=== PATIENT | female | born 1935 | race Caucasian/White ===

== ENCOUNTER 2023-12-04 16:53 | Inpatient (IN) | payer OTHER, SELFPAY ==
[2023-12-04] VITALS (13 sets, daily range): BP systolic 83–128; BP diastolic 37–72; BMI 34.6
--- NOTE | 2023-12-04 12:39 | W.PN.CARDCBS ---
Today's Communication / Plan
-
NPO
LHC today
gentle IVF hydration pre/post cath
asa today if not given
plavix allergy noted
Impression / Plan
-
This is the Cardiology H&P
See scanned H&P in reports.
PCP: Primitivo Cedeno MD
CDY: Goyo Seymour MD
HPI: 87 y/o white female, PMH sig for CAD with prior LAD & LCx BMS x2 in 2014, and distal LCx/OM VANGIE in 2021, Carotid disease with CEA 2009 complicated by post op CVA, AFib on eliquis, HTN, HLD, DM, hypothyroid, CKD4, asthma.
New onset of chest tightness/dyspnea for a few days. She was using her PRN ProAir inhaler thinking it was related to asthma, and it did work for a short time and then it wasn't helping anymore. She was unable to catch her breath yesterday, and
presented to [facility] ER where she ruled in for NSTEMI with peak CK 1858, MB 200, HS Troponin 8554. An echo today revealed decreased LVSF, EF 30%, grade III LV diastolic dysfunction, with multiple segmental WMA, severely dilated LA, mod MR with severe
MAC, mod-severe TR. Eliquis held and started on IV heparin. SIMI noted in addition to CKD4, with creat 1.94, GFR 25 today.
A CXR showed pulmonary edema with possible associated pneumonia, cardiomegaly and congestion.
She has an allergy to plavix that was noted as a retinal hemorrhage.
Transferred today for [facility].
IMPRESSION/PLAN:
Acute NSTEMI
CAD w/prior BMS x2 to LAD, LCx (2014) and distal LCx/OM VANGIE (2021)
Peak HS troponin 8554
LHC today
pre cath hydration for creat 1.94/GFR 25
asa today if not given
allg noted to plavix- this is not a true allergy
cardiac rehab consult
followup with Dr. Seymour at d/c
Ischemic Cardiomyopathy
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
acute pulmonary edema
echo results noted- mod MR and mod-sev TR
will need to be started on max roscoe GDMT
currently on: Losartan 20/d, empagliflozin 10/d, metoprolol xl 25mg BID
was diuresed at [facility], would add po lasix, spironolactone if BP can tolerate
HF educator consult
consider LifeVest, repeat echo in 2 months
Acute hypoxic respiratory failure/pulmonary edema
Hx COPD/Reactive airway disease
currently status much improved
possible PNA on CXR, had started on abx
had been started on prednisone last week by PCP for RAD
PRN albuterol, O2 support as needed
HLD- continue high intensity statin therapy
lipitor 80/d
check CVE in AM
AFib- currently in sinus rhythm
eliquis on hold for cath
restart post cath when stable
CKD4/SIMI
creatinine/GFR worse this admission- 1.94/25
baseline from 2021- 1.2-1.5
hydrate pre/post cath per protocol as tolerated
repeat BMP in AM
IDDM- on daily lantus, ISS lispro
check HgbA1C
DM educator consult as needed
HTN- monitor trends on current therapy
Carotid disease, prior CEA w/CVA post op
residual right eye blindness
Elevated LFTs- repeat in AM
Progress Note - Minesweeping Officer
Subjective
Date of Service: December 04, 2023
[2023-12-04 14:17] LABS: Glucose - Point of Care 277 mg/dl (70-99)
[2023-12-04 15:51] LABS: ACT-LR - POC 239 Seconds (116-155)
[2023-12-04 16:12] LABS: ACT-LR - POC 244 Seconds (116-155)
--- NOTE | 2023-12-04 16:35 | CM ---
Pricing on Brilinta 90mg BID through the patient's [employer] is $108.97 for a 30 day supply. Patient is in the coverage gap, so she is responsible for paying 25% of cost.
--- NOTE | 2023-12-04 16:57 | ITS.CL.ANGIO ---
Ham Trimmer - Angioplasty
Angioplasty
Procedure Report:
LEFT HEART CATHETERIZATION
Date of Procedure: December 04, 2023
Procedures performed:
1: Coronary angiography
2: Left ventricular hemodynamic assessment
3: Percutaneous coronary intervention of the ostial/proximal LAD with placement of a 2.75 x 22 mm [place] drug-eluting stent postdilated at high pressure with a 3.25 mm diameter noncompliant balloon
Primary Care Physician: Dr. Primitivo Cedeno
Primary Machine Operator: Myself
INDICATION: The patient is an 87-year-old woman with a complex past medical history including coronary artery disease status post LAD and multiple circumflex stenting most recently in 2021, chronic renal insufficiency with a creatinine running
around 2.0, insulin-dependent diabetes, hypertension, hyperlipidemia, and persistent atrial fibrillation last documented in 2021 who presents with new dyspnea and rules in for a non-ST elevation [place]. Echocardiography performed this morning showed a
new drop in LV systolic function with a visually estimated ejection of 30% and new LAD wall motion abnormality. She is transferred from [facility] to [place] for urgent cardiac catheterization.
ACCESS: The patient was prepped and draped in usual sterile fashion. A 6 Czech sheath was placed in the right radial artery using the Seldinger over the wire technique.
HEMODYNAMIC FINDINGS (mmHg):
LV(s/d,EDP): 96/15, 24
Ao(s/d,m): 96/45, 66
ANGIOGRAPHIC FINDINGS:
Single-plane Left Ventriculography in [place] Projection: Not done.
Coronary Angiography:
Dominance: Left
Left Main: Short, widely patent.
Left Anterior Descending: The left anterior descending artery is a medium caliber vessel that has diffuse proximal and mid calcification throughout its course. There is a true ostial 80 to 90% stenosis which has progressed from prior angiography in
2021. The previously placed mid LAD stent is widely patent with no significant in-stent restenosis. There are several small diagonal branches that have small vessel disease but are patent with normal flow.
Left Circumflex: The left circumflex is a medium caliber dominant vessel that gives rise to 2 tiny obtuse marginal branches, a medium caliber third obtuse marginal branch, large fourth obtuse marginal branch and a left-sided posterior descending
artery. The proximal circumflex has a long area of calcific smooth 40 to 50% disease. The third obtuse marginal branch is functionally occluded with only faint antegrade flow and evidence of left to left distal collaterals. This is not
significantly changed when compared to prior angiography in 2021. The previously placed overlapping stents extending into the fourth obtuse marginal branch are widely patent with no significant in-stent restenosis and normal flow. The distal
circumflex is occluded and the left sided posterior descending artery fills faintly through left to left collaterals.
Right Coronary: The right coronary artery is a small nondominant vessel that has a smooth 80% proximal stenosis which appears unchanged from prior angiography.
Percutaneous Coronary Intervention (PCI): In light of her clinical presentation and the above complex disease in the setting of her advanced age, renal insufficiency, and new LV dysfunction, I discussed the complex disease and situation with her
daughters who I brought into the control room. I felt her best option was high risk PCI of the culprit ostial/proximal LAD but recognized that this was definitely high risk with her known obstructive disease in the jailed marginal branch and
occluded distal dominant PDA. She had previously opted against surgery in 2014 and ultimately we decided to proceed with an attempt at percutaneous revascularization. She was pretreated with aspirin. Unfractionated heparin was given. A 7 Czech
introducer was placed with ultrasound guidance and a micropuncture sheath in her right common femoral artery. A 7 Czech JL 4 guide was used. A BMW wire was advanced into the circumflex for protection. A Hi-Torque floppy wire was easily advanced
across the preocclusive ostial lesion and into the distal LAD. Predilation was performed with a 2.5 mm compliant balloon. Attempts to advance a stent were not successful so redilation with a 2.5 mm noncompliant balloon at high pressure was
performed. This facilitated delivery of a 2.75 x 22 mm [place] drug-eluting stent which was deployed at 16 dontae. The stent was postdilated with a 3.25 mm diameter noncompliant balloon at 16 dontae distally and 20 dontae proximally. Follow-up angiography
revealed some residual proximal in-stent stenosis so I repeated post dilation with a 3.25 mm diameter noncompliant balloon to 26 dontae. Fortunately the patient tolerated this without hemodynamic consequence. Of note, the ST depressions immediately
resolved with stenting. A loading dose of clopidogrel 600 mg was given on the table at the end of the procedure.
FINAL RESULT: 0% in-stent residual stenosis with an excellent angiographic result and JELENA-3 flow in all distal vessels. Of note, the left to left collaterals to the circumflex vessels appeared improved.
Fluoroscopy Time (min): 9.8
Radiation Dose (mGy): 1150
DAP (Gy.cm2): 83
Closure device: 8 Czech Angio-Seal to right common femoral artery. A TR band was applied for hemostasis at the right wrist.
Complications: None.
ASSESSMENT:
1: Successful PCI of the LAD with placement of a drug-eluting stent as described above.
2: Widely patent previously placed mid LAD stent and overlapping circumflex proper stents with known critical disease involving the jailed obtuse marginal branch and chronically occluded distal left sided posterior descending artery.
CONCLUSIONS and RECOMMENDATIONS:
1: Routine post non-STEMI and post drug-eluting stent medical therapy and monitoring. I will give dual antiplatelet therapy with aspirin and clopidogrel 75 mg daily uninterrupted for at least 6 months.
2: Medical therapy for LV systolic dysfunction. Hopefully her ejection fraction will recover with reperfusion.
Ryder Seymour M.D.
Copy to: Dr. Primitivo Cedeno
--- NOTE | 2023-12-04 16:58 | CM ---
Chart reviewed. Patient is independent of ADLS, lives alone in a 2 STH, 2 ANSON, 0 DME. Patient is not current with VN. Plan is for the patient to return home. CM to follow
[2023-12-04 17:27] LABS: Glucose - Point of Care 196 mg/dl (70-99)
--- NOTE | 2023-12-04 17:53 | PTCARENOTE ---
received patient from crown and bridge dental lab technician right radial has r band, intact, good pulse, right fem artery dsg with angioseal intact, no oozing, no hematoma, distal pulse palpable. monitor placed NSR, VSS. INT in left ant. leaking therefore D/C'd. int in left
wrist/hand has IV NSS delivered as ordered.oriented patient and family to post cath orders and room, all verbalizes understanding. please see worklist and MAR.
[2023-12-04] MEDS: NOVOLOG FLEXPEN-HIGH RESISTANCE 2 UNITS SC (18:11)
[2023-12-04 21:15] LABS: Glucose - Point of Care 323 mg/dl (70-99)
[2023-12-04] MEDS: LIPITOR 80 MG PO (21:15)
[2023-12-05] VITALS (37 sets, daily range): BP systolic 74–151; BP diastolic 47–140; BMI 37.0
--- NOTE | 2023-12-05 01:26 | PTCARENOTE ---
Pt oob after 8pm. Assisted to bathroom. gait slightly unsteady,improved after 2 nd trip. Pt aware to having nursing with her when she ambulates. Right radial and right groin sites remain dry with no hematomas present. call bejarano within reach.
[2023-12-05 04:00] LABS: Hematocrit 27.6 % (37.0-47.0); Hemoglobin 9.9 g/dL (12.0-16.0); Mean Corp Hgb Conc. 35.9 g/dL (33.0-37.0); Mean Corpuscular Hgb 29.9 pg (27.0-31.0); Mean Corpuscular Volume 83.4 fL (81.0-99.0); Mean Platelet Volume 10.8 fL (7.4-10.4); Platelet Count 240 10^3/uL (130-400); Red Blood Cell Count 3.31 10^6/uL (4.20-5.40); Red Cell Dist. Width 13.8 % (11.5-14.5); White Blood Cell Count 15.5 10^3/uL (4.8-10.8)
[2023-12-05 04:22] LABS: ALT (SGPT) 41 U/L (0-35); AST (SGOT) 237 U/L (14-36); Albumin 3.3 g/dl (3.5-5.0); Alkaline Phosphatase 100 U/L (38-126); Blood Urea Nitrogen 77 mg/dl (7-17); Calcium 8.4 mg/dl (8.4-10.2); Carbon Dioxide 24 mmol/L (22-30); Chloride 104 mmol/L (98-107); Estimated Creatinine Clearance 20 ml/min; Glucose 275 mg/dl (70-99); HDL Cholesterol 56 mg/dl; LDL Cholesterol, Calculated 54 mg/dl; Sodium 139 mmol/L (135-145); Total Bilirubin 0.5 mg/dl (0.2-1.3); Total Cholesterol 141 mg/dl (50-199); Total Protein 5.6 g/dl (6.3-8.2); Triglyceride 159 mg/dl (10-149); Very Low Density Lipoprotein 31 mg/dl (0-30); eGFR 27.27
[2023-12-05 04:30] LABS: NT-proBNP > 27000 pg/ml
[2023-12-05] MEDS: SYNTHROID 125 MCG PO (06:31)
[2023-12-05 07:56] LABS: Glucose - Point of Care 270 mg/dl (70-99)
[2023-12-05] MEDS: LOPRESSOR 5 MG IV (08:00)
[2023-12-05] MEDS: TOPROL XL 25 MG PO (08:08)
[2023-12-05] MEDS: PLAVIX 75 MG PO (08:09)
[2023-12-05] MEDS: LOW STRENGTH ASPIRIN 81 MG PO (08:09)
[2023-12-05] MEDS: JARDIANCE 10 MG PO (08:10)
[2023-12-05] MEDS: COZAAR PO (08:10)
--- NOTE | 2023-12-05 08:11 | W.PN.CARDCBS ---
Addendum entered and electronically signed by Bryon Waters MD 12/05/23 12:09:
Her blood pressure did not tolerate intravenous Cardizem even without a bolus and even with decreasing the drip.
-Will increase amiodarone to 400 mg p.o. 3 times daily
-Will add as needed metoprolol 5 mg IV every 4 hours for heart rate greater than 120 bpm
-Will stop metoprolol succinate
-Will add metoprolol to tartrate 25 mg p.o. every 6 hours for heart rate greater than 120 bpm
Acute plan will be to try to achieve reasonable rate control over the next 24 hours.
Maintain oral anticoagulation which was reinitiated within 24 hours of AF onset.
If she becomes unstable she will need cardioversion.
Discussed with patient, her daughter who is at bedside and also discussed with IVU nursing
Addendum entered and electronically signed by Bryon Waters MD 12/05/23 10:49:
Patient seen, interviewed and examined by me.
She tells me she has no chest pain but she still feels short of breath.
Well-appearing, appears mildly short of breath.
Regular rate and rhythm with normal S1 and S2, no S3 no S4. There is a grade 1/6 apical holosystolic murmur and no rubs. PMI is normally placed.
Lungs are clear to auscultation bilaterally without wheezes rales or rhonchi.
Abdomen soft nontender nondistended with normoactive bowel sounds
Extremities show trace pretibial edema bilaterally no clubbing or cyanosis.
Neurologic exam is grossly nonfocal.
Agree with advanced practice professionals assessment and plan as noted below.
Additionally:
I am concerned for ongoing volume overload and heart failure.
Creatinine 1.8 and creatinine was 1.9 and [facility] the day prior but I do not know what her true baseline is. Reviewing her medical history mentions nothing about chronic kidney disease.
Will give just 20 mg of IV Lasix today and follow volume status and renal function closely.
Discussed with patient companion.
Will initiate Eliquis and maintain ' triples' with dual antiplatelet therapy and Eliquis while she is hospitalized. At discharge we will stop aspirin and maintain Eliquis and Plavix.
She has a history of atrial fibrillation but reportedly had been in mostly sinus rhythm the past couple of years. Today she is back in atrial fibrillation with very rapid ventricular rates and this may be contributing to her ongoing shortness of
breath.
Will add amiodarone 200 mg 3 times daily
Will start Cardizem drip to more acutely control her heart rate
I have discussed with hospitalist.
Will transfer for primary service to hospitalist service and we will continue to follow, but as consultants.
Original Note:
Today's Communication / Plan
-
Rapid Afib, given Lopressor 5 mg IV x1 and regular dose of Toprol XL
Might need to start Cardizem gtt
No longer taking Eliquis in favor of DAPT s/p ostial LAD stent yesterday and h/o eye hemorrhages
LVEDP was 24 and was diuresed at [facility] prior to transfer, no Lasix ordered and EF is newly reduced at 30%, consider adding Lasix 20 mg PO daily
CM and post-NSTEMI meds appropriate
Impression / Plan
-
PCP: Primitivo Cedeno MD
CDY: Goyo Seymour MD
IMPRESSION:
Admitted to [facility] with acute hypoxic respiratory failure/pulmonary edema, HF and NTSEMI 12/03/23
Transferred to for cath 12/04/23
Acute HFrEF
ICM EF 30%
CAD
s/p LAD & LCx BMS x2 in 2014
s/p distal LCx/OM VANGIE in 2021
s/p NSTEMI and 2.75 mm Ramon VANGIE to ostial/prox LAD 12/04/23
Paroxysmal Afib with RVR starting 12/05/23 AM
Paroxysmal Afib
Chronic Eliquis OAC
Eliquis stopped by Dr. Seymour in favor of DAPT 12/04/23
Hyperlipidemia
SIMI on CKD 4
Cre 1.94 at [facility] 12/04/23
DM 2
Blind in left eye due to previous retinal hemorrhage and infection
Elevated LFTs
Echo 01/23/2022: EF 50 to 54%, moderate MR, mild MS with mean MV gradient 5 mmHg, mild to moderate TR with PAP 45 to 50 mmHg
Echo 12/04/2023: [facility] study, EF 30%, LAD wall motion abnormality
Plan:
-Patient went to [facility] ER 12/03/23 with chest pain and SOB and was admitted with pulmonary edema and NSTEMI. Patient was transferred to 12/04/23 for cath.
-No Troponin levels checked at . At [facility] peak CK 1858, MB 200, HS Troponin 8554. EF was newly reduced at 30% at [facility].
-Patient had ostial/prox LAD PCI at 12/04/23. Started on aspirin and Plavix.
-Outpatient dose of Eliquis 2.5 mg BID stopped in favor of DAPT. Patient is asymptomatic with Afib.
-Outpatient dose of Toprol XL 25 mg BID has been continued.
-Outpatient dose of losartan 25 mg daily has been continued.
-Outpatient dose of Jardiance 10 mg daily has been continued.
-LDL 54. Outpatient dose of atorvastatin 80 mg daily has been continued.
-Cardiac rehab consulted
-Patient with acute HF on admission to [facility]. Patient was reportedly diuresed at [facility], but details unclear. LVEDP 24 at time of cath 12/04/23. Patient was not taking a diuretic prior to admission. Consider adding Lasix 20 mg PO daily.
-EF now 30%, will manage as an ICM. Outpatient Toprol XL, losartan and Jardiance as is. Could consider adding spironolactone pending BP, but also with caution given h/o hyperkalemia.
-Patient with known paroxysmal Afib and was in SR until 12/05/23 AM when patient started with asymptomatic rapid Afib and HRs to the 170s. ECG reviewed by me shows rapid Afib. Lopressor 5 mg IV x1 given and then her usual dose of Toprol XL 25 mg BID.
Pending HR response will consider starting Cardizem gtt
-Patient is no longer on OAC due to preference for DAPT. Triple therapy was not started due to h/o eye hemorrhages. Will review with primary precision structural metal fitter.
-AST/ALT 331/41 at [facility] 12/04/23 and are trending down to 237/41 at on 12/05/23
HPI: 87 y/o white female, PMH sig for CAD with prior, Carotid disease with CEA 2009 complicated by post op CVA, AFib on eliquis, HTN, HLD, DM, hypothyroid, CKD4, asthma.
New onset of chest tightness/dyspnea for a few days. She was using her PRN ProAir inhaler thinking it was related to asthma, and it did work for a short time and then it wasn't helping anymore. She was unable to catch her breath yesterday, and
presented to [facility] ER where she ruled in for NSTEMI with An echo today revealed decreased LVSF, EF 30%, grade III LV diastolic dysfunction, with multiple segmental WMA, severely dilated LA, mod MR with severe MAC, mod-severe TR. Eliquis held and
started on IV heparin. SIMI noted in addition to CKD4, with creat 1.94, GFR 25 today.
A CXR showed pulmonary edema with possible associated pneumonia, cardiomegaly and congestion.
She has an allergy to plavix that was noted as a retinal hemorrhage.
Transferred today for [facility].
Progress Note - Animal Assisted Therapist
Subjective
Date of Service: December 05, 2023
Denies palpitations, but feels nervous
Objective
Labs:
12/05/23 03:45
12/05/23 03:45
Labs
Hgb 9.9 g/dL (12.0-16.0) L 12/05/23 03:45
Hct 27.6 % (37.0-47.0) L 12/05/23 03:45
Plt Count 240 10^3/uL (130-400) 12/05/23 03:45
Sodium 139 mmol/L (135-145) 12/05/23 03:45
Potassium 5.0 mmol/L (3.5-5.1) 12/05/23 03:45
BUN 77 mg/dl (7-17) H 12/05/23 03:45
Creatinine 1.8 mg/dL (0.6-1.0) H 12/05/23 03:45
Glucose 275 mg/dl (70-99) H 12/05/23 03:45
Vital Signs and I&O:
Vital Signs
Temp Pulse Resp BP Pulse Ox
97.3 F 97 18 129/76 94
12/05/23 07:49 12/05/23 03:28 12/05/23 07:49 12/05/23 03:28 12/05/23 07:49
Vital Signs
Temp Pulse Resp BP Pulse Ox
97.3 F 97 18 129/76 94
12/05/23 07:49 12/05/23 03:28 12/05/23 07:49 12/05/23 03:28 12/05/23 07:49
Intake & Output
12/03/23 12/04/23 12/05/23 12/06/23
06:59 06:59 06:59 06:59
Intake Total 565 / 565
Output Total 300 / 300
Balance 265 / 265
Physical Exam
Physical Exam
GEN: NAD. AAOx3
HEENT: mmm
LUNGS: No audible wheeze
CV: Right radial without hematoma. Rapid Afib
ABD: ND
EXT: No edema
NEURO: Gross non-focal
SKIN: No rash
[2023-12-05] MEDS: NOVOLOG FLEXPEN-HIGH RESISTANCE 7 UNITS SC (08:43)
[2023-12-05] MEDS: LANTUS 0.24 UNITS SC (08:44)
[2023-12-05] MEDS: PROTONIX 40 MG PO (08:45)
[2023-12-05] MEDS: COZAAR 25 MG PO (10:37)
[2023-12-05] MEDS: LASIX 20 MG PO (10:37)
[2023-12-05] MEDS: PACERONE 200 MG PO (10:38)
[2023-12-05 10:41] LABS: Creatine Phosphokinase 1128 U/L (30-135)
[2023-12-05] MEDS: CARDIZEM 125 IV (11:23)
--- NOTE | 2023-12-05 11:45 | PTCARENOTE ---
Received patient this morning resting in bed, assisted oob to the scale and bathroom. While lying in bed patient went into a CRISTOFER with rates in the 160-170's. Was asymptomatic, stating she has not felt when she is in AF in the past. Darryl FINN
notified and patient given lopressor 10mg IV as ordered. Given morning meds, including PO dose of metoprolol however HR remained in the 160-170's. Seen by Dr. Waters, given PO amio and started on caridzem gtt at 10mg/hr at 1130. BP immediately
dropped to the 80's systolic, patient remains asymptomatic, lying supine in bed. Notified Dr. Waters, attempted to decreased cardizem gtt to 5mg/hr however BP still 86/61. Dr. Waters notified, gtt on hold and he will see the patient.
Nicole on the floor to round on the patient and was updated.
[2023-12-05 12:28] LABS: Glucose - Point of Care 193 mg/dl (70-99)
[2023-12-05] MEDS: NOVOLOG FLEXPEN-HIGH RESISTANCE 2 UNITS SC (12:28)
[2023-12-05] MEDS: NSS 250 IV (13:00)
--- NOTE | 2023-12-05 13:14 | W.PN.HOSP.TC ---
Addendum entered and electronically signed by Orion Nicole MD 12/05/23 17:51:
Changed insulin fro high to mod coverage and added schedule NovoLog 5 units AC. Cont Perfecto.
Original Note:
Today's Communication/Plan
-
Rate control and antiarrhythmics as well as diabetic management.
Assessment / Plan
Assessment / Plan
Physical exam:
General: Acutely ill
HEENT: Normocephalic, Atraumatic and Moist Mucous Membranes
Respiratory: Clear to Auscultation; Negative Wheezes, Rales or Rhonchi
Cardiac: Irregular rate and rhythm, tachycardic, and S1/S2
GI: Soft, Nontender and Nondistended
Musculoskeletal: No Clubbing, No Cyanosis and No Edema
Neuro: Awake, Alert and Oriented
Psych: Calm
A/P:
I was asked to see this patient today. It appears that she was admitted by cardiology yesterday as a transfer from [facility], and they are asking us to transfer to our service today on 12/05/2023.
Non-STEMI:
Cardiac cath on 12/03, ostial/proximal LAD PCI
Triple therapy with DAPT and anticoagulant, beta-blockers, ARB, high-dose statins
Cardiology following and probably anticoagulant and one antiplatelet upon discharge
Paroxysmal atrial fibrillation with rapid ventricular response:
Did not tolerated Cardizem drip due to hypotension
Continue rate control agents, B-Blockers--> metoprolol tartrate 25 mg p.o. every 6 hours
Continue antiarrhythmic agents, amiodarone 400 mg orally 3 times daily
Continue anticoagulation, DOAC--> Eliquis 2.5 mg twice a day
Continue cardiac monitoring
Acute HFrEF:
IV diuretics switched to oral Lasix 20 mg daily
BNP upon admission
Monitor strict I/O
Monitor daily weight
Monitor renal function and electrolytes
Reviewed latest echocardiogram on our system
Continue guideline-directed medical therapy for heart failure (GDMT)
Fluid restriction
Salt restriction
Heart failure education
Follow up clinical response
CKD, stage III:
Avoid nephrotoxic
Monitor renal function closely
Leukocytosis:
Likely reactive but monitor for any signs of infection
Trend
Anemia:
Hemoglobin 9.9 today
Monitor for stability
Diabetes mellitus type 2:
On insulin sliding scale
On Jardiance 10 mg p.o. daily
Monitor blood sugars and adjust medications accordingly
Obtain hemoglobin A1c
Hypothyroidism:
Continue levothyroxine 125 mcg daily
DVT prophylaxis:
On Eliquis
CODE STATUS:
Full code
Total time spent on today's encounter was 52 minutes which included time spent in counseling the patient/family regarding diagnosis and treatment plan as listed above, goals of care, and symptom management. Case was discussed with nursing staff,
specialists, and care coordinators/case management. All labs and imaging personally reviewed by me. Remainder the time spent in detailed review of previous records, lab data, imaging, and other medical provider documentation.
Anticipated Discharge: > 48 hours
Subjective/Interval History
-
Date of Service: December 05, 2023
Objective Data
-
Labs:
Laboratory Results
12/05/23
03:45
WBC 15.5 H
Hgb 9.9 L
Hct 27.6 L
Plt Count 240
Sodium 139
Potassium 5.0
Chloride 104
Carbon Dioxide 24
BUN 77 H
Creatinine 1.8 H
Glucose 275 H
Calcium 8.4
Total Bilirubin 0.5
AST 237 H
ALT 41 H
Alkaline Phosphatase 100
Vital Signs:
Vital Signs
Temp Pulse Resp BP Pulse Ox
97.5 F 143 18 86/57 100
12/05/23 11:38 12/05/23 12:00 12/05/23 11:38 12/05/23 12:00 12/05/23 11:38
I&O
12/04/23 12/05/23 12/06/23
06:59 06:59 06:59
Intake Total 565 / 565 240 / 240
Output Total 300 / 300
Balance 265 / 265 240 / 240
[2023-12-05 13:31] LABS: Glycohemoglobin (HgbA1c) 8.9 % (4.0-5.6)
[2023-12-05] MEDS: PACERONE 400 MG PO ×2 (17:08→22:10)
[2023-12-05 17:14] LABS: Glucose - Point of Care 307 mg/dl (70-99)
[2023-12-05] MEDS: NOVOLOG FLEXPEN-HIGH RESISTANCE 10 UNITS SC (17:14)
[2023-12-05] MEDS: LOPRESSOR 25 MG PO ×2 (19:11→23:56)
[2023-12-05] MEDS: ELIQUIS 2.5 MG PO (20:02)
[2023-12-05 21:06] LABS: Glucose - Point of Care 176 mg/dl (70-99)
[2023-12-05] MEDS: LIPITOR 80 MG PO (22:09)
[2023-12-05 22:21] LABS: Glucose - Point of Care 123 mg/dl (70-99)
[2023-12-06] VITALS (13 sets, daily range): BP systolic 79–119; BP diastolic 41–82; PULSE 61–62; O2SAT 97; BMI 33.9
--- NOTE | 2023-12-06 00:01 | PTCARENOTE ---
Pt rec'd at change of shift in rapid afib. converted to sinus at 2316. right radial and right groin sites intact, no active bleeding or hematoma present. accu check at 2104 176 at 2218 pt stated she thought her blood sugar might be dropping. accu
check repeated at 2218 with result 123. hs snack given
--- NOTE | 2023-12-06 05:05 | PTCARENOTE ---
Pt remains in sinus rhythm ht rate 50's.
[2023-12-06 05:14] LABS: Hematocrit 27.6 % (37.0-47.0); Hemoglobin 9.4 g/dL (12.0-16.0); Mean Corp Hgb Conc. 34.1 g/dL (33.0-37.0); Mean Corpuscular Hgb 29.4 pg (27.0-31.0); Mean Corpuscular Volume 86.3 fL (81.0-99.0); Mean Platelet Volume 11.3 fL (7.4-10.4); Platelet Count 245 10^3/uL (130-400); White Blood Cell Count 11.4 10^3/uL (4.8-10.8)
[2023-12-06 05:37] LABS: ALT (SGPT) 36 U/L (0-35); AST (SGOT) 110 U/L (14-36); Albumin 3.4 g/dl (3.5-5.0); Alkaline Phosphatase 86 U/L (38-126); Blood Urea Nitrogen 80 mg/dl (7-17); Calcium 8.3 mg/dl (8.4-10.2); Carbon Dioxide 23 mmol/L (22-30); Chloride 104 mmol/L (98-107); Estimated Creatinine Clearance 17 ml/min; Glucose 159 mg/dl (70-99); Sodium 137 mmol/L (135-145); Total Bilirubin 0.5 mg/dl (0.2-1.3); Total Protein 5.8 g/dl (6.3-8.2); eGFR 22.66
[2023-12-06 05:44] LABS: NT-proBNP > 27000 pg/ml
[2023-12-06] MEDS: LOPRESSOR 25 MG PO ×3 (06:39→17:57)
[2023-12-06] MEDS: SYNTHROID 125 MCG PO (06:39)
[2023-12-06 07:18] LABS: Glucose - Point of Care 202 mg/dl (70-99)
[2023-12-06] MEDS: NOVOLOG FLEXPEN 5 UNITS SC ×3 (08:21→17:40)
[2023-12-06] MEDS: NOVOLOG FLEXPEN-MODERATE RESISTANCE 3 UNITS SC ×2 (08:21→17:40)
[2023-12-06] MEDS: LANTUS 0.24 UNITS SC (08:23)
[2023-12-06] MEDS: PROTONIX 40 MG PO (08:25)
[2023-12-06] MEDS: LASIX 20 MG PO (08:25)
[2023-12-06] MEDS: LOW STRENGTH ASPIRIN 81 MG PO (08:25)
[2023-12-06] MEDS: PLAVIX 75 MG PO (08:26)
[2023-12-06] MEDS: PACERONE 400 MG PO (08:26)
[2023-12-06] MEDS: COZAAR 25 MG PO (08:26)
[2023-12-06] MEDS: JARDIANCE 10 MG PO (08:26)
[2023-12-06] MEDS: ELIQUIS 2.5 MG PO ×2 (08:26→20:17)
--- NOTE | 2023-12-06 09:35 | W.PN.CARDCBS ---
Today's Communication / Plan
-
I believe she is currently volume overloaded and will give Lasix 40 mg IV now and daily
She has converted to sinus rhythm, maintain amiodarone and maintain beta-lay
Maintain 'triples' for now
Consider further evaluation of her anemia
Impression / Plan
-
PCP: Primitivo Cedeno MD
CDY: Goyo Seymour MD
IMPRESSION:
Admitted to [facility] with acute hypoxic respiratory failure/pulmonary edema, HF and NTSEMI 12/03/23
Transferred to for cath 12/04/23
- Acute HFrEF, EF was newly reduced at 30% at [facility].
- NSTEMI
Coronary artery disease
s/p LAD & LCx BMS x2 in 2014
s/p distal LCx/OM VANGIE in 2021
s/p NSTEMI and 2.75 mm Ramon VANGIE to ostial/prox LAD 12/04/23
- Paroxysmal Afib with RVR starting 12/05/23 AM, this is not a new diagnosis he has prior history of paroxysmal atrial fibrillation
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
Cre 1.94 at [facility]
- Hyperlipidemia
- DM 2
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
- Elevated LFTs improving and likely related to some component of shock liver
Echo 01/23/2022: EF 50 to 54%, moderate MR, mild MS with mean MV gradient 5 mmHg, mild to moderate TR with PAP 45 to 50 mmHg
Echo 12/04/2023: [facility] study, EF 30%, LAD wall motion abnormality
Cath 12/04/23:
Successful PCI of the LAD with placement of a drug-eluting stent as described above.
Widely patent previously placed mid LAD stent and overlapping circumflex proper stents with known critical disease involving the jailed obtuse marginal branch and chronically occluded distal left sided posterior descending artery.
Plan:
-Coronary artery disease including acute non-ST segment elevation myocardial infarction complicated by decompensated HFrEF
At [facility] peak CK 1858, MB 200, HS Troponin 8554. EF was newly reduced at 30% at [facility]. CPK here 12/05/23 is 1128
Discussed with IC: Maintain ' triples' with dual antiplatelet therapy and Eliquis (AF) while she is hospitalized. At discharge plan to stop aspirin and maintain Eliquis and Plavix.
Continue statin
Continue beta-lay
Cardiac rehab consulted
-Regarding heart failure with reduced ejection fraction, this is new diagnosis in the setting of acute myocardial infarction
She is volume overloaded with continued dyspnea, LVEDP of 24 mmHg at time of cath December 04, 2023 and proBNP here greater than 27,000. My read of chest x-ray December 06, 2023 finds small bilateral pleural effusions as well as increased vascular
congestion suggestive of CHF.
Needs diuresis, will initiate IV Lasix today starting with 40 mg IV now and daily
Close attention to renal function as creatinine is worsening with an increase from 1.8 yesterday to 2.1 today
Hypotension is limiting medical therapy for heart failure with reduced ejection fraction
Given hypotension as well as worsening renal function will hold losartan
Continuing empagliflozin for now but follow renal function closely
If creatinine worsens consider renal evaluation
-Regarding atrial fibrillation, she has recurred with atrial fibrillation this hospital stay and at times rates were very rapid and associated with worsening shortness of breath as well as hypotension
She converted to sinus rhythm at approximate 11:15 PM December 05, 2023
Amiodarone added, will reduce dose to 200 mg 3 times daily today
Toprol-XL changed to metoprolol tartrate for acute rate control with as needed IV beta-lay (Cardizem drip resulted in significant hypotension)
Maintain Eliquis oral anticoagulation for atrial fibrillation related thromboembolic risk reduction (CHADSVASc = 6 due to CHF, age, DM, Vasc dz, F)
-Transaminitis likely related to some component of shock liver
LFTs are improving therefore reasonable to continue amiodarone as well as statin but keep close eye on LFTs
-Anemia
Appears to be at recent baseline, but uncertain of etiology
Note rather marked BUN along with elevated creatinine, could there be a GI bleed component? Further evaluation of anemia as per primary service
Total time 55 minutes
HPI: 87 y/o white female, PMH sig for CAD with prior, Carotid disease with CEA 2009 complicated by post op CVA, AFib on eliquis, HTN, HLD, DM, hypothyroid, CKD4, asthma.
New onset of chest tightness/dyspnea for a few days. She was using her PRN ProAir inhaler thinking it was related to asthma, and it did work for a short time and then it wasn't helping anymore. She was unable to catch her breath yesterday, and
presented to [facility] ER where she ruled in for NSTEMI with An echo today revealed decreased LVSF, EF 30%, grade III LV diastolic dysfunction, with multiple segmental WMA, severely dilated LA, mod MR with severe MAC, mod-severe TR. Eliquis held and
started on IV heparin. SIMI noted in addition to CKD4, with creat 1.94, GFR 25 today.
A CXR showed pulmonary edema with possible associated pneumonia, cardiomegaly and congestion.
She has an allergy to plavix that was noted as a retinal hemorrhage.
Transferred today for [facility].
Progress Note - Truck Service Manager
Subjective
Date of Service: December 06, 2023
No chest pain but she does feel winded when she gets up and ambulate.
Objective
Labs:
12/06/23 04:24
12/06/23 04:24
Labs
Hgb 9.4 g/dL (12.0-16.0) L 12/06/23 04:24
Hct 27.6 % (37.0-47.0) L 12/06/23 04:24
Plt Count 245 10^3/uL (130-400) 12/06/23 04:24
Sodium 137 mmol/L (135-145) 12/06/23 04:24
Potassium 5.0 mmol/L (3.5-5.1) 12/06/23 04:24
BUN 80 mg/dl (7-17) H 12/06/23 04:24
Creatinine 2.1 mg/dL (0.6-1.0) H 12/06/23 04:24
Glucose 159 mg/dl (70-99) H 12/06/23 04:24
Vital Signs and I&O:
Vital Signs
Temp Pulse Resp BP Pulse Ox
97.7 F 60 20 97/63 97
12/06/23 07:13 12/06/23 08:26 12/06/23 07:13 12/06/23 08:26 12/06/23 07:13
Vital Signs
Temp Pulse Resp BP Pulse Ox
97.7 F 60 20 97/63 97
12/06/23 07:13 12/06/23 08:26 12/06/23 07:13 12/06/23 08:26 12/06/23 07:13
Intake & Output
12/04/23 12/05/23 12/06/23 12/07/23
06:59 06:59 06:59 06:59
Intake Total 565 / 565 240 / 240
Output Total 300 / 300
Balance 265 / 265 240 / 240
Physical Exam
Physical Exam
Elderly woman resting in bed appears comfortable
Elevated JVD approximately 8 to 9 cm
Regular rate and rhythm with normal S1 and S2, no S3 no S4 there is a grade 1/6 apical holosystolic murmur no rubs
Lungs crackles at both bases along with mildly reduced breath sounds at the bases, no wheezes and no rhonchi
Abdomen soft nontender nondistended with normoactive bowel sounds
Extremities with trace pretibial edema bilaterally
[2023-12-06] MEDS: LASIX 40 MG IV (10:35)
[2023-12-06] MEDS: FLUSH (NSS) 1 FLUSH IV (10:36)
--- NOTE | 2023-12-06 11:02 | W.PN.HOSP.TC ---
Today's Communication/Plan
-
Adjust insulin. IV Lasix. Antiarrhythmics and rate control. Anti-ischemic regimen.
Assessment / Plan
Assessment / Plan
Physical exam:
General: Acutely ill
HEENT: Normocephalic, Atraumatic and Moist Mucous Membranes
Respiratory: Clear to Auscultation; Negative Wheezes, Rales or Rhonchi
Cardiac: Regular rate and rhythm, and S1/S2
GI: Soft, Nontender and Nondistended
Musculoskeletal: No Clubbing, No Cyanosis and No Edema
Neuro: Awake, Alert and Oriented
Psych: Calm
A/P:
I was asked to see this patient yesterday 12/04. It appears that she was admitted by cardiology on 12/03 as a transfer from [facility], and they asked us to transfer to our service on 12/05/2023.
Non-STEMI:
Cardiac cath on 12/03, ostial/proximal LAD PCI
Triple therapy with DAPT and anticoagulant, beta-blockers, ARB, high-dose statins
Cardiology following and probably anticoagulant and one antiplatelet upon discharge
Paroxysmal atrial fibrillation:
Converted to normal sinus rhythm overnight
Did not tolerated Cardizem drip due to hypotension
Continue rate control agents, B-Blockers--> metoprolol tartrate 25 mg p.o. every 6 hours
Continue antiarrhythmic agents, amiodarone 200 mg orally 3 times daily
Continue anticoagulation, DOAC--> Eliquis 2.5 mg twice a day
Continue cardiac monitoring
Acute HFrEF:
IV Lasix again today and 40 mg of Lasix daily.
Obtaining chest x-ray with small bilateral pleural effusions
BNP upon admission more than 27,000
Monitor strict I/O
Monitor daily weight
Monitor renal function and electrolytes
Reviewed latest echocardiogram on our system
Continue guideline-directed medical therapy for heart failure (GDMT)
Fluid restriction
Salt restriction
Heart failure education
Follow up clinical response
CKD, stage III:
Avoid nephrotoxic
Monitor renal function closely
Leukocytosis:
Likely reactive but monitor for any signs of infection
Trend
Anemia:
Hemoglobin 9.4 today
Monitor as needed
Diabetes mellitus type 2:
Blood sugar 159 this morning
On insulin sliding scale--> changed to moderate resistance
Added NovoLog 5 units before meals
Continue insulin glargine 24 units daily
On Jardiance 10 mg p.o. daily
Monitor blood sugars and adjust medications accordingly
Obtain hemoglobin A1c--> 8.9
Hypothyroidism:
Continue levothyroxine 125 mcg daily
DVT prophylaxis:
On Eliquis
CODE STATUS:
Full code
Total time spent on today's encounter was 52 minutes which included time spent in counseling the patient/family regarding diagnosis and treatment plan as listed above, goals of care, and symptom management. Case was discussed with nursing staff,
specialists, and care coordinators/case management. All labs and imaging personally reviewed by me. Remainder the time spent in detailed review of previous records, lab data, imaging, and other medical provider documentation.
Anticipated Discharge: 24 - 48 hours
Subjective/Interval History
-
Date of Service: December 06, 2023
Patient back in normal sinus rhythm today. Denies chest pain. Denies palpitations. She does have some shortness of breath today. Afebrile
Objective Data
-
Labs:
Laboratory Results
12/06/23
04:24
WBC 11.4 H
Hgb 9.4 L
Hct 27.6 L
Plt Count 245
Sodium 137
Potassium 5.0
Chloride 104
Carbon Dioxide 23
BUN 80 H
Creatinine 2.1 H
Glucose 159 H
Calcium 8.3 L
Total Bilirubin 0.5
AST 110 H
ALT 36 H
Alkaline Phosphatase 86
Vital Signs:
Vital Signs
Temp Pulse Resp BP Pulse Ox
97.7 F 56 20 97/63 98
12/06/23 07:13 12/06/23 10:35 12/06/23 07:13 12/06/23 08:26 12/06/23 08:30
I&O
12/05/23 12/06/23 12/07/23
06:59 06:59 06:59
Intake Total 565 / 565 240 / 240
Output Total 300 / 300
Balance 265 / 265 240 / 240
--- NOTE | 2023-12-06 11:42 | PTCARENOTE ---
Received patient this am in NSR, VSS. only complaint is that she is ZENG, o2 sat on RA 98%, lung garcia diminished in bases. Dr. Waters saw patient and chest xray obtained and IV Lasix given as ordered.
[2023-12-06 12:46] LABS: Glucose - Point of Care 315 mg/dl (70-99)
[2023-12-06] MEDS: NOVOLOG FLEXPEN-MODERATE RESISTANCE 7 UNITS SC (12:50)
[2023-12-06] MEDS: PACERONE 200 MG PO ×2 (16:04→22:31)
[2023-12-06 17:40] LABS: Glucose - Point of Care 236 mg/dl (70-99)
[2023-12-06 21:11] LABS: Glucose - Point of Care 226 mg/dl (70-99)
--- NOTE | 2023-12-06 21:18 | PTCARENOTE ---
received patient at the change of shift. AAOx3. resting in bed comfortably. denies any pain at this time. dyspnea on exertion per patient. mild dyspnea while talking noted. lungs diminished at the bases. 99% on RA. SB on tele. bp stable. removed
dressing from cath sites; intact. reviewed plan of care with patient and verbalized understanding. patient requesting melatonin to sleep. no order, will reach out to [facility]. patient states taking 10 mg at night at home.
[2023-12-06] MEDS: LIPITOR 80 MG PO (22:31)
[2023-12-06] MEDS: MELATONIN 5 MG PO (22:31)
[2023-12-07] VITALS (8 sets, daily range): BP systolic 97–129; BP diastolic 45–70; BMI 33.7
[2023-12-07] MEDS: LOPRESSOR 25 MG PO ×4 (00:02→18:18)
[2023-12-07 04:50] LABS: Hematocrit 27.6 % (37.0-47.0); Hemoglobin 9.4 g/dL (12.0-16.0); Mean Corp Hgb Conc. 34.1 g/dL (33.0-37.0); Mean Corpuscular Hgb 29.4 pg (27.0-31.0); Mean Corpuscular Volume 86.3 fL (81.0-99.0); Mean Platelet Volume 11.2 fL (7.4-10.4); Platelet Count 215 10^3/uL (130-400); Red Cell Dist. Width 13.5 % (11.5-14.5); White Blood Cell Count 11.6 10^3/uL (4.8-10.8)
[2023-12-07 05:11] LABS: ALT (SGPT) 32 U/L (0-35); AST (SGOT) 68 U/L (14-36); Albumin 3.5 g/dl (3.5-5.0); Alkaline Phosphatase 111 U/L (38-126); Blood Urea Nitrogen 91 mg/dl (7-17); Calcium 8.5 mg/dl (8.4-10.2); Carbon Dioxide 22 mmol/L (22-30); Chloride 104 mmol/L (98-107); Estimated Creatinine Clearance 13 ml/min; Glucose 207 mg/dl (70-99); Magnesium 2.4 mg/dl (1.6-2.3); Potassium 5.1 mmol/L (3.5-5.1); Sodium 137 mmol/L (135-145); Total Bilirubin 0.5 mg/dl (0.2-1.3); eGFR 17.54
[2023-12-07] MEDS: SYNTHROID 125 MCG PO (06:40)
[2023-12-07 07:07] LABS: Glucose - Point of Care 213 mg/dl (70-99)
--- NOTE | 2023-12-07 07:38 | W.PN.HOSP.TC ---
Today's Communication/Plan
-
see bold
Assessment / Plan
Assessment / Plan
Transferred to the Hospitalist service on 12/05/23 from cardiology
Gen: NAD, AAOx3.
Eyes: EOMI, PERRLA, no scleral icterus.
Neck: supple.
CV: RRR, +S1/S2, no m/r/g.
Resp: CTAB, no rales, wheezes, or rhonchi.
Abd: +BS, soft, NT, ND
Skin: No rashes.
Neuro: CN 2-12 intact, non-focal.
Psych: Normal mood and affect.
Acute Non-STEMI:
-s/p cardiac cath on 12/04/23, ostial/proximal LAD PCI
-cont statin/ASA/Plavix/BB
-cards following
Paroxysmal atrial fibrillation:
-now converted to NSR
-previously did not tolerate Cardizem drip due to hypotension
-cont BB/Amio
-cont Eliquis
Acute HFrEF:
-BNP > 27,000
-s/p IV Lasix, stop IV lasix with SIMI
-daily wts, I/Os
-cont FR
-cont Jardiance/BB
SIMI on CKD3:
-due to CRS
-stop IV Lasix
-trend Cr with stopping IV Lasix. If no improvement tomorrow consult renal.
Other problems:
Leukocytosis: likely reactive
Anemia: Hb stable
DM2: a1c 8.9%, start Lantus 10U HS, cont 5U premeal, SSI/accuchecks
Hypothyroidism: cont Levoxyl
FULL/Eliquis
Anticipated Discharge: 24 - 48 hours
Subjective/Interval History
-
Date of Service: December 07, 2023
Pt c/o ZENG.
Objective Data
-
Labs:
Laboratory Results
12/07/23
04:29
WBC 11.6 H
Hgb 9.4 L
Hct 27.6 L
Plt Count 215
Sodium 137
Potassium 5.1
Chloride 104
Carbon Dioxide 22
BUN 91 H
Creatinine 2.6 H
Glucose 207 H
Calcium 8.5
Total Bilirubin 0.5
AST 68 H
ALT 32
Alkaline Phosphatase 111
Vital Signs:
Vital Signs
Temp Pulse Resp BP Pulse Ox
97.7 F 63 18 111/70 97
12/07/23 07:10 12/07/23 06:41 12/07/23 07:10 12/07/23 06:41 12/07/23 07:10
I&O
12/06/23 12/07/23 12/08/23
06:59 06:59 06:59
Intake Total 240 / 240
Output Total 850 / 850
Balance 240 / 240 -850 / -850
[2023-12-07] MEDS: NOVOLOG FLEXPEN 5 UNITS SC ×3 (07:58→18:15)
[2023-12-07] MEDS: NOVOLOG FLEXPEN-MODERATE RESISTANCE 3 UNITS SC (07:59)
[2023-12-07] MEDS: LOW STRENGTH ASPIRIN 81 MG PO (08:00)
[2023-12-07] MEDS: PROTONIX 40 MG PO (08:00)
[2023-12-07] MEDS: ELIQUIS 2.5 MG PO ×2 (08:00→19:39)
[2023-12-07] MEDS: PACERONE 200 MG PO ×3 (08:00→22:30)
[2023-12-07] MEDS: PLAVIX 75 MG PO (08:00)
[2023-12-07] MEDS: LANTUS 0.24 UNITS SC (08:05)
[2023-12-07] MEDS: JARDIANCE 10 MG PO (08:09)
[2023-12-07 12:03] LABS: Glucose - Point of Care 365 mg/dl (70-99)
[2023-12-07] MEDS: NOVOLOG FLEXPEN-MODERATE RESISTANCE 9 UNITS SC (12:10)
--- NOTE | 2023-12-07 14:46 | W.PN.CARDCBS ---
Today's Communication / Plan
-
see bold
Impression / Plan
-
PCP: Primitivo Cedeno MD
CDY: Goyo Seymour MD
IMPRESSION:
Admitted to [facility] with acute hypoxic respiratory failure/pulmonary edema, HF and NTSEMI 12/03/23
Transferred to for cath 12/04/23
- Acute HFrEF, EF was newly reduced at 30% at [facility].
- NSTEMI
Coronary artery disease
s/p LAD & LCx BMS x2 in 2014
s/p distal LCx/OM VANGIE in 2021
s/p NSTEMI and 2.75 mm Ramon VANGIE to ostial/prox LAD 12/04/23
- Paroxysmal Afib with RVR starting 12/05/23 AM, this is not a new diagnosis he has prior history of paroxysmal atrial fibrillation
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
Cre 1.94 at [facility]
- Hyperlipidemia
- DM 2
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
- Elevated LFTs improving and likely related to some component of shock liver
Echo 01/23/2022: EF 50 to 54%, moderate MR, mild MS with mean MV gradient 5 mmHg, mild to moderate TR with PAP 45 to 50 mmHg
Echo 12/04/2023: [facility] study, EF 30%, LAD wall motion abnormality
Cath 12/04/23:
Successful PCI of the LAD with placement of a drug-eluting stent as described above.
Widely patent previously placed mid LAD stent and overlapping circumflex proper stents with known critical disease involving the jailed obtuse marginal branch and chronically occluded distal left sided posterior descending artery.
Plan:
-Coronary artery disease including acute non-ST segment elevation myocardial infarction complicated by decompensated HFrEF
At [facility] peak CK 1858, MB 200, HS Troponin 8554. EF was newly reduced at 30% at [facility]. CPK here 12/05/23 is 1128
Maintain ' triples' with dual antiplatelet therapy and Eliquis (AF) while she is hospitalized. At discharge plan to stop aspirin, but continue Eliquis and Plavix.
Continue statin
Continue beta-lay
Cardiac rehab consulted
-Heart failure with reduced ejection fraction, this is new diagnosis in the setting of acute myocardial infarction
She is volume overloaded with continued dyspnea, LVEDP of 24 mmHg at time of cath December 04, 2023 and proBNP here greater than 27,000.
Hold lasix, losartan and SGLT2 given worsening renal function
-Atrial fibrillation, she has recurred with atrial fibrillation this hospital stay and at times rates were very rapid and associated with worsening shortness of breath as well as hypotension
She converted to sinus rhythm at approximate 11:15 PM December 05, 2023
Amiodarone added, continue at 200 mg 3 times daily
Toprol-XL changed to metoprolol tartrate for acute rate control with as needed IV beta-lay (Cardizem drip resulted in significant hypotension)
Maintain Eliquis oral anticoagulation for atrial fibrillation related thromboembolic risk reduction (CHADSVASc = 6 due to CHF, age, DM, Vasc dz, F)
-Transaminitis likely related to some component of shock liver
LFTs are improving therefore reasonable to continue amiodarone as well as statin but keep close eye on LFTs
HPI: 87 y/o white female, PMH sig for CAD with prior, Carotid disease with CEA 2009 complicated by post op CVA, AFib on eliquis, HTN, HLD, DM, hypothyroid, CKD4, asthma.
New onset of chest tightness/dyspnea for a few days. She was using her PRN ProAir inhaler thinking it was related to asthma, and it did work for a short time and then it wasn't helping anymore. She was unable to catch her breath yesterday, and
presented to [facility] ER where she ruled in for NSTEMI with An echo today revealed decreased LVSF, EF 30%, grade III LV diastolic dysfunction, with multiple segmental WMA, severely dilated LA, mod MR with severe MAC, mod-severe TR. Eliquis held and
started on IV heparin. SIMI noted in addition to CKD4, with creat 1.94, GFR 25 today.
A CXR showed pulmonary edema with possible associated pneumonia, cardiomegaly and congestion.
She has an allergy to plavix that was noted as a retinal hemorrhage.
Transferred today for [facility].
Progress Note - Language Asst
Subjective
Date of Service: December 07, 2023
No acute overnight events. Patient is resting comfortably today, no chest discomfort. Breathing is comfortable, no shortness of breath at rest or dyspnea on exertion.
Objective
Labs:
12/07/23 04:29
12/07/23 04:29
Labs
Hgb 9.4 g/dL (12.0-16.0) L 12/07/23 04:29
Hct 27.6 % (37.0-47.0) L 12/07/23 04:29
Plt Count 215 10^3/uL (130-400) 12/07/23 04:29
Sodium 137 mmol/L (135-145) 12/07/23 04:29
Potassium 5.1 mmol/L (3.5-5.1) 12/07/23 04:29
BUN 91 mg/dl (7-17) H 12/07/23 04:29
Creatinine 2.6 mg/dL (0.6-1.0) H 12/07/23 04:29
Glucose 207 mg/dl (70-99) H 12/07/23 04:29
Vital Signs and I&O:
Vital Signs
Temp Pulse Resp BP Pulse Ox
97.4 F 71 18 128/50 99
12/07/23 12:15 12/07/23 12:45 12/07/23 12:15 12/07/23 12:00 12/07/23 12:15
Vital Signs
Temp Pulse Resp BP Pulse Ox
97.4 F 71 18 128/50 99
12/07/23 12:15 12/07/23 12:45 12/07/23 12:15 12/07/23 12:00 12/07/23 12:15
Intake & Output
12/05/23 12/06/23 12/07/23 12/08/23
06:59 06:59 06:59 06:59
Intake Total 565 / 565 240 / 240
Output Total 300 / 300 850 / 850 200 / 200
Balance 265 / 265 240 / 240 -850 / -850 -200 / -200
Physical Exam
Physical Exam
Gen: NAD, AA
HEENT: NC/AT, sclera anicteric
Neck: No JVD
CV: RRR, NL s1/s2, no M/R/G
Lungs: CTAB
Abd: S/ND
Ext: No LE edema
Skin: Warm, dry
Neuro: Non-focal
[2023-12-07 16:30] LABS: Glucose - Point of Care 186 mg/dl (70-99)
[2023-12-07] MEDS: NOVOLOG FLEXPEN-MODERATE RESISTANCE 1 UNITS SC (18:16)
--- NOTE | 2023-12-07 18:30 | PTCARENOTE ---
Pt with no c/o today. OOB ad dion in the room.
[2023-12-07 20:59] LABS: Glucose - Point of Care 153 mg/dl (70-99)
[2023-12-07 22:28] LABS: Glucose - Point of Care 114 mg/dl (70-99)
[2023-12-07] MEDS: LIPITOR 80 MG PO (22:29)
[2023-12-07] MEDS: MELATONIN 5 MG PO (22:30)
[2023-12-07] MEDS: LANTUS 0.1 UNITS SC (22:30)
--- NOTE | 2023-12-07 23:05 | PTCARENOTE ---
received patient at the change of shift resting comfortably in the chair. daughter visiting. patient denies any cp. states feeling much better; improved breathing. mild dyspnea per patient. eager to go home. SR on tele. bp stable. cath sites intact.
independent in the room.
blood sugar 153 at 2056. patient states feeling like her sugar is going down. requested a recheck. at 2225- BG 114. patient states wanted a small snack and would still take lantus-given. educated patient to inform RN with any other changes.
[2023-12-08] VITALS (12 sets, daily range): BP systolic 100–157; BP diastolic 40–71; PULSE 68; O2SAT 100; BMI 34.0
[2023-12-08] MEDS: LOPRESSOR PO (00:10)
--- NOTE | 2023-12-08 00:10 | PTCARENOTE ---
Moshe held at 0000. heart rate SB 53.
[2023-12-08] MEDS: VENTOLIN NEBULES 2.5 MG INH (04:27)
--- NOTE | 2023-12-08 04:31 | PTCARENOTE ---
Addendum entered by Yan Kang RN 12/08/23 06:13:
patient's daughter at the bedside. patient states feeling better. pain 1/10- pain with inhalation. currently, resting on the side of the bed.
Addendum entered by Yan Kang RN 12/08/23 05:08:
after respiratory treatment, patient states no improvement. complaining of chest soreness 7/10; worsening with breathing. Aleta Vines updated. chest xray ordered and taken.
bp 102/40. Tylenol given. patient leaning over bedside table. states 'i think its getting a little better.' patient appears anxious. comfort support provided. patient called daughter to come in hospital for support.
Original Note:
Patient called RN complaining of 6/10 chest 'soreness.' middle chest radiating to left clavicle and middle back. patient states worsened pain with breathing. 98% on RA. SR 60s. bp 142/53. placed on 2L per patients request-100% EKG completed. TT sent
to respiratory for a breathing treatment. patient unsure if asthma related. lungs sounds diminished, shallow. clear at start of shift. patient appears to be anxious. comfort measures provided. updated Aleta Vines TERMINAL OPERATIONS MANAGER.
[2023-12-08 04:53] LABS: Blood Urea Nitrogen 84 mg/dl (7-17); Calcium 8.8 mg/dl (8.4-10.2); Carbon Dioxide 22 mmol/L (22-30); Chloride 105 mmol/L (98-107); Estimated Creatinine Clearance 15 ml/min; Glucose 104 mg/dl (70-99); Potassium 4.8 mmol/L (3.5-5.1); Sodium 137 mmol/L (135-145); eGFR 20.32
[2023-12-08] MEDS: TYLENOL 650 MG PO ×2 (04:56→08:56)
--- NOTE | 2023-12-08 05:40 | W.PN.UPDATE ---
Update Note
Progress Note Update
Patient awakened earlier with c/o SOB and pain with inspiration. Portable CXR done. Room air saturations 100% Lung sounds diminished throughout. Tylenol and Albuterol given with good relief. Spoke with her for awhile and she discussed her family,
her wishes to see her grandchildren grow up, missing her other daughter who is on a trip out of country. She admits to panic episodes. VSS. her other daughter has arrived to sit with her for awhile for emotional support.
[2023-12-08 07:06] LABS: Glucose - Point of Care 126 mg/dl (70-99)
[2023-12-08] MEDS: SYNTHROID 125 MCG PO (07:14)
[2023-12-08] MEDS: LOPRESSOR 25 MG PO ×2 (07:14→12:08)
--- NOTE | 2023-12-08 07:34 | PTCARENOTE ---
Addendum entered by Le Cruz RN 12/08/23 09:23:
Tylenol given for left chest/ left scapula/ left neck soreness with inspiration.
Original Note:
Patient complaints of chest 'soreness' when she breaths in. She said it felt better after the Tylenol and neb treatment earlier this morning however, the soreness is back. Her lungs are diminished throughout with fine bb crackles noted, right >
left. Her pulse ox on RA is 97%. CXR was done earlier, the report is not read as of yet.
[2023-12-08] MEDS: PROTONIX 40 MG PO (08:16)
[2023-12-08] MEDS: LOW STRENGTH ASPIRIN 81 MG PO (08:16)
[2023-12-08] MEDS: PLAVIX 75 MG PO (08:16)
[2023-12-08] MEDS: ELIQUIS 2.5 MG PO ×2 (08:16→20:33)
[2023-12-08] MEDS: PACERONE 200 MG PO ×3 (08:16→22:34)
[2023-12-08] MEDS: NOVOLOG FLEXPEN 5 UNITS SC ×2 (08:17→12:20)
[2023-12-08] MEDS: NOVOLOG FLEXPEN-MODERATE RESISTANCE SC (08:18)
[2023-12-08] MEDS: FLUSH (NSS) 1 FLUSH IV (08:19)
[2023-12-08] MEDS: LANTUS 0.24 UNITS SC (08:21)
--- NOTE | 2023-12-08 09:02 | W.PN.HOSP.TC ---
Addendum entered and electronically signed by Wilfredo Cole MD 12/08/23 13:17:
SIMI on CKD4
Original Note:
Today's Communication/Plan
-
see bold
Assessment / Plan
Assessment / Plan
Transferred to the Hospitalist service on 12/05/23 from cardiology.
Gen: NAD, AAOx3.
Eyes: EOMI, PERRLA, no scleral icterus.
Neck: supple.
CV: remains RRR, +S1/S2, no m/r/g.
Resp: decreased BS in the bases, no rales, wheezes, or rhonchi.
Abd: +BS, soft, NT, ND
Skin: No rashes.
Neuro: remains CN 2-12 intact, non-focal.
Psych: Normal mood and affect.
CXR: Radiographic findings suggesting interstitial pulmonary edema with small bilateral pleural effusions.
Acute Non-STEMI:
-s/p cardiac cath on 12/04/23, ostial/proximal LAD PCI
-cont statin/ASA/Plavix/BB
-cards following
Paroxysmal atrial fibrillation:
-now converted to NSR
-previously did not tolerate Cardizem drip due to hypotension
-cont BB/Amio
-cont Eliquis
Acute HFrEF:
-BNP > 27,000
-s/p IV Lasix which was stopped 12/07/23 with SIMI
-daily wts, I/Os
-cont FR
-cont Jardiance/BB
-will d/w cards and renal further lasix dosing
SIMI on CKD3:
-due to CRS
-IV Lasix stopped 12/07/23, Cr now improving.
-c/s renal
Other problems:
Leukocytosis: likely reactive
Anemia: Hb stable
DM2: a1c 8.9%, cont Lantus 10U HS, cont 5U premeal, SSI/accuchecks. c/s diabetes RELATIONS DIRECTOR.
Hypothyroidism: cont Levoxyl
Family updated at bedside.
FULL/Eliquis
Total time spent on today's encounter was 50 minutes which included time spent in counseling the patient/family regarding diagnosis and treatment plan as listed above, goals of care, and symptom management. Case was discussed with nursing staff,
specialists, and care coordinators/case management. All labs and imaging personally reviewed by me. Remainder the time spent in detailed review of previous records, lab data, imaging, and other medical provider documentation.
Anticipated Discharge: 24 - 48 hours
Subjective/Interval History
-
Date of Service: December 08, 2023
c/o L-sided pleuritic CP.
Objective Data
-
Labs:
Laboratory Results
12/08/23
04:18
Sodium 137
Potassium 4.8
Chloride 105
Carbon Dioxide 22
BUN 84 H
Creatinine 2.3 H
Glucose 104 H
Calcium 8.8
Vital Signs:
Vital Signs
Temp Pulse Resp BP Pulse Ox
97.6 F 65 18 122/46 97
12/08/23 07:01 12/08/23 07:14 12/08/23 07:01 12/08/23 07:14 12/08/23 07:03
I&O
12/07/23 12/08/23 12/09/23
06:59 06:59 06:59
Intake Total 360 / 360
Output Total 850 / 850 500 / 500
Balance -850 / -850 -500 / -500 360 / 360
--- NOTE | 2023-12-08 11:41 | PN.DE.MGMTRT ---
Insulin Management
- -
12/08/2023 Diabetes Management Consult
Patient admitted 12/03 with dyspnea, respiratory distress, acute non-STEMI. PMH CAD with stend, a fib, HTN, HLD, hypothyroid, type 2 diabetes. Prior to admission was taking 4 units novolog AC with 24 units lantus in AM. A1C is 8.9%, cr on
admission1.8, eGFR 27.27.
Patient is awake alert and oriented, oob in chair, able to discuss diabetes management, daughter at bedside.
Patient recalls initial diagnosis attending outpatient classes. She sees AAKASH Mukherjee or SHOT COAT TENDER at the [facility] office. Discussed with patient glucose has been > 200 fasting and as high as 365 pre lunch. She was ordered 10 units lantus
@ hs 12/06, fasting today 126. Will continue AM lantus 24 units with HS dose of 10 units along with 5 units novolog AC and low corrective. Discussed with patient she may require BID lantus moving forward but will closely observe.
Discussed with patients nurse.
Diabetes History
- -
Type of Diabetes: 2 requiring insulin
Pre-Admission Diabetes Regimen
12/08/23
04:18
Creatinine 2.3 H
Lab Results
Hemoglobin A1c 8.9 % (4.0-5.6) H 12/05/23 03:45
Insulin Pump Settings
IP Diabetes Regimen
12/07/23 12/07/23 12/07/23
12:01 16:29 20:57
Glucose
POC Glucose 365 H 186 H 153 H
12/07/23 12/08/23 12/08/23
22:26 04:18 07:05
Glucose 104 H
POC Glucose 114 H 126 H
Meal type: Breakfast
Meal type: Lunch
Amount consumed: 100%
Amount consumed: 100%
Patient Education
--- NOTE | 2023-12-08 12:02 | W.CON.NEPH ---
Addendum entered and electronically signed by Ting Goncalves MD 12/08/23 13:29:
Note LVEDP was 24 on 12/03, since then wt has slightly improved.
Original Note:
Consultation
-
Date/Time Consultation Requested: 12/08/23 1000
Date/Time Consultation Performed: 12/08/23 1210
Requesting Provider: Wilfredo De La Cruz
Performing Provider: Ting Alston
Reason for Consultation: SIMI
Medical History
-
Chief Complaint: SOB
History of Present Illness:
87y/o F with PMH of CAD prior stent last 2021, Afib on Eliquis, HTN on ARB, BB, DM on insulin with microvascular complications retinopathy , HLD, on statin, Hypothyroidism on levothyroxine, anemia on out pt Procrit, CKD 4 no baseline cr available
follows Dr Ferguson at [facility] who initially presented to [facility] for sob and diagnosed with with acute AZ, CHF with low EF 30%, WMA and transferred to for LHC. She underwent VANGIE of ostial/LAD stent on 12/03.SHe has Afib with RVR on 12/04. Her cr at [facility]
was at 1.94. Since admit at cr peaked at 2.6 on 12/06, today 2.3 hence nephrology consulted. This morning pt has episode of SOB, CXR shows mild pulm edema and lasix ordered by cards. She notes sob is improving. No diaphoresis. c/o mild chest
discomfort when breaths deeply. No abd pain, n/v, or diarrhea or constipation.
Past Medical History
Coronary artery disease
s/p LAD & LCx BMS x2 in 2014
s/p distal LCx/OM VANGIE in 2021
Paroxysmal Afib
CKD 4
DM 2, retinopathy
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
Anemia
Hypothyrodism
HTN
Past Medical History: Other
Past Surgical History: Other (left cartaract extraction, appendectomy, cardiac stent, s/p CEA)
Social History
Tobacco: Former Smoker (smoked for 10yrs, quit 1969)
Alcohol: Occasional
Drug: None
Personal:
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
Family History
no CKD
Allergies / Home Medications
Allergy/AdvReac Type Severity Reaction Status Date / Time
clopidogrel bisulfate Allergy RETINAL Verified 01/22/22 08:17
[From Plavix] HEMMORHAGE
fluorescein Allergy Tongue Verified 01/22/22 08:17
Swelling
zolpidem tartrate Allergy hallucinati Verified 01/22/22 08:17
[From Ambien] ons
�Medication �Instructions �Recorded �Confirmed �Type
epoetin yolie 40,000 unit/mL 1 dose INJ QMONTH PRN Hgb less 04/25/14 12/04/23 History
injection solution (Procrit) than 11
albuterol sulfate 90 mcg/actuation 2 puff inhalation R Q4HPRN PRN sob 12/23/18 12/04/23 History
aerosol inhaler
atorvastatin 80 mg tablet 80 mg PO HS High cholesterol 12/23/18 12/04/23 History
insulin aspart U-100 100 unit/mL 4 units SC .SLIDING SCALE MEALS 12/23/18 12/04/23 History
(3 mL) subcutaneous pen (Novolog Diabetes
FlexPen U-100 Insulin aspart)
insulin glargine 100 unit/mL (3 24 units SC DAILY Diabetes 12/23/18 12/04/23 History
mL) subcutaneous pen (Lantus
Solostar U-100 Insulin)
levothyroxine 125 mcg tablet 125 mcg PO DAILY Thyroid 12/23/18 12/04/23 History
melatonin 1 mg tablet 5 mg PO HSPRN PRN insomnia 12/23/18 12/04/23 History
metronidazole 1 % topical gel 1 applic topical DAILY to rosacea 12/23/18 12/04/23 History
empagliflozin 10 mg tablet 10 mg PO DAILY Heart 01/22/22 12/04/23 History
(Jardiance) Disease/Condition
losartan 25 mg tablet 25 mg PO DAILY Blood pressure 01/22/22 12/04/23 History
tolterodine 2 mg tablet 2 mg PO DAILY PRN URINARY URGENCY 01/22/22 12/04/23 History
metoprolol succinate 25 mg 25 mg PO BID #10 tabs 01/23/22 12/04/23 Rx
tablet,extended release 24 hr
pantoprazole 40 mg tablet,delayed 40 mg PO DAILY #90 tabs 01/23/22 12/04/23 Rx
release (Protonix)
ergocalciferol (vitamin D2) 50,000 25,000 unit PO SUTH Supplement 12/04/23 12/04/23 History
unit tablet
apixaban 2.5 mg tablet (Eliquis) 2.5 mg PO BID Blood Clot 12/05/23 12/04/23 History
Prevention/Tx
Review of Systems
-
All complete 12 point ROS have been inquired and found negative other than stated in HPI
Physical Exam
Vital Signs
Vital Signs
Temp Pulse Resp BP Pulse Ox
97.6 F 65 18 122/46 98
12/08/23 11:28 12/08/23 07:14 12/08/23 11:28 12/08/23 07:14 12/08/23 11:28
Lab Results
WBC 11.6 10^3/uL (4.8-10.8) H 12/07/23 04:29
RBC 3.20 10^6/uL (4.20-5.40) L 12/07/23 04:29
Hgb 9.4 g/dL (12.0-16.0) L 12/07/23 04:29
Hct 27.6 % (37.0-47.0) L 12/07/23 04:29
Plt Count 215 10^3/uL (130-400) 12/07/23 04:29
Sodium 137 mmol/L (135-145) 12/08/23 04:18
Potassium 4.8 mmol/L (3.5-5.1) 12/08/23 04:18
Chloride 105 mmol/L (98-107) 12/08/23 04:18
Carbon Dioxide 22 mmol/L (22-30) 12/08/23 04:18
BUN 84 mg/dl (7-17) H 12/08/23 04:18
Creatinine 2.3 mg/dL (0.6-1.0) H 12/08/23 04:18
eGFR 20.32 12/08/23 04:18
Glucose 104 mg/dl (70-99) H 12/08/23 04:18
Calcium 8.8 mg/dl (8.4-10.2) 12/08/23 04:18
Iks-L-Hqevtdykdsb Pept > 84155 pg/ml 12/06/23 04:24
Albumin 3.5 g/dl (3.5-5.0) 12/07/23 04:29
CXR:
FINDINGS: Cardiac silhouette size is enlarged. There are subtle increased interstitial markings and vascular cephalization with small bilateral pleural effusions. Findings are most likely on the basis of interstitial edema, possibly from congestive
failure.
Shadow of the azygos vein is enlarged, which would also suggest elevated right heart pressures.
Coronary artery stent is noted. Surgical clips are present in the right neck.
IMPRESSION:
Radiographic findings suggesting interstitial pulmonary edema with small bilateral pleural effusions.
Physical Exam
General: Awake, Alert, Oriented, AOx3, No Distress and Nontoxic
HEENT: EOMI, Anicteric and Neck Supple
Respiratory: Clear, Normal Excursion and Nonlabored Respirations
Cardiac: S1/S2 and Regular Rate/Rhythm
Breast: Deferred by me
Abdomen: Soft, Nontender and Nondistended
Musculoskeletal: No Cyanosis and Edema (trace)
Skin: No Rash
Neuro: Nonfocal/Grossly Intact
Psych: Mood/afflect pleasant, Insight/judgement good and Appropriate
Data Reviewed
-
Radiology: Report Reviewed by me and Discussed with Patient
Labs: Labs Reviewed by me and Discussed with Patient
Assessment/Plan
-
IMP:
Acute Non-STEMI:-s/p cardiac cath on 12/04/23, ostial/proximal LAD PCI
Paroxysmal atrial fibrillation
Acute HFrEF EF 30%
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
Leukocytosis
Anemia
DM2: a1c 8.9%, microvascular complications
Hypothyroidism
blind left eye
PLan:
A/w acute AZ s/p stent
SIMI with CKD-suspect possible JUANA, UA was bland at [facility] labs
cr improving slowly at 2.3, ok for lasix as needed , follow bladder scan
soft BP seem stable today, ARB on hold
hold Jardiance for now
follow h/h seem stable
d/w cards and pt
--- NOTE | 2023-12-08 12:04 | W.PN.CARDCBS ---
Addendum entered and electronically signed by Justice Mcfadden MD 12/08/23 17:30:
I saw and examined the patient.
The Fishing Hand's note was reviewed and I agree with the note.
Comment:
GEN: No distress, awake, Ox3
HEENT: supple, anicteric, mmm
LUNGS: scatt rhonchi
CV: Reg, S1/S2, 1/6 syst LSB, no murmur
ABD: soft, BS+, NT/ND
EXT: No edema
NEURO: Gross non-focal
SKIN: No rash
plan:
Creatinine down to 2.3. She is having some shortness of breath especially at night. Will try Lasix 20 mg IV x 1 today and follow creatinine closely.
Will switch to Toprol with low EF.
Continue aspirin, Plavix, and atorvastatin
Original Note:
Today's Communication / Plan
-
IV lasix 20mg x1
follow Cr
transition lopressor to toprol
Impression / Plan
-
PCP: Primitivo Cedeno MD
CDY: Goyo Seymour MD
IMPRESSION:
Admitted to [facility] with acute hypoxic respiratory failure/pulmonary edema, HF and NSTEMI 12/03/23
Transferred to for cath 12/04/23
- Acute HFrEF, EF was newly reduced at 30% at [facility].
- NSTEMI
Coronary artery disease
s/p LAD & LCx BMS x2 in 2014
s/p distal LCx/OM VANGIE in 2021
s/p NSTEMI and 2.75 mm Ramon VANGIE to ostial/prox LAD 12/04/23
- Paroxysmal Afib with RVR starting 12/05/23 AM
- history of paroxysmal atrial fibrillation
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
Cre 1.94 at [facility]
- Hyperlipidemia
- DM 2
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
- Elevated LFTs improving and likely related to some component of shock liver
Echo 01/23/2022: EF 50 to 54%, moderate MR, mild MS with mean MV gradient 5 mmHg, mild to moderate TR with PAP 45 to 50 mmHg
Echo 12/04/2023: [facility] study, EF 30%, LAD wall motion abnormality
Cath 12/04/23:
Successful PCI of the LAD with placement of a drug-eluting stent as described above.
Widely patent previously placed mid LAD stent and overlapping circumflex proper stents with known critical disease involving the jailed obtuse marginal branch and chronically occluded distal left sided posterior descending artery.
Plan:
-Presented initially to [facility] with acute CHF and NSTEMI
-s/p cath 12/03 resulting in LAD PCI. has known residual disease as above, medically managed
-continue triple therapy at present. plan for eliquis, plavix upon DC. hgb 9.4 on 12/06
-echo at [facility] with EF newly 30%
-with bump in Cr post procedure, peak 2.6. trending down today, 2.3
-was noted to have SOB overnight. given breathing treatment with some improvement. reports continued discomfort with taking deep breath. proBNP >31862 on 12/05. CXR with evidence of CHF. will give 20mg IV lasix today. d/w nephrology
-GDMT as able. continue lopressor, will transition to toprol 25mg BID and can uptitrate as needed/able. not candidate for jardiance/marni/arb/arni/aldactone at present with SIMI, add as Cr improves
-continue amiodarone 200mg TID for afib which started 12/04. now back in SR. follow on tele
-continue statin
-cardiac rehab
-d/w nursing
HPI: 87 y/o white female, PMH sig for CAD with prior, Carotid disease with CEA 2009 complicated by post op CVA, AFib on eliquis, HTN, HLD, DM, hypothyroid, CKD4, asthma.
New onset of chest tightness/dyspnea for a few days. She was using her PRN ProAir inhaler thinking it was related to asthma, and it did work for a short time and then it wasn't helping anymore. She was unable to catch her breath yesterday, and
presented to [facility] ER where she ruled in for NSTEMI with An echo today revealed decreased LVSF, EF 30%, grade III LV diastolic dysfunction, with multiple segmental WMA, severely dilated LA, mod MR with severe MAC, mod-severe TR. Eliquis held and
started on IV heparin. SIMI noted in addition to CKD4, with creat 1.94, GFR 25 today.
A CXR showed pulmonary edema with possible associated pneumonia, cardiomegaly and congestion.
She has an allergy to plavix that was noted as a retinal hemorrhage.
Transferred today for [facility].
Progress Note - [facility]
Subjective
Date of Service: December 08, 2023
reports breathing presently better, still some discomfort with taking deep breath
Objective
Labs:
12/07/23 04:29
12/08/23 04:18
Labs
Hgb 9.4 g/dL (12.0-16.0) L 12/07/23 04:29
Hct 27.6 % (37.0-47.0) L 12/07/23 04:29
Plt Count 215 10^3/uL (130-400) 12/07/23 04:29
Sodium 137 mmol/L (135-145) 12/08/23 04:18
Potassium 4.8 mmol/L (3.5-5.1) 12/08/23 04:18
BUN 84 mg/dl (7-17) H 12/08/23 04:18
Creatinine 2.3 mg/dL (0.6-1.0) H 12/08/23 04:18
Glucose 104 mg/dl (70-99) H 12/08/23 04:18
Vital Signs and I&O:
Vital Signs
Temp Pulse Resp BP Pulse Ox
97.6 F 65 18 122/46 98
12/08/23 11:28 12/08/23 07:14 12/08/23 11:28 12/08/23 07:14 12/08/23 11:28
Vital Signs
Temp Pulse Resp BP Pulse Ox
97.6 F 65 18 122/46 98
12/08/23 11:28 12/08/23 07:14 12/08/23 11:28 12/08/23 07:14 12/08/23 11:28
Intake & Output
12/06/23 12/07/23 12/08/23 12/09/23
07:59 07:59 07:59 07:59
Intake Total 240 / 240 360 / 360
Output Total 850 / 850 500 / 500
Balance 240 / 240 -850 / -850 -500 / -500 360 / 360
Physical Exam
Physical Exam
GEN: No distress, awake, alert, oriented x3
HEENT: supple, anicteric, mmm, eomi
LUNGS: Few crackles at bases, no wheezes
CV: Reg, S1/S2, 1/6 murmur
ABD: soft, BS+, NT/ND
EXT: No cyanosis, clubbing, edema
NEURO: Gross non-focal
SKIN: Warm, pink, dry. No rash
[2023-12-08] MEDS: LASIX 20 MG IV (12:08)
[2023-12-08] MEDS: FLUSH (NSS) 2 FLUSH IV (12:09)
--- NOTE | 2023-12-08 12:17 | CM ---
Chart reviewed. Patient is independent of ADLS, lives alone in a [address], 2 [address], 0 DME. Patient is not current with VN, but is interested since she lives alone. Referral sent to [facility]. Plan is for the patient to return home with [facility]
[2023-12-08 12:19] LABS: Glucose - Point of Care 172 mg/dl (70-99)
[2023-12-08] MEDS: NOVOLOG FLEXPEN-MODERATE RESISTANCE 1 UNITS SC (12:20)
--- NOTE | 2023-12-08 13:13 | PN.CDI ---
CDI
- -
CDI:
Physician Documentation Request
Admit Date: 12/04/23 16:53
Dear Doctor Kelsey,
Please review the following and provide your response in the progress notes.
Clinical Indicators:
- 12/06 Cardiology 'SIMI on CKD 4...Cre 1.94 at [facility] 12/04/23'
- 12/07 PN 'SIMI on CKD3'
Laboratory Tests
12/05/23 12/07/23 12/08/23
03:45 04:29 04:18
Creatinine 1.8 H 2.6 H 2.3 H
eGFR 27.27 17.54 20.32
Please clarify which of the following accurately represents the patient's renal status:
SIMI on CKD 4
SIMI on CKD 3
Other
Criteria for SIMI*
1 Increase in serum creatinine by > or = to 0.3 mg/dL (> or = to 26.5 micromol/L) within 48 hours, OR
2 Increase in serum creatinine to > or = to 1.5 times baseline, which is known or presumed to have occurred within 7 days, OR
3 Urine volume < 0.5 nL/kg/hour for six hours
Stages of Chronic Kidney Disease*
Level Description GFR
G1 Normal or High >90
G2 Mildly decreased 60-89
G3a Mildly to moderately decreased 45-59
G3b Moderately to severely decreased 30-44
G4 Severely decreased 15-29
G5 Kidney failure <15
Use of terms such as suspected, likely, concern for, or probable (associated with a specific diagnosis that is being evaluated, monitored, or treated as if it exists) are acceptable and can be coded in the inpatient setting, when documented at the
time of discharge.
Thank you,
Jyotsna Horn RN
CDI Specialist
Please use your independent medical judgment in providing your response.
*Source: Kidney Disease: Improving Global Outcomes (KDIGO) 2012
[2023-12-08 17:17] LABS: Glucose - Point of Care 214 mg/dl (70-99)
[2023-12-08] MEDS: NOVOLOG FLEXPEN 6 UNITS SC (17:45)
[2023-12-08] MEDS: NOVOLOG FLEXPEN-LOW RESISTANCE 2 UNITS SC (17:46)
[2023-12-08] MEDS: TOPROL XL 25 MG PO (20:32)
[2023-12-08 22:26] LABS: Glucose - Point of Care 225 mg/dl (70-99)
[2023-12-08] MEDS: MELATONIN 5 MG PO (22:34)
[2023-12-08] MEDS: LIPITOR 80 MG PO (22:34)
[2023-12-08] MEDS: LANTUS 0.1 UNITS SC (22:34)
[2023-12-09 04:37] VITALS: BP 120/54
[2023-12-09 04:49] VITALS: BMI 33.7
[2023-12-09] MEDS: SYNTHROID 125 MCG PO (04:55)
--- NOTE | 2023-12-09 05:01 | PTCARENOTE ---
Patient ambulating self in room without difficulty. Tele monitor shows SR, HR in the 60-70's at rest. Pt reports 'chest soreness' is improving. POC ongoing.
[2023-12-09 05:33] LABS: Blood Urea Nitrogen 79 mg/dl (7-17); Calcium 8.5 mg/dl (8.4-10.2); Carbon Dioxide 25 mmol/L (22-30); Chloride 103 mmol/L (98-107); Estimated Creatinine Clearance 15 ml/min; Glucose 201 mg/dl (70-99); Potassium 5.1 mmol/L (3.5-5.1); Sodium 137 mmol/L (135-145); eGFR 20.32
[2023-12-09 07:16] VITALS: BP 134/80
[2023-12-09 08:06] LABS: Glucose - Point of Care 191 mg/dl (70-99)
[2023-12-09] MEDS: TOPROL XL 25 MG PO ×2 (08:14→19:59)
[2023-12-09] MEDS: ELIQUIS 2.5 MG PO ×2 (08:14→19:59)
[2023-12-09] MEDS: PROTONIX 40 MG PO (08:14)
[2023-12-09] MEDS: PACERONE 200 MG PO ×3 (08:14→21:47)
[2023-12-09] MEDS: PLAVIX 75 MG PO (08:14)
[2023-12-09] MEDS: LANTUS 0.24 UNITS SC (08:15)
[2023-12-09] MEDS: LOW STRENGTH ASPIRIN 81 MG PO (08:15)
[2023-12-09] MEDS: FLUSH (NSS) 1 FLUSH IV (08:15)
[2023-12-09] MEDS: NOVOLOG FLEXPEN 6 UNITS SC (08:16)
[2023-12-09] MEDS: NOVOLOG FLEXPEN-LOW RESISTANCE 1 UNITS SC (08:16)
--- NOTE | 2023-12-09 08:23 | PN.DE.MGMTRT ---
Insulin Management
- -
12/09/2023 Diabetes Management Consult Follow up
Patient admitted 12/03 with dyspnea, respiratory distress, acute non-STEMI. PMH CAD with stend, a fib, HTN, HLD, hypothyroid, type 2 diabetes. Prior to admission was taking 4 units novolog AC with 24 units lantus in AM. A1C is 8.9%, cr on
admission1.8, eGFR 27.27.
Patient is awake alert and oriented, sitting on side of bed, able to discuss diabetes management, states she feels so much better.
Patient recalls initial diagnosis attending outpatient classes. She sees AAKASH Mukherjee or TAB BUILDER at the [facility] endocrine office. Discussed with patient glucose has been > 200 fasting and as high as 365 pre lunch.
12/08 CR 2.3, eGFR 20.32 slightly improved. Will continue to hold Jardiance. Lantus 10 units started @ hs (in addition to AM dose 24 units), fasting up to 191 this AM, will increase hs lantus to 12 units. AC novolog increased from 5 units to 6
units with low corrective. Glucose remained > 200, will increase AC novolog to 8 units, first dose with lunch.
Discussed with patients nurse.
Diabetes History
- -
Type of Diabetes: 2 requiring insulin
Pre-Admission Diabetes Regimen
12/09/23
04:47
Creatinine 2.3 H
Lab Results
Hemoglobin A1c 8.9 % (4.0-5.6) H 12/05/23 03:45
Insulin Pump Settings
IP Diabetes Regimen
12/08/23 12/08/23 12/08/23
12:17 17:15 22:24
Glucose
POC Glucose 172 H 214 H 225 H
12/09/23 12/09/23
04:47 08:05
Glucose 201 H
POC Glucose 191 H
Meal type: Dinner
Meal type: Lunch
Meal type: Breakfast
Amount consumed: 100%
Amount consumed: 100%
Amount consumed: 100%
Patient Education
--- NOTE | 2023-12-09 09:01 | W.PN.NEPH.PH ---
Today's Communication / Plan
-
lasix
Assessment/Plan
-
IMP:
Acute Non-STEMI:-s/p cardiac cath on 12/04/23, ostial/proximal LAD PCI
Paroxysmal atrial fibrillation
Acute HFrEF EF 30%
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
Leukocytosis
Anemia
DM2: a1c 8.9%, microvascular complications
Hypothyroidism
blind left eye
PLan:
follow BMP
ARB/SGLT2i on hold
lasix again today
-
-
Date of Service: December 09, 2023
CC / HPI / ROS
-
Chief Complaint:
SIMI
History of Present Illness:
SIMI/Cr stable at 2.3
diuresed well with IV lasix yesterday for SOB
BP stable
Review of Systems:
no CP/SOB
Labs
-
Labs:
WBC 11.6 10^3/uL (4.8-10.8) H 12/07/23 04:29
RBC 3.20 10^6/uL (4.20-5.40) L 12/07/23 04:29
Hgb 9.4 g/dL (12.0-16.0) L 12/07/23 04:29
Hct 27.6 % (37.0-47.0) L 12/07/23 04:29
Plt Count 215 10^3/uL (130-400) 12/07/23 04:29
Sodium 137 mmol/L (135-145) 12/09/23 04:47
Potassium 5.1 mmol/L (3.5-5.1) 12/09/23 04:47
Chloride 103 mmol/L (98-107) 12/09/23 04:47
Carbon Dioxide 25 mmol/L (22-30) 12/09/23 04:47
BUN 79 mg/dl (7-17) H 12/09/23 04:47
Creatinine 2.3 mg/dL (0.6-1.0) H 12/09/23 04:47
eGFR 20.32 12/09/23 04:47
Glucose 201 mg/dl (70-99) H 12/09/23 04:47
Calcium 8.5 mg/dl (8.4-10.2) 12/09/23 04:47
Jfi-G-Mgpndlewago Pept > 88522 pg/ml 12/06/23 04:24
Albumin 3.5 g/dl (3.5-5.0) 12/07/23 04:29
Physical Exam
-
Vital Signs:
Vital Signs
Temp Pulse Resp BP Pulse Ox
97.8 F 63 16 134/80 99
12/09/23 07:15 12/09/23 07:16 12/09/23 07:15 12/09/23 07:16 12/09/23 07:16
Cardiovascular:: Regular rate and rhythm
Respiratory:: Bilateral: Coarse
Lung Excursion:: Normal
Abdomen:: Nontender and Soft
Bowel Sounds:: Normal
Extremity Edema:: None: Bilateral:
--- NOTE | 2023-12-09 09:07 | W.PN.CARDCBS ---
Addendum entered and electronically signed by Justice Mcfadden MD 12/09/23 10:04:
I saw and examined the patient.
The Hot Head Machine Operator's note was reviewed and I agree with the note.
Comment:
GEN: No distress, awake, Ox3
HEENT: supple, anicteric, mmm
LUNGS: CTA, no wheezes/rales
CV: Reg, S1/S2, 1/6 syst LSB, no gallop
ABD: soft, BS+, NT/ND
EXT: No edema
NEURO: Gross non-focal
SKIN: No rash
Plan:
Creatinine overall stable at 2.3. For repeat limited echo today to reevaluate LVEF.
Volume status is improved she clinically feels better status post low-dose Lasix. Will give another dose today.
Continue triple therapy, aspirin, Plavix, and Eliquis for now. Will discontinue Plavix upon discharge from hospital.
Continue metoprolol and amiodarone. Will decrease amiodarone upon discharge as well.
Original Note:
Today's Communication / Plan
-
IV lasix again today
continue triple therapy for now. eliquis, plavix upon DC.
follow up echo to reeval EF
continue BB, amio
Impression / Plan
-
PCP: Primitivo Cedeno MD
CDY: Goyo Seymour MD of [facility]
IMPRESSION:
Admitted to [facility] with acute hypoxic respiratory failure/pulmonary edema, HF and NSTEMI 12/03/23
Transferred to for cath 12/04/23
- Acute HFrEF, EF was newly reduced at 30% at [facility].
- NSTEMI
Coronary artery disease
s/p LAD & LCx BMS x2 in 2014
s/p distal LCx/OM VANGIE in 2021
s/p NSTEMI and 2.75 mm [place] VANGIE to ostial/prox LAD 12/04/23
- Paroxysmal Afib with RVR starting 12/05/23 AM
- history of paroxysmal atrial fibrillation
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
Cre 1.94 at [facility]
- Hyperlipidemia
- DM 2
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
- Elevated LFTs improving and likely related to some component of shock liver
Echo 01/23/2022: EF 50 to 54%, moderate MR, mild MS with mean MV gradient 5 mmHg, mild to moderate TR with PAP 45 to 50 mmHg
Echo 12/04/2023: [facility] study, EF 30%, LAD wall motion abnormality
Cath 12/04/23:
Successful PCI of the LAD with placement of a drug-eluting stent as described above.
Widely patent previously placed mid LAD stent and overlapping circumflex proper stents with known critical disease involving the jailed obtuse marginal branch and chronically occluded distal left sided posterior descending artery.
Plan:
-Presented initially to [facility] with acute CHF and NSTEMI
-s/p cath 12/03 resulting in LAD PCI. has known residual disease as above, medically managed
-continue triple therapy at present. plan for eliquis, plavix upon DC. hgb stable at 9.4. of note, had previously retinal hemorrhage on asa, plavix. follow closely as OP. CBC in 1 week upon DC
-wrist and groin sites stable
-echo at [facility] with EF newly 30%. repeat today
-with bump in Cr post procedure, peak 2.6. stable at 2.3 today
-reports improvement in breathing s/p IV lasix yesterday. will give 20mg IV lasix again today
-GDMT as able. continue toprol 25mg BID and can uptitrate as needed/able. not candidate for jardiance/marni/arb/arni/aldactone at present with SIMI, add as Cr improves
-continue amiodarone 200mg TID for afib which started 12/04. remains in SR upon review of tele. will plan for amiodarone 200mg BID for 1 week upon DC then decrease to 200mg daily
-continue statin
-cardiac rehab
-OP follow up with [facility]
-patient states moving forward she would like to be DO NOT INTUBATE status.
-d/w nursing. d/w primary sales driver
HPI: 87 y/o white female, PMH sig for CAD with prior, Carotid disease with CEA 2009 complicated by post op CVA, AFib on eliquis, HTN, HLD, DM, hypothyroid, CKD4, asthma.
New onset of chest tightness/dyspnea for a few days. She was using her PRN ProAir inhaler thinking it was related to asthma, and it did work for a short time and then it wasn't helping anymore. She was unable to catch her breath yesterday, and
presented to [facility] ER where she ruled in for NSTEMI with An echo today revealed decreased LVSF, EF 30%, grade III LV diastolic dysfunction, with multiple segmental WMA, severely dilated LA, mod MR with severe MAC, mod-severe TR. Eliquis held and
started on IV heparin. SIMI noted in addition to CKD4, with creat 1.94, GFR 25 today.
A CXR showed pulmonary edema with possible associated pneumonia, cardiomegaly and congestion.
She has an allergy to plavix that was noted as a retinal hemorrhage.
Transferred today for [facility].
Progress Note - Smoking Pipe Liner
Subjective
Date of Service: December 09, 2023
reports breathing improving
Objective
Labs:
12/07/23 04:29
12/09/23 04:47
Labs
Hgb 9.4 g/dL (12.0-16.0) L 12/07/23 04:29
Hct 27.6 % (37.0-47.0) L 12/07/23 04:29
Plt Count 215 10^3/uL (130-400) 12/07/23 04:29
Sodium 137 mmol/L (135-145) 12/09/23 04:47
Potassium 5.1 mmol/L (3.5-5.1) 12/09/23 04:47
BUN 79 mg/dl (7-17) H 12/09/23 04:47
Creatinine 2.3 mg/dL (0.6-1.0) H 12/09/23 04:47
Glucose 201 mg/dl (70-99) H 12/09/23 04:47
Vital Signs and I&O:
Vital Signs
Temp Pulse Resp BP Pulse Ox
97.8 F 63 16 134/80 99
12/09/23 07:15 12/09/23 07:16 12/09/23 07:15 12/09/23 07:16 12/09/23 07:16
Vital Signs
Temp Pulse Resp BP Pulse Ox
97.8 F 63 16 134/80 99
12/09/23 07:15 12/09/23 07:16 12/09/23 07:15 12/09/23 07:16 12/09/23 07:16
Intake & Output
12/07/23 12/08/23 12/09/23 12/10/23
07:59 07:59 07:59 07:59
Intake Total 840 / 840
Output Total 850 / 850 500 / 500 1750 / 1750
Balance -850 / -850 -500 / -500 -910 / -910
Physical Exam
Physical Exam
GEN: No distress, awake, alert, oriented x3
HEENT: supple, anicteric, mmm, L eye blindness
LUNGS: Few crackles, no wheezes
CV: Reg, S1/S2, 1/6 murmur
ABD: soft, BS+, NT/ND
EXT: No cyanosis, clubbing, edema
NEURO: Gross non-focal
SKIN: Warm, pink, dry. No rash. R wrist and groin sites c/d/i, soft, no eechymoses noted
[2023-12-09] MEDS: FLUSH (NSS) 2 FLUSH IV (09:37)
[2023-12-09] MEDS: LASIX 20 MG IV (09:37)
--- NOTE | 2023-12-09 11:04 | W.PN.HOSP.TC ---
Today's Communication/Plan
-
see bold
Assessment / Plan
Assessment / Plan
Transferred to the Hospitalist service on 12/05/23 from cardiology.
Gen: NAD, AAOx3.
Eyes: EOMI, PERRLA, no scleral icterus.
Neck: supple.
CV: continues to remain RRR, +S1/S2, no m/r/g.
Resp: slightly decreased BS in L base, no rales, wheezes, or rhonchi.
Abd: +BS, soft, NT, ND
Skin: No rashes.
Neuro: continues to remain CN 2-12 intact, non-focal.
Psych: Normal mood and affect.
CXR: Radiographic findings suggesting interstitial pulmonary edema with small bilateral pleural effusions.
Acute Non-STEMI:
-s/p cardiac cath on 12/04/23, ostial/proximal LAD PCI
-cont statin/ASA/Plavix/BB (plavix to be stopped on d/c)
-cards following
-echo today
Paroxysmal atrial fibrillation:
-now converted to NSR
-previously did not tolerate Cardizem drip due to hypotension
-cont BB/Amio, decrease Amio on d/c
-cont Eliquis
Acute HFrEF:
-BNP > 27,000
-s/p IV Lasix which was stopped 12/07/23 with SIMI
-daily wts, I/Os
-cont FR
-cont Jardiance/BB
-Lasix 20mg IV given 12/08/23 and 12/09/23
SIMI on CKD3:
-due to CRS
-IV Lasix stopped 12/07/23, Cr improved
-Lasix 20mg IV given 12/08/23 and 12/09/23
-renal following
Other problems:
Leukocytosis: likely reactive
Anemia: Hb stable
DM2: a1c 8.9%, cont Lantus 24U AM And 12U HS, 8U premeal, SSI/accuchecks.
Hypothyroidism: cont Levoxyl
Family updated at bedside.
FULL/Eliquis
Total time spent on today's encounter was 51 minutes which included time spent in counseling the patient/family regarding diagnosis and treatment plan as listed above, goals of care, and symptom management. Case was discussed with nursing staff,
specialists, and care coordinators/case management. All labs and imaging personally reviewed by me. Remainder the time spent in detailed review of previous records, lab data, imaging, and other medical provider documentation.
Anticipated Discharge: Within 24 hours
Subjective/Interval History
-
Date of Service: December 09, 2023
Objective Data
-
Labs:
Laboratory Results
12/09/23
04:47
Sodium 137
Potassium 5.1
Chloride 103
Carbon Dioxide 25
BUN 79 H
Creatinine 2.3 H
Glucose 201 H
Calcium 8.5
Vital Signs:
Vital Signs
Temp Pulse Resp BP Pulse Ox
97.8 F 63 16 134/80 99
12/09/23 07:15 12/09/23 07:16 12/09/23 07:15 12/09/23 07:16 12/09/23 07:16
I&O
12/08/23 12/09/23 12/10/23
06:59 06:59 06:59
Intake Total 840 / 840
Output Total 500 / 500 1500 / 1500 250 / 250
Balance -500 / -500 -660 / -660 -250 / -250
[2023-12-09 11:05] VITALS: BMI 33.7
[2023-12-09 11:47] VITALS: BP 125/52
--- NOTE | 2023-12-09 12:06 | CM ---
CM following for DC planning needs.
Met w/ patient at bedside. She reports that she is feeling well and is now going to return to her own home, not her daughter's home.
Plan is for home w/ [facility]. Discussed this w/ patient and is aware/agreeable to this.
Will remain avail. and cont. to follow.
[2023-12-09 12:07] LABS: Glucose - Point of Care 238 mg/dl (70-99)
[2023-12-09] MEDS: NOVOLOG FLEXPEN-LOW RESISTANCE 2 UNITS SC (13:17)
[2023-12-09] MEDS: NOVOLOG FLEXPEN 8 UNITS SC ×2 (13:17→17:40)
[2023-12-09 15:10] VITALS: BP 142/41
[2023-12-09 17:23] LABS: Glucose - Point of Care 247 mg/dl (70-99)
[2023-12-09 17:31] LABS: Glucose - Point of Care 267 mg/dl (70-99)
[2023-12-09] MEDS: NOVOLOG FLEXPEN-LOW RESISTANCE 3 UNITS SC (17:41)
[2023-12-09 19:01] VITALS: BP 109/60
[2023-12-09] MEDS: MELATONIN 5 MG PO (21:47)
[2023-12-09] MEDS: LIPITOR 80 MG PO (21:47)
[2023-12-09] MEDS: LANTUS 0.12 UNITS SC (21:48)
[2023-12-09 21:52] LABS: Glucose - Point of Care 155 mg/dl (70-99)
[2023-12-09 23:58] LABS: Glucose - Point of Care 132 mg/dl (70-99)
[2023-12-10] VITALS (16 sets, daily range): BP systolic 80–118; BP diastolic 46–74; PULSE 90
[2023-12-10] MEDS: LOPRESSOR 5 MG IV (00:51)
--- NOTE | 2023-12-10 02:11 | PTCARENOTE ---
Pt received start of shift, HR afib. PRN IV lopressor administered for HR 120s-130s - see MAR. Pt states she cannot tell when she is in afib vs SR, even with the faster rate in afib. Pt requested blood sugar be checked an additional time prior to
sleeping to settle her nerves - 132. Pt denies any CP, SOB, or lightheadedness/dizziness. Informed to notify RN if any changes, call bejarano within reach.
[2023-12-10 04:15] LABS: Blood Urea Nitrogen 77 mg/dl (7-17); Calcium 8.9 mg/dl (8.4-10.2); Carbon Dioxide 24 mmol/L (22-30); Chloride 105 mmol/L (98-107); Estimated Creatinine Clearance 15 ml/min; Glucose 101 mg/dl (70-99); Potassium 5.1 mmol/L (3.5-5.1); Sodium 142 mmol/L (135-145); eGFR 19.31
[2023-12-10] MEDS: SYNTHROID 125 MCG PO (06:39)
--- NOTE | 2023-12-10 07:00 | PTCARENOTE ---
pt received at change of shift. Pt AAOX3, denies pain. Afib on telemetry heart rate 110-120s. pulses palpable. +1 pitting edema in lower extremities. pt on room air, sat 97%. lung sounds diminished throughout. active bowel sounds. voiding in
bathroom. old cath sites HOSPITAL SUPERINTENDENT. cardiology and hosp notified of afib heart rate 110-120s BP 96/59, okay to give metoprolol
[2023-12-10 07:46] LABS: Glucose - Point of Care 150 mg/dl (70-99)
--- NOTE | 2023-12-10 08:00 | W.PN.HOSP.TC ---
Today's Communication/Plan
-
see bold
Assessment / Plan
Assessment / Plan
Transferred to the Hospitalist service on 12/05/23 from cardiology.
Gen: remains NAD, AAOx3.
Eyes: EOMI, PERRLA, no scleral icterus.
Neck: supple.
CV: tachy, irreg/irreg, +S1/S2, no m/r/g.
Resp: slightly decreased BS in the bases, no rales, wheezes, or rhonchi.
Abd: +BS, soft, NT, ND
Skin: No rashes.
Neuro: CN 2-12 intact, non-focal.
Psych: Normal mood and affect.
CXR: Radiographic findings suggesting interstitial pulmonary edema with small bilateral pleural effusions.
Echo 12/09/23: Upper normal left ventricular size and low normal systolic function. Mild
concentric left ventricular hypertrophy. Mild mid to distal anteroseptal
hypokinesis LV ejection fraction is 50% by visual estimate.
Normal right ventricular size and function.
Normal pericardium without effusion.
Acute Non-STEMI:
-s/p cardiac cath on 12/04/23, ostial/proximal LAD PCI
-cont statin/ASA/Plavix/BB (plavix to be stopped on d/c)
-cards following
-12/07/23 echo above
Paroxysmal atrial fibrillation:
-converted to NSR, now back in afib with RVR
-previously did not tolerate Cardizem drip due to hypotension
-currently on BB/Amio with plans for decreasing Amio on d/c
-cont Eliquis
-SBPs 80-90s this AM with afib with RVR. Will discuss med changes with cardiology.
Acute HFrEF:
-BNP > 27,000
-s/p IV Lasix which was stopped 12/07/23 with SIMI
-daily wts, I/Os
-cont FR
-cont Jardiance/BB
-Lasix 20mg IV given 12/08/23 and 12/09/23
SIMI on CKD3:
-due to CRS
-IV Lasix stopped 12/07/23, Cr improved
-Lasix 20mg IV given 12/08/23 and 12/09/23
-renal following
Other problems:
Leukocytosis: likely reactive
Anemia: Hb stable
DM2: a1c 8.9%, cont Lantus 24U AM And 12U HS, 8U premeal, Jardiance, SSI/accuchecks.
Hypothyroidism: cont Levoxyl
FULL/Eliquis
Total time spent on today's encounter was 50 minutes which included time spent in counseling the patient/family regarding diagnosis and treatment plan as listed above, goals of care, and symptom management. Case was discussed with nursing staff,
specialists, and care coordinators/case management. All labs and imaging personally reviewed by me. Remainder the time spent in detailed review of previous records, lab data, imaging, and other medical provider documentation.
Anticipated Discharge: 24 - 48 hours
Subjective/Interval History
-
Date of Service: December 10, 2023
Denies CP/SOB.
Objective Data
-
Labs:
Laboratory Results
12/10/23
03:37
Sodium 142
Potassium 5.1
Chloride 105
Carbon Dioxide 24
BUN 77 H
Creatinine 2.4 H
Glucose 101 H
Calcium 8.9
Vital Signs:
Vital Signs
Temp Pulse Resp BP Pulse Ox
97.7 F 99 20 118/65 97
12/10/23 07:13 12/10/23 06:00 12/10/23 07:13 12/10/23 03:31 12/10/23 07:13
I&O
12/09/23 12/10/23 12/11/23
06:59 06:59 06:59
Intake Total 840 / 840
Output Total 1500 / 1500 1425 / 1425
Balance -660 / -660 -1425 / -1425
--- NOTE | 2023-12-10 08:09 | PN.DE.MGMTRT ---
Insulin Management
- -
12/10/2023 Diabetes Management Consult Follow up
Patient admitted 12/03 with dyspnea, respiratory distress, acute non-STEMI. PMH CAD with stend, a fib, HTN, HLD, hypothyroid, type 2 diabetes. Prior to admission was taking 4 units novolog AC with 24 units lantus in AM. A1C is 8.9%, cr on
admission1.8, eGFR 27.27.
Patient is awake alert and oriented, sitting on side of bed, able to discuss diabetes management, states she feels so much better.
Patient recalls initial diagnosis attending outpatient classes. She sees AAKASH Mukherjee or ALTERATION WORKROOM SUPERVISOR at the [place] endocrine office. Discussed with patient glucose has been > 200 fasting and as high as 365 pre lunch.
12/09 CR 2.4, eGFR 19.31. Will continue to hold Jardiance. Lantus increased to 12 units, fasting 101 this AM, will continue hs lantus to 12 units and AM lantus 24 units. AC novolog increased to 8 units with low corrective. Glucose 238 pre lunch
and 267 pre dinner, hs 155 will increase AC novolog to 10 units.
Discussed with patients nurse.
Diabetes History
- -
Type of Diabetes: 2 requiring insulin
Pre-Admission Diabetes Regimen
12/10/23
03:37
Creatinine 2.4 H
Lab Results
Hemoglobin A1c 8.9 % (4.0-5.6) H 12/05/23 03:45
Insulin Pump Settings
IP Diabetes Regimen
12/09/23 12/09/23 12/09/23
12:05 17:22 17:29
Glucose
POC Glucose 238 H 247 H 267 H
12/09/23 12/09/23 12/10/23
21:50 23:57 03:37
Glucose 101 H
POC Glucose 155 H 132 H
12/10/23
07:45
Glucose
POC Glucose 150 H
Meal type: Dinner
Meal type: Breakfast
Amount consumed: 100%
Amount consumed: 100%
Patient Education
[2023-12-10] MEDS: LANTUS 0.24 UNITS SC (08:32)
[2023-12-10] MEDS: LOW STRENGTH ASPIRIN 81 MG PO (08:33)
[2023-12-10] MEDS: PLAVIX 75 MG PO (08:33)
[2023-12-10] MEDS: PACERONE 200 MG PO ×3 (08:33→22:20)
[2023-12-10] MEDS: ELIQUIS 2.5 MG PO ×2 (08:33→19:11)
[2023-12-10] MEDS: PROTONIX 40 MG PO (08:33)
[2023-12-10] MEDS: NOVOLOG FLEXPEN-LOW RESISTANCE 1 UNITS SC ×3 (08:36→18:26)
[2023-12-10] MEDS: NOVOLOG FLEXPEN 10 UNITS SC ×3 (08:36→18:25)
[2023-12-10] MEDS: NOVOLOG FLEXPEN SC (08:53)
[2023-12-10] MEDS: TOPROL XL 25 MG PO ×2 (09:04→11:09)
--- NOTE | 2023-12-10 09:17 | W.PN.NEPH.PH ---
Today's Communication / Plan
-
follow BMP
Assessment/Plan
-
IMP:
Acute Non-STEMI:-s/p cardiac cath on 12/04/23, ostial/proximal LAD PCI
Paroxysmal atrial fibrillation
Acute HFrEF EF 30%
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
Leukocytosis
Anemia
DM2: a1c 8.9%, microvascular complications
Hypothyroidism
blind left eye
Plan:
follow BMP
ARB/SGLT2i on hold (no ARB with lower BP, could consider eventual restart of Jardiance only since she was likely on it when GFR>30)
no lasix today, use po prn only
-
-
Date of Service: December 10, 2023
CC / HPI / ROS
-
Chief Complaint:
SIMI
History of Present Illness:
SIMI/Cr stable at 2.4
BUN down to 77
diuresed well with IV lasix yesterday for SOB
BP low today
remains in Afib
Review of Systems:
no CP/SOB
Labs
-
Labs:
WBC 11.6 10^3/uL (4.8-10.8) H 12/07/23 04:29
RBC 3.20 10^6/uL (4.20-5.40) L 12/07/23 04:29
Hgb 9.4 g/dL (12.0-16.0) L 12/07/23 04:29
Hct 27.6 % (37.0-47.0) L 12/07/23 04:29
Plt Count 215 10^3/uL (130-400) 12/07/23 04:29
Sodium 142 mmol/L (135-145) 12/10/23 03:37
Potassium 5.1 mmol/L (3.5-5.1) 12/10/23 03:37
Chloride 105 mmol/L (98-107) 12/10/23 03:37
Carbon Dioxide 24 mmol/L (22-30) 12/10/23 03:37
BUN 77 mg/dl (7-17) H 12/10/23 03:37
Creatinine 2.4 mg/dL (0.6-1.0) H 12/10/23 03:37
eGFR 19.31 12/10/23 03:37
Glucose 101 mg/dl (70-99) H 12/10/23 03:37
Calcium 8.9 mg/dl (8.4-10.2) 12/10/23 03:37
Uro-I-Cmxsmnxlkll Pept > 79441 pg/ml 12/06/23 04:24
Albumin 3.5 g/dl (3.5-5.0) 12/07/23 04:29
Physical Exam
-
Vital Signs:
Vital Signs
Temp Pulse Resp BP Pulse Ox
97.7 F 115 20 107/62 97
12/10/23 07:13 12/10/23 09:04 12/10/23 07:13 12/10/23 09:04 12/10/23 07:13
Cardiovascular:: Irregular rate and rhythm
Respiratory:: Bilateral: CTA
Lung Excursion:: Normal
Abdomen:: Nontender and Soft
Bowel Sounds:: Normal
Extremity Edema:: None: Bilateral:
--- NOTE | 2023-12-10 09:36 | W.PN.CARDCBS ---
Addendum entered and electronically signed by Justice Mcfadden MD 12/10/23 13:05:
I saw and examined the patient.
The Catering Barista's note was reviewed and I agree with the note.
Comment:
GEN: No distress, awake, Ox3
HEENT: supple, anicteric, mmm
LUNGS: CTA, no wheezes/rales
CV: Irreg, S1/S2, 1/6 syst LSB, no gallop
ABD: soft, BS+, NT/ND
EXT: No edema
NEURO: Gross non-focal
SKIN: No rash
Plan:
in Afib today. Cont Amiodarone 200mg po tid.
Increase Toprol to 50mg po bid
Hold Lasix
Creat stable at 2.4. Cot to follow
Triple therapy and then stop Plavix on discharge
Original Note:
Today's Communication / Plan
-
increase toprol. continue po amio
follow rhythm
no lasix today
hopeful for DC in AM
Impression / Plan
-
PCP: Primitivo Cedeno MD
CDY: Goyo Seymour MD of [facility]
IMPRESSION:
Admitted to [facility] with acute hypoxic respiratory failure/pulmonary edema, HF and NSTEMI 12/03/23
Transferred to for cath 12/04/23
- Acute HFrEF, EF was newly reduced at 30% at [facility].
- NSTEMI
Coronary artery disease
s/p LAD & LCx BMS x2 in 2014
s/p distal LCx/OM VANGIE in 2021
s/p NSTEMI and 2.75 mm [place] VANGIE to ostial/prox LAD 12/04/23
- Paroxysmal Afib with RVR starting 12/05/23 AM
- history of paroxysmal atrial fibrillation
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
Cre 1.94 at [facility]
- Hyperlipidemia
- DM 2
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
- Elevated LFTs improving and likely related to some component of shock liver
Echo 01/23/2022: EF 50 to 54%, moderate MR, mild MS with mean MV gradient 5 mmHg, mild to moderate TR with PAP 45 to 50 mmHg
Echo 12/04/2023: [facility] study, EF 30%, LAD wall motion abnormality
Cath 12/04/23:
Successful PCI of the LAD with placement of a drug-eluting stent as described above.
Widely patent previously placed mid LAD stent and overlapping circumflex proper stents with known critical disease involving the jailed obtuse marginal branch and chronically occluded distal left sided posterior descending artery.
Plan:
-Presented initially to [facility] with acute CHF and NSTEMI
-s/p cath 12/03 resulting in LAD PCI. has known residual disease as above, medically managed
-continue triple therapy at present. will stop asa in AM as will have been 1 week. continue eliquis, plavix. hgb stable at 9.4. of note, had previously retinal hemorrhage on asa, plavix. follow closely as OP. CBC in 1 week upon DC
-wrist and groin sites stable
-echo at [facility] with EF newly 30%, improved to 50% by follow up study 12/09
-with bump in Cr post procedure, peak 2.6. up slightly to 2.4 today. holding lasix. will plan for 20mg po PRN upon DC. appreciate nephrology input
-went back into atrial fibrillation ~1600 yesterday. continue amiodarone 200mg TID, started 12/04. will plan for amiodarone 200mg BID for 1 week upon DC then decrease to 200mg daily. increase toprol dose to 50mg BID. suspect hypotension related to
elevated HR
-GDMT as able. not candidate for jardiance/marni/arb/arni/aldactone with SIMI
-continue statin
-cardiac rehab
-OP follow up with [facility]
-patient states moving forward she would like to be DO NOT INTUBATE status.
-d/w nursing. updated primary wool hat forming machine tender
HPI: 87 y/o white female, PMH sig for CAD with prior, Carotid disease with CEA 2009 complicated by post op CVA, AFib on eliquis, HTN, HLD, DM, hypothyroid, CKD4, asthma.
New onset of chest tightness/dyspnea for a few days. She was using her PRN ProAir inhaler thinking it was related to asthma, and it did work for a short time and then it wasn't helping anymore. She was unable to catch her breath yesterday, and
presented to [facility] ER where she ruled in for NSTEMI with An echo today revealed decreased LVSF, EF 30%, grade III LV diastolic dysfunction, with multiple segmental WMA, severely dilated LA, mod MR with severe MAC, mod-severe TR. Eliquis held and
started on IV heparin. SIMI noted in addition to CKD4, with creat 1.94, GFR 25 today.
A CXR showed pulmonary edema with possible associated pneumonia, cardiomegaly and congestion.
She has an allergy to plavix that was noted as a retinal hemorrhage.
Transferred today for [facility].
Progress Note - Social Welfare Clerk
Subjective
Date of Service: December 10, 2023
asymptomatic with afib. breathing improved.
Objective
Labs:
12/07/23 04:29
12/10/23 03:37
Labs
Hgb 9.4 g/dL (12.0-16.0) L 12/07/23 04:29
Hct 27.6 % (37.0-47.0) L 12/07/23 04:29
Plt Count 215 10^3/uL (130-400) 12/07/23 04:29
Sodium 142 mmol/L (135-145) 12/10/23 03:37
Potassium 5.1 mmol/L (3.5-5.1) 12/10/23 03:37
BUN 77 mg/dl (7-17) H 12/10/23 03:37
Creatinine 2.4 mg/dL (0.6-1.0) H 12/10/23 03:37
Glucose 101 mg/dl (70-99) H 12/10/23 03:37
Vital Signs and I&O:
Vital Signs
Temp Pulse Resp BP Pulse Ox
97.7 F 115 20 107/62 97
12/10/23 07:13 12/10/23 09:04 12/10/23 07:13 12/10/23 09:04 12/10/23 07:13
Vital Signs
Temp Pulse Resp BP Pulse Ox
97.7 F 115 20 107/62 97
12/10/23 07:13 12/10/23 09:04 12/10/23 07:13 12/10/23 09:04 12/10/23 07:13
Intake & Output
12/08/23 12/09/23 12/10/23 12/11/23
07:59 07:59 07:59 07:59
Intake Total 840 / 840
Output Total 500 / 500 1750 / 1750 1175 / 1175
Balance -500 / -500 -910 / -910 -1175 / -1175
Physical Exam
Physical Exam
GEN: No distress, awake, alert, oriented x3
HEENT: supple, anicteric, mmm, L eye blindness
LUNGS: CTA B/L, no wheezes
CV: Irreg, S1/S2, 1/6 murmur
ABD: soft, BS+, NT/ND
EXT: No cyanosis, clubbing, edema
NEURO: Gross non-focal
SKIN: Warm, pink, dry. No rash. R wrist site c/d/i
--- NOTE | 2023-12-10 11:55 | ECGCV ---
Melody Monzon notified of ECG critical value identified by electronic interpretation on ECG completed on 12/10/23, at 1132.
--- NOTE | 2023-12-10 12:22 | CM ---
CM continues to follow for DC planning needs.
Met w/ patient at bedside. She reports that she is feeling well. She is hopeful for DC soon.
Plan remains for home w/ [facility] . I updated them today that patient is still hospitalized.
Will cont. to follow.
[2023-12-10 13:11] LABS: Glucose - Point of Care 178 mg/dl (70-99)
[2023-12-10 18:13] LABS: Glucose - Point of Care 159 mg/dl (70-99)
[2023-12-10] MEDS: TOPROL XL 50 MG PO (19:11)
[2023-12-10 21:28] LABS: Glucose - Point of Care 82 mg/dl (70-99)
[2023-12-10] MEDS: MELATONIN 5 MG PO (22:20)
[2023-12-10] MEDS: LIPITOR 80 MG PO (22:20)
[2023-12-10] MEDS: LANTUS SC (22:31)
--- NOTE | 2023-12-10 23:12 | PTCARENOTE ---
Addendum entered by Bartolome Bar RN 12/11/23 00:17:
Pt requested repeat sugar prior to 3am - 72. Pt requesting saltines and jelly, given. Will still recheck BG @ 3am.
Original Note:
Pt received start of shift, HR SB. ON HS blood sugar check, pts BG 82. TT BRUSH POLISHER dev, held evening lantus dose and will recheck at 3am. Pt states she feels ready to go home and really does not want to stay another day. Pt denies any CP,
lightheadedness, or dizziness. Informed to notify RN if any changes, call bejarano within reach.
[2023-12-11] VITALS (11 sets, daily range): BP systolic 99–140; BP diastolic 40–97; PULSE 55; BMI 33.7
[2023-12-11 00:02] LABS: Glucose - Point of Care 74 mg/dl (70-99)
[2023-12-11 03:15] LABS: Glucose - Point of Care 89 mg/dl (70-99)
[2023-12-11 03:50] LABS: Hematocrit 26.2 % (37.0-47.0); Hemoglobin 8.9 g/dL (12.0-16.0); Mean Corpuscular Hgb 29.3 pg (27.0-31.0); Mean Corpuscular Volume 86.2 fL (81.0-99.0); Mean Platelet Volume 11.1 fL (7.4-10.4); Platelet Count 284 10^3/uL (130-400); Red Blood Cell Count 3.04 10^6/uL (4.20-5.40); Red Cell Dist. Width 13.9 % (11.5-14.5); White Blood Cell Count 12.1 10^3/uL (4.8-10.8)
[2023-12-11 04:07] LABS: Blood Urea Nitrogen 86 mg/dl (7-17); Calcium 8.7 mg/dl (8.4-10.2); Carbon Dioxide 22 mmol/L (22-30); Chloride 102 mmol/L (98-107); Estimated Creatinine Clearance 13 ml/min; Glucose 80 mg/dl (70-99); Potassium 5.2 mmol/L (3.5-5.1); Sodium 139 mmol/L (135-145); eGFR 17.54
[2023-12-11 06:59] LABS: Glucose - Point of Care 100 mg/dl (70-99)
--- NOTE | 2023-12-11 07:00 | PTCARENOTE ---
pt received at change of shift. pt resting comfortably, denies pain. AAOX3. walking independently in room. SB on telemetry heart rate in 50s. pulses palpable. pt on room air, lung sounds diminished in bases. see worklist for full nursing assessment
and interventions.
[2023-12-11] MEDS: SYNTHROID 125 MCG PO (07:07)
--- NOTE | 2023-12-11 07:47 | PN.DE.MGMTRT ---
Insulin Management
- -
12/11/2023 Diabetes Management F/U:
Patient admitted 12/03 with dyspnea, respiratory distress, acute NSTEMI. PMH CAD with stent, A-Fib, HTN, HLD, hypothyroid, T2DM.
Patient recalls initial diagnosis attending outpatient classes. She sees AAKASH Mukherjee or LABOR RELATIONS MANAGER at the [place] [facility] office.
Was taking 4 units NovoLog AC with 24 units Lantus in AM prior to admission. A1C is 8.9%, Cr 1.8, eGFR 27.27.
Discussed with patient glucose has been > 200 fasting and as high as 365 pre lunch.
Patient is awake alert and oriented, sitting on side of bed, able to discuss diabetes management.
Pt was teary and emotional during interview, states she feels depressed and sad about how being in the hospital is affecting her kids.
12/09 glucose 150 to 178, fasting 100 this AM. Cr 2.6, eGFR 17.54 today. Will continue to hold Jardiance.
Lantus dose was held last night for low blood sugar of 82 @ HS.
Will make no changes to current regimen: cont Lantus 24 units in AM, 12 units @ HS, NovoLog 10 units AC with low corrective.
Diabetes History
- -
Type of Diabetes: 2 requiring insulin
Pre-Admission Diabetes Regimen
12/11/23
03:27
Creatinine 2.6 H
Lab Results
Hemoglobin A1c 8.9 % (4.0-5.6) H 12/05/23 03:45
Insulin Pump Settings
IP Diabetes Regimen
12/10/23 12/10/23 12/10/23
13:10 18:11 21:27
Glucose
POC Glucose 178 H 159 H 82
12/11/23 12/11/23 12/11/23
00:01 03:13 03:27
Glucose 80
POC Glucose 74 89
12/11/23
06:58
Glucose
POC Glucose 100 H
Meal type: Dinner
Meal type: Breakfast
Amount consumed: 100%
Amount consumed: 100%
Patient Education
--- NOTE | 2023-12-11 08:29 | W.PN.NEPH.PH ---
Today's Communication / Plan
-
Hold Lasix
Support blood pressure
Follow BMP
Assessment/Plan
-
IMP:
Acute Non-STEMI:-s/p cardiac cath on 12/04/23, ostial/proximal LAD PCI
Paroxysmal atrial fibrillation
Acute HFrEF EF 30%
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
Leukocytosis
Anemia
DM2: a1c 8.9%, microvascular complications
Hypothyroidism
blind left eye
Plan:
follow BMP
Creatinine continues to climb to 2.6 urine output not recorded weights unchanged
ARB/SGLT2i on hold (no ARB with lower BP, could consider eventual restart of Jardiance only since she was likely on it when GFR>30)
Holding Lasix
Remains bradycardic and hypotensive
-
-
Date of Service: December 11, 2023
CC / HPI / ROS
-
Chief Complaint:
SIMI
History of Present Illness:
SIMI/Cr worse to 2 point
BUN up to 86
Hemodynamically labile
remains in Afib
Review of Systems:
no CP/SOB
Labs
-
Labs:
WBC 12.1 10^3/uL (4.8-10.8) H 12/11/23 03:27
RBC 3.04 10^6/uL (4.20-5.40) L 12/11/23 03:27
Hgb 8.9 g/dL (12.0-16.0) L 12/11/23 03:27
Hct 26.2 % (37.0-47.0) L 12/11/23 03:27
Plt Count 284 10^3/uL (130-400) D 12/11/23 03:27
Sodium 139 mmol/L (135-145) 12/11/23 03:27
Potassium 5.2 mmol/L (3.5-5.1) H 12/11/23 03:27
Chloride 102 mmol/L (98-107) 12/11/23 03:27
Carbon Dioxide 22 mmol/L (22-30) 12/11/23 03:27
BUN 86 mg/dl (7-17) H 12/11/23 03:27
Creatinine 2.6 mg/dL (0.6-1.0) H 12/11/23 03:27
eGFR 17.54 12/11/23 03:27
Glucose 80 mg/dl (70-99) 12/11/23 03:27
Calcium 8.7 mg/dl (8.4-10.2) 12/11/23 03:27
Mny-U-Vskoaqekrov Pept > 25095 pg/ml 12/06/23 04:24
Albumin 3.5 g/dl (3.5-5.0) 12/07/23 04:29
Physical Exam
-
Vital Signs:
Vital Signs
Temp Pulse Resp BP Pulse Ox
97.5 F 51 18 99/59 99
12/11/23 06:53 12/11/23 03:16 12/11/23 06:53 12/11/23 03:16 12/11/23 06:53
Cardiovascular:: Regular rate and rhythm (Bradycardic)
Respiratory:: Bilateral: CTA
Lung Excursion:: Normal
Abdomen:: Nontender and Soft
Bowel Sounds:: Normal
Extremity Edema:: None: Bilateral:
Preston Catheter: No
--- NOTE | 2023-12-11 08:35 | W.PN.HOSP.TC ---
Today's Communication/Plan
-
see bold
Assessment / Plan
Assessment / Plan
Transferred to the Hospitalist service on 12/05/23 from cardiology.
Gen: continues to remain NAD, AAOx3.
Eyes: EOMI, PERRLA, no scleral icterus.
Neck: supple.
CV: RRR, +S1/S2, no m/r/g.
Resp: CTAB, no rales, wheezes, or rhonchi.
Abd: +BS, soft, NT, ND
Skin: No rashes.
Neuro: CN 2-12 intact, non-focal.
Psych: Normal mood and affect.
CXR: Radiographic findings suggesting interstitial pulmonary edema with small bilateral pleural effusions.
Echo 12/09/23: Upper normal left ventricular size and low normal systolic function. Mild
concentric left ventricular hypertrophy. Mild mid to distal anteroseptal
hypokinesis LV ejection fraction is 50% by visual estimate.
Normal right ventricular size and function.
Normal pericardium without effusion.
Acute Non-STEMI:
-s/p cardiac cath on 12/04/23, ostial/proximal LAD PCI
-cont statin/ASA/Plavix/BB (plavix to be stopped on d/c)
-cards following
-12/07/23 echo above
Paroxysmal atrial fibrillation:
-converted to NSR, then back in afib with RVR, now back in SR
-previously did not tolerate Cardizem drip due to hypotension
-currently on BB (increased 12/10/23)/Amio with plans for decreasing Amio on d/c
-cont Eliquis
-cardiology following
Acute HFrEF:
-BNP > 27,000
-s/p IV Lasix which was stopped 12/07/23 with SIMI
-daily wts, I/Os
-cont FR
-cont Jardiance/BB
-Lasix 20mg IV given 12/08/23 and 12/09/23
SIMI on CKD3:
-due to CRS
-IV Lasix stopped 12/07/23, Cr improved, now worsening at 2.6
-Lasix 20mg IV given 12/08/23 and 12/09/23
-renal following
Hyperkalemia:
-start Lokelma
Other problems:
Leukocytosis: likely reactive
Anemia: Hb stable
DM2: a1c 8.9%, cont Lantus 24U AM And 12U HS, 8U premeal, Jardiance, SSI/accuchecks.
Hypothyroidism: cont Levoxyl
FULL/Eliquis
Anticipated Discharge: Within 24 hours
Subjective/Interval History
-
Date of Service: December 11, 2023
Objective Data
-
Labs:
Laboratory Results
12/11/23
03:27
WBC 12.1 H
Hgb 8.9 L
Hct 26.2 L
Plt Count 284 D
Sodium 139
Potassium 5.2 H
Chloride 102
Carbon Dioxide 22
BUN 86 H
Creatinine 2.6 H
Glucose 80
Calcium 8.7
Vital Signs:
Vital Signs
Temp Pulse Resp BP Pulse Ox
97.5 F 51 18 99/59 99
12/11/23 06:53 12/11/23 03:16 12/11/23 06:53 12/11/23 03:16 12/11/23 06:53
I&O
12/10/23 12/11/23 12/12/23
06:59 06:59 06:59
Intake Total 960 / 960
Output Total 1425 / 1425
Balance -1425 / -1425 960 / 960
--- NOTE | 2023-12-11 08:36 | W.PN.CARDCBS ---
Addendum entered and electronically signed by Momo Khan MD 12/11/23 15:46:
I saw and examined the patient.
The GYMNASTICS INSTRUCTOR or PA's note was reviewed and I agree with the note.
Comment: General: Well developed, well nourished in NAD.
Neck: Supple, no JVD, HJR, carotids +2 B/L, no bruits bilaterally.
Heart: Non displaced PMI, RRR, no murmurs, No S3, S4, no rubs.
Lungs: Scattered rhonchi
Extremities: No clubbing, cyanosis or edema bilaterally.
Neuro: Grossly nonfocal, awake, alert and oriented x3.
She remains in sinus rhythm. Continue amiodarone 400 mg p.o. 3 times daily while inpatient and eventually changed to 200 mg p.o. twice daily on discharge. Creatinine has worsened to 2.6. Nephrology managing diuretics. Discussed with primary
service
Original Note:
Today's Communication / Plan
-
back in SR. continue amiodarone 200mg BID for 1 week then decrease to 200mg daily
continue toprol 50mg BID. no marni/arb/aldactone/SGLT2 due to SIMI
diuretics per nephrology, consider check repeat proBNP
asa stopped. continue eliquis, plavix
BMP/CBC in 1 week as OP
follow up with ATC arranged
Impression / Plan
-
PCP: Primitivo Cedeno MD
CDY: Goyo Seymour MD of ATC
IMPRESSION:
Admitted to [facility] with acute hypoxic respiratory failure/pulmonary edema, HF and NSTEMI 12/03/23
Transferred to for cath 12/04/23
- Acute HFrEF, EF was newly reduced at 30% at [facility].
- NSTEMI
Coronary artery disease
s/p LAD & LCx BMS x2 in 2014
s/p distal LCx/OM VANGIE in 2021
s/p NSTEMI and 2.75 mm Ramon VANGIE to ostial/prox LAD 12/04/23
- Paroxysmal Afib with RVR starting 12/05/23 AM
- history of paroxysmal atrial fibrillation
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
Cre 1.94 at [facility]
- Hyperlipidemia
- DM 2
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
- Elevated LFTs improving and likely related to some component of shock liver
Echo 01/23/2022: EF 50 to 54%, moderate MR, mild MS with mean MV gradient 5 mmHg, mild to moderate TR with PAP 45 to 50 mmHg
Echo 12/04/2023: [facility] study, EF 30%, LAD wall motion abnormality
Cath 12/04/23:
Successful PCI of the LAD with placement of a drug-eluting stent as described above.
Widely patent previously placed mid LAD stent and overlapping circumflex proper stents with known critical disease involving the jailed obtuse marginal branch and chronically occluded distal left sided posterior descending artery.
Plan:
-Presented initially to [facility] with acute CHF and NSTEMI
-s/p cath 12/03 resulting in LAD PCI. has known residual disease as above, medically managed
-asa stopped, continue eliquis, plavix. hgb 8.9. of note, had previously retinal hemorrhage on asa, plavix. follow closely as OP. CBC in 1 week upon DC
-echo at [facility] with EF newly 30%, improved to 50% by follow up study 12/09
-with bump in Cr post procedure, Cr up to 2.6 today, possibly due to hypotension/afib yesterday. patient reports remains with some ZENG. nephrology managing diuretics. consider repeat proBNP
-back in SR, maintaining overnight. continue amiodarone 200mg TID, started 12/04. will plan for amiodarone 200mg BID for 1 week upon DC then decrease to 200mg daily. toprol increased to 50mg BID 12/09. suspect hypotension related to elevated HR, follow
-GDMT as able. not candidate for jardiance/marni/arb/arni/aldactone with SIMI
-continue statin
-cardiac rehab
-OP follow up with [facility]C arranged
-patient states moving forward she would like to be DO NOT INTUBATE status.
HPI: 87 y/o white female, PMH sig for CAD with prior, Carotid disease with CEA 2009 complicated by post op CVA, AFib on eliquis, HTN, HLD, DM, hypothyroid, CKD4, asthma.
New onset of chest tightness/dyspnea for a few days. She was using her PRN ProAir inhaler thinking it was related to asthma, and it did work for a short time and then it wasn't helping anymore. She was unable to catch her breath yesterday, and
presented to [facility] ER where she ruled in for NSTEMI with An echo today revealed decreased LVSF, EF 30%, grade III LV diastolic dysfunction, with multiple segmental WMA, severely dilated LA, mod MR with severe MAC, mod-severe TR. Eliquis held and
started on IV heparin. SIMI noted in addition to CKD4, with creat 1.94, GFR 25 today.
A CXR showed pulmonary edema with possible associated pneumonia, cardiomegaly and congestion.
She has an allergy to plavix that was noted as a retinal hemorrhage.
Transferred today for [facility].
Progress Note - Repair Technician
Subjective
Date of Service: December 11, 2023
No chest pain. Feeling well. Reports some dyspnea on exertion, however no tightness like earlier in admission
Objective
Labs:
12/11/23 03:27
12/11/23 03:27
Labs
Hgb 8.9 g/dL (12.0-16.0) L 12/11/23 03:27
Hct 26.2 % (37.0-47.0) L 12/11/23 03:27
Plt Count 284 10^3/uL (130-400) D 12/11/23 03:27
Sodium 139 mmol/L (135-145) 12/11/23 03:27
Potassium 5.2 mmol/L (3.5-5.1) H 12/11/23 03:27
BUN 86 mg/dl (7-17) H 12/11/23 03:27
Creatinine 2.6 mg/dL (0.6-1.0) H 12/11/23 03:27
Glucose 80 mg/dl (70-99) 12/11/23 03:27
Vital Signs and I&O:
Vital Signs
Temp Pulse Resp BP Pulse Ox
97.5 F 51 18 99/59 99
12/11/23 06:53 12/11/23 03:16 12/11/23 06:53 12/11/23 03:16 12/11/23 06:53
Vital Signs
Temp Pulse Resp BP Pulse Ox
97.5 F 51 18 99/59 99
12/11/23 06:53 12/11/23 03:16 12/11/23 06:53 12/11/23 03:16 12/11/23 06:53
Intake & Output
12/09/23 12/10/23 12/11/23 12/12/23
07:59 07:59 07:59 07:59
Intake Total 840 / 840 960 / 960
Output Total 1750 / 1750 1175 / 1175
Balance -910 / -910 -1175 / -695 960 / 960
Physical Exam
Physical Exam
GEN: No distress, awake, alert, oriented x3
HEENT: supple, anicteric, mmm, L eye blindness
LUNGS: CTA B/L, no wheezes
CV: Reg, S1/S2, 1/6 murmur
ABD: soft, BS+, NT/ND
EXT: No cyanosis, clubbing, edema
NEURO: Gross non-focal
SKIN: Warm, pink, dry. No rash.
[2023-12-11] MEDS: TOPROL XL 50 MG PO ×2 (08:49→20:03)
[2023-12-11] MEDS: PROTONIX 40 MG PO (08:49)
[2023-12-11] MEDS: LANTUS SC (08:50)
[2023-12-11] MEDS: NOVOLOG FLEXPEN 10 UNITS SC ×2 (08:50→12:17)
[2023-12-11] MEDS: PLAVIX 75 MG PO (08:50)
[2023-12-11] MEDS: NOVOLOG FLEXPEN-LOW RESISTANCE SC ×2 (08:50→17:46)
[2023-12-11] MEDS: ELIQUIS 2.5 MG PO ×2 (08:50→20:03)
[2023-12-11] MEDS: PACERONE 200 MG PO ×3 (08:50→22:08)
[2023-12-11] MEDS: LANTUS 0.24 UNITS SC (09:33)
[2023-12-11] MEDS: LOKELMA 10 GRAM PO ×3 (10:24→17:40)
--- NOTE | 2023-12-11 11:39 | CM ---
CM following for DC planning needs.
Met w/ patient at bedside.
Reviewed DC plan for home w/ [facility].
Will update them on DC date.
Will cont. to follow.
[2023-12-11 12:03] LABS: Glucose - Point of Care 235 mg/dl (70-99)
[2023-12-11] MEDS: NOVOLOG FLEXPEN-LOW RESISTANCE 2 UNITS SC (12:17)
[2023-12-11 17:22] LABS: Glucose - Point of Care 65 mg/dl (70-99)
[2023-12-11 17:39] LABS: Glucose - Point of Care 65 mg/dl (70-99)
[2023-12-11] MEDS: NOVOLOG FLEXPEN SC (17:45)
[2023-12-11 17:57] LABS: Glucose - Point of Care 75 mg/dl (70-99)
--- NOTE | 2023-12-11 18:09 | PTCARENOTE ---
Rec'd report at 16:45 from previous RN. Pt in bradycardic rhythm and VSS. Pt with bedside blood glucose of 65 at 17:21. Hypoglycemic protocol followed. Please see worklist. Blood sugar now with in range and insulin held
[2023-12-11 20:08] LABS: Glucose - Point of Care 167 mg/dl (70-99)
[2023-12-11 22:06] LABS: Glucose - Point of Care 240 mg/dl (70-99)
[2023-12-11] MEDS: MELATONIN 5 MG PO (22:08)
[2023-12-11] MEDS: LIPITOR 80 MG PO (22:08)
[2023-12-11] MEDS: LANTUS 0.12 UNITS SC (22:08)
[2023-12-12 02:52] VITALS: BP 125/61
[2023-12-12 04:01] LABS: Blood Urea Nitrogen 84 mg/dl (7-17); Calcium 8.5 mg/dl (8.4-10.2); Carbon Dioxide 25 mmol/L (22-30); Chloride 100 mmol/L (98-107); Estimated Creatinine Clearance 14 ml/min; Glucose 167 mg/dl (70-99); Potassium 4.9 mmol/L (3.5-5.1); Sodium 136 mmol/L (135-145); eGFR 18.39
[2023-12-12 04:11] LABS: Glucose - Point of Care 176 mg/dl (70-99)
[2023-12-12] MEDS: SYNTHROID 125 MCG PO (06:19)
[2023-12-12] MEDS: LOKELMA PO (06:35)
--- NOTE | 2023-12-12 06:35 | PTCARENOTE ---
K 4.9 Melina held per TOWEL DISTRIBUTOR order
[2023-12-12 06:59] VITALS: BP 107/41
[2023-12-12 07:02] LABS: Glucose - Point of Care 148 mg/dl (70-99)
--- NOTE | 2023-12-12 08:04 | W.PN.HOSP.TC ---
Today's Communication/Plan
-
d/c
Assessment / Plan
Assessment / Plan
Transferred to the Hospitalist service on 12/05/23 from cardiology.
Gen: NAD, Awake and alert, NCAT
Eyes: no scleral icterus.
Neck: supple.
CV: maurilio, reg rhythm, +S1/S2, 1/6 systolic murmur
Resp: remains CTAB, no rales, wheezes, or rhonchi.
Skin: No rashes.
Neuro: CN 2-12 intact, non-focal.
Psych: Normal mood and affect.
CXR: Radiographic findings suggesting interstitial pulmonary edema with small bilateral pleural effusions.
Echo 12/09/23: Upper normal left ventricular size and low normal systolic function. Mild
concentric left ventricular hypertrophy. Mild mid to distal anteroseptal
hypokinesis LV ejection fraction is 50% by visual estimate.
Normal right ventricular size and function.
Normal pericardium without effusion.
Acute Non-STEMI:
-s/p cardiac cath on 12/04/23, ostial/proximal LAD PCI
-cont statin/Plavix/BB
-cards following
-12/07/23 echo above
Paroxysmal atrial fibrillation:
-converted to NSR, then back in afib with RVR, now back in SR
-previously did not tolerate Cardizem drip due to hypotension
-currently on BB (increased 12/10/23)/Amio with plans for decreasing Amio on d/c
-cont Eliquis
-cardiology following
Acute HFrEF:
-BNP > 27,000
-s/p IV Lasix which was stopped 12/07/23 with SIMI
-daily wts, I/Os
-cont FR
-cont BB
-Jardiance on hold with SIMI
-Lasix 20mg IV given 12/08/23 and 12/09/23
-discharge on 20mg lasix daily
SIMI on CKD3:
-due to CRS
-IV Lasix stopped 12/07/23
-Cr seems to have plateaued, now 2.5
-Lasix 20mg IV given 12/08/23 and 12/09/23
-renal following
Hyperkalemia:
-resolved with Lokelma
Other problems:
Leukocytosis: likely reactive
Anemia: Hb stable
DM2: a1c 8.9%, cont Lantus 24U AM And 12U HS, 10U premeal, Jardiance, SSI/accuchecks.
Hypothyroidism: cont Levoxyl
FULL/Eliquis
Total time spent on d/c = 35 min. This included today's physical exam, progress note, review of laboratory and diagnostic data, preparation of discharge documents and prescriptions, and discussions about the pt's hospital course and discharge plan
with the patient and other director of medical services involved in the patient's care.
Anticipated Discharge: Today
Subjective/Interval History
-
Date of Service: December 12, 2023
Denies CP, remains with ZENG.
Objective Data
-
Labs:
Laboratory Results
12/12/23
02:59
Sodium 136
Potassium 4.9
Chloride 100
Carbon Dioxide 25
BUN 84 H
Creatinine 2.5 H
Glucose 167 H
Calcium 8.5
Vital Signs:
Vital Signs
Temp Pulse Resp BP Pulse Ox
97.4 F 50 20 125/61 98
12/12/23 06:56 12/12/23 04:00 12/12/23 06:56 12/12/23 02:52 12/12/23 06:56
I&O
12/11/23 12/12/23 12/13/23
06:59 06:59 06:59
Intake Total 960 / 960 200 / 200
Output Total 1600 / 1600
Balance 960 / 960 -1400 / -1400
--- NOTE | 2023-12-12 08:15 | W.PN.CARDCBS ---
Addendum entered and electronically signed by Momo Khan MD 12/12/23 09:23:
I saw and examined the patient.
The LOAD HAUL DUMP OPERATOR or PA's note was reviewed and I agree with the note.
Comment: General: Well developed, well nourished in NAD.
Neck: Supple, no JVD, HJR, carotids +2 B/L, no bruits bilaterally.
Heart: Non displaced PMI, RRR, no murmurs, No S3, S4, no rubs.
Lungs: Scattered rhonchi at the bases
Extremities: No clubbing, cyanosis or edema bilaterally.
Neuro: Grossly nonfocal, awake, alert and oriented x3.
Stable cardiology status for discharge. Will start Lasix 20 mg daily and check renal profile in 1 week. Will discharge on amiodarone 200 mg p.o. twice daily. Remains in sinus rhythm. She has follow-up on December 14. Discussed with
primary service.
Original Note:
Today's Communication / Plan
-
continue eliquis, plavix
albuterol treatment
lasix 20mg po daily on DC with BMP/proBNP Wednesday 12/13
amiodarone 200mg BID for 1 week then 200mg daily
toprol 50mg BID
STOP jardiance
follow up with ATC scheduled for Thursday 12/14
Impression / Plan
-
PCP: Primitivo Cedeno MD
CDY: Goyo Seymour MD of ATC
IMPRESSION:
Admitted to [facility] with acute hypoxic respiratory failure/pulmonary edema, HF and NSTEMI 12/03/23
Transferred to for cath 12/04/23
- Acute HFrEF, EF was newly reduced at 30% at [facility].
- NSTEMI
Coronary artery disease
s/p LAD & LCx BMS x2 in 2014
s/p distal LCx/OM VANGIE in 2021
s/p NSTEMI and 2.75 mm Ramon VANGIE to ostial/prox LAD 12/04/23
- Paroxysmal Afib with RVR starting 12/05/23 AM
- history of paroxysmal atrial fibrillation
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
Cre 1.[address] [facility]
- Hyperlipidemia
- DM 2
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
- Elevated LFTs improving and likely related to some component of shock liver
Echo 01/23/2022: EF 50 to 54%, moderate MR, mild MS with mean MV gradient 5 mmHg, mild to moderate TR with PAP 45 to 50 mmHg
Echo 12/04/2023: [facility] study, EF 30%, LAD wall motion abnormality
Cath 12/04/23:
Successful PCI of the LAD with placement of a drug-eluting stent as described above.
Widely patent previously placed mid LAD stent and overlapping circumflex proper stents with known critical disease involving the jailed obtuse marginal branch and chronically occluded distal left sided posterior descending artery.
Plan:
-Presented initially to [facility] with acute CHF and NSTEMI
-s/p cath 12/03 resulting in LAD PCI. has known residual disease as above, medically managed
-Continue Eliquis, Plavix. Of note, previously had retinal hemorrhage on aspirin, Plavix. Would repeat CBC in 1 week upon discharge
-She complains of dyspnea on exertion. Lasix presently on hold. Nephrology following. will try albuterol treatment, however suspect will need standing dose of Lasix upon discharge. Discussed with nephrology, will try 20 mg p.o. daily with
BMP/proBNP on Thursday and to follow-up with Dr. Seymour as scheduled on Thursday.
-echo at [facility] with EF newly 30%, improved to 50% by follow up study 12/09
-maintaining SR overnight on review of tele. continue amiodarone 200mg BID for 1 week upon DC then decrease to 200mg daily. toprol increased to 50mg BID 12/09.
-GDMT as able. not present candidate for jardiance/marni/arb/arni/aldactone with SIMI
-continue statin
-cardiac rehab
-OP follow up with [facility] arranged
-patient states moving forward she would like to be DO NOT INTUBATE status.
-d/w nursing
HPI: 87 y/o white female, PMH sig for CAD with prior, Carotid disease with CEA 2009 complicated by post op CVA, AFib on eliquis, HTN, HLD, DM, hypothyroid, CKD4, asthma.
New onset of chest tightness/dyspnea for a few days. She was using her PRN ProAir inhaler thinking it was related to asthma, and it did work for a short time and then it wasn't helping anymore. She was unable to catch her breath yesterday, and
presented to [facility] ER where she ruled in for NSTEMI with An echo today revealed decreased LVSF, EF 30%, grade III LV diastolic dysfunction, with multiple segmental WMA, severely dilated LA, mod MR with severe MAC, mod-severe TR. Eliquis held and
started on IV heparin. SIMI noted in addition to CKD4, with creat 1.94, GFR 25 today.
A CXR showed pulmonary edema with possible associated pneumonia, cardiomegaly and congestion.
She has an allergy to plavix that was noted as a retinal hemorrhage.
Transferred today for [facility].
Progress Note - Grinding And Polishing Laborer
Subjective
Date of Service: December 12, 2023
Reports dyspnea on exertion. Eager for discharge
Objective
Labs:
12/11/23 03:27
12/12/23 02:59
Labs
Hgb 8.9 g/dL (12.0-16.0) L 12/11/23 03:27
Hct 26.2 % (37.0-47.0) L 12/11/23 03:27
Plt Count 284 10^3/uL (130-400) D 12/11/23 03:27
Sodium 136 mmol/L (135-145) 12/12/23 02:59
Potassium 4.9 mmol/L (3.5-5.1) 12/12/23 02:59
BUN 84 mg/dl (7-17) H 12/12/23 02:59
Creatinine 2.5 mg/dL (0.6-1.0) H 12/12/23 02:59
Glucose 167 mg/dl (70-99) H 12/12/23 02:59
Vital Signs and I&O:
Vital Signs
Temp Pulse Resp BP Pulse Ox
97.4 F 50 20 125/61 98
12/12/23 06:56 12/12/23 04:00 12/12/23 06:56 12/12/23 02:52 12/12/23 06:56
Vital Signs
Temp Pulse Resp BP Pulse Ox
97.4 F 50 20 125/61 98
12/12/23 06:56 12/12/23 04:00 12/12/23 06:56 12/12/23 02:52 12/12/23 06:56
Intake & Output
12/10/23 12/11/23 12/12/23 12/13/23
07:59 07:59 07:59 07:59
Intake Total 960 / 960 200 / 200
Output Total 1175 / 1175 1600 / 1600
Balance -1175 / -695 960 / 960 -1400 / -1400
Physical Exam
Physical Exam
GEN: No distress, awake, alert, oriented x3
HEENT: supple, anicteric, mmm, L eye blindness
LUNGS: CTA B/L, no wheezes
CV: Reg, S1/S2, 1/6 murmur
ABD: soft, BS+, NT/ND
EXT: No cyanosis, clubbing. trace edema of B/L LE
NEURO: Gross non-focal
SKIN: Warm, pink, dry. No rash.
[2023-12-12] MEDS: NOVOLOG FLEXPEN 10 UNITS SC ×2 (08:19→12:08)
[2023-12-12] MEDS: VENTOLIN NEBULES 2.5 MG INH (08:19)
[2023-12-12] MEDS: NOVOLOG FLEXPEN-LOW RESISTANCE SC ×2 (08:20→12:08)
--- NOTE | 2023-12-12 08:29 | W.PN.NEPH.PH ---
Today's Communication / Plan
-
ok to discharge on 20mg lasix
Assessment/Plan
-
IMP:
Acute Non-STEMI:-s/p cardiac cath on 12/04/23, ostial/proximal LAD PCI
Paroxysmal atrial fibrillation
Acute HFrEF EF 30%
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
Leukocytosis
Anemia
DM2: a1c 8.9%, microvascular complications
Hypothyroidism
blind left eye
Plan:
creatinine down to 2.5
good urine output not recorded weights unchanged
ARB/SGLT2i on hold (no ARB with lower BP, could consider eventual restart of Jardiance only since she was likely on it when GFR>30)
ok to discharge on 20mg daily of lasix
-
-
Date of Service: December 12, 2023
CC / HPI / ROS
-
Chief Complaint:
SIMI
History of Present Illness:
SIMI/Cr down to 2.5
Hemodynamically labile
remains in Afib
Review of Systems:
no CP
still with some SOB
Labs
-
Labs:
WBC 12.1 10^3/uL (4.8-10.8) H 12/11/23 03:27
RBC 3.04 10^6/uL (4.20-5.40) L 12/11/23 03:27
Hgb 8.9 g/dL (12.0-16.0) L 12/11/23 03:27
Hct 26.2 % (37.0-47.0) L 12/11/23 03:27
Plt Count 284 10^3/uL (130-400) D 12/11/23 03:27
Sodium 136 mmol/L (135-145) 12/12/23 02:59
Potassium 4.9 mmol/L (3.5-5.1) 12/12/23 02:59
Chloride 100 mmol/L (98-107) 12/12/23 02:59
Carbon Dioxide 25 mmol/L (22-30) 12/12/23 02:59
BUN 84 mg/dl (7-17) H 12/12/23 02:59
Creatinine 2.5 mg/dL (0.6-1.0) H 12/12/23 02:59
eGFR 18.39 12/12/23 02:59
Glucose 167 mg/dl (70-99) H 12/12/23 02:59
Calcium 8.5 mg/dl (8.4-10.2) 12/12/23 02:59
Rin-G-Cdgkwfxsrmn Pept > 54385 pg/ml 12/06/23 04:24
Albumin 3.5 g/dl (3.5-5.0) 12/07/23 04:29
Physical Exam
-
Vital Signs:
Vital Signs
Temp Pulse Resp BP Pulse Ox
97.4 F 50 20 125/61 98
12/12/23 06:56 12/12/23 04:00 12/12/23 06:56 12/12/23 02:52 12/12/23 06:56
Cardiovascular:: Regular rate and rhythm (Bradycardic)
Respiratory:: Bilateral: CTA
Lung Excursion:: Normal
Abdomen:: Nontender and Soft
Bowel Sounds:: Normal
Extremity Edema:: None: Bilateral:
Preston Catheter: No
[2023-12-12] MEDS: ELIQUIS 2.5 MG PO (08:39)
[2023-12-12] MEDS: PLAVIX 75 MG PO (08:39)
[2023-12-12] MEDS: PROTONIX 40 MG PO (08:39)
[2023-12-12] MEDS: PACERONE 200 MG PO (08:39)
[2023-12-12] MEDS: TOPROL XL 50 MG PO (08:39)
[2023-12-12] MEDS: LASIX 20 MG PO (08:42)
[2023-12-12] MEDS: LANTUS 0.24 UNITS SC (08:52)
[2023-12-12 11:28] VITALS: BP 101/73
[2023-12-12 12:08] LABS: Glucose - Point of Care 137 mg/dl (70-99)
--- NOTE | 2023-12-12 13:25 | W.DCSUMMARY ---
Discharge Summary
Discharge Data
Date of Admission: 12/04/23
Date of Discharge: 12/12/23
-
Pending Results: No
Hospital Course
Primary diagnoses:
Acute non-ST elevation myocardial infarction s/p angioplasty and stent to Left Anterior Descending artery
Acute kidney injury on chronic kidney disease stage IIIb due to cardiorenal syndrome
Acute heart failure with reduced ejection fraction
Paroxysmal atrial fibrillation with rapid ventricular response
Secondary diagnoses:
Essential hypertension
Hyperlipidemia
Hyperkalemia
Leukocytosis, likely reactive
Anemia
Type 2 diabetes mellitus
Hypothyroidism
Consultants:
Nephrology
Cardiology
Imaging:
CXR: Radiographic findings suggesting interstitial pulmonary edema with small bilateral pleural effusions.
Echo 12/09/23: Upper normal left ventricular size and low normal systolic function. Mild
concentric left ventricular hypertrophy. Mild mid to distal anteroseptal
hypokinesis LV ejection fraction is 50% by visual estimate.
Normal right ventricular size and function.
Normal pericardium without effusion.
87-year-old female who presented with with chief complaints of dyspnea and respiratory distress as outlined in the H&P done by cardiology on admission. Hospital course by problem list:
Acute non-ST elevation myocardial infarction: The patient was found to have an acute non-ST elevation ID underwent cardiac catheterization on 12/04/23 with stents placed to ostial/proximal LAD. Echo above, cardiology saw in consult. The patient was
discharged on statin/Plavix/beta-lay. She was also on Eliquis for her atrial fibrillation. On the day of discharge it was confirmed with cardiology that she did not need aspirin.
Paroxysmal atrial fibrillation: The patient's converted to NSR, then was back in afib with RVR, then converted back in SR. the patient was on a Cardizem drip but did not tolerated due to hypotension. She was placed on beta-lay which was
increased. She was placed on amiodarone. At the time of discharge she will be on amiodarone 200 mg twice daily for a week followed by 200 mg daily thereafter. Her Eliquis was continued.
Acute HFrEF: proBNP > 27,000. Patient was diuresed with IV Lasix which was stopped 12/07/23 with SIMI. Lasix 20mg IV given 12/08/23 and 12/09/23. On discharge she is being given Lasix 20 mg by mouth daily. She is also on beta-lay.
SIMI on CKD3b: This was due to cardiorenal syndrome. See above regarding Lasix dosing. At the time of discharge the patient's creatinine seems to have plateaued and was 2.5. She was followed by nephrology. Should her creatinine not improve any
further she would be chronic kidney disease stage IV.
Discharge Plan
-
Patient Disposition: Home (Routine Discharge)
Discharge Diagnosis/Procedures: Acute non-ST elevation myocardial infarction, s/p angioplasty and stent to Left Anterior Descending artery, Acute kidney injury, acute heart failure with reduced ejection fraction
Condition: Good
Diet: Low Cholesterol, Diabetic, Carb Controlled and Restrict fluids to 48 oz
Activity: As tolerated
Driving Restrictions: No driving
Bathing Restrictions: OK to Shower
Blood Work: BMP/proBNP Thursday12/14/23
Other Services: Cardiac Rehab
Specialty Instructions: Weigh Daily- Call MD for wt gain/loss 3 lbs overnight/5 lbs in 1 week
Activity Restrictions/Additional Instructions:
Please call [facility] Cardiac Rehab at [phone] to schedule your Orientation and First Exercise Evaluation following hospital discharge.
Instructions: *PCP/Other Stencil Typist Heart Failure Instructions
Stand Alone Forms: DC Instructions- Cath/EP Lab
Referrals:
[facility]Visiting Nurse [Outside] (FAX [phone])
Primitivo Cedeno MD [Family Provider] - in less than 1 week
Ryder Seymour MD [Active] - 12/15/23 10:30 am
Additional Discharge Medication Instructions: continue amiodarone 200mg twice daily for 1 week then decrease to 200mg daily
Prescriptions:
New
clopidogrel 75 mg Tablet
75 mg PO DAILY Qty: 30 0RF
furosemide 20 mg Tablet
20 mg PO DAILY Qty: 30 0RF
metoprolol succinate 25 mg Tablet Extended Release 24 Hr
50 mg PO BID Qty: 30 0RF
insulin aspart U-100 [Novolog FlexPen U-100 Insulin] 100 unit/mL (3 mL) Insulin Pen
10 unit SC AC Qty: 5 0RF
insulin glargine [Lantus Solostar U-100 Insulin] 100 unit/mL (3 mL) Insulin Pen
12 unit SC HS Qty: 5 0RF
(DME) pen needle, diabetic [BD Ultra-Fine Sona Pen Needle] 32 gauge x ' Needle
Qty: 200 0RF
Rx Instructions:
As Directed
amiodarone 200 mg tablet
200 mg PO BID Qty: 14 0RF
amiodarone 200 mg tablet
200 mg PO DAILY Qty: 30 0RF
Rx Instructions:
Start in 1 week
Continued
Procrit 40,000 UNIT/ML solution
1 dose INJ QMONTH PRN (Reason: Hgb less than 11)
atorvastatin 80 MG tablet
80 mg PO HS
levothyroxine 125 MCG tablet
125 mcg PO DAILY
albuterol sulfate 1 PUFF HFA aerosol inhaler
2 puff inhalation R Q4HPRN PRN (Reason: sob)
melatonin 1 MG tablet
5 mg PO HSPRN PRN (Reason: insomnia)
metronidazole 60 GM gel
1 applic topical DAILY
Patient Comments:
insulin glargine [Lantus Solostar U-100 Insulin] 300 UNITS/3 ML insulin pen
24 units SC DAILY
tolterodine 2 mg Tablet
2 mg PO DAILY PRN (Reason: URINARY URGENCY)
pantoprazole [Protonix] 40 mg tablet,delayed release (DR/EC)
40 mg PO DAILY Qty: 90 5RF
ergocalciferol (vitamin D2) 50,000 unit Tablet
25,000 unit PO SUTH
Eliquis 2.5 mg tablet
2.5 mg PO BID
Discontinued
insulin aspart U-100 [Novolog FlexPen U-100 Insulin] 300 UNITS/3 ML insulin pen
4 units SC .SLIDING SCALE MEALS
Patient Comments:
losartan 25 mg Tablet
25 mg PO DAILY
Jardiance 10 mg Tablet
10 mg PO DAILY
metoprolol succinate 25 mg Tablet Extended Release 24 Hr
25 mg PO BID Qty: 10 5RF
Discharge Orders:
Discharge Patient (As Directed); Ordered 12/12/23
Ordered By: Wilfredo Cole
Care Plan Goals
Care Plan Goals:
Problem: Readiness for enhanced knowledge related to diagnosis and treatment plan
Goal: Understand your diagnosis and treatment plan needs, including medications if applicable.
Instructions: Know your diagnosis, underlying causes and treatment plan options, including medications if applicable. Consult with your health care team to learn about your diagnosis and treatment plan, including medications if applicable.
Discharge Date and Time
Print Language: FRENCH
== END 2023-12-12 15:17 | disposition home health service (06) | DRG 321 ==
LOC: IVU 16:53
PROVIDERS: Internal Medicine Cardiovascular Disease; Internal Medicine Interventional Cardiology; Nurse Practitioner; Nurse Practitioner Gerontology; Physician Assistant Medical; Registered Nurse; Specialist; ADMITTING PHYSICIAN Internal Medicine Cardiovascular Disease; ATTENDING PHYSICIAN Internal Medicine; CONSULT PHYSICIAN Internal Medicine; FAMILY PHYSICIAN Family Medicine
PROC: 4A023N7 Measurement of Cardiac Sampling and Pressure, Left Heart, Percutaneous Approach (ICD-10-PCS; 2023-12-04)
PROC: 027034Z Dilation of Coronary Artery, One Artery with Drug-eluting Intraluminal Device, Percutaneous Approach (ICD-10-PCS; 2023-12-04)
PROC: B2111ZZ Fluoroscopy of Multiple Coronary Arteries using Low Osmolar Contrast (ICD-10-PCS; 2023-12-04)
DX: I21.4 Non-ST elevation (NSTEMI) myocardial infarction (principal); I50.21 Acute systolic (congestive) heart failure; J96.01 Acute respiratory failure with hypoxia; I13.0 Hypertensive heart and chronic kidney disease with heart failure and stage 1 through stage 4 chronic kidney disease, or unspecified chronic kidney disease; N18.4 Chronic kidney disease, stage 4 (severe); N17.9 Acute kidney failure, unspecified; E78.00 Pure hypercholesterolemia, unspecified; I48.0 Paroxysmal atrial fibrillation; E87.5 Hyperkalemia; D72.829 Elevated white blood cell count, unspecified; D63.1 Anemia in chronic kidney disease; E11.22 Type 2 diabetes mellitus with diabetic chronic kidney disease; E03.9 Hypothyroidism, unspecified; I25.10 Atherosclerotic heart disease of native coronary artery without angina pectoris; E11.319 Type 2 diabetes mellitus with unspecified diabetic retinopathy without macular edema; I95.9 Hypotension, unspecified; I25.5 Ischemic cardiomyopathy; H54.62 Unqualified visual loss, left eye, normal vision right eye; Z95.5 Presence of coronary angioplasty implant and graft; Z79.01 Long term (current) use of anticoagulants; Z79.4 Long term (current) use of insulin; Z87.891 Personal history of nicotine dependence
CPT/HCPCS: 93308; 71045; 71046; 80048; 80053; 80061; 82550; 82962; 83036; 83735; 83880; 85027; 85347; 87070; 93005; 93321; 93325; 93458; 94640; 97116; 97163; 97166; 97530; C1725; C1760; C1769; C1874; C1887; C1894; C9600; Q9967

== ENCOUNTER → 2023-12-23 12:35 | Outpatient (REF) | payer OTHER, SELFPAY | LOC: RAD 12:35 | PROVIDERS: ATTENDING PHYSICIAN Physician Assistant; FAMILY PHYSICIAN Family Medicine; REFERRING PHYSICIAN Internal Medicine Interventional Cardiology | DX: I50.31 Acute diastolic (congestive) heart failure (principal); R06.02 Shortness of breath | CPT/HCPCS: 71046 ==

== ENCOUNTER → 2024-01-12 14:08 | Outpatient (REF) | payer OTHER, SELFPAY ==
[2024-01-12 14:31] LABS: % Basophils 0.6 % (0-2); % Eosinophils 4.4 % (0-6); % Immature Granulocytes 0.1 % (0-0.5); % Lymphocytes 15.1 % (20.5-51.1); % Monocytes 11.4 % (1.7-9.3); % Neutrophils 68.4 % (42.2-75.2); Absolute Eosinophils 0.3 10^3/uL (0-0.7); Absolute Monocytes 0.8 10^3/uL (0.1-0.6); Absolute Neutrophils 4.7 10^3/uL (1.4-6.5); Hematocrit 28.3 % (37.0-47.0); Hemoglobin 9.1 g/dL (12.0-16.0); Mean Corp Hgb Conc. 32.2 g/dL (33.0-37.0); Mean Corpuscular Hgb 29.8 pg (27.0-31.0); Mean Corpuscular Volume 92.8 fL (81.0-99.0); Mean Platelet Volume 10.3 fL (7.4-10.4); Platelet Count 298 10^3/uL (130-400); Red Blood Cell Count 3.05 10^6/uL (4.20-5.40); Red Cell Dist. Width 14.4 % (11.5-14.5); White Blood Cell Count 6.8 10^3/uL (4.8-10.8)
== END ==
LOC: OIDL 14:08
PROVIDERS: ATTENDING PHYSICIAN Internal Medicine Hematology & Oncology
DX: D64.9 Anemia, unspecified (principal)
CPT/HCPCS: 85025

== ENCOUNTER → 2024-01-26 14:14 | Outpatient (REF) | payer OTHER, SELFPAY ==
[2024-01-26 13:44] LABS: % Basophils 0.5 % (0-2); % Eosinophils 4.8 % (0-6); % Immature Granulocytes 0.2 % (0-0.5); % Lymphocytes 11.1 % (20.5-51.1); % Monocytes 12.9 % (1.7-9.3); % Neutrophils 70.5 % (42.2-75.2); Absolute Eosinophils 0.3 10^3/uL (0-0.7); Absolute Lymphocytes 0.6 10^3/uL (1.2-3.4); Absolute Monocytes 0.7 10^3/uL (0.1-0.6); Absolute Neutrophils 3.9 10^3/uL (1.4-6.5); Hemoglobin 10.7 g/dL (12.0-16.0); Mean Corp Hgb Conc. 31.5 g/dL (33.0-37.0); Mean Corpuscular Hgb 30.3 pg (27.0-31.0); Mean Corpuscular Volume 96.3 fL (81.0-99.0); Mean Platelet Volume 9.2 fL (7.4-10.4); Platelet Count 293 10^3/uL (130-400); Red Blood Cell Count 3.53 10^6/uL (4.20-5.40); Red Cell Dist. Width 16.5 % (11.5-14.5); White Blood Cell Count 5.6 10^3/uL (4.8-10.8)
== END ==
LOC: OIDL 14:14
PROVIDERS: ATTENDING PHYSICIAN Nurse Practitioner Adult Health
DX: D64.9 Anemia, unspecified (principal)
CPT/HCPCS: 85025

== ENCOUNTER 2024-04-04 00:53 | Inpatient (IN) | payer OTHER, SELFPAY ==
[2024-04-03] VITALS (9 sets, daily range): BP systolic 186–214; BP diastolic 94–124; PULSE 2–145; BMI 33.7
--- NOTE | 2024-04-03 23:11 | ED.GENMED ---
History of Present Illness
General
Chief Complaint: Breathing Problem
Source: patient and ambulance crew
Exam Limitations: clinical condition
Time Seen by Provider: 04/03/24 23:07
History of Present Illness
History of Present Illness:
88-year-old female presents via EMS with severe respiratory distress. Patient arrived on CPAP. And route to the hospital they got an EKG which indicated STEMI on their machine. They asked for prehospital STEMI alert. Following procedures we
called a prehospital STEMI alert. EKG was transmitted after patient arrived in the emergency department. EKG did not show a STEMI but did show a wide-complex tachycardia. On our EKG a wide-complex tachycardia was also noted. STEMI alert was
called off several minutes after it was called. I was in direct contact with Dr. Varela during this procedure. He was able to look up the patient's chart and noted that she had a catheterization in November. She does have cardiac disease. She is
also a chronic kidney patient. Past medical history includes CHF, CAD, hypertension, hyperlipidemia, RI, CKD stage IV, insulin-dependent diabetes, she has had a stroke with diabetic neuropathy.
Patient states that she is a DNR
Vital signs are stable. Patient is hypoxic on room air
Nursing note reviewed. I agree with nursing documentation up to this point in time.
Home Meds and allergies reviewed.
NUMBER AND COMPLEXITY OF PROBLEMS ADDRESSED AT THE ENCOUNTER
� Chronic conditions affecting care: Non-STEMI, paroxysmal atrial fibrillation,Acute HFrEF EF 30%, SIMI, leukocytosis, anemia, diabetes, hypothyroidism, left eye blindness
� Acute Exacerbation and/or Progression of Chronic Illness:
� Differential Diagnosis includes: CHF, flash pulmonary edema, CAD, ACS, STEMI
AMOUNT AND/OR COMPLEXITY OF DATA TO BE REVIEWED AND ANALYZED
I performed an independent evaluation of the following and my interpretation is:
EKG: Sinus tachycardia with wide complexes, rate of 145, prolonged QT, right bundle branch block,
Pulse Ox: Hypoxic on room air
Analytics Consultant: Sinus Rhythm, wide-complex
CT:
X-rays: Severe pulmonary vascular congestion.
Ultrasound:
Laboratory Studies: White count 11.4, troponin of 0.077, proBNP of 6060. COVID-negative
Other:
Review of other/old records: Left heart catheterization from December 04, [address] Seymour. Patient had a routine post non-STEMI and post drug-eluting stent medical therapy and monitoring. Patient has a widely patent
previously placed mid LAD stent and overlapping circumflex proper stents. No critical disease involving the jailed obtuse marginal branch at chronically occluded distal left sided posterior descending artery. She did have successful stenting of
the LAD.
Clinical information was obtained by an independent historian: EMS, Dr. Varela, and charting
Prescriptions/Medications Considered but not given:
Further testing considered but not performed:
RISK OF COMPLICATIONS AND/OR MORBIDITY OR MORTALITY OF PATIENT MANAGEMENT
Social determinants of health affecting care: Good Social Support
Discussion with other providers: Dr. Desmond Varela, cardiology. STEMI alert initially activated at EMS request without prehospital EKG due to transmission issues. It was aborted once we got the EKG transmitted. Patient without
chest pain.
Escalation of care including admission/observation vs risk of discharge considered: After being observed in the emergency department, patient to be admitted to the hospital
Update:
Past History
Past History
ED Past Medical History: Asthma, CAD, HTN, Hypercholesterolemia, IDDM and Hypothyroidism
ED Past Surgical History: Cardiac (Stenting) and Gynecological
Social History
Tobacco: Non-smoker
Alcohol: None
Drug: None
Personal:
Living: with family
Employment: Retired
Family History
Family History: Hypertension
Review of Systems
Review of Systems
Allergies reviewed?: Yes
Unable to obtain full review of systems at this time due to: due to acuity
Other source history: ambulance crew
All Other Systems: ROS reviewed and negative except as documented in HPI and ROS
Respiratory: Reports trouble breathing
Cardiac: Denies chest pain
Phy Exam
General Physical Exam
General Presentation: moderate distress
General age: appears stated age
General Skin: warm and dry
General Habitus: elderly
General Mental: alert
General Hydration: appears well hydrated
ENT Exam
ENT Exam: EOMI, pharynx normal, neck supple and normocephalic
Eye Exam
Eye Exam: PERRL, cornea clear and conjunctiva normal
Cardiovascular Exam
Cardiovascular Exam: regular rate/rhythm and no edema
Pulmonary Exam
Pulmonary Exam: no crackles, no rhonchi, no stridor, no wheezing and no cough
Oxygen Status: BiPAP
Cough: coarse cough
Respirations: accessory muscle use, labored and moderate effort
Breath Sounds: Rhonchi: generalized
Gastrointestinal Exam
Gastrointestinal Exam: normal bowel sounds, non tender, soft, no organomegaly, no pulsatile mass and non distended
Neurological Exam
Neurological Exam: alert, oriented x3, no motor deficits and speech normal
Musculoskeletal Exam
Musculoskeletal Exam: full ROM and no edema
Skin Exam
Skin Exam: normal color, warm/dry, no rash and no petechia
Psychiatric Exam
Psychiatric Exam: normal mood/affect
Scores
Heart Failure Risk
Heart Failure Risk Score: Yes
History of Stroke or TIA: Yes
History of intubation for respiratory distress: Yes
Heart rate on ED arrival >/= 110: Yes
SaO2 <90% on arrival on room air: Yes
HR >/=110 during 3min walk test (or too ill to perform test): Yes
ECG has acute ischemic changes: No
Urea >/=12mmol/L (BUN 33.6mg/dL): Yes
Serum CO2>/=35mmol/L: No
Troponin I or T elevated to RI Level (0.4mg/dL): No
NT-proBNP >/=5,000ng/L (5,000pg/ml): Yes
HF Risk Score: 8
Admission Status: VERY HIGH RISK 81.2% Consider admission to hospital
Sepsis
Sepsis Screening
Sepsis Assessment: Sepsis
Sepsis Screening: Need for mechanical ventilation or BiPAP
Sepsis Screen
Sepsis Screen: Sepsis
Date: 04/04/24
Time: 03:30
Course
Orders/Labs/Results
Orders:
Orders
04/03/24 23:07
Electrocardiogram (*1) Stat
Reason for Study: Other
Other Reason for Exam: chest pain
Cardiac Monitoring- Treatment ONCE
EKG- Treatment ONCE
CR Chest Portable - 1 View Urgent
Comment:
Reason For Exam: dyspnea
Reason Study Needs to be Portable: Patient Unstable
Pulse Ox/cont/shift [RESP] Stat
Quantity: 1
04/03/24 23:10
Complete Blood Count/With Diff Urgent
Comprehensive Metabolic Panel Urgent
Magnesium Urgent
NT-proBNP Urgent
PTT Urgent
Prothrombin Time Urgent
TSH Urgent
Troponin I Q3H
04/03/24 23:12
COVID-19 Antigen Urgent
Source: Nasal Swab
Influenza A+B Rapid Molecular Urgent
JHON Source: Nasal Swab
Specimen Description:
04/03/24 23:20
Furosemide [Lasix] 40 mg IV NOW STA
04/03/24 23:30
Nitroglycerin 100 mg/250 ml [Nitroglycerin Premix] 100 mg in 250 ml IV PER PROTOCOL
Initial dose in mcg/min, then titrate:: 2
Titrate to keep:: SBP < 160 mmHg
Titrate by mcg/min:: 5 mcg/min, may increase by 10 mcg/min if dose > 20 mcg/min
Frequency of titrations (minutes):: every 3-5 minutes
Maximum dose in mcg/min:: 200
Begin to taper infusion when:: Remained at goal for 2hrs
Taper by mcg/min:: 5 mcg/min
Frequency of taper (minutes) if patient maintains goal:: 30
Taper to off?: Yes
If infusion off & no longer maintaining goal:: Contact Provider
04/03/24 23:52
Electrocardiogram (*1) Urgent
Reason for Study: Shortness of Breath
EKG- Treatment ONCE
04/04/24 00:36
Admit/Transfer Patient As Directed
Co-Sign Provider:
Level of Care: Inpatient admission
Assign to:: ICU
Physician / Group: Bennett
Diagnosis: NSTEMI, Hypoxemic Resp Failure, HFpEF
Reason for Hospitalization: NSTEMI, Hypoxemic Resp Failure, HFpEF
Expected length of stay greater than two midnights?: Yes
ELOS- Estimated Length of Stay in days: 4
I certify the patient meets the requirements for IP care: Yes
PRN Pain Medication Management As Directed
May give lesser potent ordered pain med per pt: Yes
preference::
Protocol:: Medication orders for pain may be administered in a
manner that supports deferring to patient preference
when the pt is:
- Requesting an ordered lesser potent pain medication.
Least to most potent pain medications are defined
as: acetaminophen < NSAID < tramadol < opioids
(morphine, oxycodone, hydromorphone).
- Requesting a lesser dose of the same medication IF
ORDERED.
- Requesting a less intrusive route of administration
if both routes are prescribed by the provider (PO <
IV).
04/04/24 00:37
EKG [Electrocardiogram (*1)] Urgent
Reason for Study: Tachycardia
04/04/24 00:38
EKG- Treatment ONCE
04/04/24 00:42
Code Status As Directed
Resuscitation Status: Do not resuscitate
Reached after discussion with pt or family/Healthcare POA: Yes
04/04/24 00:43
DNR Bracelet Application ONCE
04/04/24 00:47
Heparin Protocol- PTT Orders As Directed
PTT per Heparin protocol: -Obtain CBC and baseline PTT - if not already collected.
-Obtain PTT 6 hours from start of infusion. Then, every 6 hours until 2 consecutive
PTT's are therapeutic. Then, PTT Daily.
-With each rate change, obtain PTT every 6 hours until 2 consecutive PTT's are
therapeutic. Then, PTT Daily.
Notify MD As Directed
Notify physician if: PTT is greater than or equal to 200.
04/04/24 00:55
PTT Urgent
Comment: Obtain baseline before beginning heparin infusion if not already collected
04/04/24 01:00
Heparin 30093 Units/250 ml 25,000 units in 250 ml IV PER PROTOCOL
Weight to be used for heparin protocol in kilograms (kg):: 74.4
Protocol:: Cardiac Tx/Acute Coronary
PTT Goal Range to be used:: PTT 73 to 111 seconds
Order type:: Initial
INITIAL Infusion Dose (UNITS/KG/hr) & then follow protocol:: 12 units/kg/hr
Infusion Dose in UNITS/hr & then follow protocol (UNITS/hr):: 900
INFUSION RATE in mL/hr & then follow protocol (mL/hr):: 9
PTT less than or equal to 64 seconds:: Increase rate by 200 units/hr (+ 2 mL/hr)
PTT 64.1 to 72.9 seconds:: Increase rate by 100 units/hr (+ 1 mL/hr)
PTT 73 to 111 seconds:: Target Range. No change in rate.
PTT 111.1 to 130.9 seconds:: Decrease rate by 100 units/hr (- 1 mL/hr)
PTT 131 to 199.9 seconds:: HOLD for 1 hr. Then decrease rate by 200 units/hr (- 2 mL/hr)
PTT greater than or equal to 200 seconds:: HOLD for 2 hrs & Notify Provider. Then decrease by 200 units/hr (-
2 mL/hr)
Lab follow-up:: Each change, PTT q6h until 2 consecutive are therapeutic. Then PTT
daily.
04/04/24 01:13
Acetaminophen [Tylenol] 650 mg PO Q4HPRN PRN
Dextrose 50%-Water [Dextrose 50% Syringe] 12.5 grams IV [id number] PRN
Glucagon [GlucaGen] 1 mg IM PRN PRN
Morphine Sulfate 2 mg IV Q4HPRN PRN
Nitroglycerin Sublingual [Nitrostat (Sublingual)] 0.4 mg SL [id number] PRN
04/04/24 01:13
CARDIOLOGY CONSULT Routine
Consulting Provider: Desmond Varela
Was physician already notified: Yes
Reason for consult: NSTEMI, CHF
Activity As Directed
Activity Level: Bedrest
Bedside Glucose Monitoring As Directed
Frequency: AC&HS
Additional Instructions:: Change to q6h if pt on TPN, tube feeding or not eating
Bladder Scan As Directed
Follow Bladder Retention/Intermittent Cath Algorithm?: Yes
PRN if no void in __ hours: 6
Frequency: Per Retention Algorithm
If Bladder Scan Result >: 400
then:: Straight cath
EKG with chest pain [ECG as needed] As Directed
ECG as needed for:: Chest Pain
I/O [Intake/ Output] As Directed
Frequency: Per unit guidelines
Pneumatic Compression Sleeves As Directed
Type: Knee high
Straight Cath As Directed
Frequency: Per Retention Algorithm
Additional Instructions: straight cath as needed per acute urinary retention algorithm for 24 hrs
Additional Instructions: for bladder scan greater than 400 mL
Vital Signs As Directed
Frequency: Per unit guidelines
Weight As Directed
Frequency: Daily
Bipap [RESP] Routine
Patient to use own unit?: No
Inspiratory Pressure (cm H2O): 14
Expiratory Pressure (cm H2O): 5
Oxygen Therapy [O2 Therapy] [RESP] Routine
Titrate/Wean O2 to maintain O2 sat greater than (%): 94
DX Deep Vein Thrombosis Video Routine
04/04/24 02:17
Complete Blood Count/No Diff Urgent
Comment: Obtain baseline before beginning heparin infusion if not already collected
04/04/24 06:00
EKG [Electrocardiogram (*1)] IN AM
Reason for Study: Chest Pain
NPO
Allow oral meds: Yes
Allow clear liquids: Sips of Clears
Basic Metabolic Panel IN AM
Cardiovascular Evaluation IN AM
Complete Blood Count/No Diff IN AM
Glycohemoglobin (HgbA1c) IN AM
Levothyroxine [Synthroid] 125 mcg PO DAILY@0600
04/04/24 07:30
Insulin Aspart Corrective Mod [Novolog Flexpen-Moderate Resistance] See Protocol SC AC
04/04/24 08:00
Amiodarone [Pacerone] 100 mg PO DAILY
Aspirin Chewable [Low Strength Aspirin] 81 mg PO DAILY
Clopidogrel Bisulfate [Plavix] 75 mg PO DAILY
Furosemide [Lasix] 20 mg IV BID AT 0800,1600
Metoprolol Xl [Toprol Xl] 25 mg PO BID
Pantoprazole [Protonix] 40 mg PO DAILY
04/04/24 22:00
Atorvastatin [Lipitor] 80 mg PO HS
04/06/24 06:00
Complete Blood Count/No Diff Q2D
Comment: Notify if platelet count is <130,000 or decreases by 50% from baseline
04/08/24 06:00
Complete Blood Count/No Diff Q2D
Comment: Notify MD if platelet count is <130,000 or decreases by 50% from baseline
04/10/24 06:00
Complete Blood Count/No Diff Q2D
Comment: Notify MD if platelet count is <130,000 or decreases by 50% from baseline
04/12/24 06:00
Complete Blood Count/No Diff Q2D
Comment: Notify MD if platelet count is <130,000 or decreases by 50% from baseline
04/14/24 06:00
Complete Blood Count/No Diff Q2D
Comment: Notify MD if platelet count is <130,000 or decreases by 50% from baseline
04/16/24 06:00
Complete Blood Count/No Diff Q2D
Comment: Notify MD if platelet count is <130,000 or decreases by 50% from baseline
04/18/24 06:00
Complete Blood Count/No Diff Q2D
Comment: Notify MD if platelet count is <130,000 or decreases by 50% from baseline
04/20/24 06:00
Complete Blood Count/No Diff Q2D
Comment: Notify MD if platelet count is <130,000 or decreases by 50% from baseline
Abnormal Lab Results
04/03/24 04/03/24
23:10 23:17
WBC 11.4 H 10^3/uL
(4.8-10.8)
MCHC 32.4 L g/dL
(33.0-37.0)
MPV 10.7 H fL
(7.4-10.4)
Absolute Neuts (auto) 6.7 H 10^3/uL
(1.4-6.5)
Absolute Monos (auto) 1.7 H 10^3/uL
(0.1-0.6)
Monocytes % 14.7 H %
(1.7-9.3)
BUN 48 H mg/dl
(7-17)
Creatinine 1.8 H mg/dL
(0.6-1.0)
Glucose 189 H mg/dl
(70-99)
AST 41 H U/L
(14-36)
Alkaline Phosphatase 133 H U/L
(38-126)
Troponin I 0.077 H* ng/ml
POC Glucose 212 H mg/dl
(70-99)
04/03/24 23:10
04/03/24 23:10
Vital Signs
Initial and Last Documented VS:
Initial Vital Signs
Pulse Resp BP Pulse Ox
145 32 214/109 99
04/03/24 23:04 04/03/24 23:04 04/03/24 23:04 04/03/24 23:04
Last Documented Vital Signs
Temp Pulse Resp BP Pulse Ox
98.6 F 97 21 123/51 98
04/04/24 01:32 04/04/24 01:30 04/04/24 01:30 04/04/24 01:30 04/04/24 02:32
*Critical Care Note
Total Time (30-74mins, 75-104mins- exclusive of procedures): 35 ( Critical care statement: A total of 35 minutes of critical care time was provided for this patient. This time is separate from time utilized to perform the aforementioned documented
procedures. Aggregate critical care time includes only time during which I was engaged in work direct)
Update Note
Update Note:
Patient on CPAP pressure support /
EKG 'converted 'to sinus tachycardia rate of 113. Patient still chest pain-free
ED Attending Note
-
Portions of this chart may have been created with voice recognition software.� Occasional wrong word or��sound alike� substitutions may have occurred due to the inherent limitations of voice recognition software.
Discharge Plan
Departure
Patient Disposition: Admit
Date of Disposition: 04/03/24
Time of Disposition: 23:54
Admit to: ICU
Presentation/result/management discussed w/ accepting MD/DO: Hospitalist
Condition: Fair
Discharge Problem:
Acute HFrEF (heart failure with reduced ejection fraction), CKD (chronic kidney disease) stage 4, GFR 15-29 ml/min, NSTEMI (non-ST elevated myocardial infarction), HTN (hypertension)
Interventions
Interventions:
*Risk Screen - Suicide Last Done: 04/03/24 23:04
*General Assessment Last Done: 04/03/24 23:04
*Neglect/Abuse Screening Last Done: 04/03/24 23:04
ED- Fall Risk Assessment Last Done: 04/03/24 23:04
*ED COVID-19 Vaccine History Last Done: 04/03/24 23:04
*Nursing Disposition Last Done: 04/04/24 01:10
ED- Cardiac Assessment Last Done: 04/03/24 23:32
ED- Neurological Assessment Last Done: 04/03/24 23:32
ED- Pulmonary Assessment Last Done: 04/03/24 23:32
Discharge Date and Time
Discharge Date/Time: 04/04/24 01:37
[2024-04-03 23:17] LABS: % Basophils 0.8 % (0-2); % Eosinophils 2.9 % (0-6); % Immature Granulocytes 0.4 % (0-0.5); % Lymphocytes 22.8 % (20.5-51.1); % Monocytes 14.7 % (1.7-9.3); % Neutrophils 58.4 % (42.2-75.2); Absolute Basophils 0.1 10^3/uL (0-0.2); Absolute Eosinophils 0.3 10^3/uL (0-0.7); Absolute Lymphocytes 2.6 10^3/uL (1.2-3.4); Absolute Monocytes 1.7 10^3/uL (0.1-0.6); Absolute Neutrophils 6.7 10^3/uL (1.4-6.5); Hematocrit 43.5 % (37.0-47.0); Hemoglobin 14.1 g/dL (12.0-16.0); Mean Corp Hgb Conc. 32.4 g/dL (33.0-37.0); Mean Corpuscular Hgb 29.4 pg (27.0-31.0); Mean Corpuscular Volume 90.8 fL (81.0-99.0); Mean Platelet Volume 10.7 fL (7.4-10.4); Nucleated Red Blood Cells % 0 %; Platelet Count 223 10^3/uL (130-400); Red Blood Cell Count 4.79 10^6/uL (4.20-5.40); Red Cell Dist. Width 14.5 % (11.5-14.5); White Blood Cell Count 11.4 10^3/uL (4.8-10.8)
[2024-04-03 23:19] LABS: Glucose - Point of Care 212 mg/dl (70-99)
[2024-04-03 23:28] LABS: INR 0.99; PT 13.6 Sec (11.4-14.6)
[2024-04-03] MEDS: LASIX 40 MG IV (23:28)
[2024-04-03 23:29] LABS: APTT 30.4 Sec (23.4-35.0)
[2024-04-03] MEDS: NITROGLYCERIN PREMIX 250 IV (23:30)
[2024-04-03 23:38] LABS: ALT (SGPT) 26 U/L (0-35); AST (SGOT) 41 U/L (14-36); Albumin 4.2 g/dl (3.5-5.0); Alkaline Phosphatase 133 U/L (38-126); Blood Urea Nitrogen 48 mg/dl (7-17); Calcium 8.6 mg/dl (8.4-10.2); Carbon Dioxide 23 mmol/L (22-30); Chloride 100 mmol/L (98-107); Estimated Creatinine Clearance 19 ml/min; Glucose 189 mg/dl (70-99); Magnesium 1.8 mg/dl (1.6-2.3); Potassium 4.6 mmol/L (3.5-5.1); Sodium 136 mmol/L (135-145); Total Bilirubin 0.3 mg/dl (0.2-1.3); Total Protein 6.9 g/dl (6.3-8.2)
[2024-04-03 23:47] LABS: NT-proBNP 6060 pg/ml; Troponin I 0.077 ng/ml
--- NOTE | 2024-04-03 23:47 | EDRN ---
Pt. arrived to ED on CPAP from medics, per medics, pt.'s RA pulse ox. at home was 84% on RA prior to CPAP application. Respiratory at bedside upon pt's arrival to ED, immediately placed pt. on bipap, initial settings 12/5 at 15L oxygen, now 14/5 at
15L
[2024-04-03 23:53] LABS: COVID-19 Antigen Negative (Negative)
[2024-04-04] VITALS (40 sets, daily range): BP systolic 86–185; BP diastolic 39–105; PULSE 2–83; BMI 33.7; BMI 32.8
[2024-04-04 00:08] LABS: TSH 4.05 uIU/ml (0.47-4.68)
--- NOTE | 2024-04-04 00:51 | HPS.HSE ---
Family Physician
-
Family Physician: INTERVIEWE UNKNOWN - PT NOT
Chief Complaint
-
SOB
History of Present Illness
Patient is an 88y F with PMH significant for ASCVD, PA-Fib and CHF who presents to ED complaining of SOB and cough. Patient states that she started with hacking, minimally productive cough last PM. She reports harsh paroxysms of cough with
inability to produce much sputum. This persisted throughout the night and into the day today. She became progressively more SOB as the coughing continued. Patient became severely SOB this evening and called 911 - presenting to the ED for further
evaluation.
Patient denies any chest pain, pressure or palpitations. She denies any fever / chills, GI or complaints.
She denies any known sick contacts.
She follows her weight regularly at home and notes that it has been stable. No noted ankle swelling.
In the ED, patient is noted to have wide complex tachycardia that is significant change from her prior tracings.
She was in severe respiratory distress and was started on BiPAP and NTG gtt and given IV Lasix.
At the time of my examination, patient states she is feeling much improved from initial presentation.
She notes that her current SOB is identical to her presentation in 11/2023 with NSTEMI. - though she did not have cough at that time.
Patient underwent cath on 12/04/23 with stent to the LAD.
Medical History
Past Medical History
Past Medical History: Reports Other
Additional Past Medical History:
ASCVD
Hypertension
DM-II
Paroxysmal Atrial fibrillation
CKD IV
Chronic HFmrEF
Hypothyroidism
Left Eye Blindness / Ocular Hemorrhage
Past Surgical History: Reports Other
Additional Past Surgical History:
PTCA with Stent x 3 (most recent was 12/04/23)
Appendectomy
T&A
Social History
Tobacco: Former Smoker (Remote / minimal history of tobacco use.)
Alcohol: None
Drug: None
Family History
Family History: Not pertinent
Allergies / Home Medications
Allergies reflects when Allergies were last updated in [employer].
Home Medications with original date entered in [employer]
Allergy/Medication List:
Allergies
Allergy/AdvReac Type Severity Reaction Status Date / Time
clopidogrel bisulfate Allergy RETINAL Verified 04/03/24 23:04
[From Plavix] HEMMORHAGE
fluorescein Allergy Tongue Verified 04/03/24 23:04
Swelling
zolpidem tartrate Allergy hallucinati Verified 04/03/24 23:04
[From Ambien] ons
Home Medications
albuterol sulfate 90 mcg/actuation aerosol inhaler 2 puff inhalation R Q4HPRN PRN sob 12/23/18
atorvastatin 80 mg tablet 80 mg PO HS High cholesterol 12/23/18
insulin glargine 100 unit/mL (3 mL) subcutaneous pen (Lantus Solostar U-100 Insulin) 24 units SC DAILY Diabetes 12/23/18
levothyroxine 125 mcg tablet 125 mcg PO DAILY Thyroid 12/23/18
melatonin 1 mg tablet 5 mg PO HSPRN PRN insomnia 12/23/18
pantoprazole 40 mg tablet,delayed release (Protonix) 40 mg PO DAILY #90 tabs 01/23/22
ergocalciferol (vitamin D2) 50,000 unit tablet 25,000 unit PO SUTH Supplement 12/04/23
apixaban 2.5 mg tablet (Eliquis) 2.5 mg PO BID Blood Clot Prevention/Tx 12/05/23
clopidogrel 75 mg tablet 75 mg PO DAILY #30 tabs 12/12/23
furosemide 20 mg tablet 20 mg PO DAILY #30 tabs 12/12/23
insulin aspart U-100 100 unit/mL (3 mL) subcutaneous pen (Novolog FlexPen U-100 Insulin aspart) 10 unit (0.1 mL) SC AC #5 ea 12/12/23
insulin glargine 100 unit/mL (3 mL) subcutaneous pen (Lantus Solostar U-100 Insulin) 12 unit (0.12 mL) SC HS #5 ea 12/12/23
pen needle, diabetic 32 gauge x ' (BD Ultra-Fine Sona Pen Needle) #200 ea 12/12/23
amiodarone 200 mg tablet 100 mg PO DAILY 04/04/24
amitriptyline 10 mg tablet 10 mg PO DAILY PRN migraine 04/04/24
metoprolol succinate 25 mg tablet,extended release 24 hr 25 mg PO BID 04/04/24
Review of Systems
-
History Source: Patient
A 12 point ROS was completed and negative except as noted: Yes
Constitutional: Reports Fatigue; Denies Fever or Chills
EENT: Denies Sore Throat
Respiratory: Reports Cough and Trouble Breathing; Denies Hemoptysis
Cardiac: Denies Chest Pain, Diaphoresis, Palpitations or Syncope
Abdomen/GI: Denies Abdominal Pain, Nausea, Vomiting or Diarrhea
: Denies Dysuria, Frequency or Flank Pain
Musculoskeletal: Denies Joint Pain or Edema
Neurological: Denies Dizzy or Headache
Psych: Reports Anxiety; Denies Depression
Physical Exam
Vital Signs
Vital Signs
Pulse Resp BP Pulse Ox
111 20 112/47 99
04/04/24 00:45 04/04/24 00:45 04/04/24 00:40 04/04/24 00:45
Physical Exam
General: Other (88y F in mild - moderate resp distress. BiPAP mask in place.)
HEENT: Moist mucous membranes, PERRLA and Other (Neck supple. No JVD.)
Respiratory: Other (Inspiratory wheezes / scattered coarse breath sounds throughout.)
Cardiac: S1/S2 and Tachycardia; No Murmur
GI: Soft, Non Tender, Non Distended and Normal Bowel Sounds
Musculoskeletal: No Clubbing, No Cyanosis and No Edema
Neuro: AO x 3
Laboratory Results
-
04/03/24 23:10
Laboratory Results
PT 13.6 Sec (11.4-14.6) 04/03/24 23:10
INR 0.99 04/03/24 23:10
APTT 30.4 Sec (23.4-35.0) 04/03/24 23:10
Total Bilirubin 0.3 mg/dl (0.2-1.3) 04/03/24 23:10
AST 41 U/L (14-36) H 04/03/24 23:10
ALT 26 U/L (0-35) 04/03/24 23:10
Alkaline Phosphatase 133 U/L (38-126) H 04/03/24 23:10
Troponin I 0.077 ng/ml H* 04/03/24 23:10
Impression/Plan
-
A/P: Patient is an 88y F with PMH significant for ASCVD, HTN, DM-II and CKD who presents to ED complaining of cough and SOB.
NSTEMI
ASCVD
- Admit for further evaluation and treatment.
- Initial EKG with wide-complex tachycardia - significantly changed from baseline tracing.
- Initial troponin 0.077 - follow to peak.
- Patient indicates that symptoms are similar to prior DC.
- Begin IV heparin, continue IV NTG.
- Continue Plavix and add back ASA.
- Continue beta-blockade, statin, etc.
- Follow for any new / worsening symptoms.
- Cardiology evaluation for additional recommendations / possible repeat ischemic evaluation.
Acute HFmrEF
Acute Hypoxemic Respiratory Failure secondary to the above
- Suspect HF exacerbation secondary to NSTEMI as noted above.
- ? component / trigger of viral URI given preceding cough. COVID and influenza negative in the ED this evening.
- Continue IV NTG and BiPAP - titrate as needed.
- IV Lasix 20mg BID for now and follow I/Os, daily weights, etc.
- Reassess LV function s/p prior DC via Echo or repeat cath this admission. (LVEF = 50% in 12/2023).
- Follow for continued clinical improvement.
Paroxysmal Atrial Fibrillation
- Currently in NSR. Presented in wide-complex tachycardia with RBBB pattern.
- Continue metoprolol, amio, etc as noted above.
- Holding Eliquis acutely while on IV heparin as noted above.
CKD IV
- Stable. Renal function appears improved from usual baseline.
- Follow for changes with IV diuresis.
- Baseline appears to be around 2.5.
DM-II
- Stable. Continue basal : bolus insulin regimen with decreased doses while NPO.
- Follow glucose and cover with SSI as needed.
- Update A1C.
Hypothyroidism
- Stable. Continue current T4 supplementation.
DVT Prophylaxis: On IV Heparin
Code Status: DNR
[2024-04-04] MEDS: HEPARIN 25000 UNITS/250 ML IV (01:31)
[2024-04-04 02:31] LABS: Hematocrit 36.5 % (37.0-47.0); Mean Corp Hgb Conc. 32.9 g/dL (33.0-37.0); Mean Corpuscular Hgb 29.1 pg (27.0-31.0); Mean Corpuscular Volume 88.6 fL (81.0-99.0); Mean Platelet Volume 10.9 fL (7.4-10.4); Platelet Count 208 10^3/uL (130-400); Red Blood Cell Count 4.12 10^6/uL (4.20-5.40); Red Cell Dist. Width 14.5 % (11.5-14.5); White Blood Cell Count 13.3 10^3/uL (4.8-10.8)
[2024-04-04 02:32] LABS: Glucose - Point of Care 245 mg/dl (70-99)
--- NOTE | 2024-04-04 02:51 | PTCARENOTE ---
Pt. presented to ICU from ED. Transfer uneventful.
Cont. Bipap 17/08/14L. SP02: 100 percent.
NITRO gtt off in ED, started on heparin gtt.
Now in NSR, offers no complaints of chest pain, normotensive, normothermic.
Blood sugar via POC elevated, insulin ordered awaiting pen from pharmacy.
Family updated w/ plan of care all questions answered.
[2024-04-04] MEDS: NOVOLOG FLEXPEN 3 UNITS SC (04:39)
--- NOTE | 2024-04-04 04:44 | PTCARENOTE ---
No change in assessment.
BIpap o2 decreased to 6L.
[2024-04-04 05:19] LABS: Hematocrit 36.4 % (37.0-47.0); Hemoglobin 11.7 g/dL (12.0-16.0); Mean Corp Hgb Conc. 32.1 g/dL (33.0-37.0); Mean Corpuscular Hgb 28.7 pg (27.0-31.0); Mean Corpuscular Volume 89.4 fL (81.0-99.0); Mean Platelet Volume 11.1 fL (7.4-10.4); Platelet Count 191 10^3/uL (130-400); Red Blood Cell Count 4.07 10^6/uL (4.20-5.40); Red Cell Dist. Width 14.4 % (11.5-14.5)
[2024-04-04 06:34] LABS: Blood Urea Nitrogen 58 mg/dl (7-17); Calcium 7.9 mg/dl (8.4-10.2); Carbon Dioxide 23 mmol/L (22-30); Chloride 99 mmol/L (98-107); Estimated Creatinine Clearance 17 ml/min; Glucose 361 mg/dl (70-99); HDL Cholesterol 54 mg/dl; LDL Cholesterol, Calculated 58 mg/dl; Potassium 5.3 mmol/L (3.5-5.1); Sodium 131 mmol/L (135-145); Total Cholesterol 124 mg/dl (50-199); Triglyceride 60 mg/dl (10-149); Very Low Density Lipoprotein 12 mg/dl (0-30); eGFR 23.88
[2024-04-04] MEDS: SYNTHROID 125 MCG PO (06:38)
[2024-04-04 07:10] LABS: APTT 66.3 Sec (23.4-35.0)
--- NOTE | 2024-04-04 07:33 | CON.CAR ---
Addendum entered and electronically signed by Mari Turner MD 04/04/24 17:58:
I saw and examined the patient.
The Nuisance Wildlife Trapper's note was reviewed and I agree with the note.
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
Thursday, coronary artery disease status post LAD and left circumflex bare-metal stent x 2 in 2014, status post distal left circumflex/OM drug-eluting stent in 2021, status post NSTEMI with 2.75 mm Ramon drug-eluting stent to ostial/proximal LAD on
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
hypertension on presentation with blood pressure of 214/109 status post initiation of IV nitroglycerin and IV heparin drips with initial troponin of 0.077 slowly uptrending to 2.3 this morning who was initially called in as a prehospital STEMI with
EKG showing sinus versus atrial tachycardia with right bundle branch block and QRS wider than baseline in the setting of severe respiratory distress. Patient was placed on BiPAP overnight with significant improvement in her respiratory status and
breathing however she continues to have a cough which she thought was a bout of bronchitis over the last couple of days. She reports subjective fevers at home however is not able to bring up any sputum. Influenza was checked which was negative
here. Similar respiratory distress/presentation back in November at [facility] at the time of an NSTEMI. No chest pain
On exam patient continues to have frequent bouts of cough and is laying at 40 to 45 degree angle, decreased breath sounds at the bases, elevated JVD, regular rate, normal S1 and S2, no murmurs, rubs or gallops abdomen is soft, nontender,
nondistended with active bowel sounds, warm extremities without significant edema.
Recommendations:
1. Continue to monitor on telemetry with trending of troponins and EKGs.
2. Continue to hold Eliquis while continuing IV heparin drip for presumed NSTEMI.
3. Aggressive IV diuresis with close monitoring of renal function.
4. Defer completion of workup for ongoing cough to primary team, hopefully related to heart failure should get better with IV diuresis.
5. Tentative plan for cath tomorrow versus depending on renal function, respiratory status/cough. Of note, previously radial access had failed and groin access was needed so would prefer complete washout of the Eliquis to minimize risk
for bleeding especially in the setting of CKD.
Mari Turner MD, [facility]
Original Note:
Consultation
Consultation Request
Date/Time Consultation Requested: 04/04/2024
Date/Time Consultation Performed: 04/04/2024
Requesting Provider: Dr. Guajardo
Performing Provider: Isa Lopez PA-C for Dr. Turner
Reason for Consultation: SOB, Elevated Troponin
Medical History
-
History of Present Illness:
HPI: Fide is an 88 year old female with PMH of chronic HFmrEF, recovered cardiomyopathy, CAD w/ recent stenting of LAD 12/04/2023, paroxysmal atrial fibrillation on chronic Eliquis and amiodarone, CKD 4, HLD, DM2, and L eye blindness. She
presented to [facility] for evaluation of SOB and cough. Symptoms started the night prior to arrival and persisted throughout the day, prompting ER evaluation. She notes symptoms feel similar to prior NSTEMI 11/2023. On arrival to ER, she was noted to be
in respiratory distress and was placed on BiPAP w/ improvement in symptoms. She was also tachycardic and markedly hypertensive on arrival with initial BP 214/109. She was started on IV nitro and IV heparin. Initial troponin returned at 0.077 with
repeat up to 0.920. She started on IV lasix and admitted to ICU where she remains. ECG this AM improving. She reports improvement in her breathing. Denies any chest pain. She continues on Eliquis and plavix following recent PCI and denies any missed
doses.
PMH:
Chronic HFmrEF
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
CAD
s/p LAD & LCx BMS x2 in 2014
s/p distal LCx/OM VANGIE in 2021
s/p NSTEMI and 2.75 mm Menard VANGIE to ostial/prox LAD 12/04/23
Paroxysmal Afib
Chronic Eliquis OAC
Chronic amiodarone therapy
CKD 4
Hyperlipidemia
DM 2
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
Past Medical History
Past Medical History: Other (In HPI)
Past Surgical History: Appendectomy and Cardiac (LAD & LCx PCI 2014, LCx/OM PCI 2021, LAD PCI 11/2023)
Social History
Tobacco: Former Smoker
Alcohol: None
Drug: None
Personal:
Living: With Family
Employment: Retired
Family History
Family History: Reviewed & Not Pertinent
Allergies / Home Medications
Allergy/AdvReac Type Severity Reaction Status Date / Time
clopidogrel bisulfate Allergy RETINAL Verified 04/03/24 23:04
[From Plavix] HEMMORHAGE
fluorescein Allergy Tongue Verified 04/03/24 23:04
Swelling
zolpidem tartrate Allergy hallucinati Verified 04/03/24 23:04
[From Ambien] ons
�Medication �Instructions �Recorded �Confirmed �Type
albuterol sulfate 90 mcg/actuation 2 puff inhalation R Q4HPRN PRN sob 12/23/18 04/04/24 History
aerosol inhaler
atorvastatin 80 mg tablet 80 mg PO HS High cholesterol 12/23/18 04/04/24 History
insulin glargine 100 unit/mL (3 24 units SC DAILY Diabetes 12/23/18 04/04/24 History
mL) subcutaneous pen (Lantus
Solostar U-100 Insulin)
levothyroxine 125 mcg tablet 125 mcg PO DAILY Thyroid 12/23/18 04/04/24 History
melatonin 1 mg tablet 5 mg PO HSPRN PRN insomnia 12/23/18 04/04/24 History
pantoprazole 40 mg tablet,delayed 40 mg PO DAILY #90 tabs 01/23/22 04/04/24 Rx
release (Protonix)
ergocalciferol (vitamin D2) 50,000 25,000 unit PO SUTH Supplement 12/04/23 04/04/24 History
unit tablet
apixaban 2.5 mg tablet (Eliquis) 2.5 mg PO BID Blood Clot 12/05/23 04/04/24 History
Prevention/Tx
clopidogrel 75 mg tablet 75 mg PO DAILY #30 tabs 12/12/23 04/04/24 Rx
furosemide 20 mg tablet 20 mg PO DAILY #30 tabs 12/12/23 04/04/24 Rx
insulin aspart U-100 100 unit/mL 10 unit (0.1 mL) SC AC #5 ea 12/12/23 04/04/24 Rx
(3 mL) subcutaneous pen (Novolog
FlexPen U-100 Insulin aspart)
insulin glargine 100 unit/mL (3 12 unit (0.12 mL) SC HS #5 ea 12/12/23 04/04/24 Rx
mL) subcutaneous pen (Lantus
Solostar U-100 Insulin)
pen needle, diabetic 32 gauge x #200 ea 12/12/23 04/04/24 Rx
' (BD Ultra-Fine Sona Pen
Needle)
amiodarone 200 mg tablet 100 mg PO DAILY 04/04/24 04/04/24 History
amitriptyline 10 mg tablet 10 mg PO DAILY PRN migraine 04/04/24 04/04/24 History
metoprolol succinate 25 mg 25 mg PO BID 04/04/24 04/04/24 History
tablet,extended release 24 hr
Review of Systems
-
History Source: Patient
All other systems: Negative unless noted
Physical Exam
Vital Signs
Temp Pulse Resp BP Pulse Ox
98.6 F 75 18 112/49 99
04/04/24 01:32 04/04/24 06:00 04/04/24 06:00 04/04/24 06:00 04/04/24 06:00
Lab Results
04/04/24 04:33
04/04/24 05:58
Troponin I Cancelled 04/04/24 13:13
Jvj-D-Wkulfygsirj Pept 6060 pg/ml 04/03/24 23:10
Physical Exam
General: Well Developed, Well Nourished and No Apparent Distress
HEENT: Normocephalic, Anicteric and Moist Mucous Membranes
Respiratory: Clear and Non Labored Respirations
Cardiac: S1/S2 and Regular Rhythm
Musculoskeletal: No Clubbing, No Cyanosis and No Edema
Skin: Warm and Dry
Neuro: AO x 3 and Nonfocal/Grossly Intact
Psych: Calm
Impression / Plan
-
PCP: Dr. Cedeno
Golf Club Weighter: Dr. Goyo Seymour ([facility] Cardiology)
Impression:
Presented with SOB, cough
Acute respiratory failure, on BiPAP
NSTEMI
Acute on chronic HFmrEF
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
CAD
s/p LAD & LCx BMS x2 in 2014
s/p distal LCx/OM VANGIE in 2021
s/p NSTEMI and 2.75 mm Ramon VANGIE to ostial/prox LAD 12/04/23
Paroxysmal Afib
Chronic Eliquis OAC
Chronic amiodarone therapy
CKD 4
Hyperlipidemia
DM 2
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
Echo 01/23/2022: EF 50 to 54%, moderate MR, mild MS with mean MV gradient 5 mmHg, mild to moderate TR with PAP 45 to 50 mmHg
Echo 12/04/2023: [facility] study, EF 30%, LAD wall motion abnormality
Echo 12/09/2023: EF 50%, mild cLVH, mild mid to distal anteroseptal hypokinesis
Echo 04/04/2024: Study pending
Cath 12/04/23: Successful PCI of the LAD with placement of a drug-eluting stent. Widely patent previously placed mid LAD stent and overlapping circumflex proper stents with known critical disease involving the jailed obtuse marginal branch and
chronically occluded distal left sided posterior descending artery.
Plan:
-Presented with SOB and cough. Symptoms felt similar to prior NSTEMI presentation 11/2023.
-In respiratory distress on arrival, placed on BiPAP. Breathing improved this AM. Plan to try and wean off BiPAP today.
-Elevated troponin noted, trending up to 0.920. Continue to trend to peak. Concern for NSTEMI.
-Check echo. Previously EF down to 30% by echo at [facility] in the setting of NSTEMI. Recovered by follow up echo after PCI 12/2023
-Given NSTEMI with respiratory distress and ECG changes, plan is for repeat ischemic evaluation this admission .
-Eliquis on hold in preparation. Continue IV heparin, aspirin 81mg daily, clopidogrel 75mg daily.
-ECG this AM improved, SR with HR 113 BPM. HR improving w/ improvement in respiratory status. Continue amiodarone 100mg daily.
-Continue Toprol 25mg BID. BP stable off nitro gtt.
-CXR w/ interstitial edema. Continue diuresis with IV lasix 20mg BID. ProBNP 6060. Creat stable at 2.0.
-Weight has been stable at home by report. Weight down 5lbs overnight if accurate.
-LDL 58, continue lipitor 80mg daily.
-Hgb A1c pending.
-TSH WNL, continue levothyroxine.
HPI: Fide is an 88 year old female with PMH of chronic HFrEF, cardiomyopathy, CAD w/ recent stenting of LAD 12/04/2023, paroxysmal atrial fibrillation on chronic Eliquis and amiodarone, CKD 4, HLD, DM2, and L eye blindness. She presented to [facility]
for evaluation of SOB and cough. Symptoms started the night prior to arrival and persisted throughout the day, prompting ER evaluation. She notes symptoms feel similar to prior NSTEMI 11/2023. On arrival to ER, she was noted to be in respiratory
distress and was placed on BiPAP w/ improvement. She was also tachycardic and markedly hypertensive on arrival with initial BP 214/109. She was started on IV nitro and IV heparin. Initial troponin returned at 0.077 with repeat up to 0.920. She
started on IV lasix and admitted to ICU where she remains. ECG this AM improving. She reports improvement in her breathing. Denies any chest pain currently. She continues on Eliquis and plavix following recent PCI and denies any missed doses.
Data Reviewed
-
EKG: Tracing Personally Visualized and interpreted
Radiology: Report Reviewed by me
Labs: Labs Reviewed by me
Old Records: Requested and Reviewed
--- NOTE | 2024-04-04 08:31 | PTCARENOTE ---
Received pt from table games shift manager RN; pt AAOX3 and resting comfortably in bed; NSR on monitor and VSS; Heparin infusing see flow sheet for details; PIV x2 patent; pt switched from BIPAP to 3L NC by respiratory; lungs diminished; nonproductive cough;
positive bowel sounds; pt voiding yellow urine via pure pick; palpable pulses throughout and no edema noted; see nursing documentation for further details.
[2024-04-04] MEDS: LASIX 20 MG IV ×2 (08:43→15:34)
[2024-04-04] MEDS: PROTONIX 40 MG PO (08:44)
[2024-04-04] MEDS: PACERONE 100 MG PO (08:44)
[2024-04-04] MEDS: PLAVIX 75 MG PO (08:44)
[2024-04-04] MEDS: TOPROL XL 25 MG PO ×2 (08:44→19:42)
[2024-04-04] MEDS: LOW STRENGTH ASPIRIN 81 MG PO (08:45)
[2024-04-04 08:54] LABS: Glucose - Point of Care 350 mg/dl (70-99)
[2024-04-04 09:11] LABS: Glycohemoglobin (HgbA1c) 8.5 % (4.0-5.6)
--- NOTE | 2024-04-04 09:33 | W.PN.HOSP.TC ---
Addendum entered and electronically signed by Orion Nicole MD 04/05/24 15:01:
Hyponatremia
Original Note:
Today's Communication/Plan
-
Heparin gtt. Echo. Possible cardiac cath
Assessment / Plan
Assessment / Plan
Physical exam:
General: Well Developed, Well Nourished and No Apparent Distress
HEENT: Normocephalic, Atraumatic and Moist Mucous Membranes
Respiratory: Clear to Auscultation; Negative Wheezes, Rales or Rhonchi
Cardiac: Regular Rhythm and S1/S2
GI: Soft, Nontender and Nondistended
Musculoskeletal: No Clubbing, No Cyanosis and No Edema
Neuro: Awake, Alert and Oriented
Psych: Calm
A/P:
NSTEMI
ASCVD
- Admit for further evaluation and treatment.
- Initial EKG with wide-complex tachycardia - significantly changed from baseline tracing.
- Initial troponin 0.077 - follow to peak.
- Patient indicates that symptoms are similar to prior MN.
- Begin IV heparin, continue IV NTG.
- Continue Plavix and add back ASA.
- Continue beta-blockade, statin, etc.
- Follow for any new / worsening symptoms.
- Cardiology evaluation for additional recommendations / possible repeat ischemic evaluation.
Acute HFmrEF
Acute Hypoxemic Respiratory Failure secondary to the above
- Suspect HF exacerbation secondary to NSTEMI as noted above.
- ? component / trigger of viral URI given preceding cough. COVID and influenza negative in the ED this evening.
- Continue IV NTG and BiPAP - titrate as needed.
- IV Lasix 20mg BID for now and follow I/Os, daily weights, etc.
- Reassess LV function s/p prior MN via Echo or repeat cath this admission. (LVEF = 50% in 12/2023).
- Follow for continued clinical improvement.
Paroxysmal Atrial Fibrillation
- Currently in NSR. Presented in wide-complex tachycardia with RBBB pattern.
- Continue metoprolol, amio, etc as noted above.
- Holding Eliquis acutely while on IV heparin as noted above.
CKD IV
- Stable. Renal function appears improved from usual baseline.
- Follow for changes with IV diuresis.
- Baseline appears to be around 2.5.
DM-II
- Stable. Continue basal : bolus insulin regimen with decreased doses while NPO.
- Follow glucose and cover with SSI as needed.
- Update A1C.
Hypothyroidism
- Stable. Continue current T4 supplementation.
DVT Prophylaxis: On IV Heparin
Code Status: DNR
Anticipated Discharge: > 48 hours
Subjective/Interval History
-
Date of Service: April 04, 2024
Patient with cough and shortness of breath. Afebrile
Objective Data
-
Labs:
Laboratory Results
04/03/24 04/04/24 04/04/24
23:10 00:55 02:17
WBC 11.4 H 13.3 H
Hgb 14.1 12.0
Hct 43.5 36.5 L
Plt Count 223 208
PT 13.6
INR 0.99
APTT 30.4 31.0
Sodium 136
Potassium 4.6
Chloride 100
Carbon Dioxide 23
BUN 48 H
Creatinine 1.8 H
Glucose 189 H
Calcium 8.6
Total Bilirubin 0.3
AST 41 H
ALT 26
Alkaline Phosphatase 133 H
04/04/24 04/04/24 04/04/24
04:33 05:58 06:43
WBC 14.0 H
Hgb 11.7 L
Hct 36.4 L
Plt Count 191
PT
INR
APTT 66.3 H
Sodium Cancelled 131 L
Potassium Cancelled 5.3 H
Chloride Cancelled 99
Carbon Dioxide Cancelled 23
BUN Cancelled 58 H
Creatinine Cancelled 2.0 H
Glucose Cancelled 361 H
Calcium Cancelled 7.9 L
Total Bilirubin
AST
ALT
Alkaline Phosphatase
04/04/24
13:30
WBC
Hgb
Hct
Plt Count
PT
INR
APTT Pending
Sodium
Potassium
Chloride
Carbon Dioxide
BUN
Creatinine
Glucose
Calcium
Total Bilirubin
AST
ALT
Alkaline Phosphatase
Vital Signs:
Vital Signs
Temp Pulse Resp BP Pulse Ox
98 F 73 18 119/50 99
04/04/24 08:30 04/04/24 08:44 04/04/24 06:00 04/04/24 08:44 04/04/24 06:00
I&O
04/03/24 04/04/24 04/05/24
06:59 06:59 06:59
Intake Total 165 / 165
Output Total 200 / 200 200 / 200
Balance -35 / -35 -200 / -200
[2024-04-04] MEDS: LANTUS 0.12 UNITS SC ×2 (10:39→21:58)
[2024-04-04] MEDS: TESSALON PERLES 100 MG PO ×2 (11:52→19:42)
[2024-04-04 12:14] LABS: Glucose - Point of Care 336 mg/dl (70-99)
--- NOTE | 2024-04-04 12:15 | PTCARENOTE ---
NSR on monitor and VSS: assessment unchanged; pt resting comfortably in bed and daughter at bedside and updated on plan.
--- NOTE | 2024-04-04 12:31 | CON.INTV ---
Consultation
Consultation Request
Date/Time Consultation Requested: 04/04/2024
Date/Time Consultation Performed: 04/04/2024
Requesting Provider: Dr. Guajardo
Performing Provider: Dr. Audie Patel
Reason for Consultation: Hypoxemic respiratory failure
Medical History
-
History of Present Illness:
88-year-old female with past medical history of coronary artery disease, atrial fibrillation, heart failure who presented to the emergency room complaining of cough and shortness of breath. Reports few days of coughing with minimal phlegm
production. Denies any fever. Has developed some cough paroxysms at home. Difficulty expectorating. Denies any fevers or chills. The day of admission became progressively short of breath 911 was called. She was brought into the emergency room
for evaluation.
She was found to have a wide-complex tachycardia in the emergency room. Due to increased work of breathing BiPAP started. Nitroglycerin and IV Lasix given.
Patient had somewhat similar presentation without a coughing in November 2023 and at that time underwent cardiac catheterization and underwent LAD stent placement.
Currently denies any chest pain
She feels much better
Only complaint is coughing
No longer requiring BiPAP.
Past Medical History
Past Medical History: Other (See assessment and plan)
Social History
Tobacco: Former Smoker (Remote, minimal history)
Alcohol: None
Drug: None
Family History
Family History: Reviewed & Not Pertinent
Allergies / Home Medications
Allergies
Allergy/AdvReac Type Severity Reaction Status Date / Time
clopidogrel bisulfate Allergy RETINAL Verified 04/03/24 23:04
[From Plavix] HEMMORHAGE
fluorescein Allergy Tongue Verified 04/03/24 23:04
Swelling
zolpidem tartrate Allergy hallucinati Verified 04/03/24 23:04
[From Ambien] ons
Home Medications
�Medication �Instructions �Recorded �Confirmed �Last Taken �Type
albuterol sulfate 90 mcg/actuation 2 puff inhalation R Q4HPRN PRN sob 12/23/18 04/04/24 12/04/23 08:00 History
aerosol inhaler
atorvastatin 80 mg tablet 80 mg PO HS High cholesterol 12/23/18 04/04/24 12/03/23 21:00 History
insulin glargine 100 unit/mL (3 24 units SC DAILY Diabetes 12/23/18 04/04/24 12/04/23 08:51 History
mL) subcutaneous pen (Lantus
Solostar U-100 Insulin)
levothyroxine 125 mcg tablet 125 mcg PO DAILY Thyroid 12/23/18 04/04/24 12/04/23 09:00 History
melatonin 1 mg tablet 5 mg PO HSPRN PRN insomnia 12/23/18 04/04/24 2 Months Ago History
~11/22/21
pantoprazole 40 mg tablet,delayed 40 mg PO DAILY #90 tabs 01/23/22 04/04/24 Unknown Rx
release (Protonix)
ergocalciferol (vitamin D2) 50,000 25,000 unit PO SUTH Supplement 12/04/23 04/04/24 12/04/23 09:00 History
unit tablet
apixaban 2.5 mg tablet (Eliquis) 2.5 mg PO BID Blood Clot 12/05/23 04/04/24 12/03/23 08:00 History
Prevention/Tx
clopidogrel 75 mg tablet 75 mg PO DAILY #30 tabs 12/12/23 04/04/24 Unknown Rx
furosemide 20 mg tablet 20 mg PO DAILY #30 tabs 12/12/23 04/04/24 Unknown Rx
insulin aspart U-100 100 unit/mL 10 unit (0.1 mL) SC AC #5 ea 12/12/23 04/04/24 Unknown Rx
(3 mL) subcutaneous pen (Novolog
FlexPen U-100 Insulin aspart)
insulin glargine 100 unit/mL (3 12 unit (0.12 mL) SC HS #5 ea 12/12/23 04/04/24 Unknown Rx
mL) subcutaneous pen (Lantus
Solostar U-100 Insulin)
pen needle, diabetic 32 gauge x #200 ea 12/12/23 04/04/24 Unknown Rx
' (BD Ultra-Fine Sona Pen
Needle)
amiodarone 200 mg tablet 100 mg PO DAILY Heart 04/04/24 04/04/24 Unknown History
Disease/Condition
amitriptyline 10 mg tablet 10 mg PO DAILY PRN migraine 04/04/24 04/04/24 Unknown History
metoprolol succinate 25 mg 25 mg PO BID Heart 04/04/24 04/04/24 Unknown History
tablet,extended release 24 hr Disease/Condition
Review of Systems
-
History Source: Patient
All other systems: Negative unless noted
Vitals / Labs / Diagnostic Testing
Vital Signs
Temp Pulse Resp BP Pulse Ox
98 F 72 20 132/58 96
04/04/24 11:22 04/04/24 12:00 04/04/24 12:00 04/04/24 12:00 04/04/24 12:00
Lab Data
04/04/24 04:33
04/04/24 05:58
Laboratory Results
04/03/24 04/04/24 04/04/24
23:10 00:55 06:43
PT 13.6
INR 0.99
APTT 30.4 31.0 66.3 H
Microbiology
04/03/24 23:12 Nasal Swab Influenza Types A & B (MIGUEL) - Final
Negative for Influenza A & B, NAAT
Negative results must be combined with clinical observations
and patient history.
Nucleic Acid Amplification test (NAAT)performed on the
[employer] platform.
Diagnostic Testing:
Physical Exam
-
HEENT: Normocephalic
Cardiovascular: S1/S2
Respiratory: Non-Labored Respirations
GI: Soft and Non Distended
Neurology: Awake, Alert, AO x 3 and No Motor Deficits
Skin: Warm
General: Comfortable
Assessment
-
88-year-old woman with past medical history noted, admitted with cough, progressive shortness of breath, found to be significantly hypertensive. Increased work of breathing requiring noninvasive mechanical ventilation, troponin is positive with
abnormal EKG. Concern for non-ST elevation myocardial infarction
Acute respiratory failure recurrent noninvasive mechanical ventilation.
Acute on chronic heart failure with preserved ejection fraction
Elevated proBNP
Echocardiogram 12/09/2023: Mild LVH. Ejection fraction 50%. Mid to distal third septal hypokinesis.
Hypertensive emergency-systolic blood pressure greater than 200 on admission
Non-ST elevation myocardial infarction
Peak troponin 2.3
Subacute cough-suspect upper respiratory infection
Negative COVID/negative influenza
Conditions present prior admission:
Coronary artery disease with LAD stent placement more recently 11/2023 (prior stent 2014 and 2021)
Hypertension
Type 2 diabetes
Atrial fibrillation-on chronic anticoagulation/amiodarone
Chronic kidney disease stage IV
Heart failure with reduced ejection fraction
Hypothyroidism
Left eye blindness/ocular hemorrhage
History of appendectomy
DNR status
Assessment and plan:
Clinical picture consistent with likely acute coronary event-acute on chronic heart failure with preserved ejection fraction. Significantly hypertensive on admission, increased troponin, increased proBNP, chest x-ray with increased interstitial
markings suggestive of pulmonary edema
Previously ejection fraction was 30% but it recovered..
-
Clinically improved this morning, off BiPAP and comfortable.
Minimal bibasilar crackles on exam
Not bronchospastic
Continue heparin drip-follow PTT, Eliquis on hold.
Amiodarone
Nitroglycerin drip as needed
Cardiology correspondence reviewed plan for ischemic workup during this admission
Continue cardiac management
Repeat echocardiogram
-
Will discontinue BiPAP as she has not required and she appears more comfortable
Continue hemodynamic monitoring
Wean off oxygen
-
Upper respiratory infection: Continue antitussives
Negative COVID
Negative influenza
No indication for antibiotic
As needed nebulizers, has history of asthma but not bronchospastic on exam.
-
Glycemic control-Target 100 4180.
As needed insulin.
-
N.p.o. for now until decided whether she is going to go for cath later today, otherwise can advance diet.
-
If able to remain off BiPAP, chest pain-free and continues to improve we will transfer to IVU later today.
If transferred to IVU critical care team will sign off
-
Critical care statement: A total of 31 minutes of critical care time was provided for this patient today. This includes management of unstable vital signs, evaluation of the patient at bedside, reviewing the patient's pertinent medical records
including ventilator settings, arterial blood gases, radiographs, microbiology, laboratory evaluations and discussion with primary team, critical care nursing, and respiratory therapy.
[2024-04-04] MEDS: DUONEB 3 ML INH ×2 (12:45→20:55)
[2024-04-04] MEDS: NOVOLOG FLEXPEN-MODERATE RESISTANCE 7 UNITS SC (14:03)
--- NOTE | 2024-04-04 15:20 | CM ---
Reviewed the chart notes and spoke with the patient at the bedside. The patient admitted for NSTEMI, hypoxemic respiratory failure, and HF. The patient resides alone in a two story home with two steps to enter. The patient only uses a rolling
walker to retrieve her postal mail. The patient has had [facility] in the past, but no SNF. The patient confirmed her pharmacy of choice is the [facility] [address] [place] and PCP is Dr. Primitivo Cedeno. CM continues to be available to patient/family and is
monitoring medical plan for needs at discharge.
Plan: Discharge plans will depend on the patient's progress.
--- NOTE | 2024-04-04 16:04 | W.PN.UPDATE ---
Update Note
Progress Note Update
Has remained hemodynamically stable, chest pain-free.
Continue symptomatic management
Awaiting for repeat cath, Eliquis washout possibly on .
Pulmonary will continue to follow briefly for her upper respiratory symptoms and assure that her respiratory status remains stable.
[2024-04-04 17:24] LABS: Glucose - Point of Care 284 mg/dl (70-99)
--- NOTE | 2024-04-04 17:35 | PTCARENOTE ---
Report given to IVU RN; pt transported to IVU via wheelchair.
[2024-04-04] MEDS: NOVOLOG FLEXPEN-MODERATE RESISTANCE 5 UNITS SC (17:59)
--- NOTE | 2024-04-04 18:35 | PTCARENOTE ---
patient arrived from ICU, monitor on NSR, VSS. IV Heparin @ 800units/hr via left arm without difficulties. patients chief complaint is a dry, constant cough, on 3LNC, o2 sat 93%. oriented to room and surroundings, call bejarano within reach. family at
bedside.
[2024-04-04] MEDS: ROBITUSSIN AC 5 ML PO (19:42)
[2024-04-04] MEDS: LIPITOR 80 MG PO (21:13)
[2024-04-04 21:21] LABS: Glucose - Point of Care 375 mg/dl (70-99)
[2024-04-04] MEDS: NOVOLOG FLEXPEN 5 UNITS SC (21:58)
[2024-04-04] MEDS: XANAX 0.25 MG PO (22:45)
[2024-04-04 23:37] LABS: Glucose - Point of Care 160 mg/dl (70-99)
[2024-04-05] VITALS (7 sets, daily range): BP systolic 108–159; BP diastolic 46–92; PULSE 2; BMI 32.8
--- NOTE | 2024-04-05 02:35 | PTCARENOTE ---
Assumed care of the patient @ 1900. AAOx3 family @ bedside. SR on the monitor. VSS Persistent cough Robitussin and Tessalon Perles given. Resp at bedside to give breathing treatment followed by Bipap for the night @ 8943. Pt requested Xanax for
sleep. Heparin gtt infusing per protocol. Accu check 375. Lenore RADIOTELEGRAPH OPERATOR notified and ordered 5 units RHI. Repeat BS was 160.
[2024-04-05] MEDS: SYNTHROID 125 MCG PO (06:39)
[2024-04-05 06:41] LABS: % Basophils 0.8 % (0-2); % Eosinophils 0.8 % (0-6); % Immature Granulocytes 0.4 % (0-0.5); % Lymphocytes 16.3 % (20.5-51.1); % Monocytes 10.3 % (1.7-9.3); % Neutrophils 71.4 % (42.2-75.2); Absolute Basophils 0.1 10^3/uL (0-0.2); Absolute Eosinophils 0.1 10^3/uL (0-0.7); Absolute Lymphocytes 1.5 10^3/uL (1.2-3.4); Absolute Neutrophils 6.6 10^3/uL (1.4-6.5); Hematocrit 34.3 % (37.0-47.0); Hemoglobin 11.2 g/dL (12.0-16.0); Mean Corp Hgb Conc. 32.7 g/dL (33.0-37.0); Mean Corpuscular Hgb 28.8 pg (27.0-31.0); Mean Corpuscular Volume 88.2 fL (81.0-99.0); Mean Platelet Volume 10.8 fL (7.4-10.4); Nucleated Red Blood Cells % 0 %; Platelet Count 160 10^3/uL (130-400); Red Blood Cell Count 3.89 10^6/uL (4.20-5.40); Red Cell Dist. Width 14.5 % (11.5-14.5); White Blood Cell Count 9.2 10^3/uL (4.8-10.8)
[2024-04-05 07:09] LABS: Blood Urea Nitrogen 59 mg/dl (7-17); Carbon Dioxide 30 mmol/L (22-30); Chloride 96 mmol/L (98-107); Estimated Creatinine Clearance 16 ml/min; Glucose 81 mg/dl (70-99); Potassium 4.6 mmol/L (3.5-5.1); Sodium 133 mmol/L (135-145)
[2024-04-05] MEDS: PROTONIX 40 MG PO (08:57)
[2024-04-05] MEDS: PLAVIX 75 MG PO (08:57)
[2024-04-05] MEDS: LOW STRENGTH ASPIRIN 81 MG PO (08:57)
[2024-04-05] MEDS: TOPROL XL 25 MG PO ×2 (08:58→19:48)
[2024-04-05] MEDS: PACERONE 100 MG PO (08:58)
[2024-04-05] MEDS: LASIX 20 MG IV (08:59)
--- NOTE | 2024-04-05 09:15 | W.PN.PUL3 ---
Addendum entered and electronically signed by Taran Bravo MD 04/06/24 03:40:
Patient was seen and evaluated on 04/05/2024
Original Note:
Today's Communication / Plan
-
Trend sCr, daily weight and UOP
Maintain net negative fluid balance as tolerated
Lasix now on hold due to rise in Cr - appears that her baseline Cr is 1.8 - 2.2
Heparin gtt; hold Eliquis for now as she is tentatively scheduled for [facility]07[facility]24 - defer decision to cardiology after reviewing risks and benefits with patient as she is high risk
Maintain SpO2 >90-94%; wean down O2 as tolerated
Aspiration precautions
Amiodarone - outpatient spirometyr to trend FVC
DAPT with ASA + plavix
High-intensity statin with goal LDL<70
Goal BG >100 and <180
Pulmonary service will continue to follow along; outpatient follow up with also be arranged
Assessment
-
88-year-old woman with past medical history noted, admitted with cough, progressive shortness of breath, found to be significantly hypertensive. Increased work of breathing requiring noninvasive mechanical ventilation, troponin is positive with
abnormal EKG. Concern for non-ST elevation myocardial infarction
Impression:
Acute respiratory failure with hypoxia due to acute decompensated heart failure requiring noninvasive mechanical ventilation - now on nasal cannula
Acute HFpEF exacerbation with stage II diastolic dysfunction
Elevated proBNP
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
Moderate PH with PASP: 53mmHg via TTE from 04/04/2024
Echocardiogram 12/09/2023: Mild LVH. Ejection fraction 50%. Mid to distal septal hypokinesis.
Hypertensive emergency-systolic blood pressure greater than 200 on admission - now resolved
Non-ST elevation myocardial infarction
Peak troponin 2.3 on 04/04/2024
Subacute cough-suspect upper respiratory infection
Negative COVID/negative influenza
Conditions present prior admission:
Coronary artery disease with LAD stent placement more recently 11/2023 (prior stent 2014 and 2021)
Hypertension
Type 2 diabetes
Atrial fibrillation-on chronic anticoagulation/amiodarone
Chronic kidney disease stage IV
Heart failure with reduced ejection fraction
Hypothyroidism
Left eye blindness/ocular hemorrhage
History of appendectomy
DNR status
Assessment and plan:
Clinical picture consistent with suspected acute on chronic heart failure with preserved ejection fraction. Significantly hypertensive on admission, increased troponin, increased proBNP, chest x-ray with increased interstitial markings suggestive
of pulmonary edema
Previously ejection fraction was 30% but it recovered
-
Clinically improved this morning, on 2L/min and breathing comfortably. Off BiPAP since 04/04/2024 and comfortable.
Will DC her BiPAP now, and continue to monitor
Not bronchospastic
Continue heparin drip-follow PTT, Eliquis on hold.
Amiodarone - she will need outpatient spirometry for continued surveillance of her FVC
Cardiology correspondence reviewed - defer ischemic evaluation to them; patient is fearful of invasive procedures, and wants to first discuss with her primary carpenter/labor, Dr. Seymour
Continue cardiac management - diuresis per cardiology (will be held tonight given rise in sCr); continue to trend Cr while keeping strict I/O, monitor UOP, daily weight
Repeat echocardiogram from 04/04/2024 shows no significant difference compared to prior echo from December 2023
-
Maintain MAP>65
Wean off oxygen as tolerated while keeping SpO2 >90-94%
-
Upper respiratory infection: Continue antitussives prn
Negative COVID
Negative influenza
No indication for antibiotic at this time
prn DuoNebs - reports a Hx of asthma but not bronchospastic on exam.
-
Glycemic control-Target 100 - 180.
Continue basal-bolus insulin
Continue care in IVU. Pulmonary service will continue to briefly follow along.
Total time spent today was 37 minutes for this encounter. Time includes reviewing laboratory test/imaging results, reviewing pertinent medical records, obtaining and reviewing medical history, performing an appropriate exam, ordering medications,
tests and procedures. Time also includes documentation of this encounter, coordinating patient care and communicating with other healthcare professionals. Total time does not include separately billed tests performed on this date of service
Subjective Data
-
Date of Service:
Date of Service: April 05, 2024
Chief Complaint: Pulmonary Follow Up
Subjective:
Pt seen and evaluated this AM on 04/05/2024 - late note entry. Currently on 2L/min nasal cannula, breathing comfortably. SpO2 94%. Patient's niece, Cecilia, and Cecilia's , Primitivo, at bedside - all questions were answered. Pt's current HR is
67 with BP 119/92. Pt feels well overall, feels like she is improving. She denies chest pain, PHILLIPS, abd pain, N/V/f/c.
Review of Systems
General: Other (negative unless mentioned above)
Objective Data
Data Reviewed
Vital Signs / I&O / Oxygen:
Vital Signs
Temp Pulse Resp BP Pulse Ox
98.4 F 64 18 108/46 95
04/05/24 09:31 04/05/24 05:18 04/05/24 09:31 04/05/24 05:18 04/05/24 09:31
Intake and Output
04/04/24 04/05/24 04/06/24
06:59 06:59 06:59
Intake Total 165 / 165 160 / 160 /
Output Total 200 / 200 2200 / 2200
Balance -35 / -35 -0 / -0
SaO2 95
Nasal Cannula flow liters per 3
minute
Physical Exam
General: Respiratory Distress (negative), Comfortable, Chills (negative) and Sweats (negative)
HEENT: Normocephalic and Anicteric
Cardiovascular: S1-S2, Rub (negative) and Peripheral Edema (negative)
Respiratory: Wheeze (negative), Rhonchi (negative), Non-Labored Respirations, Stridor (negative) and Other (Coarse breath sounds bilaterally)
GI: Soft, Non Distended, Non Tender and Normal Bowel Sounds
Neurology: Awake, Alert and Tremors (negative)
Skin: Warm, Dry, Cyanosis (negative) and Jaundice (negative)
Labs/Micro/Reports
Lab Data
04/05/24 06:29
04/05/24 06:29
Laboratory Results
04/04/24 04/04/24 04/04/24
14:42 15:30 23:34
APTT Cancelled 182.0 H* 174.0 H*
04/05/24
06:29
APTT 101.0 H
Microbiology
04/03/24 23:12 Nasal Swab Influenza Types A & B (MIGUEL) - Final
Negative for Influenza A & B, NAAT
Negative results must be combined with clinical observations
and patient history.
Nucleic Acid Amplification test (NAAT)performed on the
[employer] platform.
[2024-04-05] MEDS: NOVOLOG FLEXPEN-MODERATE RESISTANCE SC (09:23)
[2024-04-05 09:25] LABS: Glucose - Point of Care 89 mg/dl (70-99)
--- NOTE | 2024-04-05 10:01 | W.PN.HOSP.TC ---
Addendum entered and electronically signed by Orion Nicole MD 04/05/24 17:09:
updated daughter over the phone
Original Note:
Today's Communication/Plan
-
Heparin drip. Oral amiodarone and beta-lay. Plan for cardiac cath
Assessment / Plan
Assessment / Plan
Physical exam:
General: Well Developed, Well Nourished and No Apparent Distress
HEENT: Normocephalic, Atraumatic and Moist Mucous Membranes
Respiratory: Clear to Auscultation; Negative Wheezes, Rales or Rhonchi
Cardiac: Regular Rhythm and S1/S2
GI: Soft, Nontender and Nondistended
Musculoskeletal: No Clubbing, No Cyanosis and No Edema
Neuro: Awake, Alert and Oriented
Psych: Calm
A/P:
NSTEMI
ASCVD
- Admit for further evaluation and treatment.
- Initial EKG with wide-complex tachycardia - significantly changed from baseline tracing.
- Initial troponin 0.077 - follow to peak.
- Patient indicates that symptoms are similar to prior [place].
- Begin IV heparin, continue IV NTG.
- Continue Plavix and add back ASA.
- Continue beta-blockade, statin, etc.
- Follow for any new / worsening symptoms.
- Cardiology evaluation for additional recommendations / possible repeat ischemic evaluation.
-DOAC use on Thursday so plan for cardiac cath possible
Acute HFmrEF
Acute Hypoxemic Respiratory Failure secondary to the above
- Suspect HF exacerbation secondary to NSTEMI as noted above.
- ? component / trigger of viral URI given preceding cough. COVID and influenza negative in the ED this evening.
- Continue IV NTG and BiPAP - titrate as needed.
- IV Lasix 20mg BID for now and follow I/Os, daily weights, etc.
- Reassess LV function s/p prior [place] via Echo or repeat cath this admission. (LVEF = 50% in 12/2023).
- Follow for continued clinical improvement.
Paroxysmal Atrial Fibrillation
- Currently in NSR. Presented in wide-complex tachycardia with RBBB pattern.
- Continue metoprolol, amio, etc as noted above.
- Holding Eliquis acutely while on IV heparin as noted above.
CKD IV
- Stable. Renal function appears improved from usual baseline.
- Follow for changes with IV diuresis.
- Baseline appears to be around 2.5.
DM-II
- Stable. Continue basal : bolus insulin regimen with decreased doses while NPO.
- Follow glucose and cover with SSI as needed.
- Update A1C.
Hypothyroidism
- Stable. Continue current T4 supplementation.
DVT Prophylaxis: On IV Heparin
Code Status: DNR
Total time spent to see the patient, examine the patient, review data and lab results, discuss the treatment plan with patient, nursing staff around 55 minutes
Anticipated Discharge: > 48 hours
Subjective/Interval History
-
Date of Service: April 05, 2024
Patient feels better today. Less shortness of breath. No chest pain
Objective Data
-
Labs:
Laboratory Results
04/04/24 04/05/24 04/05/24
23:34 06:29 12:30
WBC 9.2
Hgb 11.2 L
Hct 34.3 L
Plt Count 160
APTT 174.0 H* 101.0 H Pending
Sodium 133 L
Potassium 4.6
Chloride 96 L
Carbon Dioxide 30
BUN 59 H
Creatinine 2.2 H
Glucose 81
Calcium 8.0 L
Vital Signs:
Vital Signs
Temp Pulse Resp BP Pulse Ox
98.4 F 64 18 108/46 95
04/05/24 09:31 04/05/24 05:18 04/05/24 09:31 04/05/24 05:18 04/05/24 09:31
I&O
04/04/24 04/05/24 04/06/24
06:59 06:59 06:59
Intake Total 165 / 165 160 / 160
Output Total 200 / 200 0 / 220
Balance -35 / -35 -2039 / -2039
[2024-04-05] MEDS: NOVOLOG FLEXPEN-MODERATE RESISTANCE 5 UNITS SC (12:34)
[2024-04-05 12:38] LABS: Glucose - Point of Care 258 mg/dl (70-99)
--- NOTE | 2024-04-05 13:40 | PN.CDI ---
CDI
- -
CDI:
Physician Documentation Request
Admit Date: 04/04/24 00:53
Dear Doctor Corey,
Please review the following and provide your response in the progress notes.
Clinical Indicators:
Laboratory Tests
04/03/24 04/04/24 04/05/24
23:10 05:58 06:29
Sodium 136 131 L 133 L
Based on the above, please clarify in the progress notes, the appropriate diagnosis, if significant, that supports the above abnormalities and additional evaluation, monitoring and/or treatment rendered:
Hyponatremia
Abnormal lab value, clinically insignificant
Other(please specify)
Use of terms such as suspected, likely, concern for, or probable (associated with a specific diagnosis that is being evaluated, monitored, or treated as if it exists) are acceptable and can be coded in the inpatient setting, when documented at the
time of discharge.
Thank you,
Minnie Scherer RN BSN CCDS
CDI Specialist
please contact via tiger text
Please use your independent medical judgment in providing your response.
[2024-04-05] MEDS: ROBITUSSIN AC 5 ML PO ×2 (13:41→21:57)
[2024-04-05 14:25] LABS: APTT 96.1 Sec (23.4-35.0)
--- NOTE | 2024-04-05 14:32 | CM ---
Reviewed chart. Mrs. Wagner was transferred to IVU. Met with Mrs. Wagner to review discharge plans. She states she is feeling better. She states states prior to admission she resides alone in a two story home with two steps to enter. She
states she has a full flight of steps to get to bedroom. She states she has a full bathroom on each floor. She states prior to admission she was independent with ambulation and adls. She states she only uses the walker when going down her driveway
to get the mail. She states she has had [facility] in the past post hospitalizations. She states she has a walker at home. She states she has a prescription plan and uses [facility]. Will need to see her current functional level to see if she will
have any skilled care needs. Medial work-up in progress. The discharge plan is to return home with VNA services if indicated verses SNF/Rehab. if indicated.
--- NOTE | 2024-04-05 16:28 | W.PN.CARDCBS ---
Addendum entered and electronically signed by Brittney Aguayo PA-C 04/05/24 16:58:
Will hold tonight's dose of Lasix due to Cre up to 2.2.
Original Note:
Today's Communication / Plan
-
Plan:
-Presented with SOB and cough. Symptoms felt similar to prior NSTEMI presentation 11/2023.
-In respiratory distress on arrival, placed on BiPAP. Breathing continues to improve with diuresis
-Troponin peaked at 2.3 and downtrending now
-Echocardiogram completed yesterday with overall preserved LVEF and no significant changes compared to prior echocardiogram.
-Given NSTEMI with respiratory distress and ECG changes, plan is for repeat ischemic evaluation this admission .
-Eliquis on hold in preparation for possible cath which is tentative for after discussion is had with outpatient ski molder (Dr. JOSE Seymour) and family given concern for high risk procedures, limited overall treatment options and patient
wishes described previously for conservative treatment without wanting to pursue further invasive procedures. Continue IV heparin in the interim, aspirin 81mg daily, clopidogrel 75mg daily.
-Continue amiodarone 100mg daily.
-Continue Toprol 25mg BID.
-CXR w/ interstitial edema. Continue diuresis with IV lasix 20mg BID. Creat stable at 2.2. Cont to monitor. Strict ins and out.
-Cough has been improving on Robitussin and decongestants. Defer to primary team.
-LDL 58, continue lipitor 80mg daily.
Mari Turner MD, FAC, [facility]
Impression / Plan
-
PCP: Dr. Cedeno
Cutter Operator Asbestos Shingle: Dr. Goyo Seymour ([facility] Cardiology)
Impression:
Presented with SOB, cough
Acute respiratory failure, on BiPAP
NSTEMI
Acute on chronic HFmrEF
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
CAD
s/p LAD & LCx BMS x2 in 2014
s/p distal LCx/OM VANGIE in 2021
s/p NSTEMI and 2.75 mm [place] VANGIE to ostial/prox LAD 12/04/23
Paroxysmal Afib
Chronic Eliquis OAC
Chronic amiodarone therapy
CKD 4
Hyperlipidemia
DM 2
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
Echo 01/23/2022: EF 50 to 54%, moderate MR, mild MS with mean MV gradient 5 mmHg, mild to moderate TR with PAP 45 to 50 mmHg
Echo 12/04/2023: GVH study, EF 30%, LAD wall motion abnormality
Echo 12/09/2023: EF 50%, mild cLVH, mild mid to distal anteroseptal hypokinesis
Echo 04/04/2024: Study pending
Cath 12/04/23: Successful PCI of the LAD with placement of a drug-eluting stent. Widely patent previously placed mid LAD stent and overlapping circumflex proper stents with known critical disease involving the jailed obtuse marginal branch and
chronically occluded distal left sided posterior descending artery.
Plan:
-Presented with SOB and cough. Symptoms felt similar to prior NSTEMI presentation 11/2023.
-In respiratory distress on arrival, placed on BiPAP. Breathing continues to improve with diuresis
-Troponin peaked at 2.3 and downtrending now
-Echocardiogram completed yesterday with overall preserved LVEF and no significant changes compared to prior echocardiogram.
-Given NSTEMI with respiratory distress and ECG changes, plan is for repeat ischemic evaluation this admission .
-Eliquis on hold in preparation for possible cath which is tentative for after discussion is had with outpatient ski molder and family given concern for high risk procedures, limited treatment options and patient wishes previously for
conservative treatment without pursuing further invasive procedures. Continue IV heparin in the interim, aspirin 81mg daily, clopidogrel 75mg daily.
-Continue amiodarone 100mg daily.
-Continue Toprol 25mg BID.
-CXR w/ interstitial edema. Continue diuresis with IV lasix 20mg BID. Creat stable at 2.2. Cont to monitor. Strict ins and out.
-Cough has been improving on Robitussin and decongestants. Defer to primary team.
-LDL 58, continue lipitor 80mg daily.
-TSH WNL, continue levothyroxine.
HPI: Fide is an 88 year old female with PMH of chronic HFrEF, cardiomyopathy, CAD w/ recent stenting of LAD 12/04/2023, paroxysmal atrial fibrillation on chronic Eliquis and amiodarone, CKD 4, HLD, DM2, and L eye blindness. She presented to [facility]
for evaluation of SOB and cough. Symptoms started the night prior to arrival and persisted throughout the day, prompting ER evaluation. She notes symptoms feel similar to prior NSTEMI 11/2023. On arrival to ER, she was noted to be in respiratory
distress and was placed on BiPAP w/ improvement. She was also tachycardic and markedly hypertensive on arrival with initial BP 214/109. She was started on IV nitro and IV heparin. Initial troponin returned at 0.077 with repeat up to 0.920. She
started on IV lasix and admitted to ICU where she remains. ECG this AM improving. She reports improvement in her breathing. Denies any chest pain currently. She continues on Eliquis and plavix following recent PCI and denies any missed doses.
Progress Note - Cutter Operator Asbestos Shingle
Subjective
Date of Service: April 05, 2024
No acute complaints overnight. No chest pain. Overall breathing has been improving as well as her cough. Niece and her are at bedside.
Objective
Labs:
04/05/24 06:29
04/05/24:
Labs
Hgb 11.2 g/dL (12.0-16.0) L 04/05/24:
Hct 34.3 % (37.0-47.0) L 04/05/24:
Plt Count 160 10^3/uL (130-400) 12/31/24 06:29
PT 13.6 Sec (11.4-14.6) 04/03/24 23:10
INR 0.99 04/03/24 23:10
APTT 96.1 Sec (23.4-35.0) H 04/05/24 14:03
Sodium 133 mmol/L (135-145) L 04/05/24 06:29
Potassium 4.6 mmol/L (3.5-5.1) 04/05/24 06:29
BUN 59 mg/dl (7-17) H 04/05/24 06:29
Creatinine 2.2 mg/dL (0.6-1.0) H 04/05/24 06:29
Glucose 81 mg/dl (70-99) 04/05/24 06:29
Troponins
04/03/24 04/04/24 04/04/24
23:10 01:13 02:15
Troponin I 0.077 H* Cancelled Cancelled
04/04/24 04/04/24 04/04/24
02:17 07:13 08:43
Troponin I 0.920 H* D Cancelled Cancelled
04/04/24 04/04/24 04/04/24
09:22 13:13 14:42
Troponin I 2.330 H* D Cancelled 2.020 H*
04/04/24
20:00
Troponin I Cancelled
Vital Signs and I&O:
Vital Signs
Temp Pulse Resp BP Pulse Ox
97.9 F 64 16 108/46 98
04/05/24 15:52 04/05/24 05:18 04/05/24 15:52 04/05/24 05:18 04/05/24 15:52
Vital Signs
Temp Pulse Resp BP Pulse Ox
97.9 F 64 16 108/46 98
04/05/24 15:52 04/05/24 05:18 04/05/24 15:52 04/05/24 05:18 04/05/24 15:52
Intake & Output
04/03/24 04/04/24 04/05/24 04/06/24
06:59 06:59 06:59 06:59
Intake Total 165 / 165 160 / 160
Output Total 200 / 200 2199 / 2199
Balance -35 / -35 -2039 / -2039
Physical Exam
Physical Exam
GEN: No distress, awake, alert, oriented x3
HEENT: supple, anicteric, mmm, L eye blindness
LUNGS: CTA B/L, no wheezes
CV: Reg, S1/S2, 1/6 murmur
ABD: soft, BS+, NT/ND
EXT: No cyanosis, clubbing. trace edema of B/L LE
NEURO: Gross non-focal
SKIN: Warm, pink, dry. No rash.
[2024-04-05] MEDS: LANTUS 0.12 UNITS SC ×2 (17:30→21:48)
[2024-04-05 17:51] LABS: Glucose - Point of Care 158 mg/dl (70-99)
--- NOTE | 2024-04-05 18:00 | PTCARENOTE ---
Pt received this am alert and oriented. Denies any chest pain or sob. Room air sat 94%. Assisted oob to the chair for breakfast. Pt ambulating herself to the BR, gait steady.
[2024-04-05] MEDS: NOVOLOG FLEXPEN 5 UNITS SC (18:10)
[2024-04-05] MEDS: NOVOLOG FLEXPEN-MODERATE RESISTANCE 1 UNITS SC (18:11)
[2024-04-05] MEDS: TESSALON PERLES 100 MG PO (19:49)
[2024-04-05 21:48] LABS: Glucose - Point of Care 158 mg/dl (70-99)
[2024-04-05] MEDS: LIPITOR 80 MG PO (21:48)
[2024-04-05] MEDS: XANAX 0.25 MG PO (21:48)
[2024-04-05] MEDS: TYLENOL 650 MG PO (21:58)
--- NOTE | 2024-04-05 22:40 | PTCARENOTE ---
Patient normal sinus rhythm on school lunch monitor. PRN Tessalon pearls and Robitussin given for cough. PRN Acetaminophen given for mild pain that patient associates with frequent coughing. PRN Xanax given per patient request due to insomnia. Patient
requesting purewick overnight due to previous urgency and not wanting to get OOB to bathroom overnight. Patient educated on risk of UTI's and verbalized understanding of this. Heparin gtt infusing per protocol/order at 600units/hr. Plan of care
discussed with patient. Call bejarano within reach. Care ongoing.
[2024-04-06] VITALS (7 sets, daily range): BP systolic 126–154; BP diastolic 46–94; BMI 32.5
[2024-04-06 03:32] LABS: Hemoglobin 11.4 g/dL (12.0-16.0); Mean Corp Hgb Conc. 33.5 g/dL (33.0-37.0); Mean Corpuscular Hgb 29.5 pg (27.0-31.0); Mean Corpuscular Volume 87.9 fL (81.0-99.0); Mean Platelet Volume 11.1 fL (7.4-10.4); Platelet Count 164 10^3/uL (130-400); Red Blood Cell Count 3.87 10^6/uL (4.20-5.40); Red Cell Dist. Width 14.4 % (11.5-14.5)
[2024-04-06 03:39] LABS: APTT 66.6 Sec (23.4-35.0)
[2024-04-06 03:49] LABS: Blood Urea Nitrogen 71 mg/dl (7-17); Calcium 8.4 mg/dl (8.4-10.2); Carbon Dioxide 30 mmol/L (22-30); Chloride 96 mmol/L (98-107); Estimated Creatinine Clearance 14 ml/min; Glucose 69 mg/dl (70-99); Potassium 4.6 mmol/L (3.5-5.1); Sodium 133 mmol/L (135-145); eGFR 19.19
[2024-04-06] MEDS: SYNTHROID 125 MCG PO (05:47)
[2024-04-06 07:34] LABS: Glucose - Point of Care 74 mg/dl (70-99)
[2024-04-06] MEDS: NOVOLOG FLEXPEN-MODERATE RESISTANCE SC (07:40)
[2024-04-06] MEDS: PACERONE 100 MG PO (08:00)
[2024-04-06] MEDS: PLAVIX 75 MG PO (08:00)
[2024-04-06] MEDS: PROTONIX 40 MG PO (08:00)
[2024-04-06] MEDS: LOW STRENGTH ASPIRIN 81 MG PO (08:00)
[2024-04-06] MEDS: TOPROL XL 25 MG PO ×2 (08:00→20:18)
[2024-04-06] MEDS: TESSALON PERLES 100 MG PO (08:09)
--- NOTE | 2024-04-06 08:14 | W.PN.CARDCBS ---
Today's Communication / Plan
-
She continues to improve with diuresis
Check chest xray am Apr 2
Breathing continues to improve with diuresis
-Troponin peaked at 2.3
-Echocardiogram completed with overall preserved LVEF and no significant changes compared to prior echocardiogram.
After long discussion with pt's outside tool procurement coordinator, Dr Seymour, he feels that pt is much improved and that there would be little clinical benefit to invasive cath at this time given her anatomy and comorbidities including renal failure.
Pt and family had wished to be conservative with regards to procedures and management as well. She can be reevaluated as outpt with Dr Seymour as well.
Will continue IV heparin and resume Eliquis next 24 hrs.
Likely transition back to Eliquis and plavix next 24 hrs.
Check EKG, has hx of Pafib.
Cont Amiodarone and Toprol.
CXR w/ interstitial edema. Continue diuresis with IV lasix 20 mg BID. Creat stable at 2.4. Cont to monitor. She has CKD.
Cough has been improving on Robitussin and decongestants. Defer to primary team.
LDL 58, continue lipitor 80mg daily.
TSH WNL, continue levothyroxine.
Discussed with nursing, DR Seymour and hospitalist. Will also inform pts daughter as well.
Impression / Plan
-
.
PCP: Dr. Cedeno
Assembly Worker: Dr. Goyo Seymour ([facility] Cardiology)
Impression:
Presented with SOB, cough
Acute respiratory failure, on BiPAP
NSTEMI
Acute on chronic HFmrEF
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
CAD
s/p LAD & LCx BMS x2 in 2014
s/p distal LCx/OM VANGIE in 2021
s/p NSTEMI and 2.75 mm [place] VANGIE to ostial/prox LAD 12/04/23
Paroxysmal Afib
Chronic Eliquis OAC
Chronic amiodarone therapy
CKD 4
Hyperlipidemia
DM 2
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
Echo 01/23/2022: EF 50 to 54%, moderate MR, mild MS with mean MV gradient 5 mmHg, mild to moderate TR with PAP 45 to 50 mmHg
Echo 12/04/2023: GVH study, EF 30%, LAD wall motion abnormality
Echo 12/09/2023: EF 50%, mild cLVH, mild mid to distal anteroseptal hypokinesis
Echo 04/04/2024: EF 55-60%
Cath 12/04/23: Successful PCI of the LAD with placement of a drug-eluting stent. Widely patent previously placed mid LAD stent and overlapping circumflex proper stents with known critical disease involving the jailed obtuse marginal branch and
chronically occluded distal left sided posterior descending artery.
Plan:
retired nurse
-Presented with SOB and cough. Symptoms felt similar to prior NSTEMI presentation 11/2023. In respiratory distress on arrival, placed on BiPAP.
She continues to improve with diuresis
Check chest xray am Apr 07
Breathing continues to improve with diuresis
-Troponin peaked at 2.3
-Echocardiogram completed with overall preserved LVEF and no significant changes compared to prior echocardiogram.
After long discussion with pt's outside tool procurement coordinator, Dr Seymour, he feels that pt is much improved and that there would be little clinical benefit to invasive cath at this time given her anatomy and comorbidities including renal failure.
Pt and family had wished to be conservative with regards to procedures and management as well. She can be reevaluated as outpt with Dr Seymour as well.
Will continue IV heparin and resume Eliquis next 24 hrs.
Likely transition back to Eliquis and plavix next 24 hrs.
Check EKG, has hx of Pafib.
Cont Amiodarone and Toprol.
CXR w/ interstitial edema. Continue diuresis with IV lasix 20 mg BID. Creat stable at 2.4. Cont to monitor. She has CKD.
Cough has been improving on Robitussin and decongestants. Defer to primary team.
LDL 58, continue lipitor 80mg daily.
TSH WNL, continue levothyroxine.
Discussed with nursing, DR Seymour and hospitalist. Will also inform pts daughter as well.
HPI: Fide is an 88 year old female with PMH of chronic HFrEF, cardiomyopathy, CAD w/ recent stenting of LAD 12/04/2023, paroxysmal atrial fibrillation on chronic Eliquis and amiodarone, CKD 4, HLD, DM2, and L eye blindness. She presented to [facility]
for evaluation of SOB and cough. Symptoms started the night prior to arrival and persisted throughout the day, prompting ER evaluation. She notes symptoms feel similar to prior NSTEMI 11/2023. On arrival to ER, she was noted to be in respiratory
distress and was placed on BiPAP w/ improvement. She was also tachycardic and markedly hypertensive on arrival with initial BP 214/109. She was started on IV nitro and IV heparin. Initial troponin returned at 0.077 with repeat up to 0.920. She
started on IV lasix and admitted to ICU where she remains. ECG this AM improving. She reports improvement in her breathing. Denies any chest pain currently. She continues on Eliquis and plavix following recent PCI and denies any missed doses.
Progress Note - Assembly Worker
Subjective
Date of Service: April 06, 2024
Pt seen and examined. No complaints. No chest pain or shortness of breath.
Objective
Labs:
04/06/24 03:00
04/06/24 03:00
Labs
Hgb 11.4 g/dL (12.0-16.0) L 04/06/24 03:00
Hct 34.0 % (37.0-47.0) L 04/06/24 03:00
Plt Count 164 10^3/uL (130-400) 04/06/24 03:00
PT 13.6 Sec (11.4-14.6) 04/03/24 23:10
INR 0.99 04/03/24 23:10
APTT 66.6 Sec (23.4-35.0) H 04/06/24 03:00
Sodium 133 mmol/L (135-145) L 04/06/24 03:00
Potassium 4.6 mmol/L (3.5-5.1) 04/06/24 03:00
BUN 71 mg/dl (7-17) H 04/06/24 03:00
Creatinine 2.4 mg/dL (0.6-1.0) H 04/06/24 03:00
Glucose 69 mg/dl (70-99) L 04/06/24 03:00
Troponins
04/03/24 04/04/24 04/04/24
23:10 01:13 02:15
Troponin I 0.077 H* Cancelled Cancelled
04/04/24 04/04/24 04/04/24
02:17 07:13 08:43
Troponin I 0.920 H* D Cancelled Cancelled
04/04/24 04/04/24 04/04/24
09:22 13:13 14:42
Troponin I 2.330 H* D Cancelled 2.020 H*
04/04/24
20:00
Troponin I Cancelled
Vital Signs and I&O:
Vital Signs
Temp Pulse Resp BP Pulse Ox
97.4 F 55 18 129/46 97
04/06/24 07:28 04/06/24 06:00 04/06/24 07:28 04/06/24 02:50 04/06/24 07:28
Vital Signs
Temp Pulse Resp BP Pulse Ox
97.4 F 55 18 129/46 97
04/06/24 07:28 04/06/24 06:00 04/06/24 07:28 04/06/24 02:50 04/06/24 07:28
Intake & Output
12/3004/05/24 04/06/24 04/07/24
06:59 06:59 06:59 06:59
Intake Total 165 / 165 160 / 160 160 / 160
Output Total 200 / 200 2199 / 2199 100 / 100
Balance -35 / -35 -2039 / -2039 60 / 60
Physical Exam
Physical Exam
General: No acute distress, AAOX3
Neck: Negative JVD
Heart: Regular, Negative S3 positive S1/S2, Negative S4, No murmur
Lungs: CTA b/l, negative wheezes/rales/rhonchi
Abd: Positive BS, NT/ND, neg rebound/rigidity/guarding
Ext: Negative cyanosis/clubbing/edema
Neuro: nonfocal
[2024-04-06] MEDS: LANTUS 0.24 UNITS SC (08:47)
[2024-04-06] MEDS: NOVOLOG FLEXPEN SC (08:48)
[2024-04-06] MEDS: ROBITUSSIN AC 5 ML PO ×2 (08:53→21:38)
--- NOTE | 2024-04-06 10:09 | W.PN.HOSP.TC ---
Today's Communication/Plan
-
Heparin drip. Cardiology reeval
Assessment / Plan
Assessment / Plan
Physical exam:
General: Well Developed, Well Nourished and No Apparent Distress
HEENT: Normocephalic, Atraumatic and Moist Mucous Membranes
Respiratory: Clear to Auscultation; Negative Wheezes, Rales or Rhonchi
Cardiac: Regular Rhythm and S1/S2
GI: Soft, Nontender and Nondistended
Musculoskeletal: No Clubbing, No Cyanosis and No Edema
Neuro: Awake, Alert and Oriented
Psych: Calm
A/P:
NSTEMI
ASCVD
- Admit for further evaluation and treatment.
- Initial EKG with wide-complex tachycardia - significantly changed from baseline tracing.
- Initial troponin 0.077 - follow to peak.
- Patient indicates that symptoms are similar to prior NJ.
- Begin IV heparin, continue IV NTG.
- Continue Plavix and add back ASA.
- Continue beta-blockade, statin, etc.
- Follow for any new / worsening symptoms.
- Cardiology evaluation for additional recommendations / possible repeat ischemic evaluation.
-Cardiology has discussed with her outpatient cardiology and recommended conservative strategy since intervention will not be fruitful--> cardiology will discuss with family.
Acute HFmrEF
Acute Hypoxemic Respiratory Failure secondary to the above
- Suspect HF exacerbation secondary to NSTEMI as noted above.
- ? component / trigger of viral URI given preceding cough. COVID and influenza negative in the ED this evening.
- Continue IV NTG and BiPAP - titrate as needed.
- IV Lasix 20mg BID for now and follow I/Os, daily weights, etc.
- Reassess LV function s/p prior NJ via Echo or repeat cath this admission. (LVEF = 50% in 12/2023).
- Follow for continued clinical improvement.
Paroxysmal Atrial Fibrillation
- Currently in NSR. Presented in wide-complex tachycardia with RBBB pattern.
- Continue metoprolol, amio, etc as noted above.
- Holding Eliquis acutely while on IV heparin as noted above.
CKD IV
- Stable. Renal function appears improved from usual baseline.
- Follow for changes with IV diuresis.
- Baseline appears to be around 2.5.
DM-II
- Stable. Continue basal : bolus insulin regimen with decreased doses while NPO.
- Follow glucose and cover with SSI as needed.
- Update A1C.
Hypothyroidism
- Stable. Continue current T4 supplementation.
DVT Prophylaxis: On IV Heparin
Code Status: DNR
Total time spent to see the patient, examine the patient, review data and lab results, discuss the treatment plan with patient, nursing staff around 55 minutes
Anticipated Discharge: 24 - 48 hours
Subjective/Interval History
-
Date of Service: April 06, 2024
Patient still has some cough. No chest pain. Less shortness of breath
Objective Data
-
Labs:
Laboratory Results
04/06/24 04/06/24
03:00 10:02
WBC 8.0
Hgb 11.4 L
Hct 34.0 L
Plt Count 164
APTT 66.6 H Pending
Sodium 133 L
Potassium 4.6
Chloride 96 L
Carbon Dioxide 30
BUN 71 H
Creatinine 2.4 H
Glucose 69 L
Calcium 8.4
Vital Signs:
Vital Signs
Temp Pulse Resp BP Pulse Ox
97.4 F 55 18 129/46 97
04/06/24 07:28 04/06/24 06:00 04/06/24 07:28 04/06/24 02:50 04/06/24 07:28
I&O
04/05/24 04/06/24 04/07/24
06:59 06:59 06:59
Intake Total 160 / 160 160 / 160
Output Total 2199 / 2199 100 / 100
Balance -2039 / -2039 60 60
[2024-04-06 10:22] LABS: APTT 85.4 Sec (23.4-35.0)
[2024-04-06] MEDS: NOVOLOG FLEXPEN-MODERATE RESISTANCE 1 UNITS SC (12:08)
[2024-04-06] MEDS: NOVOLOG FLEXPEN 5 UNITS SC ×2 (12:08→17:31)
[2024-04-06 12:11] LABS: Glucose - Point of Care 197 mg/dl (70-99)
--- NOTE | 2024-04-06 13:57 | W.PN.PUL3 ---
Today's Communication / Plan
-
Continue with current care
Respiratory status has improved
Continue symptomatic management for cough
Continue with cardiac management, diuresis per cardiology.
Plan is for cardiac catheterization on
If stable after cardiac catheterization then pulmonary team will sign off.
Assessment
-
88-year-old woman with past medical history noted, admitted with cough, progressive shortness of breath, found to be significantly hypertensive. Increased work of breathing requiring noninvasive mechanical ventilation, troponin is positive with
abnormal EKG. Concern for non-ST elevation myocardial infarction
Impression:
Acute respiratory failure with hypoxia due to acute decompensated heart failure requiring noninvasive mechanical ventilation - now on nasal cannula
Acute HFpEF exacerbation with stage II diastolic dysfunction
Elevated proBNP
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
Moderate PH with PASP: 53mmHg via TTE from 04/04/2024
Echocardiogram 12/09/2023: Mild LVH. Ejection fraction 50%. Mid to distal septal hypokinesis.
Hypertensive emergency-systolic blood pressure greater than 200 on admission - now resolved
Non-ST elevation myocardial infarction
Peak troponin 2.3 on 04/04/2024
Subacute cough-suspect upper respiratory infection
Negative COVID/negative influenza
Conditions present prior admission:
Coronary artery disease with LAD stent placement more recently 11/2023 (prior stent 2014 and 2021)
Hypertension
Type 2 diabetes
Atrial fibrillation-on chronic anticoagulation/amiodarone
Chronic kidney disease stage IV
Heart failure with reduced ejection fraction
Hypothyroidism
Left eye blindness/ocular hemorrhage
History of appendectomy
DNR status
Assessment and plan:
Clinical picture consistent with suspected acute on chronic heart failure with preserved ejection fraction. Significantly hypertensive on admission, increased troponin, increased proBNP, chest x-ray with increased interstitial markings suggestive
of pulmonary edema
Previously ejection fraction was 30% but it recovered
-
Clinically improved this morning, on 2L-3L/min and breathing comfortably. Off BiPAP since 04/04/2024 and comfortable.
Wean off oxygen as tolerated while keeping SpO2 >90-94%
Not bronchospastic
Continue heparin drip-follow PTT, Eliquis on hold.
Amiodarone - she will need outpatient spirometry for continued surveillance of her FVC
-
Cardiology correspondence reviewed - defer ischemic evaluation to them; patient is fearful of invasive procedures, plan is for schedule catheterization with Dr. Seymour on .
-
Continue cardiac management - diuresis per cardiology (will be held tonight given rise in sCr); continue to trend Cr while keeping strict I/O, monitor UOP, daily weight
Echocardiogram from 04/04/2024 shows no significant difference compared to prior echo from December 2023
-
Maintain MAP>65
-
Upper respiratory infection: Continue antitussives prn
Negative COVID
Negative influenza
No indication for antibiotic at this time
prn DuoNebs - reports a Hx of asthma but not bronchospastic on exam.
-
Glycemic control-Target 100 - 180.
Continue basal-bolus insulin
Continue care in IVU. Pulmonary service will continue to briefly follow along.
Total time spent today was 35 minutes for this encounter. Time includes reviewing laboratory test/imaging results, reviewing pertinent medical records, obtaining and reviewing medical history, performing an appropriate exam, ordering medications,
tests and procedures. Time also includes documentation of this encounter, coordinating patient care and communicating with other healthcare professionals. Total time does not include separately billed tests performed on this date of service
Subjective Data
-
Date of Service:
Date of Service: April 06, 2024
Chief Complaint: Pulmonary Follow Up
Subjective:
No new pulmonary complaints
Remains on low rate supplemental oxygen
No significant phlegm production
Denies chest
Review of Systems
Cardiopulmonary: Dyspnea and Dyspnea on Exertion
Objective Data
Data Reviewed
Vital Signs / I&O / Oxygen:
Vital Signs
Temp Pulse Resp BP Pulse Ox
97.4 F 59 18 136/52 97
04/06/24 07:28 04/06/24 12:00 04/06/24 07:28 04/06/24 07:31 04/06/24 07:28
Intake and Output
04/05/24 04/06/24 04/07/24
06:59 06:59 06:59
Intake Total 160 / 160 160 / 160
Output Total 2200 / 2200 100 / 100
Balance -2040 / -2040 60 / 60
SaO2 97
Nasal Cannula flow liters per 3
minute
Physical Exam
General: Respiratory Distress (negative), Comfortable, Chills (negative) and Sweats (negative)
HEENT: Normocephalic and Anicteric
Cardiovascular: S1-S2, Rub (negative) and Peripheral Edema (negative)
Respiratory: Wheeze (negative), Rhonchi (negative), Non-Labored Respirations, Stridor (negative) and Other (Coarse breath sounds bilaterally)
GI: Soft, Non Distended, Non Tender and Normal Bowel Sounds
Neurology: Awake, Alert and Tremors (negative)
Skin: Warm, Dry, Cyanosis (negative) and Jaundice (negative)
Labs/Micro/Reports
Lab Data
04/06/24 03:00
04/06/24 03:00
Laboratory Results
04/05/24 04/06/24 04/06/24
14:03 03:00 10:02
APTT 96.1 H 66.6 H 85.4 H
Microbiology
04/03/24 23:12 Nasal Swab Influenza Types A & B (MIGUEL) - Final
Negative for Influenza A & B, NAAT
Negative results must be combined with clinical observations
and patient history.
Nucleic Acid Amplification test (NAAT)performed on the
[employer] platform.
[2024-04-06] MEDS: NOVOLOG FLEXPEN-MODERATE RESISTANCE 7 UNITS SC (17:31)
[2024-04-06 17:35] LABS: Glucose - Point of Care 316 mg/dl (70-99)
--- NOTE | 2024-04-06 20:37 | PTCARENOTE ---
received patient at the change of shift. AAOx3. patient states feeling much better and eager to go home tomorrow. patient complains of frequent, harsh, moist cough. requesting cough medicine at bedtime. SR on tele 60s. independent in the room.
heparin gtt infusing per protocol. educated patient to inform Rn with any change. call bejarano within reach.
[2024-04-06 21:35] LABS: Glucose - Point of Care 186 mg/dl (70-99)
[2024-04-06] MEDS: LANTUS 0.12 UNITS SC (21:37)
[2024-04-06] MEDS: XANAX 0.25 MG PO (21:37)
[2024-04-06] MEDS: LIPITOR 80 MG PO (21:38)
[2024-04-07 02:56] LABS: Glucose - Point of Care 65 mg/dl (70-99)
[2024-04-07 03:07] VITALS: BP 156/59
[2024-04-07 03:16] LABS: Glucose - Point of Care 66 mg/dl (70-99)
[2024-04-07 03:34] LABS: Glucose - Point of Care 78 mg/dl (70-99)
[2024-04-07] MEDS: ROBITUSSIN AC 5 ML PO (03:35)
[2024-04-07 03:47] LABS: APTT 90.8 Sec (23.4-35.0)
--- NOTE | 2024-04-07 03:59 | PTCARENOTE ---
patient called RN complaining of feeling like her sugar was low. BG 65. 4oz of orange juice given to patient. repeat- 66. additional 4 oz of juice given. repeat- 78. patient states feeling better. harsh cough continues- PRN robitussin given, see
mar. educated patient to inform RN with any other changes. call bejarano within reach.
[2024-04-07 04:09] LABS: Blood Urea Nitrogen 73 mg/dl (7-17); Calcium 8.8 mg/dl (8.4-10.2); Carbon Dioxide 30 mmol/L (22-30); Chloride 97 mmol/L (98-107); Estimated Creatinine Clearance 16 ml/min; Glucose 66 mg/dl (70-99); Potassium 4.7 mmol/L (3.5-5.1); Sodium 134 mmol/L (135-145)
[2024-04-07] MEDS: HEPARIN 25000 UNITS/250 ML IV (05:47)
[2024-04-07 05:49] LABS: Glucose - Point of Care 113 mg/dl (70-99)
[2024-04-07 07:33] LABS: Glucose - Point of Care 109 mg/dl (70-99)
[2024-04-07 07:35] VITALS: BP 140/52
[2024-04-07] MEDS: NOVOLOG FLEXPEN-MODERATE RESISTANCE SC ×2 (07:55→08:19)
[2024-04-07] MEDS: NOVOLOG FLEXPEN SC (07:55)
--- NOTE | 2024-04-07 07:56 | W.PN.HOSP.TC ---
Today's Communication/Plan
-
Discharge planning today
Assessment / Plan
Assessment / Plan
Physical exam:
General: Acute on chronically ill
HEENT: Normocephalic, Atraumatic and Moist Mucous Membranes
Respiratory: Clear to Auscultation; Negative Wheezes, Rales or Rhonchi
Cardiac: Regular Rhythm and S1/S2
GI: Soft, Nontender and Nondistended
Musculoskeletal: No Clubbing, No Cyanosis and No Edema
Neuro: Awake, Alert and Oriented
Psych: Calm
A/P:
Acute NSTEMI:
On heparin gtt--> transition to Eliquis today
On aspirin Plavix, beta-blockers, statin
Trop peaked at 2.3
Echo reviewed
Cardiology discussed with her outpatient flooring installer and family decided conservative mgmt
Will follow cardio rec'd--> cardiac cleared her for discharge today
Discussed with family prior
We will do PT OT eval and if okay planning discharge today
Acute diastolic congestive heart failure with pulmonary edema:
Continue IV Lasix 20 mg twice a day--> changed to oral Lasix today 20 mg daily
Continue beta-blockers
Daily weights and ins and out
Hypertensive emergency:
Systolic blood pressure over 200 upon admission with end-organ damage with heart failure and elevated troponin and required nitro drip
Blood pressure improving
On metoprolol
Acute hypoxic respiratory failure:
Likely related to heart failure, hypertensive emergency, and probably viral URI
Initially on BiPAP and then supplemental oxygen
Cardiology and pulmonary on board
CAD:
Cardiac stents in the past and per outpatient flooring installer not amenable for more invasive interventions
On dual antiplatelet therapy beta-blockers and statins
Paroxysmal atrial fibrillation:
On metoprolol succinate 25 mg p.o. twice a day
On amiodarone 100 mg p.o. daily
On heparin drip--> plan to transition to Eliquis
Hyponatremia:
Likely hypervolemia related
Continue to monitor
Chronic kidney disease stage IV:
Avoid nephrotoxic
Monitor renal function
Hypertension:
Usual home meds
Hyperlipidemia:
On atorvastatin 80 mg p.o. nightly
Hypothyroidism:
On levothyroxine 125 mg p.o. daily
GERD:
On PPI
Diabetes mellitus type 2:
Lantus 24 units in the morning and 12 units in the evening--> will see if needs any adjustment
NovoLog 5 units before meals (at home 10 units)
Insulin sliding scale
Anxiety:
On Xanax as needed
Family request if possible to continue as outpatient
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
DVT prophylaxis:
On heparin drip
CODE STATUS:
DNR
Anticipated Discharge: Today
Subjective/Interval History
-
Date of Service: April 07, 2024
Patient doing well today except for some cough. Afebrile. No chest pain or shortness of breath
Objective Data
-
Labs:
Laboratory Results
04/07/24
03:10
APTT 90.8 H
Sodium 134 L
Potassium 4.7
Chloride 97 L
Carbon Dioxide 30
BUN 73 H
Creatinine 2.2 H
Glucose 66 L
Calcium 8.8
Vital Signs:
Vital Signs
Temp Pulse Resp BP Pulse Ox
97.5 F 59 18 156/59 96
04/07/24 07:31 04/07/24 04:00 04/07/24 07:31 04/07/24 03:07 04/07/24 07:31
I&O
04/06/24 04/07/24 04/08/24
06:59 06:59 06:59
Intake Total 160 / 160
Output Total 100 / 100
Balance 60 / 60
[2024-04-07] MEDS: SYNTHROID 125 MCG PO (08:54)
[2024-04-07] MEDS: PLAVIX 75 MG PO (08:54)
[2024-04-07] MEDS: PACERONE 100 MG PO (08:54)
[2024-04-07] MEDS: PROTONIX 40 MG PO (08:54)
[2024-04-07] MEDS: TOPROL XL 25 MG PO (08:54)
[2024-04-07] MEDS: LOW STRENGTH ASPIRIN 81 MG PO (08:55)
[2024-04-07] MEDS: NOVOLOG FLEXPEN 5 UNITS SC ×2 (08:56→12:54)
--- NOTE | 2024-04-07 08:58 | W.PN.PUL3 ---
Today's Communication / Plan
-
Continue with current care
Respiratory status has improved
Continue symptomatic management for cough
Continue with cardiac management, diuresis per cardiology.
Outpatient follow-up with Dr. Seymour to discuss left heart catheterization
Patient being arranged for discharge home today. Outpatient follow-up will be arranged. No additional recommendations at this time. Pulmonary service will now sign off. Please reconsult if there are any additional questions/concerns, or if
patient's respiratory status deteriorates.
Assessment
-
88-year-old woman with past medical history noted, admitted with cough, progressive shortness of breath, found to be significantly hypertensive. Increased work of breathing requiring noninvasive mechanical ventilation, troponin is positive with
abnormal EKG. Concern for non-ST elevation myocardial infarction
Impression:
Acute respiratory failure with hypoxia due to acute decompensated heart failure requiring noninvasive mechanical ventilation - now on room air as of 04/07/2024
Acute HFpEF exacerbation with stage II diastolic dysfunction
Elevated proBNP
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
Moderate PH with PASP: 53mmHg via TTE from 04/04/2024
Echocardiogram 12/09/2023: Mild LVH. Ejection fraction 50%. Mid to distal septal hypokinesis.
Hypertensive emergency-systolic blood pressure greater than 200 on admission - now resolved
Non-ST elevation myocardial infarction
Peak troponin 2.3 on 04/04/2024
Subacute cough-suspect upper respiratory infection
Negative COVID/negative influenza
Conditions present prior admission:
Coronary artery disease with LAD stent placement more recently 11/2023 (prior stent 2014 and 2021)
Hypertension
Type 2 diabetes
Atrial fibrillation-on chronic anticoagulation/amiodarone
Chronic kidney disease stage IV
Heart failure with reduced ejection fraction
Hypothyroidism
Left eye blindness/ocular hemorrhage
History of appendectomy
DNR status
Assessment and plan:
Clinical picture consistent with suspected acute on chronic heart failure with preserved ejection fraction. Significantly hypertensive on admission, increased troponin, increased proBNP, chest x-ray with increased interstitial markings suggestive
of pulmonary edema
Previously ejection fraction was 30% but it recovered
-
Clinically improved now on room air s/p 2L-3L/min. Off BiPAP since 04/04/2024 and comfortable.
Keep SpO2 >90-94%; if resting SaO2 is <96% on room air then check ambulatory pulse oximetry prior to discharge
Not bronchospastic
Transition off heparin drip back to Eliquis
Amiodarone - she will need outpatient spirometry for continued surveillance of her FVC
-
Cardiology correspondence reviewed - defer ischemic evaluation to them; patient is fearful of invasive procedures, follow up as an outpatient to discuss C with Dr. Seymour
-
Continue cardiac management - diuresis per cardiology; continue to trend Cr while keeping strict I/O, monitor UOP, daily weight
Echocardiogram from 04/04/2024 shows no significant difference compared to prior echo from December 2023
-
Maintain MAP>65
-
Upper respiratory infection: Continue antitussives prn
Negative COVID
Negative influenza
No indication for antibiotic at this time
prn DuoNebs - reports a Hx of asthma but not bronchospastic on exam.
-
Glycemic control-Target >100 and <180.
Continue basal-bolus insulin
Patient being arranged for discharge home today. Outpatient follow-up will be arranged. No additional recommendations at this time. Pulmonary service will now sign off. Thank you for allowing us to be involved in the care of this patient.
Please reconsult if there are any additional questions/concerns, or if patient's respiratory status deteriorates.
Total time spent today was 26 minutes for this encounter. Time includes reviewing laboratory test/imaging results, reviewing pertinent medical records, obtaining and reviewing medical history, performing an appropriate exam, ordering medications,
tests and procedures. Time also includes documentation of this encounter, coordinating patient care and communicating with other healthcare professionals. Total time does not include separately billed tests performed on this date of service
Subjective Data
-
Date of Service:
Date of Service: April 07, 2024
Chief Complaint: Pulmonary Follow Up
Subjective:
Patient was seen and evaluated today at bedside. She feels well. No events reported from overnight. Shortness of breath has improved and she denies chest pain. Also denies PHILLIPS, abdominal pain, nausea, fevers or chills.
Review of Systems
General: Other (Negative unless mentioned above)
Objective Data
Data Reviewed
Vital Signs / I&O / Oxygen:
Vital Signs
Temp Pulse Resp BP Pulse Ox
97.5 F 59 18 156/59 96
04/07/24 07:31 04/07/24 04:00 04/07/24 07:31 04/07/24 03:07 04/07/24 07:31
Intake and Output
04/06/24 04/07/24 04/08/24
06:59 06:59 06:59
Intake Total 160 / 160
Output Total 100 / 100
Balance 60 / 60
SaO2 96
Nasal Cannula flow liters per 97
minute
Physical Exam
General: Respiratory Distress (negative), Comfortable, Chills (negative) and Sweats (negative)
HEENT: Normocephalic and Anicteric
Cardiovascular: S1-S2, Rub (negative) and Peripheral Edema (negative)
Respiratory: Wheeze (negative), Rhonchi (negative), Non-Labored Respirations, Stridor (negative) and Other (Coarse breath sounds bilaterally)
GI: Soft, Non Distended, Non Tender and Normal Bowel Sounds
Neurology: Awake, Alert and Tremors (negative)
Skin: Warm, Dry, Cyanosis (negative) and Jaundice (negative)
Labs/Micro/Reports
Lab Data
04/06/24 03:00
04/07/24 03:10
Laboratory Results
04/06/24 04/06/24 04/07/24
10:02 18:16 03:10
APTT 85.4 H 88.0 H 90.8 H
[2024-04-07] MEDS: LANTUS 0.24 UNITS SC (08:59)
--- NOTE | 2024-04-07 09:58 | W.PN.CARDCBS ---
Addendum entered and electronically signed by Bartolome Case DO 04/07/24 12:31:
I saw and examined the patient.
The International Account Executive's note was reviewed and I agree with the note.
Comment:
Plan:
Stable for discharge from a cardiac standpoint.
Transition to oral Lasix 20 mg daily.
Stop IV heparin and transition back to Eliquis 2.5 mg twice daily.
Outpatient follow-up with Dr. Seymour
Will update family today.
Outpatient follow-up to be arranged.
Original Note:
Today's Communication / Plan
-
Change to Lasix 20 mg PO daily
Stop Heparin gtt and restart Eliquis 2.5 mg BID
Can probably go home today, will call her daughter with an update
Impression / Plan
-
.
PCP: Dr. Cedeno
Client Experience Administrator: Dr. Goyo Seymour ([facility])
Impression:
Presented with SOB, cough
Acute respiratory failure, on BiPAP
NSTEMI, peak Troponin 2.33
Acute on chronic HFmrEF
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
CAD
s/p LAD & LCx BMS x2 in 2014
s/p distal LCx/OM VANGIE in 2021
s/p NSTEMI and 2.75 mm Ramon VANGIE to ostial/prox LAD 12/04/23
Paroxysmal Afib
Chronic Eliquis OAC
Chronic amiodarone therapy
CKD 4
Hyperlipidemia
DM 2
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
Echo 01/23/2022: EF 50 to 54%, moderate MR, mild MS with mean MV gradient 5 mmHg, mild to moderate TR with PAP 45 to 50 mmHg
Echo 12/04/2023: GVH study, EF 30%, LAD wall motion abnormality
Echo 12/09/2023: EF 50%, mild cLVH, mild mid to distal anteroseptal hypokinesis
Echo 04/04/2024: EF 55-60%, stage II diastolic dysfunction, moderate MR, mild TR with PAP 53 mmHg, no significant change compared to echo 12/2023
Cath 12/04/23: Successful PCI of the LAD with placement of a drug-eluting stent. Widely patent previously placed mid LAD stent and overlapping circumflex proper stents with known critical disease involving the jailed obtuse marginal branch and
chronically occluded distal left sided posterior descending artery.
Plan:
-Troponin peaked at 2.33. EF stable and preserved by echo. Will medically manage as a NSTEMI. Case reviewed with patient's primary act english tutor and it was felt that there would be little clinical benefit to invasive cath at this time given her
anatomy and comorbidities including renal failure.
-Outpatient dose of Eliquis 2.5 mg BID (age 88, wt 71.6 kg, Cre 2.2) has been on hold since admission and patient has been on Heparin gtt. Will stop Heparin gtt now and restart Eliquis 2.5 mg BID 04/07/24 PM.
retired nurse
-Outpatient dose of Plavix 75 mg daily has been continued throughout admission.
-LDL 58, outpatient dose of atorvastatin 80 mg daily has been continued.
-Outpatient dose of Toprol XL 25 mg BID has been continued.
-Patient is not chronically on BILLY/ARB due to CKD 4
-Weight is down 7 lbs with lasix 20 mg IV BID. Patient was taking Lasix 20 mg PO daily prior to admission and would resume that dose.
-EF 55% by echo.
-Patient with known paroxysmal Afib. Cont Eliquis as noted.
HPI: Fide is an 88 year old female with PMH of chronic HFrEF, cardiomyopathy, CAD w/ recent stenting of LAD 12/04/2023, paroxysmal atrial fibrillation on chronic Eliquis and amiodarone, CKD 4, HLD, DM2, and L eye blindness. She presented to [facility]
for evaluation of SOB and cough. Symptoms started the night prior to arrival and persisted throughout the day, prompting ER evaluation. She notes symptoms feel similar to prior NSTEMI 11/2023. On arrival to ER, she was noted to be in respiratory
distress and was placed on BiPAP w/ improvement. She was also tachycardic and markedly hypertensive on arrival with initial BP 214/109. She was started on IV nitro and IV heparin. Initial troponin returned at 0.077 with repeat up to 0.920. She
started on IV lasix and admitted to ICU where she remains. ECG this AM improving. She reports improvement in her breathing. Denies any chest pain currently. She continues on Eliquis and plavix following recent PCI and denies any missed doses.
Progress Note - Client Experience Administrator
Subjective
Date of Service: April 07, 2024
Less SOB, no chest pain
Objective
Labs:
04/06/24 03:00
04/07/24 03:10
Labs
Hgb 11.4 g/dL (12.0-16.0) L 04/06/24 03:00
Hct 34.0 % (37.0-47.0) L 04/06/24 03:00
Plt Count 164 10^3/uL (130-400) 04/06/24 03:00
PT 13.6 Sec (11.4-14.6) 04/03/24 23:10
INR 0.99 04/03/24 23:10
APTT 90.8 Sec (23.4-35.0) H 04/07/24 03:10
Sodium 134 mmol/L (135-145) L 04/07/24 03:10
Potassium 4.7 mmol/L (3.5-5.1) 04/07/24 03:10
BUN 73 mg/dl (7-17) H 04/07/24 03:10
Creatinine 2.2 mg/dL (0.6-1.0) H 04/07/24 03:10
Glucose 66 mg/dl (70-99) L 04/07/24 03:10
Troponins
04/04/24 04/04/24 04/04/24
09:22 14:42 20:00
Troponin I 2.330 H* D 2.020 H* Cancelled
Vital Signs and I&O:
Vital Signs
Temp Pulse Resp BP Pulse Ox
97.5 F 70 18 140/52 95
04/07/24 07:31 04/07/24 08:54 04/07/24 07:31 04/07/24 08:54 04/07/24 08:00
Vital Signs
Temp Pulse Resp BP Pulse Ox
97.5 F 70 18 140/52 95
04/07/24 07:31 04/07/24 08:54 04/07/24 07:31 04/07/24 08:54 04/07/24 08:00
Intake & Output
04/05/24 04/06/24 04/07/24 04/08/24
06:59 06:59 06:59 06:59
Intake Total 160 / 160 160 / 160
Output Total 2200 / 2200 100 / 100
Balance -2040 / -2040 60 / 60
Physical Exam
Physical Exam
GEN: NAD. AAOx3
HEENT: mmm
LUNGS: No audible wheeze
CV: SR on tele
ABD: ND
EXT: No edema
NEURO: Gross non-focal
SKIN: No rash
--- NOTE | 2024-04-07 10:20 | PTCARENOTE ---
chest xray completed
[2024-04-07 11:31] VITALS: BP 146/63
--- NOTE | 2024-04-07 12:24 | PTCARENOTE ---
D/C'd IV Heparin drip as ordered.
[2024-04-07 12:48] LABS: Glucose - Point of Care 228 mg/dl (70-99)
[2024-04-07] MEDS: NOVOLOG FLEXPEN-MODERATE RESISTANCE 3 UNITS SC (12:54)
--- NOTE | 2024-04-07 13:08 | W.DCSUMMARY ---
Discharge Summary
Discharge Data
Date of Admission: 04/04/24
Date of Discharge: 04/07/24
-
Pending Results: No
Hospital Course
Patient 88-year-old female with history of hypertension, hyperlipidemia, left eye blindness, diabetes mellitus, CKD, paroxysmal A-fib, CAD, CHF, presented to the hospital with acute on chronic respiratory failure as well as hypertensive emergency.
Upon admission patient required BiPAP and was started on nitroglycerin but both later on discontinued, and she was also started on IV heparin drip for elevated troponin. Cardiology was consulted. Critical care/pulmonary consulted. Patient was
placed on IV heparin drip for ACS protocol and Eliquis was on hold. She was also placed on IV Lasix for heart failure exacerbation. Patient also had URI symptoms but no signs of pneumonia. Cardiology discussed with her outpatient swine genetics researcher and
it was felt that patient would not be a candidate for further interventions based on last cardiac cath therefore medical treatment was pursued. Her troponin has trended down. She has been chest pain-free. Her blood pressure has improved. Patient
heparin drip has been discontinued and she has been placed back on Eliquis. Patient has remained stable. She has been initiated on some small doses of benzodiazepines and she states that she has benefited from it and would like to continue as
outpatient and we discussed side effects and encouraged to discuss with PCP as outpatient if this will be continued long-term. Cardiology has cleared her for discharge today. She will participate with PT and OT today prior to discharge. She will
be discharged in stable condition today.
Discharge duration: 38 minutes
Discharge Plan
-
Patient Disposition: Home with Home Care
Discharge Diagnosis/Procedures: Acute non-ST elevation myocardial infarction. Hypertensive emergency. Acute diastolic congestive heart failure.
Condition: Critical
Diet: 2 Gram Sodium and Restrict fluids to 64 oz
Activity: As tolerated
Blood Work: Please PCP to order CBC, BMP within 1 week
Other Services: VN
Specialty Instructions: Weigh Daily- Call MD for wt gain/loss 3 lbs overnight/5 lbs in 1 week
Instructions: *PCP/Other Pattern Storage Clerk Heart Failure Instructions
Referrals:
Primary care, provider [Other] (See less than 1 week)
[facility]Visiting Nurse [Outside]
Taran Bravo MD [Active] - in two to four weeks (full PFTs on day of office visit)
Ryder Seymour MD [Active] - 04/21/24 11:15 am (You have an appt to see Dr. Seymour at his office on 04/21/24 at 11:15 am. )
Prescriptions:
New
codeine-guaifenesin 10-100 mg/5 mL Liquid
5 ml PO Q4HPRN PRN (Reason: cough, unrelieved by tessalon) 7 Days Qty: 118 0RF
alprazolam 0.25 mg Tablet
0.25 mg PO HSPRN PRN (Reason: insomnia) Qty: 10 0RF
Continued
atorvastatin 80 MG tablet
80 mg PO HS
levothyroxine 125 MCG tablet
125 mcg PO DAILY
albuterol sulfate 1 PUFF HFA aerosol inhaler
2 puff inhalation R Q4HPRN PRN (Reason: sob)
melatonin 1 MG tablet
5 mg PO HSPRN PRN (Reason: insomnia)
insulin glargine [Lantus Solostar U-100 Insulin] 300 UNITS/3 ML insulin pen
24 units SC DAILY
pantoprazole [Protonix] 40 mg tablet,delayed release (DR/EC)
40 mg PO DAILY Qty: 90 5RF
ergocalciferol (vitamin D2) 50,000 unit Tablet
25,000 unit PO SUTH
Eliquis 2.5 mg tablet
2.5 mg PO BID
clopidogrel 75 mg Tablet
75 mg PO DAILY Qty: 30 0RF
furosemide 20 mg Tablet
20 mg PO DAILY Qty: 30 0RF
insulin aspart U-100 [Novolog FlexPen U-100 Insulin] 100 unit/mL (3 mL) Insulin Pen
10 unit SC AC Qty: 5 0RF
insulin glargine [Lantus Solostar U-100 Insulin] 100 unit/mL (3 mL) Insulin Pen
12 unit SC HS Qty: 5 0RF
(DME) pen needle, diabetic [BD Ultra-Fine Sona Pen Needle] 32 gauge x 5/32' Needle
Qty: 200 0RF
Rx Instructions:
As Directed
amitriptyline 10 mg Tablet
10 mg PO DAILY PRN (Reason: migraine)
amiodarone 200 mg tablet
100 mg PO DAILY
metoprolol succinate 25 mg tablet extended release 24 hr
25 mg PO BID
Discharge Orders:
Discharge Patient (As Directed); Ordered 04/07/24
Ordered By: Orion Nicole
Care Plan Goals
Care Plan Goals:
Problem: Readiness for enhanced knowledge related to diagnosis and treatment plan
Goal: Understand your diagnosis and treatment plan needs, including medications if applicable.
Instructions: Know your diagnosis, underlying causes and treatment plan options, including medications if applicable. Consult with your health care team to learn about your diagnosis and treatment plan, including medications if applicable.
Discharge Date and Time
Discharge Date/Time: 04/07/24 16:13
Print Language: PASHTO
[2024-04-07 14:04] VITALS: BP 129/50
[2024-04-07 14:16] VITALS: BP 129/50; PULSE 71; O2SAT 93
--- NOTE | 2024-04-07 14:25 | CM ---
Reviewed chart. Met with Mrs. Wagner to review discharge plans. She states she is feeling better and maybe able to go home soon. We reviewed [facility]NA Services and she is agreeable to [facility]. She states she has had [facility] in the past. Telephone call to [facility] to make the referral Referral sent. Prior to admission she resides alone in a two story home with two steps to enter. She has to go up a full flight of steps to get to bedroom. She has
a full bathroom on each floor. Prior to admission she was independent with ambulation and adls. She only uses the walker when going out to get her mail. She has a walker at home. She has a prescription plan and uses [facility]. Medical work-up
in progress. The discharge plan is to return home with [facility] when medically stable.
--- NOTE | 2024-04-07 14:58 | W.PN.UPDATE ---
Update Note
Progress Note Update
Talked with patient's daughter, Jane, by phone for 16 minutes 34 seconds providing update of hospitalization thus far and recommendations for VNA at home. We talked about utilizing VN as an objective opinion to help with patient understanding the
need to stay active at home and may also be helpful to use as a go between with the doctors office. We reviewed weight loss with IV diuresis. Reviewed the patient would be ready to go home today.
[2024-04-07 15:13] VITALS: BP 121/93
--- NOTE | 2024-04-07 17:03 | PTCARENOTE ---
D/C instructions given to patient and daughter, both verbalizes understanding. INT D/C'd, telemetry D/C'd, personal belongings packed and sent home with patient. D/C to home via wc accompanied by staff.
== END 2024-04-07 16:13 | disposition home health service (06) | DRG 280 ==
LOC: IVU 00:53
PROVIDERS: Internal Medicine Critical Care Medicine; Internal Medicine Interventional Cardiology; Nuclear Medicine Nuclear Cardiology; Nurse Practitioner Family; ADMITTING PHYSICIAN Hospitalist; ATTENDING PHYSICIAN Hospitalist; EMERGENCY PHYSICIAN Student in an Organized Health Care Education/Training Program; OTHER PHYSICIAN Internal Medicine Critical Care Medicine; OTHER PHYSICIAN Internal Medicine Interventional Cardiology
PROC: 5A09357 Assistance with Respiratory Ventilation, Less than 24 Consecutive Hours, Continuous Positive Airway Pressure (ICD-10-PCS; 2024-04-03)
DX: I16.1 Hypertensive emergency (principal); I50.33 Acute on chronic diastolic (congestive) heart failure; I21.4 Non-ST elevation (NSTEMI) myocardial infarction; J96.01 Acute respiratory failure with hypoxia; N17.9 Acute kidney failure, unspecified; N18.4 Chronic kidney disease, stage 4 (severe); E87.1 Hypo-osmolality and hyponatremia; I42.9 Cardiomyopathy, unspecified; I13.0 Hypertensive heart and chronic kidney disease with heart failure and stage 1 through stage 4 chronic kidney disease, or unspecified chronic kidney disease; J06.9 Acute upper respiratory infection, unspecified; I25.10 Atherosclerotic heart disease of native coronary artery without angina pectoris; E11.22 Type 2 diabetes mellitus with diabetic chronic kidney disease; E11.40 Type 2 diabetes mellitus with diabetic neuropathy, unspecified; E78.00 Pure hypercholesterolemia, unspecified; D64.9 Anemia, unspecified; E03.9 Hypothyroidism, unspecified; I48.0 Paroxysmal atrial fibrillation; H54.62 Unqualified visual loss, left eye, normal vision right eye; I45.10 Unspecified right bundle-branch block; J45.909 Unspecified asthma, uncomplicated; Z66 Do not resuscitate; Z60.2 Problems related to living alone; I25.2 Old myocardial infarction; Z79.890 Hormone replacement therapy; Z11.52 Encounter for screening for COVID-19; Z86.73 Personal history of transient ischemic attack (TIA), and cerebral infarction without residual deficits; Z95.5 Presence of coronary angioplasty implant and graft; Z87.891 Personal history of nicotine dependence; Z88.8 Allergy status to other drugs, medicaments and biological substances; Z79.4 Long term (current) use of insulin; Z79.02 Long term (current) use of antithrombotics/antiplatelets; Z79.01 Long term (current) use of anticoagulants
CPT/HCPCS: 71045; 71046; 80048; 80053; 80061; 82962; 83036; 83735; 83880; 84100; 84443; 84484; 85025; 85027; 85610; 85730; 87502; 87811; 93005; 93306; 94640; 94660; 96374; 96375; 97116; 97162; 99285

== ENCOUNTER 2024-06-13 04:08 | Inpatient (IN) | payer OTHER, SELFPAY ==
[2024-06-13] VITALS (17 sets, daily range): BP systolic 96–124; BP diastolic 47–78; BMI 33.1
[2024-06-13 00:56] LABS: % Basophils 0.7 % (0-2); % Eosinophils 1.9 % (0-6); % Immature Granulocytes 0.5 % (0-0.5); % Monocytes 8.6 % (1.7-9.3); % Neutrophils 80.3 % (42.2-75.2); Absolute Basophils 0.1 10^3/uL (0-0.2); Absolute Eosinophils 0.2 10^3/uL (0-0.7); Absolute Immature Granulocytes 0.1 10^3/uL (0-0.05); Absolute Lymphocytes 0.8 10^3/uL (1.2-3.4); Absolute Monocytes 0.9 10^3/uL (0.1-0.6); Absolute Neutrophils 8.2 10^3/uL (1.4-6.5); Hematocrit 26.6 % (37.0-47.0); Hemoglobin 8.8 g/dL (12.0-16.0); Mean Corp Hgb Conc. 33.1 g/dL (33.0-37.0); Mean Corpuscular Hgb 30.3 pg (27.0-31.0); Mean Corpuscular Volume 91.7 fL (81.0-99.0); Mean Platelet Volume 11.3 fL (7.4-10.4); Nucleated Red Blood Cells % 0 %; Platelet Count 197 10^3/uL (130-400); Red Cell Dist. Width 15.3 % (11.5-14.5); White Blood Cell Count 10.3 10^3/uL (4.8-10.8)
--- NOTE | 2024-06-13 01:02 | ED.GENMED ---
History of Present Illness
General
Chief Complaint: Breathing Problem
Source: patient
Time Seen by Provider: 06/13/24 00:53
History of Present Illness
History of Present Illness:
88-year-old female presents to the emergency room complaining of shortness of breath. Patient states she has been feeling increasingly short of breath over the past 48 hours. She has noted that it is taking shorter amount of time for her to become
short of breath when she walks. This afternoon she could only go about 5 to 10 feet before having to stop and catch her breath. Patient has a history of congestive heart failure and coronary artery disease. She also believe that she has had heart
failure in the past. Her weight has remained stable. Her dose of Lasix has evidently increased to 40 mg recently. She denies any fever, chills, cough. No chest pain.
Past History
Past History
ED Past Medical History: Asthma, CAD, HTN, Hypercholesterolemia, IDDM and Hypothyroidism
ED Past Surgical History: Cardiac (Stenting) and Gynecological
Social History
Tobacco: Non-smoker
Alcohol: None
Drug: None
Personal:
Living: with family
Employment: Retired
Family History
Family History: Hypertension
Phy Exam
Physical Exam
Physical Exam:
General: Awake, Alert, Oriented X3. No acute distress but appears chronically ill
Vitals: unremarkable
Head: Atraumatic
Eyes: Right eye has normal-appearing iris and pupil which is reactive.
Throat: Airway intact, no exudates
Neck: Trachea midline
Lungs: Crackles bilateral bases
Heart: Regular rate, no murmurs
Abd: Soft, Nontender, No pulsatile mass
Neuro: Nonfocal
Skin: Warm, dry, no rash
Extremities: pulses equal b/l, 1+ edema
Scores
Heart Failure Risk
Heart Failure Risk Score: Yes
History of Stroke or TIA: Yes
History of intubation for respiratory distress: No
Heart rate on ED arrival >/= 110: No
SaO2 <90% on arrival on room air: No
HR >/=110 during 3min walk test (or too ill to perform test): Yes
ECG has acute ischemic changes: Yes
Urea >/=12mmol/L (BUN 33.6mg/dL): Yes
Serum CO2>/=35mmol/L: No
Troponin I or T elevated to ND Level (0.4mg/dL): Yes
NT-proBNP >/=5,000ng/L (5,000pg/ml): Yes
HF Risk Score: 9
Admission Status: VERY HIGH RISK 89% Consider admission to hospital
Course
Orders/Labs/Results
Orders:
Orders
06/13/24 00:41
CMP [Comprehensive Metabolic Panel] Urgent
Complete Blood Count/With Diff Urgent
NT-proBNP Urgent
Comment: ADDED
Troponin I Urgent
06/13/24 01:01
Add On- LAB Urgent
Tests Added?: bnp
CR Chest - 2 Views Urgent
Comment:
Reason For Exam: shortness of breath
06/13/24 01:41
Electrocardiogram (*1) Urgent
Reason for Study: Shortness of Breath
EKG- Treatment ONCE
06/13/24 01:42
Aspirin Chewable [Low Strength Aspirin] 324 mg PO NOW STA
Furosemide [Lasix] 40 mg IV NOW STA
06/13/24 03:49
Admit/Transfer Patient As Directed
Co-Sign Provider:
Level of Care: Inpatient admission
Assign to:: IVU
Physician / Group: Bennett
Diagnosis: NSTEMI, CHF
Reason for Hospitalization: NSTEMI, CHF
Expected length of stay greater than two midnights?: Yes
ELOS- Estimated Length of Stay in days: 3
I certify the patient meets the requirements for IP care: Yes
PRN Pain Medication Management As Directed
May give lesser potent ordered pain med per pt: Yes
preference::
Protocol:: Medication orders for pain may be administered in a
manner that supports deferring to patient preference
when the pt is:
- Requesting an ordered lesser potent pain medication.
Least to most potent pain medications are defined
as: acetaminophen < NSAID < tramadol < opioids
(morphine, oxycodone, hydromorphone).
- Requesting a lesser dose of the same medication IF
ORDERED.
- Requesting a less intrusive route of administration
if both routes are prescribed by the provider (PO <
IV).
06/13/24 03:51
Code Status As Directed
Resuscitation Status: Do not resuscitate
Reached after discussion with pt or family/Healthcare POA: Yes
06/13/24 03:52
DNR Bracelet Application ONCE
06/13/24 05:45
Acetaminophen [Tylenol] 650 mg PO Q4HPRN PRN
Albuterol Nebs [Ventolin Nebules] 2.5 mg INH R Q4HPRN PRN
Morphine Sulfate 2 mg IV Q4HPRN PRN
06/13/24 05:45
CARDIOLOGY CONSULT Routine
Consulting Provider: Radha Tate
Was physician already notified: Yes
Reason for consult: NSTEMI, CHF
Activity As Directed
Activity Level: Bedrest
EKG with chest pain [ECG as needed] As Directed
ECG as needed for:: Chest Pain
Hemetest Stools As Directed
I/O [Intake/ Output] As Directed
Frequency: Per unit guidelines
Pneumatic Compression Sleeves As Directed
Type: Knee high
Vital Signs As Directed
Frequency: Per unit guidelines
Weight As Directed
Frequency: Daily
Oxygen Therapy [O2 Therapy] [RESP] Routine
Titrate/Wean O2 to maintain O2 sat greater than (%): 94
DX Deep Vein Thrombosis Video Routine
06/13/24 05:57
Basic Metabolic Panel IN AM
Cardiovascular Evaluation IN AM
Complete Blood Count/No Diff IN AM
Troponin I Q6H
06/13/24 06:00
EKG [Electrocardiogram (*1)] IN AM
Reason for Study: Chest Pain
NPO
Allow oral meds: Yes
Allow clear liquids: Sips of Clears
Levothyroxine [Synthroid] 125 mcg PO DAILY@0600
06/13/24 08:00
Amiodarone [Pacerone] 200 mg PO DAILY
Aspirin Chewable [Low Strength Aspirin] 81 mg PO DAILY
Calcitriol [Rocaltrol] 0.25 mcg PO MOTH
Furosemide [Lasix] 40 mg IV DAILY
Metoprolol Xl [Toprol Xl] 25 mg PO BID
Pantoprazole [Protonix] 40 mg PO DAILY
06/13/24 11:45
Troponin I Q6H
06/13/24 17:45
Troponin I Q6H
06/13/24 22:00
Atorvastatin [Lipitor] 80 mg PO HS
Abnormal Lab Results
06/13/24
00:41
RBC 2.90 L 10^6/uL
(4.20-5.40)
Hgb 8.8 L g/dL
(12.0-16.0)
Hct 26.6 L %
(37.0-47.0)
RDW 15.3 H %
(11.5-14.5)
MPV 11.3 H fL
(7.4-10.4)
Abs Immat Gran (auto) 0.1 H 10^3/uL
(0-0.05)
Absolute Neuts (auto) 8.2 H 10^3/uL
(1.4-6.5)
Absolute Lymphs (auto) 0.8 L 10^3/uL
(1.2-3.4)
Absolute Monos (auto) 0.9 H 10^3/uL
(0.1-0.6)
Neutrophils % 80.3 H %
(42.2-75.2)
Lymphocytes % 8.0 L %
(20.5-51.1)
BUN 66 H mg/dl
(7-17)
Creatinine 2.2 H mg/dL
(0.6-1.0)
Glucose 293 H mg/dl
(70-99)
AST 105 H U/L
(14-36)
ALT 94 H U/L
(0-35)
Troponin I 1.690 H* ng/ml
06/13/24 00:41
06/13/24 00:41
Vital Signs
Initial and Last Documented VS:
Initial Vital Signs
Temp Pulse Resp BP Pulse Ox
98.5 F 84 20 116/69 96
06/13/24 00:33 06/13/24 00:33 06/13/24 00:33 06/13/24 00:33 06/13/24 00:33
Last Documented Vital Signs
Temp Pulse Resp BP Pulse Ox
98.5 F 71 20 99/48 99
06/13/24 00:33 06/13/24 05:40 06/13/24 05:40 06/13/24 05:00 06/13/24 05:40
MDM/Problems Addressed
Differential Diagnosis Includes:
NSTEMI, exacerbation of heart failure, progression of renal failure
MDM/Problems Addressed:
Patient presents feeling increasingly short of breath, and having dyspnea on exertion. Her EKG is quite abnormal but does not appear significantly different from baseline. In addition the patient has not complained of chest pain here. Her
troponin is quite elevated at 1.6. She had similar troponin elevation during her most recent hospitalization and opted against a cardiac cath. Discussed with Dr. Mcneil who is on-call for her cardiology group. They will evaluate the patient in
the morning I determine if they will consider cardiac catheterization. For now we will treat the patient with 4 baby aspirin. Hold Eliquis until cardiology sees the patient in the morning.
*Radiology
Radiology exam reviewed: preliminary read by ED provider (Mild pulmonary edema on my review of the x-ray)
*Pulse Oximetry
Patient hypoxic: no
*EKG
Interpreted by ED Provider?: Yes
Interpretation: abnormal
Heart Rate: 88
Rate: normal
Ischemia: other (ST depression and T wave inversion noted in the lateral leads as well as leads I and II. This is present over previous EKG. There may be a bit more depression than that the EKG.)
*Residential Service Technician Interpretation
Rate: normal
Interpretation: normal
Rhythm: sinus
*Critical Care Note
Total Time (30-74mins, 75-104mins- exclusive of procedures): 35 min
comment:
Critical care statement: A total of 35 minutes of critical care time was provided for this patient. This includes management of unstable vital signs, evaluation of the patient at bedside, reviewing the patient's pertinent medical records, discussion
with consultants, review of old EKGs and review of pertinent medical records. This time with separate from time utilized to perform the aforementioned documented procedures
Patient Management
Social determinants of health affecting care: Strong social support
Discussion with other providers: Hospitalist
ED Attending Note
-
Portions of this chart may have been created with voice recognition software.� Occasional wrong word or��sound alike� substitutions may have occurred due to the inherent limitations of voice recognition software.
Discharge Plan
Departure
Patient Disposition: Admit
Date of Disposition: 06/13/24
Time of Disposition: 02:15
Admit to: IVU
Presentation/result/management discussed w/ accepting MD/DO: Hospitalist
Condition: Fair
Discharge Problem:
CHF (congestive heart failure), Non-ST elevation ND (NSTEMI)
Interventions
Interventions:
*Risk Screen - Suicide Last Done: 06/13/24 00:33
*General Assessment Last Done: 06/13/24 00:33
*Neglect/Abuse Screening Last Done: 06/13/24 00:33
*ED COVID-19 Vaccine History Last Done: 06/13/24 00:33
ED- Cardiac Assessment Last Done: 06/13/24 01:07
ED- Pulmonary Assessment Last Done: 06/13/24 01:07
[2024-06-13 01:03] LABS: ALT (SGPT) 94 U/L (0-35); AST (SGOT) 105 U/L (14-36); Albumin 4.1 g/dl (3.5-5.0); Alkaline Phosphatase 125 U/L (38-126); Blood Urea Nitrogen 66 mg/dl (7-17); Calcium 8.4 mg/dl (8.4-10.2); Carbon Dioxide 23 mmol/L (22-30); Chloride 102 mmol/L (98-107); Estimated Creatinine Clearance 16 ml/min; Glucose 293 mg/dl (70-99); Sodium 138 mmol/L (135-145); Total Bilirubin 0.9 mg/dl (0.2-1.3); Total Protein 6.5 g/dl (6.3-8.2)
[2024-06-13 01:29] LABS: NT-proBNP 15200 pg/ml
[2024-06-13] MEDS: LOW STRENGTH ASPIRIN 324 MG PO (02:16)
[2024-06-13] MEDS: LASIX 40 MG IV ×2 (02:17→08:19)
--- NOTE | 2024-06-13 03:54 | HPS.HSE ---
Family Physician
-
Family Physician: Primitivo Cedeno
Chief Complaint
-
SOB
History of Present Illness
Patient is an 88y F with PMH significant for ASCVD, A-Fib and CHF who presents to ED complaining of SOB. Patient states that she has been feeling more SOB since last . Her symptoms became much more severe this PM and she presented to
the ED for further evaluation and treatment. Patient denies any chest pain - but states that she has never had chest pain with any prior NSTEMI events. She was last hospitalized in March for NSTEMI and CHF. Repeat cath was deferred
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 She had cath with LAD stent in 11/2023 for another similar presentation.
Patient denies any cough, fevers /chills, GI symptoms, etc.
At the time of my examination, patient notes that she feels improved from initial arrival.
Medical History
Past Medical History
Past Medical History: Reports Other
Additional Past Medical History:
ASCVD
Hypertension
DM-II
Paroxysmal Atrial fibrillation
CKD IV
Chronic HFmrEF
Hypothyroidism
Left Eye Blindness / Ocular Hemorrhage
Chronic Anemia
Past Surgical History: Reports Other
Additional Past Surgical History:
PTCA with Stent x 3 (most recent was 12/04/23)
Appendectomy
T&A
Social History
Tobacco: Former Smoker (Remote / minimal history of tobacco use.)
Alcohol: None
Drug: None
Family History
Family History: Not pertinent
Allergies / Home Medications
Allergies reflects when Allergies were last updated in [employer].
Home Medications with original date entered in [employer]
Allergy/Medication List:
Allergies
Allergy/AdvReac Type Severity Reaction Status Date / Time
clopidogrel bisulfate Allergy RETINAL Verified 06/13/24 03:40
[From Plavix] HEMMORHAGE
fluorescein Allergy Tongue Verified 06/13/24 03:40
Swelling
zolpidem tartrate Allergy hallucinati Verified 06/13/24 03:40
[From Ambien] ons
Home Medications
albuterol sulfate 90 mcg/actuation aerosol inhaler 2 puff inhalation R Q4HPRN PRN sob 12/23/18
atorvastatin 80 mg tablet 80 mg PO HS High cholesterol 12/23/18
insulin glargine 100 unit/mL (3 mL) subcutaneous pen (Lantus Solostar U-100 Insulin) 24 units SC DAILY Diabetes 12/23/18
levothyroxine 125 mcg tablet 125 mcg PO DAILY Thyroid 12/23/18
melatonin 1 mg tablet 5 mg PO HSPRN PRN insomnia 12/23/18
pantoprazole 40 mg tablet,delayed release (Protonix) 40 mg PO DAILY #90 tabs 01/23/22
apixaban 2.5 mg tablet (Eliquis) 2.5 mg PO BID Blood Clot Prevention/Tx 12/05/23
insulin aspart U-100 100 unit/mL (3 mL) subcutaneous pen (Novolog FlexPen U-100 Insulin aspart) 10 unit (0.1 mL) SC AC #5 ea 12/12/23
pen needle, diabetic 32 gauge x /32' (BD Ultra-Fine Sona Pen Needle) #200 ea 12/12/23
amiodarone 200 mg tablet 200 mg PO DAILY Heart Disease/Condition 04/04/24
metoprolol succinate 25 mg tablet,extended release 24 hr 25 mg PO BID Heart Disease/Condition 04/04/24
calcitriol 0.25 mcg capsule 0.25 mcg PO MUST ENTER TIMES 06/13/24
epoetin yolie 4,000 unit/mL injection solution 4,000 unit 06/13/24
furosemide 20 mg tablet 40 mg PO DAILY 06/13/24
Review of Systems
-
History Source: Patient
A 12 point ROS was completed and negative except as noted: Yes
Constitutional: Reports Weight Gain (1 lb in the past 24 hours) and Fatigue; Denies Fever or Chills
EENT: Denies Sore Throat
Respiratory: Reports Trouble Breathing; Denies Cough
Cardiac: Denies Chest Pain or Palpitations
Abdomen/GI: Denies Abdominal Pain, Nausea, Vomiting or Diarrhea
: Denies Dysuria or Flank Pain
Musculoskeletal: Reports Edema; Denies Joint Pain
Neurological: Denies Dizzy or Headache
Psych: Denies Depression or Anxiety
Physical Exam
Vital Signs
Vital Signs
Temp Pulse Resp BP Pulse Ox
98.5 F 86 21 124/56 97
06/13/24 00:33 06/13/24 02:17 06/13/24 01:45 06/13/24 02:17 06/13/24 03:22
Physical Exam
General: Other (88y F in no acute distress.)
HEENT: Moist mucous membranes, PERRLA and Other (Neck supple.)
Respiratory: Other (Bibasilar rales about 1/3 up. No wheeze.)
Cardiac: S1/S2 and Regular Rhythm; No Murmur
GI: Soft, Non Tender, Non Distended and Normal Bowel Sounds
Musculoskeletal: No Clubbing, No Cyanosis and No Edema
Neuro: AO x 3
Laboratory Results
-
06/13/24 00:41
06/13/24 00:41
Laboratory Results
Total Bilirubin 0.9 mg/dl (0.2-1.3) 06/13/24 00:41
AST 105 U/L (14-36) H 06/13/24 00:41
ALT 94 U/L (0-35) H 06/13/24 00:41
Alkaline Phosphatase 125 U/L (38-126) 06/13/24 00:41
Troponin I 1.690 ng/ml H* 06/13/24 00:41
Impression/Plan
-
A/P: Patient is an 88y F with PMH significant for ASCVD, HTN, DM-II and CKD who presents to ED complaining of SOB.
NSTEMI
ASCVD
- Admit for further evaluation and treatment.
- Initial EKG with ST changes diffusely concerning for active ischemia.
- Initial troponin elevated at 1.69.
- Patient indicates that symptoms are similar to prior TN.
- Currently she feels improved from presentation. No chest pain at any point.
- Continue beta-blockade, statin, etc.
- Follow for any new / worsening symptoms.
- Cardiology evaluation for additional recommendations / possible repeat ischemic evaluation.
- Will hold Eliquis for now. Cardiology plans to decide on IV heparin versus continuing Eliquis later this AM.
Acute on Chronic HFpEF
Acute Hypoxemic Respiratory Failure secondary to the above
- Suspect HF exacerbation secondary to NSTEMI as noted above.
- Continue IV Lasix daily and follow I/Os, daily weights, etc.
- Echo done 03/2024 showed LVEF 55-60% and moderate MR.
- Follow for continued clinical improvement.
- Cardiology evaluation as noted above.
Paroxysmal Atrial Fibrillation
- Currently in NSR / 1st degree AV block.
- Continue metoprolol, amio, etc as noted above.
- Eliquis v heparin for anticoagulation (see above).
Acute on Chronic Normocytic Anemia
- Patient with Hgb = 8.8 compared to prior baseline of 11-12.
- No noted blood loss.
- Patient reports chronic anemia followed by Heme.
- Receives Procrit +/- IV iron as needed. Last about one month ago.
- Check iron studies and replace if needed.
- Follow H&H and would have low threshold to transfuse given cardiac ischemia.
- Consent on chart.
CKD IV
- Stable. Renal function at / near known baseline.
- Follow for changes with IV diuresis.
- Baseline appears to be around 2.2.
DM-II
- Stable. Continue basal : bolus insulin regimen with decreased doses while NPO.
- Follow glucose and cover with SSI as needed.
- Update A1C.
Hypothyroidism
- Stable. Continue current T4 supplementation.
DVT Prophylaxis: Heparin or Eliquis
Code Status: DNR
[2024-06-13] MEDS: SYNTHROID 125 MCG PO (06:01)
[2024-06-13 06:23] LABS: Hematocrit 23.7 % (37.0-47.0); Hemoglobin 7.8 g/dL (12.0-16.0); Mean Corp Hgb Conc. 32.9 g/dL (33.0-37.0); Mean Corpuscular Hgb 30.1 pg (27.0-31.0); Mean Corpuscular Volume 91.5 fL (81.0-99.0); Mean Platelet Volume 11.2 fL (7.4-10.4); Platelet Count 183 10^3/uL (130-400); Red Blood Cell Count 2.59 10^6/uL (4.20-5.40); Red Cell Dist. Width 15.4 % (11.5-14.5); White Blood Cell Count 9.9 10^3/uL (4.8-10.8)
--- NOTE | 2024-06-13 06:28 | PTCARENOTE ---
Rec'd pt from ED RN. Pt AAOx3, blind in L eye. Denies pain/discomfort, but does admit to some SOB. 100% on 1L O2. SR on monitoring equipment. Provided call bejarano and educated pt on use. PW in place d/t bedrest status. SCDs placed per MD orders. Care
ongoing.
[2024-06-13 06:49] LABS: Blood Urea Nitrogen 67 mg/dl (7-17); Calcium 8.5 mg/dl (8.4-10.2); Carbon Dioxide 27 mmol/L (22-30); Chloride 103 mmol/L (98-107); Estimated Creatinine Clearance 16 ml/min; Glucose 83 mg/dl (70-99); HDL Cholesterol 53 mg/dl; LDL Cholesterol, Calculated 58 mg/dl; Potassium 4.4 mmol/L (3.5-5.1); Sodium 140 mmol/L (135-145); Total Cholesterol 126 mg/dl (50-199); Triglyceride 76 mg/dl (10-149); Very Low Density Lipoprotein 15 mg/dl (0-30)
--- NOTE | 2024-06-13 08:13 | CON.CAR ---
Addendum entered and electronically signed by Desmond Yu MD 06/13/24 11:18:
88-year-old woman with HFpEF, ischemic cardiomyopathy with improved EF, CAD and multivessel stenting, paroxysmal atrial fibrillation in sinus rhythm on amiodarone, CKD 4, hypertension, hyperlipidemia, diabetes admitted with acute on chronic HFpEF,
proBNP 15,200 and troponin of 3.05. Last EF 55-60% in December 2023, last PCI was an [place] stent to the proximal/ostial LAD in November. 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
Medications: Amiodarone 200 mg a day, atorvastatin 80 mg a day, levothyroxine, metoprolol ER 25 twice daily, pantoprazole 40 mg a day, furosemide 40 mg IV daily, aspirin 81 mg a day and insulin
111/54, pulse 75, respiratory 20, saturation is 99%, weight is 74.3 kg, up to 2.7 kg since April, no distress, crackles in lungs, regular rate and rhythm, no obvious murmurs, JVD okay, abdomen benign, extremities without much clubbing cyanosis or
edema
Hemoglobin was 11.4 in April, 8.8 on admission and now 7.8, BUN and creatinine are 67 and 2.2, which is close to baseline, patient is iron deficient, troponin thus far 3.05 was 1.7 on admission, was 2 during admission in March pBNP is 15,200
Impression:
Presented 06/12/2024 with SOB
NSTEMI
Acute on chronic HFprEF, 41830
Acute on chronic anemia
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
CAD
s/p LAD & LCx BMS x2 in 2014
s/p distal LCx/OM VANGIE in 2021
s/p NSTEMI and 2.75 mm [place] VANGIE to ostial/prox LAD 12/04/23Paroxysmal Afib
Chronic Eliquis OAC
Chronic amiodarone therapy
CKD 4
Hyperlipidemia
DM 2
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
Echo 01/23/2022: EF 50 to 54%, moderate MR, mild MS with mean MV gradient 5 mmHg, mild to moderate TR with PAP 45 to 50 mmHg
Echo 12/04/2023: GVH study, EF 30%, LAD wall motion abnormality
Echo 12/09/2023: EF 50%, mild cLVH, mild mid to distal anteroseptal hypokinesis
Echo 04/04/2024: EF 55-60%, stage II diastolic dysfunction, moderate MR, mild TR with PAP 53 mmHg, no significant change compared to echo 12/2023
Cath 12/04/23: Successful PCI of the LAD
Plan:
She presents with recurrent HFpEF in the setting of progressive anemia on Eliquis and clopidogrel. Her troponin is elevated, not terribly surprising in the setting of anemia and HFpEF and coronary artery anatomy. In the past she had required
erythropoietin analogs.
For now, will hold Eliquis and clopidogrel. Will treat with aspirin alone and decide whether or not to reinitiate more aggressive anticoagulation.
She is in sinus rhythm on amiodarone so embolic risk from atrial fibrillation is reduced at present.
She had previously been on Farxiga. We will restart this.
In the past, given SIMI/CKD, and hypotension GDMT has been limited.
Discussed with Dr. Seymour.
Original Note:
Consultation
Consultation Request
Date/Time Consultation Requested: 06/13/2024
Date/Time Consultation Performed: 06/13/2024
Requesting Provider: Dr. Guajardo
Performing Provider: Nancie Glaser PA-C for Dr. JOO Yu
Reason for Consultation: Shortness of breath
Medical History
-
History of Present Illness:
Fide is an 88 year old female with PMH of chronic HFpEF, recovered cardiomyopathy, CAD w/ multivessel stenting, paroxysmal atrial fibrillation on chronic Eliquis and amiodarone, CKD 4, HLD, DM2, and L eye blindness. She presented to [facility] with
shortness of breath for several days. Patient notes she developed shortness of breath with less and less activity and now unable to walk 5 to 10 feet without having to stop. She denied chest pain but denies she has never had chest pain with prior
stenting. EKG showed sinus rhythm with first-degree AV block and more pronounced ST-T wave abnormality in lateral leads. Initial troponin 1.69 however upward trending currently 3.05. proBNP 15,200. Patient was provided 324 mg of aspirin and 40
mg of IV Lasix in emergency department.
Patient reports she has chronic anemia and sees Dr. Pablo for which she gets Procrit injections. She reports she has not had an injection in several months as hemoglobin was above 10 at last outpatient evaluation
PMH:
Chronic HFpEF
h/o recovered CM, EF 55-60%, 12/09/2023
CAD
s/p LAD & LCx BMS x2 in 2014
s/p distal LCx/OM VANGIE in 2021
s/p NSTEMI and 2.75 mm [place] VANGIE to ostial/prox LAD 12/04/23
Paroxysmal Afib
Chronic Eliquis OAC
Chronic amiodarone therapy
CKD 4
Hyperlipidemia
DM 2
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
Past Medical History
Past Medical History: Other (In HPI)
Past Surgical History: Appendectomy, Cardiac (LAD & LCx PCI 2014, LCx/OM PCI 2021, LAD PCI 11/2023) and Tonsilectomy
Social History
Tobacco: Former Smoker
Alcohol: None
Drug: None
Personal:
Living: With Family
Employment: Retired
Family History
Family History: Reviewed & Not Pertinent
Allergies / Home Medications
Allergy/AdvReac Type Severity Reaction Status Date / Time
clopidogrel bisulfate Allergy RETINAL Verified 06/13/24 03:40
[From Plavix] HEMMORHAGE
fluorescein Allergy Tongue Verified 06/13/24 03:40
Swelling
zolpidem tartrate Allergy hallucinati Verified 06/13/24 03:40
[From Ambien] ons
�Medication �Instructions �Recorded �Confirmed �Type
albuterol sulfate 90 mcg/actuation 2 puff inhalation R Q4HPRN PRN sob 12/23/18 06/13/24 History
aerosol inhaler
atorvastatin 80 mg tablet 80 mg PO HS High cholesterol 12/23/18 06/13/24 History
insulin glargine 100 unit/mL (3 24 units SC DAILY Diabetes 12/23/18 06/13/24 History
mL) subcutaneous pen (Lantus
Solostar U-100 Insulin)
levothyroxine 125 mcg tablet 125 mcg PO DAILY Thyroid 12/23/18 06/13/24 History
melatonin 1 mg tablet 5 mg PO HSPRN PRN insomnia 12/23/18 06/13/24 History
pantoprazole 40 mg tablet,delayed 40 mg PO DAILY #90 tabs 01/23/22 06/13/24 Rx
release (Protonix)
apixaban 2.5 mg tablet (Eliquis) 2.5 mg PO BID Blood Clot 12/05/23 06/13/24 History
Prevention/Tx
insulin aspart U-100 100 unit/mL 10 unit (0.1 mL) SC AC #5 ea 12/12/23 06/13/24 Rx
(3 mL) subcutaneous pen (Novolog
FlexPen U-100 Insulin aspart)
pen needle, diabetic 32 gauge x #200 ea 12/12/23 06/13/24 Rx
32' (BD Ultra-Fine Sona Pen
Needle)
amiodarone 200 mg tablet 200 mg PO DAILY Heart 04/04/24 06/13/24 History
Disease/Condition
metoprolol succinate 25 mg 25 mg PO BID Heart 04/04/24 06/13/24 History
tablet,extended release 24 hr Disease/Condition
calcitriol 0.25 mcg capsule 0.25 mcg PO MUST ENTER TIMES 06/13/24 06/13/24 History
epoetin yolie 4,000 unit/mL 4,000 unit 06/13/24 History
injection solution
furosemide 20 mg tablet 40 mg PO DAILY 06/13/24 06/13/24 History
Review of Systems
-
History Source: Patient
All other systems: Negative unless noted
Physical Exam
Vital Signs
Temp Pulse Resp BP Pulse Ox
97.8 F 77 16 105/60 99
06/13/24 06:34 06/13/24 06:45 06/13/24 06:34 06/13/24 06:38 06/13/24 06:45
GEN: No distress, awake, Ox3, lying in bed on oxygen
HEENT: supple, anicteric, mmm
LUNGS: Faint crackles at bases otherwise CTA, no wheezes/rales
CV: Reg, S1/S2, 1/6 apical murmur
ABD: soft, BS+, NT/ND
EXT: Trace bilateral LE edema
NEURO: Gross non-focal
SKIN: No rash, no clubbing or cyanosis
Lab Results
06/13/24 05:57
06/13/24 05:57
Troponin I 3.050 ng/ml H* D 06/13/24 05:57
Phi-U-Zvghcadwemt Pept 09550 pg/ml 06/13/24 00:41
Impression / Plan
-
.
PCP: Dr. Cedeno
Grocery Cashier: Dr. Goyo Seymour ([facility] Cardiology)
Impression:
Presented 06/12/2024 with SOB
NSTEMI
Acute on chronic HFprEF, 44220
Acute on chronic anemia
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
CAD
s/p LAD & LCx BMS x2 in 2014
s/p distal LCx/OM VANGIE in 2021
s/p NSTEMI and 2.75 mm [place] VANGIE to ostial/prox LAD 12/04/23
Paroxysmal Afib
Chronic Eliquis OAC
Chronic amiodarone therapy
CKD 4
Hyperlipidemia
DM 2
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
Echo 01/23/2022: EF 50 to 54%, moderate MR, mild MS with mean MV gradient 5 mmHg, mild to moderate TR with PAP 45 to 50 mmHg
Echo 12/04/2023: GVH study, EF 30%, LAD wall motion abnormality
Echo 12/09/2023: EF 50%, mild cLVH, mild mid to distal anteroseptal hypokinesis
Echo 04/04/2024: EF 55-60%, stage II diastolic dysfunction, moderate MR, mild TR with PAP 53 mmHg, no significant change compared to echo 12/2023
Cath 12/04/23: Successful PCI of the LAD with placement of a drug-eluting stent. Widely patent previously placed mid LAD stent and overlapping circumflex proper stents with known critical disease involving the jailed obtuse marginal branch and
chronically occluded distal left sided posterior descending artery.
Plan:
Presented 06/12/2024 with SOB with elevated proBNP and cardiac troponin.
Acute on chronic HFprEF, EF 55 to 60% on echo March 2023
-proBNP 15,200. Weight up 5 pounds since prior discharge weight
-Ongoing diuresis with IV Lasix
-Continue to monitor renal function (baseline creatinine of 2.0-2.2) and electrolytes
-Continue Toprol. Patient not on BILLY/ARB/Arni or Aldactone secondary to CKD
NSTEMI
-initial troponin 1.69 and upward trending, 3.05. Continue to trend to peak
-EKG with more pronounced ST-T wave abnormality in lateral leads concerning for ischemia on initial EKG some mild improvement on this morning's EKG
-Patient was given aspirin 325 mg in emergency department. Also takes Eliquis with last dose 06/12/2024. Patient thinks she may be on Plavix but is not sure. Outpatient cardiology records have been requested
-Would start aspirin 81 mg daily and hold Eliquis while ongoing discussion for ischemic evaluation and worsening anemia
-During admission in late March 2024/early April 2024 patient was also noted to have abnormal troponin. Case was reviewed with primary outpatient network manager and it was felt there would be little clinical benefit to invasive cath at that time
given her anatomy and comorbidities including renal insufficiency.
-Will repeat an echocardiogram to rule out new wall motion abnormalities or worsening of ejection fraction which may help prompt decision of medical therapy versus repeating cardiac catheterization
-Worsening anemia could also be playing a role with demand ischemia. Will repeat hemoglobin this afternoon
-Lipids 06/13/2024 TC 126, HDL 53, LDL 58, triglycerides 76. Continue high-dose atorvastatin
Patient with known paroxysmal Afib. Currently in sinus rhythm. Eliquis on hold but will need to be resumed at discharge
Acute on chronic anemia
-Patient reports she has chronic anemia and sees Dr. Pablo for which she gets Procrit injections. She reports she has not had an injection in several months as hemoglobin was above 10 at last outpatient evaluation
-Hemoglobin now 7.8. Repeat this afternoon
-Would heme check stool. If negative may need to consider transfusion or Procrit injection
-Continue to hold Eliquis but start aspirin
HPI 06/13/2024:
Fide is an 88 year old female with PMH of chronic HFpEF, recovered cardiomyopathy, CAD w/ multivessel stenting, paroxysmal atrial fibrillation on chronic Eliquis and amiodarone, CKD 4, HLD, DM2, and L eye blindness. She presented to [facility] with
shortness of breath for several days. Patient notes she developed shortness of breath with less and less activity and now unable to walk 5 to 10 feet without having to stop. She denied chest pain but denies she has never had chest pain with prior
stenting. EKG showed sinus rhythm with first-degree AV block and more pronounced ST-T wave abnormality in lateral leads. Initial troponin 1.69 however upward trending currently 3.05. proBNP 15,200. Patient was provided 324 mg of aspirin and 40
mg of IV Lasix in emergency department.
Patient reports she has chronic anemia and sees Dr. Pablo for which she gets Procrit injections. She reports she has not had an injection in several months as hemoglobin was above 10 at last outpatient evaluation
Data Reviewed
-
EKG: Report Reviewed by me, Discussed with Physician and Discussed with Patient
Labs: Labs Reviewed by me, Discussed with Physician and Discussed with Patient
Old Records: Requested
[2024-06-13] MEDS: LOW STRENGTH ASPIRIN 81 MG PO (08:18)
[2024-06-13] MEDS: PROTONIX 40 MG PO (08:18)
[2024-06-13] MEDS: TOPROL XL 25 MG PO ×2 (08:18→21:33)
[2024-06-13] MEDS: PACERONE 200 MG PO (08:18)
[2024-06-13 08:21] LABS: Glucose - Point of Care 81 mg/dl (70-99)
[2024-06-13 08:21] LABS: Glucose - Point of Care 69 mg/dl (70-99)
[2024-06-13] MEDS: ROCALTROL 0.25 MCG PO (08:22)
--- NOTE | 2024-06-13 08:35 | PTCARENOTE ---
Patient resting comfortable, accu check 69, 4 oz orange juice given, blood sugar 81 post treatment. NSR on tele, denies chest pain or shortness of breath, oxygen at 1 liter NC 99%. Purwick in place. IV lasix given, lights dimmed call bejarano in reach
[2024-06-13 10:10] LABS: Iron 36 ug/dl (37-170)
[2024-06-13 10:11] LABS: Glucose - Point of Care 133 mg/dl (70-99)
[2024-06-13 10:19] LABS: Percent Saturation 15 % (20-50); Total Iron Binding Capacity 236 ug/dl (265-497)
[2024-06-13] MEDS: LANTUS 0.14 UNITS SC (12:18)
[2024-06-13] MEDS: FARXIGA 10 MG PO (12:20)
[2024-06-13 12:24] LABS: Glucose - Point of Care 112 mg/dl (70-99)
[2024-06-13 12:31] LABS: Folate 6.3 ng/ml (2.76-20); Vitamin B12 391 pg/ml (239-931)
--- NOTE | 2024-06-13 12:44 | CM ---
spoke to pt in room, she is prev indep, lives alone in a 2 [address] home with 2 steps to enter. she denies any dme's. we discussed her prev admission and talked about re starting [facility] or possibly rehab if needed. pt prefers to go home with vn.
--- NOTE | 2024-06-13 13:21 | PTCARENOTE ---
Troponin 7.950 Nancie Glaser notified, repeat labs ordered at 1745
--- NOTE | 2024-06-13 13:47 | W.PN.HOSP.TC ---
Today's Communication/Plan
-
Monitor vital signs see plan
Continue with IV diuresis
Ischemic evaluation per cardiology
Monitor hemoglobin
Nonbillable note
Assessment / Plan
Assessment / Plan
General: Other (88y F in no acute distress.)
HEENT: Moist mucous membranes, PERRLA and Other (Neck supple.)
Respiratory: Other (+rales. No wheeze.)
Cardiac: S1/S2 and Regular Rhythm; No Murmur
GI: Soft, Non Tender, Non Distended and Normal Bowel Sounds
Musculoskeletal: No Clubbing, No Cyanosis and No Edema
Neuro: AO x 3
NSTEMI
ASCVD
- Admit for further evaluation and treatment.
- Initial EKG with ST changes diffusely concerning for active ischemia.
- Initial troponin elevated at 1.69. Continue to monitor
- Patient indicates that symptoms are similar to prior [place].
- Currently she feels improved from presentation. No chest pain at any point.
- Continue beta-blockade, statin, etc.
- Follow for any new / worsening symptoms.
Cardiology following
- Will hold Eliquis for now. Cardiology to decide on anticoagulation
Acute on Chronic HFpEF
Acute Hypoxemic Respiratory Failure secondary to the above
- Suspect HF exacerbation secondary to NSTEMI as noted above.
- Continue IV Lasix and follow I/Os, daily weights, etc.
- Echo done 03/2024 showed LVEF 55-60% and moderate MR.
- Follow for continued clinical improvement.
- Cardiology evaluation as noted above.
Paroxysmal Atrial Fibrillation
- Currently in NSR / 1st degree AV block.
- Continue metoprolol, amio, etc as noted above.
Anticoagulation per cardiology
Acute on Chronic Normocytic Anemia
- Patient with Hgb = 8.8 compared to prior baseline of 11-12.
- No noted blood loss.
- Patient reports chronic anemia followed by Heme.
- Receives Procrit +/- IV iron as needed. Last about one month ago.
- Check iron studies
- Consent on chart.
CKD IV
- Stable. Renal function at / near known baseline.
- Follow for changes with IV diuresis.
- Baseline appears to be around 2.2.
DM-II
- Stable. Continue basal : bolus insulin regimen with decreased doses while NPO.
- Follow glucose and cover with SSI as needed.
- Update A1C.
Hypothyroidism
- Stable. Continue current T4 supplementation.
DVT Prophylaxis:SCD's
Code Status: DNR
Anticipated Discharge: > 48 hours
Subjective/Interval History
-
Date of Service: June 13, 2024
Denies chest pain
Objective Data
-
Labs:
Laboratory Results
06/13/24 06/13/24
05:57 17:45
WBC 9.9
Hgb 7.8 L Pending
Hct 23.7 L
Plt Count 183
Sodium 140
Potassium 4.4
Chloride 103
Carbon Dioxide 27
BUN 67 H
Creatinine 2.2 H
Glucose 83
Calcium 8.5
Vital Signs:
Vital Signs
Temp Pulse Resp BP Pulse Ox
97.8 F 69 18 111/54 97
06/13/24 11:19 06/13/24 10:30 06/13/24 11:19 06/13/24 08:19 06/13/24 11:19
I&O
06/12/24 06/13/24 06/14/24
06:59 06:59 06:59
Output Total 450 / 450
Balance -450 / -450
--- NOTE | 2024-06-13 15:45 | CM ---
priced eber at [facility]- her copay is $144/month, she is agreeable to this cost
--- NOTE | 2024-06-13 16:41 | PTCARENOTE ---
Assisted out of bed to commode and then chair. Some initial lightheadedness with ambulation, mild shortness of breath, BP 113/47, POX 99%. Symptoms resolved with sitting. Patient in chair, legs elevated, call bejarano in reach
[2024-06-13 17:09] LABS: Glucose - Point of Care 176 mg/dl (70-99)
[2024-06-13 18:01] LABS: Hemoglobin 8.5 g/dL (12.0-16.0)
--- NOTE | 2024-06-13 19:02 | PTCARENOTE ---
Patients repeat troponin 11.40. Denies chest pain. Result called to Nat Waters. Repeat troponin in the morning
[2024-06-13] MEDS: LIPITOR 80 MG PO (21:33)
[2024-06-13] MEDS: DESYREL 12.5 MG PO (21:48)
[2024-06-14] VITALS (9 sets, daily range): BP systolic 93–144; BP diastolic 48–119; BMI 32.3; BMI 32.1
--- NOTE | 2024-06-14 00:40 | PTCARENOTE ---
Assumed care of Pt from day RN. Pt requesting to have something to help her sleep when time for bed. Night EXTRACTOR FILLER made aware, Trazodone ordered. Pt able to use BSC and BRP with stand by assist. Pt had no complaints of chest pain. Pt saying a few times '
i am bored, i would like to be home'. Emotional support given. Daughter Jane called for updated.
[2024-06-14 01:22] LABS: Glucose - Point of Care 176 mg/dl (70-99)
[2024-06-14 03:28] LABS: % Basophils 0.5 % (0-2); % Eosinophils 0.2 % (0-6); % Immature Granulocytes 0.7 % (0-0.5); % Monocytes 9.5 % (1.7-9.3); % Neutrophils 77.1 % (42.2-75.2); Absolute Basophils 0.1 10^3/uL (0-0.2); Absolute Immature Granulocytes 0.1 10^3/uL (0-0.05); Absolute Lymphocytes 1.2 10^3/uL (1.2-3.4); Absolute Neutrophils 7.7 10^3/uL (1.4-6.5); Hematocrit 24.9 % (37.0-47.0); Hemoglobin 8.2 g/dL (12.0-16.0); Mean Corp Hgb Conc. 32.9 g/dL (33.0-37.0); Mean Corpuscular Hgb 30.5 pg (27.0-31.0); Mean Corpuscular Volume 92.6 fL (81.0-99.0); Mean Platelet Volume 11.2 fL (7.4-10.4); Nucleated Red Blood Cells % 0 %; Platelet Count 187 10^3/uL (130-400); Red Blood Cell Count 2.69 10^6/uL (4.20-5.40); Red Cell Dist. Width 15.2 % (11.5-14.5)
[2024-06-14 03:55] LABS: ALT (SGPT) 70 U/L (0-35); AST (SGOT) 91 U/L (14-36); Albumin 3.6 g/dl (3.5-5.0); Alkaline Phosphatase 73 U/L (38-126); Blood Urea Nitrogen 64 mg/dl (7-17); Calcium 8.7 mg/dl (8.4-10.2); Carbon Dioxide 28 mmol/L (22-30); Chloride 98 mmol/L (98-107); Estimated Creatinine Clearance 15 ml/min; Glucose 156 mg/dl (70-99); Potassium 4.9 mmol/L (3.5-5.1); Sodium 137 mmol/L (135-145); Total Bilirubin 1.4 mg/dl (0.2-1.3); Total Protein 6.1 g/dl (6.3-8.2); eGFR 20.19
[2024-06-14] MEDS: SYNTHROID 125 MCG PO (04:58)
--- NOTE | 2024-06-14 07:08 | PTCARENOTE ---
Pt troponin coming back critical trending up. Pt denies any chest pain or discomfort. Night BRANCH RENTAL MANAGER made aware, ekg done.
--- NOTE | 2024-06-14 07:11 | PTCARENOTE ---
The patient had a formed BM this morning. I was unable to heme test it as it was mixed with urine.
[2024-06-14 07:44] LABS: Glucose - Point of Care 152 mg/dl (70-99)
[2024-06-14] MEDS: FARXIGA 10 MG PO (07:56)
[2024-06-14] MEDS: TOPROL XL 25 MG PO ×2 (07:56→22:42)
[2024-06-14] MEDS: PROTONIX 40 MG PO (07:56)
[2024-06-14] MEDS: LOW STRENGTH ASPIRIN 81 MG PO (07:57)
[2024-06-14] MEDS: PACERONE 200 MG PO (07:57)
[2024-06-14] MEDS: LASIX 40 MG IV ×2 (07:57→20:33)
[2024-06-14] MEDS: FLUSH (NSS) 2 FLUSH IV (07:58)
[2024-06-14] MEDS: LANTUS 0.14 UNITS SC (07:59)
--- NOTE | 2024-06-14 08:13 | PTCARENOTE ---
The patient is aaox3, vital signs are stable. NSR is noted on the monitor. She has no complaints of chest pain and states that 'I never do.' BB crackles are noted BL. She does get dyspneic on exertion.
[2024-06-14] MEDS: VITAMIN B-12 1000 MCG PO (10:05)
[2024-06-14 10:51] LABS: Glycohemoglobin (HgbA1c) 7.7 % (4.0-5.6)
--- NOTE | 2024-06-14 11:14 | W.PN.CARDCBS ---
Addendum entered and electronically signed by Desmond Yu MD 06/14/24 12:37:
Short of breath with minimal movement, no discomfort
88-year-old woman with HFpEF, ischemic cardiomyopathy with improved EF, CAD and multivessel stenting, paroxysmal atrial fibrillation in sinus rhythm on amiodarone, CKD 4, hypertension, hyperlipidemia, diabetes admitted with acute on chronic HFpEF,
proBNP 15,200 and troponin of 3.05. Last EF 55-60% in December 2023, last PCI was an Ramon stent to the proximal/ostial LAD in November. 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
Amiodarone 200 mg a day, atorvastatin 80 mg a day, levothyroxine, metoprolol ER 25 twice daily, pantoprazole 40 mg a day, furosemide 40 mg IV daily, aspirin 81 mg a day, insulin, dapagliflozin 10 mg a day, trazodone 12.5 mg a day, vitamin B12,
Eliquis and Plavix are on hold given anemia, aspirin is new
105/50, pulse 69, resp rate 18, sats are 98%, intake and output is -2.3 L, weight is 72 kg, which is accurate is down 1.9 kg since admission and stable from yesterday, lungs are relatively clear, no acute distress sitting, head neck exam
unremarkable,
Hemoglobin is 8.2, which is stable, BUN and creatinine are 64 and 2.3, potassium is 4.9, troponin peaked at 17
Echo 06/13/2024: EF 40%, global hypo-, mild LVH, moderate MR, mild TR, pulmonary artery pressure 50-55 mmHg, prior EF was 55-60% in March 2024, MR and pulmonary artery pressure were similar
Sinus rhythm, consider inferolateral subendocardial injury, IMI, possible anterior SD
Impression:
See below
Plan:
Agree with findings, assessments and recommendations of Melody Monzon as below.
She is improved with regards to heart failure with mild reduced EF and moderate mitral regurgitation with pulmonary hypertension, but still symptomatic with minimal exertion, [place] [employer] class III/IV. Some of her dyspnea could relate
to anemia as well.
Will increase furosemide to 40 mg IV twice daily for the short-term in hopes of improving symptomatology. BILLY/ARB/spironolactone/ARNI contraindicated related to blood pressure and renal function. We could consider hydralazine and nitrates but
currently blood pressure is marginal so we will not attempt to add at this time.
Her CKD is stable. Follow closely given diuretic therapy
Regarding her non-ST segment elevation SD, strategy should remain conservative in light of patient preferences and multiple comorbidities. We will discuss with Dr. Seymour.
Regarding anemia, she is stable. Plavix and Eliquis have been stopped. She has been on Aranesp in the past and may need additional Aranesp. Ferritin level is high, probably little point to iron infusion. Would continue aspirin alone at this time.
She is in sinus rhythm on amiodarone, and is 8 months out from her last coronary intervention. Given anemia, stay off Plavix and Eliquis for the time being, continue aspirin.
Original Note:
Today's Communication / Plan
-
continue IV lasix
trend trop to peak
consider addition of hydralazine/nitrates
will discuss with primary transverse abdominal muscle surgeon, not ideal cath candidate
Impression / Plan
-
.
PCP: Dr. Cedeno
Strategic Planning Analyst: Dr. Goyo Seymour ([facility])
Impression:
Presented 06/12/2024 with SOB
NSTEMI
Acute on chronic HFprEF, 60409
Acute on chronic anemia
Elevated LFTs
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
CAD
s/p LAD & LCx BMS x2 in 2014
s/p distal LCx/OM VANGIE in 2021
s/p NSTEMI and 2.75 mm Dulce VANGIE to ostial/prox LAD 12/04/23
Paroxysmal Afib
Chronic Eliquis OAC
Chronic amiodarone therapy
CKD 4
Hyperlipidemia
DM 2
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
Echo 01/23/2022: EF 50 to 54%, moderate MR, mild MS with mean MV gradient 5 mmHg, mild to moderate TR with PAP 45 to 50 mmHg
Echo 12/04/2023: GVH study, EF 30%, LAD wall motion abnormality
Echo 12/09/2023: EF 50%, mild cLVH, mild mid to distal anteroseptal hypokinesis
Echo 04/04/2024: EF 55-60%, stage II diastolic dysfunction, moderate MR, mild TR with PAP 53 mmHg, no significant change compared to echo 12/2023
Cath 12/04/23: Successful PCI of the LAD with placement of a drug-eluting stent. Widely patent previously placed mid LAD stent and overlapping circumflex proper stents with known critical disease involving the jailed obtuse marginal branch and
chronically occluded distal left sided posterior descending artery.
Plan:
-She reports breathing is improving from admission, however remains with shortness of breath with any activity. She reports this is her anginal equivalent. She denies any former or current chest pain
-Continue IV Lasix. Creatinine stable at 2.3. Patient reports her baseline weight is 155 pounds
-Troponin up to 17.9. Trend to peak. She has known lateral T wave abnormality. At time of last admission earlier this year, case was reviewed with primary outpatient transverse abdominal muscle surgeon and it was felt there would be little clinical benefit to invasive
cath at that time given her anatomy and comorbidities including renal insufficiency.
-By echocardiogram this admission, EF newly reduced at 40%. results discussed with patient today
-continue OP toprol. not candidate for billy/arb/arni/aldactone given CKD. could consider addition of hydralazine/nitrates. farxiga was initiated this admission however placed on hold today as GFR<25 so contraindicated.
-continue asa. holding eliquis with acute on chronic anemia. hgb 8.2 on 06/14. iron studies noted, defer treatment to primary service. hemetest stools. she is followed by Dr. Pablo and gets procrit injections. She reports she has not had an injection
in several months as hemoglobin was above 10 at last outpatient evaluation
-with elevated LFTs, possibly secondary to passive congestion. follow with diuresis and as on amio and lipitor
-in SR. continue amiodarone 200mg daily
-Lipids 06/13/2024 TC 126, HDL 53, LDL 58, triglycerides 76. Continue high-dose atorvastatin
-d/w nursing
HPI 06/13/2024:
Fide is an 88 year old female with PMH of chronic HFpEF, recovered cardiomyopathy, CAD w/ multivessel stenting, paroxysmal atrial fibrillation on chronic Eliquis and amiodarone, CKD 4, HLD, DM2, and L eye blindness. She presented to [facility] with
shortness of breath for several days. Patient notes she developed shortness of breath with less and less activity and now unable to walk 5 to 10 feet without having to stop. She denied chest pain but denies she has never had chest pain with prior
stenting. EKG showed sinus rhythm with first-degree AV block and more pronounced ST-T wave abnormality in lateral leads. Initial troponin 1.69 however upward trending currently 3.05. proBNP 15,200. Patient was provided 324 mg of aspirin and 40
mg of IV Lasix in emergency department.
Patient reports she has chronic anemia and sees Dr. Pablo for which she gets Procrit injections. She reports she has not had an injection in several months as hemoglobin was above 10 at last outpatient evaluation
Progress Note - Strategic Planning Analyst
Subjective
Date of Service: June 14, 2024
denies CP. reports breathing improving however still noticeable with minimal exertion
Objective
Labs:
06/14/24 02:57
06/14/24 02:57
Labs
Hgb 8.2 g/dL (12.0-16.0) L 06/14/24 02:57
Hct 24.9 % (37.0-47.0) L 06/14/24 02:57
Plt Count 187 10^3/uL (130-400) 06/14/24 02:57
Sodium 137 mmol/L (135-145) 06/14/24 02:57
Potassium 4.9 mmol/L (3.5-5.1) 06/14/24 02:57
BUN 64 mg/dl (7-17) H 06/14/24 02:57
Creatinine 2.3 mg/dL (0.6-1.0) H 06/14/24 02:57
Glucose 156 mg/dl (70-99) H 06/14/24 02:57
Troponins
06/13/24 06/13/24 06/13/24
00:41 05:57 12:16
Troponin I 1.690 H* 3.050 H* D 7.950 H* D
06/13/24 06/14/24 06/14/24
17:41 02:57 09:06
Troponin I 11.400 H* D 17.200 H* 17.900 H*
Vital Signs and I&O:
Vital Signs
Temp Pulse Resp BP Pulse Ox
97.5 F 69 18 105/50 98
06/14/24 07:41 06/14/24 07:56 06/14/24 07:41 06/14/24 07:56 06/14/24 08:00
Vital Signs
Temp Pulse Resp BP Pulse Ox
97.5 F 69 18 105/50 98
06/14/24 07:41 06/14/24 07:56 06/14/24 07:41 06/14/24 07:56 06/14/24 08:00
Intake & Output
06/12/24 06/13/24 06/14/24 06/15/24
07:59 07:59 07:59 07:59
Intake Total 120 / 120
Output Total 450 / 450 2450 / 2450
Balance -450 / -450 -2330 / -2330
Physical Exam
Physical Exam
GEN: No distress, awake, alert, oriented x3
HEENT: supple, anicteric, mmm, eomi
LUNGS: CTA B/L anterolaterally, no wheezes
CV: Reg, S1/S2, no murmur
ABD: soft, BS+, NT/ND
EXT: No cyanosis, clubbing. trace edema of B/L LE
NEURO: Gross non-focal
SKIN: Warm, pink, dry. No rash
[2024-06-14 12:33] LABS: Glucose - Point of Care 298 mg/dl (70-99)
--- NOTE | 2024-06-14 13:13 | W.PN.HOSP.TC ---
Today's Communication/Plan
-
Monitor vital signs see plan
Heme test stool
Monitor hemoglobin, if continues to be low then will need hematology evaluation
Continue with IV diuresis
PT/OT
Assessment / Plan
Assessment / Plan
General: Other (88y F in no acute distress.)
HEENT: Moist mucous membranes, PERRLA and Other (Neck supple.)
Respiratory: Other (+rales. No wheeze.)
Cardiac: S1/S2 and Regular Rhythm; No Murmur
GI: Soft, Non Tender, Non Distended and Normal Bowel Sounds
Musculoskeletal:No Edema
Neuro: AO x 3
NSTEMI
ASCVD
- Initial EKG with ST changes diffusely concerning for active ischemia.
No chest pain at any point. not an ideal cath candidate
- Continue beta-blockade, statin, etc.
- Follow for any new / worsening symptoms.
Cardiology following
- Will hold Eliquis for now
Consider hydralazine and nitrates if blood pressure tolerates
Acute on Chronic CHF, now with reduced EF
Acute Hypoxemic Respiratory Failure secondary to the above
- Suspect HF exacerbation secondary to NSTEMI as noted above.
- Continue IV Lasix and follow I/Os, daily weights, etc.
- Echo this admission with EF 40%
- Follow for continued clinical improvement.
- Cardiology evaluation as noted above
cw IV diuresis
Paroxysmal Atrial Fibrillation
- Currently in NSR / 1st degree AV block.
- Continue metoprolol, amio, etc as noted above.
Anticoagulation per cardiology
Acute on Chronic Normocytic Anemia
- Patient with Hgb = 8.8 compared to prior baseline of 11-12.
- No noted blood loss. heme test stool
- Patient reports chronic anemia followed by Dominique Pablo
- Receives Procrit +/- IV iron as needed. Last about one month ago.
If hemoglobin does not improve then will need hematology evaluation
off eliquis
ferritin high
- Consent on chart.
CKD IV
- Stable. Renal function at / near known baseline.
- Follow for changes with IV diuresis.
- Baseline appears to be around 2.2.
DM-II
- Stable. Continue basal : bolus insulin regimen with decreased doses while NPO.
- Follow glucose and cover with SSI as needed.
- A1C 7.7
Hypothyroidism
- Stable. Continue current T4 supplementation.
DVT Prophylaxis:SCD's
Code Status: DNR
I spent a total of 52 minutes with the patient or on the floor. More than 50% of this time involved counseling and coordination of care.
Anticipated Discharge: 24 - 48 hours
Subjective/Interval History
-
Date of Service: June 14, 2024
Short of breath
Objective Data
-
Labs:
Laboratory Results
06/14/24
02:57
WBC 10.0
Hgb 8.2 L
Hct 24.9 L
Plt Count 187
Sodium 137
Potassium 4.9
Chloride 98
Carbon Dioxide 28
BUN 64 H
Creatinine 2.3 H
Glucose 156 H
Calcium 8.7
Total Bilirubin 1.4 H
AST 91 H
ALT 70 H
Alkaline Phosphatase 73
Vital Signs:
Vital Signs
Temp Pulse Resp BP Pulse Ox
97.6 F 69 18 105/50 97
06/14/24 12:34 06/14/24 07:56 06/14/24 12:34 06/14/24 07:56 06/14/24 12:34
I&O
06/13/24 06/14/24 06/15/24
06:59 06:59 06:59
Intake Total 120 / 120
Output Total 450 / 450 2200 / 2200 250 / 250
Balance -450 / -450 -2079 / -2079 -250 / -250
[2024-06-14] MEDS: NOVOLOG FLEXPEN-LOW RESISTANCE 3 UNITS SC ×2 (13:30→17:33)
--- NOTE | 2024-06-14 14:25 | W.PN.UPDATE ---
Update Note
Progress Note Update
Discussed with patient's primary medical records director. Then discussed with patient and daughter at bedside. Reviewed options of repeat cardiac catheterization, which would be high risk given known significant coronary anatomy as well as chronic renal
insufficiency and anemia, versus medical therapy. Patient reports she is leaning towards medical therapy, however would like to speak with Dr. Seymour in a.m. prior to making final decision. Will make n.p.o. after midnight pending patient decision.
If she would opt to move forward with cath, would plan for transfusion prior. Daughter reports she will support what ever patient decides.
--- NOTE | 2024-06-14 14:38 | PTCARENOTE ---
Patient had a small formed BM that was Heme negative.
[2024-06-14 17:32] LABS: Glucose - Point of Care 273 mg/dl (70-99)
[2024-06-14 18:18] LABS: Transferrin 176 mg/dL (200-360)
[2024-06-14] MEDS: FLUSH (NSS) 1 FLUSH IV (20:35)
--- NOTE | 2024-06-14 21:11 | PTCARENOTE ---
Received patient at change of shift. A&Ox3. Vitals stable. Pt verbalized understanding being NPO @ midnight. Discussed plan of care. Pt verbalized understanding. Call bejarano within reach.
--- NOTE | 2024-06-14 21:12 | PTCARENOTE ---
BP 101/50-- pt due to receive 40 mg IV Lasix and 25 mg Toprol. Informed Juan Jose Jarrett NP. Advised to give Lasix now, hold Toprol and reevaluate BP in an hour or two-- see JUN.
[2024-06-14 21:23] LABS: Glucose - Point of Care 318 mg/dl (70-99)
[2024-06-14] MEDS: LIPITOR 80 MG PO (22:42)
[2024-06-14] MEDS: DESYREL 12.5 MG PO (22:42)
[2024-06-15] VITALS (13 sets, daily range): BP systolic 108–124; BP diastolic 41–88; PULSE 73–81; O2SAT 98; BMI 32.1
[2024-06-15 04:45] LABS: % Basophils 0.7 % (0-2); % Immature Granulocytes 0.4 % (0-0.5); % Lymphocytes 17.7 % (20.5-51.1); % Monocytes 10.6 % (1.7-9.3); % Neutrophils 67.6 % (42.2-75.2); Absolute Basophils 0.1 10^3/uL (0-0.2); Absolute Eosinophils 0.2 10^3/uL (0-0.7); Absolute Lymphocytes 1.2 10^3/uL (1.2-3.4); Absolute Monocytes 0.7 10^3/uL (0.1-0.6); Absolute Neutrophils 4.5 10^3/uL (1.4-6.5); Hematocrit 22.6 % (37.0-47.0); Hemoglobin 7.5 g/dL (12.0-16.0); Mean Corp Hgb Conc. 33.2 g/dL (33.0-37.0); Mean Corpuscular Hgb 30.1 pg (27.0-31.0); Mean Corpuscular Volume 90.8 fL (81.0-99.0); Mean Platelet Volume 11.4 fL (7.4-10.4); Nucleated Red Blood Cells % 0 %; Platelet Count 185 10^3/uL (130-400); Red Blood Cell Count 2.49 10^6/uL (4.20-5.40); Red Cell Dist. Width 14.6 % (11.5-14.5); White Blood Cell Count 6.7 10^3/uL (4.8-10.8)
[2024-06-15 05:13] LABS: ALT (SGPT) 54 U/L (0-35); AST (SGOT) 59 U/L (14-36); Albumin 3.3 g/dl (3.5-5.0); Alkaline Phosphatase 101 U/L (38-126); Blood Urea Nitrogen 80 mg/dl (7-17); Calcium 8.5 mg/dl (8.4-10.2); Carbon Dioxide 28 mmol/L (22-30); Chloride 96 mmol/L (98-107); Estimated Creatinine Clearance 12 ml/min; Glucose 267 mg/dl (70-99); Sodium 133 mmol/L (135-145); Total Bilirubin 0.9 mg/dl (0.2-1.3); Total Protein 5.6 g/dl (6.3-8.2); eGFR 15.95
[2024-06-15] MEDS: SYNTHROID PO (05:44)
[2024-06-15] MEDS: VITAMIN B-12 1000 MCG PO (07:26)
[2024-06-15] MEDS: PROTONIX 40 MG PO (07:26)
[2024-06-15] MEDS: LOW STRENGTH ASPIRIN 81 MG PO (07:26)
[2024-06-15 07:27] LABS: Glucose - Point of Care 281 mg/dl (70-99)
[2024-06-15] MEDS: TOPROL XL 25 MG PO ×2 (07:27→19:33)
[2024-06-15] MEDS: LASIX 40 MG IV (07:27)
[2024-06-15] MEDS: PACERONE 200 MG PO (07:27)
--- NOTE | 2024-06-15 07:46 | W.PN.CARDCBS ---
Addendum entered and electronically signed by Shailesh Carrasco MD 06/15/24 13:52:
I saw and examined the patient.
The Vocational Training Teacher's note was reviewed and I agree with the note.
Comment: Briefly, 88-year-old woman past medical history of multivessel CAD and ischemic cardiomyopathy presenting with worsening dyspnea on exertion and elevated troponin concerning for NSTEMI and acute decompensated heart failure
Patient received IV diuretics but with rising creatinine plan is to hold on further diuresis for now
Unfortunately this did not significantly improve her dyspnea on exertion
Echo here with decline in LVEF to 40%, previously normal at 55 to 60%
GDMT is limited due to renal insufficiency
Continue metoprolol
Will also add hydralazine for afterload reduction if blood pressure can tolerate
With rise and fall of troponin peaking around 18 the concern is that her dyspnea exertion may be an anginal equivalent
Continue beta-lay
Will add Imdur as additional antianginal
Discussed with primary cable testers helper and he will meet with the patient and discuss the possibility of coronary angiography, but no plan for left heart cath with rising creatinine today
Rest per Melody Monzon
Original Note:
Today's Communication / Plan
-
Await discussion with primary cable testers helper
Repeat catheterization would be high risk, discussed with patient 06/14 and 06/15
Holding Lasix with bump in creatinine to 2.8
consider addition of imdur
Consider transfusion, defer to primary service. Eliquis on hold
Impression / Plan
-
.
PCP: Dr. Cedeno
Aircraft Mechanic Electrical And Radio: Dr. Goyo Seymour ([facility])
Impression:
Presented 06/12/2024 with SOB
NSTEMI
Acute on chronic HFprEF, 97918
Acute on chronic anemia
Elevated LFTs
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
CAD
s/p LAD & LCx BMS x2 in 2014
s/p distal LCx/OM VANGIE in 2021
s/p NSTEMI and 2.75 mm Ramon VANGIE to ostial/prox LAD 12/04/23
Paroxysmal Afib
Chronic Eliquis OAC
Chronic amiodarone therapy
CKD 4
Hyperlipidemia
DM 2
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
Echo 01/23/2022: EF 50 to 54%, moderate MR, mild MS with mean MV gradient 5 mmHg, mild to moderate TR with PAP 45 to 50 mmHg
Echo 12/04/2023: GVH study, EF 30%, LAD wall motion abnormality
Echo 12/09/2023: EF 50%, mild cLVH, mild mid to distal anteroseptal hypokinesis
Echo 04/04/2024: EF 55-60%, stage II diastolic dysfunction, moderate MR, mild TR with PAP 53 mmHg, no significant change compared to echo 12/2023
Cath 12/04/23: Successful PCI of the LAD with placement of a drug-eluting stent. Widely patent previously placed mid LAD stent and overlapping circumflex proper stents with known critical disease involving the jailed obtuse marginal branch and
chronically occluded distal left sided posterior descending artery.
Plan:
-presented with SOB, with acute CHF. SOB also patient's anginal equivalent. Patient reports her baseline weight is 155 pounds at home, 158 pounds today if accurate.
-ruled in for NSTEMI with trop of 17.9 and trending down. no CP. She has known lateral T wave abnormality. By echocardiogram this admission, EF newly reduced at 40%. At time of last admission earlier this year, case was reviewed with primary
outpatient cable testers helper and it was felt there would be little clinical benefit to invasive cath at that time given her anatomy and comorbidities including renal insufficiency. She would like to discuss options with patient's primary cable testers helper,
who will come by to talk to her today. She is NPO for now at her request, however it appears that medical therapy appears most appropriate at this time
-discussed with patient this AM that Cr up to 2.8. IV lasix placed on hold. discussed that this bump in Cr puts her at higher of ATN post cath.
-continue OP toprol. not candidate for marni/arb/arni/aldactone given CKD. consider addition of imdur, and possibly hydralazine. farxiga was initiated this admission however placed on hold today as GFR<25 so contraindicated.
-continue asa. holding eliquis with acute on chronic anemia. iron studies noted, defer treatment to primary service. hemetest stools. she is followed by Dr. Pablo and gets procrit injections. She reports she has not had an injection in several
months as hemoglobin was above 10 at last outpatient evaluation. hgb down to 7.5, would consider transfusion today. ferritin high.
-with elevated LFTs, possibly secondary to passive congestion, downtrending. follow with diuresis and as on amio and lipitor
-in SR. continue amiodarone 200mg daily
-Lipids 06/13/2024 TC 126, HDL 53, LDL 58, triglycerides 76. Continue high-dose atorvastatin
-d/w hospitalist via TT
HPI 06/13/2024:
Fide is an 88 year old female with PMH of chronic HFpEF, recovered cardiomyopathy, CAD w/ multivessel stenting, paroxysmal atrial fibrillation on chronic Eliquis and amiodarone, CKD 4, HLD, DM2, and L eye blindness. She presented to [facility] with
shortness of breath for several days. Patient notes she developed shortness of breath with less and less activity and now unable to walk 5 to 10 feet without having to stop. She denied chest pain but denies she has never had chest pain with prior
stenting. EKG showed sinus rhythm with first-degree AV block and more pronounced ST-T wave abnormality in lateral leads. Initial troponin 1.69 however upward trending currently 3.05. proBNP 15,200. Patient was provided 324 mg of aspirin and 40
mg of IV Lasix in emergency department.
Patient reports she has chronic anemia and sees Dr. Pablo for which she gets Procrit injections. She reports she has not had an injection in several months as hemoglobin was above 10 at last outpatient evaluation
Progress Note - Aircraft Mechanic Electrical And Radio
Subjective
Date of Service: June 15, 2024
No chest pain. Continues with some shortness of breath with exertion
Objective
Labs:
06/15/24 03:52
06/15/24 03:52
Labs
Hgb 7.5 g/dL (12.0-16.0) L 06/15/24 03:52
Hct 22.6 % (37.0-47.0) L 06/15/24 03:52
Plt Count 185 10^3/uL (130-400) 06/15/24 03:52
Sodium 133 mmol/L (135-145) L 06/15/24 03:52
Potassium 5.0 mmol/L (3.5-5.1) 06/15/24 03:52
BUN 80 mg/dl (7-17) H 06/15/24 03:52
Creatinine 2.8 mg/dL (0.6-1.0) H 06/15/24 03:52
Glucose 267 mg/dl (70-99) H 06/15/24 03:52
Troponins
06/13/24 06/13/24 06/13/24
00:41 05:57 12:16
Troponin I 1.690 H* 3.050 H* D 7.950 H* D
06/13/24 06/14/24 06/14/24
17:41 02:57 09:06
Troponin I 11.400 H* D 17.200 H* 17.900 H*
06/15/24
03:52
Troponin I 9.930 H*
Vital Signs and I&O:
Vital Signs
Temp Pulse Resp BP Pulse Ox
98.2 F 70 18 122/72 98
06/15/24 03:47 06/15/24 07:27 06/15/24 03:47 06/15/24 07:27 06/15/24 03:47
Vital Signs
Temp Pulse Resp BP Pulse Ox
98.2 F 70 18 122/72 98
06/15/24 03:47 06/15/24 07:27 06/15/24 03:47 06/15/24 07:27 06/15/24 03:47
Intake & Output
06/12/24 06/13/24 06/14/24 06/15/24
07:59 07:59 07:59 07:59
Intake Total 120 / 120 180 / 180
Output Total 450 / 450 2450 / 2450 350 / 350
Balance -450 / -450 -2330 / -2330 -170 / -170
Physical Exam
Physical Exam
GEN: No distress, awake, alert, oriented x3
HEENT: supple, anicteric, mmm. L eye blindness
LUNGS: CTA B/L anterolaterally, no wheezes
CV: Reg, S1/S2, no murmur
ABD: soft, BS+, NT/ND
EXT: No cyanosis, clubbing. trace edema of B/L LE
NEURO: Gross non-focal
SKIN: Warm, pink, dry. No rash
[2024-06-15] MEDS: NOVOLOG FLEXPEN-LOW RESISTANCE SC (08:36)
[2024-06-15] MEDS: LANTUS 0.14 UNITS SC (09:16)
[2024-06-15] MEDS: IMDUR (EXTENDED RELEASE) 30 MG PO (10:13)
--- NOTE | 2024-06-15 13:07 | W.PN.HOSP.TC ---
Today's Communication/Plan
-
Monitor vital signs see plan
Hold Lasix
Monitor renal function
Hematology evaluation
Give 1 unit PRBC and monitor
Increase Lantus, add mealtime insulin
Assessment / Plan
Assessment / Plan
General: Other (88y F in no acute distress.)
HEENT: Moist mucous membranes, PERRLA and Other (Neck supple.)
Respiratory: Other (+rales. No wheeze.)
Cardiac: S1/S2 and Regular Rhythm; No Murmur
GI: Soft, Non Tender, Non Distended and Normal Bowel Sounds
Musculoskeletal:No Edema
Neuro: AO x 3
NSTEMI
ASCVD
- Initial EKG with ST changes diffusely concerning for active ischemia.
No chest pain at any point. not an ideal cath candidate
- Continue beta-blockade, statin, etc.
- Follow for any new / worsening symptoms.
Cardiology following
- Will hold Eliquis for now
Consider hydralazine and nitrates if blood pressure tolerates
Acute on Chronic CHF, now with reduced EF
Acute Hypoxemic Respiratory Failure secondary to the above
- Suspect HF exacerbation secondary to NSTEMI as noted above.
- Echo this admission with EF 40%
- Follow for continued clinical improvement.
- Cardiology evaluation as noted above
Hold IV Lasix given SIMI
Cardiology evaluation ongoing if need ischemic evaluation
Paroxysmal Atrial Fibrillation
- Currently in NSR / 1st degree AV block.
- Continue metoprolol, amio, etc as noted above.
Anticoagulation per cardiology
Acute on Chronic Normocytic Anemia
- Patient with Hgb = 7.5 compared to prior baseline of 11-12.
- No noted blood loss. heme test stool
- Patient reports chronic anemia followed by Heme Dr Pablo
Discussed with Dr. Victoria from hematology, give 1 unit PRBC and monitor. Hematology evaluation
- Receives Procrit +/- IV iron as needed. Last about one month ago.
off eliquis
ferritin high
- Consent on chart.
Hyponatremia
Monitor
SIMI on CKD IV
- Stable. Renal function at / near known baseline.
- Follow for changes with IV diuresis.
- Baseline appears to be around 2.2.; cr now 2.8
DM-II
- Stable. Increase Lantus, start mealtime insulin
- Follow glucose and cover with SSI as needed.
- A1C 7.7
Hypothyroidism
- Stable. Continue current T4 supplementation.
DVT Prophylaxis:SCD's
Code Status: DNR
I spent a total of 53 minutes with the patient or on the floor. More than 50% of this time involved counseling and coordination of care.
Anticipated Discharge: > 48 hours
Subjective/Interval History
-
Date of Service: June 15, 2024
denies pain
Objective Data
-
Labs:
Laboratory Results
06/15/24
03:52
WBC 6.7
Hgb 7.5 L
Hct 22.6 L
Plt Count 185
Sodium 133 L
Potassium 5.0
Chloride 96 L
Carbon Dioxide 28
BUN 80 H
Creatinine 2.8 H
Glucose 267 H
Calcium 8.5
Total Bilirubin 0.9
AST 59 H
ALT 54 H
Alkaline Phosphatase 101
Vital Signs:
Vital Signs
Temp Pulse Resp BP Pulse Ox
97.4 F 72 17 108/41 100
06/15/24 11:00 06/15/24 12:00 06/15/24 11:00 06/15/24 11:53 06/15/24 08:21
I&O
06/14/24 06/15/24 06/16/24
06:59 06:59 06:59
Intake Total 120 / 120 180 / 180
Output Total 0 / 2199 600 / 600
Balance -2079 / -2079 -420 / -420
--- NOTE | 2024-06-15 13:09 | CM ---
Addendum entered by HENRY Mar 06/15/24 15:58:
Attempted to meet w patient at bedside to review PT recommendation for home health. Pt. sleeping. Will meet w/ patient on 06/16.
Original Note:
CM following for DC planning needs.
Met w/ patient and niece, Evelin at bedside.
Pt. reports that he is feeling well.
We reviewed initial assessment. Pt. resides alone in a private, 2 story home w/ 2 ANSON.
Functionally, patient is indep. at baseline w/ ADLs, mobility without the use of any assisted device. Pt. does have a RW avail, if needed.
We discussed possibility of SNF v VN, based on progress w/ PT.
Noted PT evaluation, 06/15 with recommendation for home health. Pt. has use [facility] VN in the past.
Will cont. to follow.
[2024-06-15 13:27] LABS: Glucose - Point of Care 469 mg/dl (70-99)
[2024-06-15 14:01] LABS: Glucose 436 mg/dl (70-99)
[2024-06-15] MEDS: NOVOLOG FLEXPEN 5 UNITS SC (14:20)
[2024-06-15] MEDS: NOVOLOG FLEXPEN-LOW RESISTANCE 6 UNITS SC (14:20)
[2024-06-15 16:34] LABS: Glucose - Point of Care 307 mg/dl (70-99)
[2024-06-15] MEDS: NOVOLOG FLEXPEN-LOW RESISTANCE 4 UNITS SC (17:02)
--- NOTE | 2024-06-15 17:20 | HOSPNOTE ---
Hospice referral received. Will meet/speak to patient and offer/explain hospice tomorrow morning. More information to follow.
--- NOTE | 2024-06-15 20:36 | PTCARENOTE ---
Patient received at change of shift sitting at the edge of the bed. Patient endorses dyspnea on exertion and feeling lightheaded at times but states she overall feels better after receiving one unit of PRBCs today. Oxygen saturation 96-98% on room
air. Sinus rhythm on telemetry with a BBB. No complaints of pain. Plan of care discussed. Call bejarano within reach. Care ongoing.
[2024-06-15 21:18] LABS: Glucose - Point of Care 273 mg/dl (70-99)
[2024-06-15] MEDS: LIPITOR 80 MG PO (22:36)
[2024-06-15] MEDS: DESYREL 12.5 MG PO (22:36)
[2024-06-16] VITALS (8 sets, daily range): BP systolic 93–132; BP diastolic 46–72; BMI 32.0
[2024-06-16 04:24] LABS: ALT (SGPT) 44 U/L (0-35); AST (SGOT) 45 U/L (14-36); Albumin 3.5 g/dl (3.5-5.0); Alkaline Phosphatase 117 U/L (38-126); Blood Urea Nitrogen 85 mg/dl (7-17); Calcium 8.6 mg/dl (8.4-10.2); Carbon Dioxide 29 mmol/L (22-30); Chloride 95 mmol/L (98-107); Estimated Creatinine Clearance 13 ml/min; Glucose 211 mg/dl (70-99); Potassium 4.6 mmol/L (3.5-5.1); Sodium 133 mmol/L (135-145); Total Bilirubin 0.8 mg/dl (0.2-1.3); Total Protein 6.1 g/dl (6.3-8.2); eGFR 16.66
[2024-06-16] MEDS: SYNTHROID 125 MCG PO (04:54)
[2024-06-16 05:03] LABS: % Basophils 0.4 % (0-2); % Eosinophils 3.1 % (0-6); % Immature Granulocytes 0.4 % (0-0.5); % Lymphocytes 18.5 % (20.5-51.1); % Monocytes 8.9 % (1.7-9.3); % Neutrophils 68.7 % (42.2-75.2); Absolute Eosinophils 0.3 10^3/uL (0-0.7); Absolute Lymphocytes 1.7 10^3/uL (1.2-3.4); Absolute Monocytes 0.8 10^3/uL (0.1-0.6); Absolute Neutrophils 6.5 10^3/uL (1.4-6.5); Hemoglobin 9.5 g/dL (12.0-16.0); Mean Corp Hgb Conc. 33.9 g/dL (33.0-37.0); Mean Corpuscular Hgb 30.5 pg (27.0-31.0); Mean Platelet Volume 11.7 fL (7.4-10.4); Nucleated Red Blood Cells % 0 %; Platelet Count 209 10^3/uL (130-400); Red Blood Cell Count 3.11 10^6/uL (4.20-5.40); Red Cell Dist. Width 14.7 % (11.5-14.5); White Blood Cell Count 9.4 10^3/uL (4.8-10.8)
[2024-06-16 07:45] LABS: Glucose - Point of Care 244 mg/dl (70-99)
--- NOTE | 2024-06-16 08:25 | CON.ONC ---
Impression
Impression
Acute/chronic anemia of chronic kidney disease on intermittent outpatient Retacrit
Non-STEMI and CHF exacerbation
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
Paroxysmal atrial fibrillation, Eliquis anticoagulation on hold
Plan
Plan
Transfuse as you are doing to maintain Hgb ~ >8 or higher while inpatient with active ischemic cardiac disease who unfortunately is not eligible for GDMT or cardiac catheterization with worsening renal insufficiency.
Hgb improved from 7.5-9.5 with 1 unit yesterday. This is a good response.
Typically we do not necessarily continue inpatient Retacrit; we utilize transfusions when needed.
Reviewed with the cardiology team. Cardiac management per cardiology.
Patient History
History of Present Illness
CC: Dyspnea, ST elevation, elevated troponin
Hematology consultation: Anemia chronic kidney disease on outpatient Retacrit
HPI:
88-year-old woman past medical history of multivessel CAD and ischemic cardiomyopathy presenting with worsening dyspnea on exertion and elevated troponin concerning for NSTEMI and acute decompensated heart failure. Patient has anemia secondary to
chronic kidney disease and is on outpatient Retacrit. Her last treatment was on 02/23/2024. Her March treatment was held for Hgb = 12.1. Current Hgb harinder yesterday = 7.5 prompting cardiology to recommend PRBC transfusion and hematology
consultation. Posttransfusion Hgb = 9.5. They are concerned that her cardiac ischemia is being exacerbated by her anemia.
She remains dyspneic on exertion. Creatinine = 2.7 is limiting her ability to get cardiac catheterization and GDMT safely. Patient follows closely with Dr. Goyo Seymour (her primary magnetizer) and he will meet with the patient and discuss the
possibility of coronary angiography, but no plan for left heart cath with rising creatinine. No obvious bleeding. Eliquis anticoagulation on hold.
Past-Medical/Surgical History
PMH:
CAD
HFpEF now HFrEF/
NSTEMI
Anemia of CKD
Elevated LFTs
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
Paroxysmal Afib
Chronic Eliquis OAC - ON HOLD
Chronic amiodarone therapy
CKD 4
Hyperlipidemia
DM 2
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
SH
Patient denies ever using tobacco.
Denies any prior alcohol use. The patient is a retired nurse. Patient has not had any occupational exposure.
Marital Status: Patient is
Patient Medication
�Medication �Instructions �Recorded �Confirmed �Last Taken �Type
albuterol sulfate 90 mcg/actuation 2 puff inhalation R Q4HPRN PRN sob 12/23/18 06/13/24 12/04/23 08:00 History
aerosol inhaler
atorvastatin 80 mg tablet 80 mg PO HS High cholesterol 12/23/18 06/13/24 12/03/23 21:00 History
insulin glargine 100 unit/mL (3 24 units SC DAILY Diabetes 12/23/18 06/13/24 12/04/23 08:51 History
mL) subcutaneous pen (Lantus
Solostar U-100 Insulin)
levothyroxine 125 mcg tablet 125 mcg PO DAILY Thyroid 12/23/18 06/13/24 12/04/23 09:00 History
melatonin 1 mg tablet 5 mg PO HSPRN PRN insomnia 12/23/18 06/13/24 2 Months Ago History
~11/22/21
pantoprazole 40 mg tablet,delayed 40 mg PO DAILY #90 tabs 01/23/22 06/13/24 Unknown Rx
release (Protonix)
apixaban 2.5 mg tablet (Eliquis) 2.5 mg PO BID Blood Clot 12/05/23 06/13/24 12/03/23 08:00 History
Prevention/Tx
insulin aspart U-100 100 unit/mL 10 unit (0.1 mL) SC AC #5 ea 12/12/23 06/13/24 Unknown Rx
(3 mL) subcutaneous pen (Novolog
FlexPen U-100 Insulin aspart)
amiodarone 200 mg tablet 200 mg PO DAILY Heart 04/04/24 06/13/24 Unknown History
Disease/Condition
metoprolol succinate 25 mg 25 mg PO BID Heart 04/04/24 06/13/24 Unknown History
tablet,extended release 24 hr Disease/Condition
calcitriol 0.25 mcg capsule 0.25 mcg PO MUST ENTER TIMES 06/13/24 06/13/24 Unknown History
Supplement
epoetin yolie 4,000 unit/mL 4,000 unit Kidney Disease 06/13/24 Unknown History
injection solution
furosemide 20 mg tablet 40 mg PO DAILY Fluid 06/13/24 06/13/24 Unknown History
Retention/Swelling
Active Medications
Generic Name Dose Route Start Last Admin
Trade Name Freq PRN Reason Stop Dose Admin
Acetaminophen 650 mg 06/13/24 05:45
Acetaminophen 325 Mg Tablet PO 07/11/24 05:44
Q4HPRN PRN
Mild Pain / Temp > 101
Albuterol Sulfate 2.5 mg 06/13/24 05:45
Albuterol Nebs 2.5 Mg/3 Ml Ampul INH
R Q4HPRN PRN
SOB
Protocol
Amiodarone HCl 200 mg 06/13/24 08:00 06/15/24 07:27
Amiodarone 200 Mg Tablet PO 07/11/24 07:59 200 mg
DAILY STANLEY Administration
Aspirin 81 mg 06/13/24 08:00 06/15/24 07:26
Aspirin 81 Mg Chewable Tablet PO 07/11/24 07:59 81 mg
DAILY STANLEY Administration
Atorvastatin Calcium 80 mg 06/13/24 22:00 06/15/24 22:36
Atorvastatin (Lipitor) 80 Mg Tablet PO 07/11/24 21:59 80 mg
HS STANLEY Administration
Calcitriol 0.25 mcg 06/13/24 08:00 06/13/24 08:22
Calcitriol 0.25 Microgram Capsule PO 07/11/24 07:59 0.25 mcg
MOTH STANLEY Administration
Cyanocobalamin 1,000 mcg 06/14/24 10:00 06/15/24 07:26
Cyanocobalamin 1,000 Mcg Tablet PO 07/12/24 09:59 1,000 mcg
DAILY STANLEY Administration
Dapagliflozin 10 mg 06/13/24 11:15 06/14/24 07:56
Dapagliflozin (Farxiga) 10 Mg Tablet PO 07/11/24 11:14 10 mg
DAILY STANLEY Administration
Dextrose 12.5 grams 06/14/24 09:09
Dextrose 50% (0.5 Grams/Ml) 50 Ml Syringe IV 07/12/24 09:08
[id number] PRN
hypoglycemia
Protocol
Dextrose 12.5 grams 06/15/24 13:12
Dextrose 50% (0.5 Grams/Ml) 50 Ml Syringe IV 07/13/24 13:11
[id number] PRN
hypoglycemia
Protocol
Glucagon 1 mg 06/14/24 09:09
Glucagon 1 Mg Vial IM 07/12/24 09:08
PRN PRN
hypoglycemia
Protocol
Glucagon 1 mg 06/15/24 13:12
Glucagon 1 Mg Vial IM 07/13/24 13:11
PRN PRN
hypoglycemia
Protocol
Insulin Glargine 18 units/ 0.18 mls @ 0 mls/hr 06/15/24 13:11
Device SC 07/11/24 07:59
DAILY STANLEY
As Directed
Insulin Aspart 0 units 06/14/24 11:30 06/15/24 17:02
Insulin Aspart Low Resistance 300 Units/3 Ml Pen.Injctr SC 07/12/24 11:29 4 units
AC STANLEY Administration
Protocol
Insulin Aspart 5 units 06/15/24 16:30 06/15/24 14:20
Insulin Aspart (100 Units/Ml) 3 Ml Flexpen SC 07/13/24 16:29 5 units
AC STANLEY Administration
Isosorbide Mononitrate 30 mg 06/15/24 10:00 06/15/24 10:13
Isosorbide Mononitrate 30 Mg Extended Release Tablet PO 07/13/24 09:59 30 mg
DAILY STANLEY Administration
Levothyroxine Sodium 125 mcg 06/13/24 06:00 06/16/24 04:54
Levothyroxine 125 Mcg Tablet PO 07/11/24 05:59 125 mcg
DAILY@0600 STANLEY Administration
Metoprolol Succinate 25 mg 06/13/24 08:00 06/15/24 19:33
Metoprolol 25 Mg Extended Release Tablet PO 07/11/24 07:59 25 mg
BID STANLEY Administration
Morphine Sulfate 2 mg 06/13/24 05:45
Morphine 2 Mg/Ml Syringe IV 06/27/24 05:44
Q4HPRN PRN
Severe Pain
Pantoprazole Sodium 40 mg 06/13/24 08:00 06/15/24 07:26
Pantoprazole 40 Mg Delayed Release Tablet PO 07/11/24 07:59 40 mg
DAILY STANLEY Administration
Sodium Chloride 0 flush 06/13/24 06:00 06/14/24 20:35
Sodium Chloride 0.9% (Flush) Syringe IV 07/11/24 05:59 1 flush
PER PROTOCOL STANLEY Administration
Trazodone HCl 12.5 mg 06/13/24 22:00 06/15/24 22:36
Trazodone 50 Mg Tablet PO 07/11/24 21:59 12.5 mg
HS STANLEY Administration
Physical Exam
Labs
Lab Results
WBC 9.4 10^3/uL (4.8-10.8) 06/16/24 03:23
RBC 3.11 10^6/uL (4.20-5.40) L 06/16/24 03:23
Hgb 9.5 g/dL (12.0-16.0) L D 06/16/24 03:23
Hct 28.0 % (37.0-47.0) L 06/16/24 03:23
MCV 90.0 fL (81.0-99.0) 06/16/24 03:23
MCH 30.5 pg (27.0-31.0) 06/16/24 03:23
MCHC 33.9 g/dL (33.0-37.0) 06/16/24 03:23
RDW 14.7 % (11.5-14.5) H 06/16/24 03:23
Plt Count 209 10^3/uL (130-400) 06/16/24 03:23
MPV 11.7 fL (7.4-10.4) H 06/16/24 03:23
Abs Immat Gran (auto) 0.0 10^3/uL (0-0.05) 06/16/24 03:23
Absolute Neuts (auto) 6.5 10^3/uL (1.4-6.5) 06/16/24 03:23
Absolute Lymphs (auto) 1.7 10^3/uL (1.2-3.4) 06/16/24 03:23
Absolute Monos (auto) 0.8 10^3/uL (0.1-0.6) H 06/16/24 03:23
Absolute Eos (auto) 0.3 10^3/uL (0-0.7) 06/16/24 03:23
Absolute Basos (auto) 0.0 10^3/uL (0-0.2) 06/16/24 03:23
Immature Gran % 0.4 % (0-0.5) 06/16/24 03:23
Neutrophils % 68.7 % (42.2-75.2) 06/16/24 03:23
Lymphocytes % 18.5 % (20.5-51.1) L 06/16/24 03:23
Monocytes % 8.9 % (1.7-9.3) 06/16/24 03:23
Eosinophils % 3.1 % (0-6) 06/16/24 03:23
Basophils % 0.4 % (0-2) 06/16/24 03:23
Creatinine 2.7 mg/dL (0.6-1.0) H 06/16/24 03:23
Vital Signs
Vital Signs
Temp Pulse Resp BP Pulse Ox
97.9 F 62 20 93/63 97
06/16/24 07:41 06/16/24 04:00 06/16/24 07:41 06/16/24 03:18 06/16/24 07:41
[2024-06-16] MEDS: NOVOLOG FLEXPEN 5 UNITS SC (08:56)
[2024-06-16] MEDS: NOVOLOG FLEXPEN-LOW RESISTANCE 2 UNITS SC (08:58)
[2024-06-16] MEDS: TOPROL XL 25 MG PO ×2 (08:59→22:14)
[2024-06-16] MEDS: LOW STRENGTH ASPIRIN 81 MG PO (09:00)
[2024-06-16] MEDS: PACERONE 200 MG PO (09:00)
[2024-06-16] MEDS: PROTONIX 40 MG PO (09:00)
[2024-06-16] MEDS: VITAMIN B-12 1000 MCG PO (09:00)
[2024-06-16] MEDS: IMDUR (EXTENDED RELEASE) 30 MG PO (09:00)
--- NOTE | 2024-06-16 09:10 | CM ---
Addendum entered by HENRY Mar 06/16/24 11:52:
Met w/ patient at bedside.
Pt. aware of hospice referral. She acknowledges that she has issues with air hunger at home and does not want to keep returning to the hospital.
She is concerned with how weak she seems. She resides at home alone and states that her daughters work and have families of their own.
We discussed the option of SNF for a brief period of time before return home w/ hospice. She is considering this option and is open to it.
Agreed to initiate referrals to GERMAIN Amaral, Comm @ [facility]. Will await response.
Plan is for hospice meeting on 06/17. Will then decide on home w/ hospice vs. SNF w/ eventual return w/ hospice.
MD NHUNG updated.
Addendum entered by HENRY Mar 06/16/24 10:16:
Plan for [facility] to meet w/ family on 06/17. We will follow.
Original Note:
CM following for DC planning needs.
Recd consult for hospice.
Call to [facility] to obtain collateral information. Spoke also w/ bedside RN.
Attempted to meet w/ patient, patient was sleeping soundly; did not disturb.
Referral to [facility] to meet w/ patient to provide information, offer services. Plan to meet w/ patient today.
Will follow.
Additionally, did refer to [facility] in the event that she returns home without hospice; patient had used them recently. They have accepted for return services.
[2024-06-16] MEDS: ROCALTROL 0.25 MCG PO (09:14)
[2024-06-16] MEDS: LANTUS 0.18 UNITS SC (09:57)
--- NOTE | 2024-06-16 10:00 | HOSPNOTE ---
Spoke with daughters and we will meet tomorrow 06/17 at 12 noon. If patient and family agree to hospice then discharge Thursday with hospice. More information to follow once we meet.
--- NOTE | 2024-06-16 10:48 | W.PN.CARDCBS ---
Addendum entered and electronically signed by Nat Waters MD 06/16/24 12:00:
Complex situation with coronary disease as noted below. Spoke at length with the patient. She continues with shortness of breath with self-admittedly she has been horribly deconditioned. She really has not been out of bed during this hospital
stay. She has not been active at home prior to this. Shortness of breath is likely multifactorial certainly related to cardiac status, deconditioning, possibly underlying lung status and anemia. She also has significant underlying renal disease
with creatinine that has worsened during hospital stay making any further IV contrast/dye related studies high risk.
Telemetry stable.
Plan at this time is continue medical management of coronary artery disease evidenced by shortness of breath.
Continue aggressive risk factor modification and antianginal treatment.
Reinstate prior inhalers
Continue to follow anemia
Avoid nephrotoxic medication
She definitely needs physical therapy assessment given significant deconditioning.
Hospice/palliative care is also been consulted to provide more information for patient/family
She understands and is agreeable to the plan at this time.
Original Note:
Today's Communication / Plan
-
hospice evaluation. await patient decision
continue toprol, imdur, asa, statin, amio
PT evaluation
follow hgb. eliquis presently on hold
Impression / Plan
-
.
PCP: Dr. Cedeno
Zoning Technician: Dr. Goyo Seymour ([facility] Cardiology)
Impression:
Presented 06/12/2024 with SOB
NSTEMI
Acute on chronic HFprEF, 05116
Acute on chronic anemia
Elevated LFTs
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
CAD
s/p LAD & LCx BMS x2 in 2014
s/p distal LCx/OM VANGIE in 2021
s/p NSTEMI and 2.75 mm Hydro VANGIE to ostial/prox LAD 12/04/23
Paroxysmal Afib
Chronic Eliquis OAC
Chronic amiodarone therapy
CKD 4
Hyperlipidemia
DM 2
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
Echo 01/23/2022: EF 50 to 54%, moderate MR, mild MS with mean MV gradient 5 mmHg, mild to moderate TR with PAP 45 to 50 mmHg
Echo 12/04/2023: GVH study, EF 30%, LAD wall motion abnormality
Echo 12/09/2023: EF 50%, mild cLVH, mild mid to distal anteroseptal hypokinesis
Echo 04/04/2024: EF 55-60%, stage II diastolic dysfunction, moderate MR, mild TR with PAP 53 mmHg, no significant change compared to echo 12/2023
Cath 12/04/23: Successful PCI of the LAD with placement of a drug-eluting stent. Widely patent previously placed mid LAD stent and overlapping circumflex proper stents with known critical disease involving the jailed obtuse marginal branch and
chronically occluded distal left sided posterior descending artery.
Plan:
-presented with SOB, with concern for acute CHF. SOB also patient's anginal equivalent. Patient reports her baseline weight is 155 pounds at home, 158 pounds today if accurate.
-ruled in for NSTEMI with trop of 17.9 and trending down. no CP. She has known lateral T wave abnormality. By echocardiogram this admission, EF newly reduced at 40%. At time of last admission earlier this year, case was reviewed with primary
outpatient pan operator and it was felt there would be little clinical benefit to invasive cath at that time given her anatomy and comorbidities including renal insufficiency.
-She reports no shortness of breath at rest, however continues with shortness of breath with exertion
-We discussed today 2 options regarding treatment of her end-stage coronary disease. One would be to be aggressive which would include procedures such as repeat cardiac catheterization, however this poses potential risk including acute renal
failure necessitating dialysis. Alternative option would be for conservative management with medications and focus on palliation and comfort. We discussed that even if she does undergo cardiac catheterization, it is unclear that she would have
significant improvement in her shortness of breath even with intervention.
-She had discussed that she previously was planning for medical therapy. She states 'I wish someone would just tell me what to do'. Primary pan operator has asked that hospice consult placed to discuss services
-We have added Imdur 30 mg daily as of 06/15. Will continue in addition to BB. GDMT limited by CKD so no BILLY/ARB/ARNI/ALDACTONE. SGLT2 inhibitor on hold with GFR<25.
-Cr 2.7. holding additional lasix at this time.
-Hemoglobin was 7.5 yesterday, underwent 1 unit packed red blood cell transfusion and improved today to 9.5. Appreciate hematology input. Continue to transfuse as needed. She follows with Dr. Pablo as an outpatient and has received Procrit
injections in the past
-eliquis presently on hold while patient making her decision regarding treatment. continue asa
-PT eval as deconditioning also contributing
-LFTs downtrending. follow on amio and lipitor
-in SR on review of tele overnight.
-LDL 58. Continue high-dose atorvastatin
-d/w hospitalist via TT. d/w nursing
HPI 06/13/2024:
Fide is an 88 year old female with PMH of chronic HFpEF, recovered cardiomyopathy, CAD w/ multivessel stenting, paroxysmal atrial fibrillation on chronic Eliquis and amiodarone, CKD 4, HLD, DM2, and L eye blindness. She presented to [facility] with
shortness of breath for several days. Patient notes she developed shortness of breath with less and less activity and now unable to walk 5 to 10 feet without having to stop. She denied chest pain but denies she has never had chest pain with prior
stenting. EKG showed sinus rhythm with first-degree AV block and more pronounced ST-T wave abnormality in lateral leads. Initial troponin 1.69 however upward trending currently 3.05. proBNP 15,200. Patient was provided 324 mg of aspirin and 40
mg of IV Lasix in emergency department.
Patient reports she has chronic anemia and sees Dr. Pablo for which she gets Procrit injections. She reports she has not had an injection in several months as hemoglobin was above 10 at last outpatient evaluation
Progress Note - Zoning Technician
Subjective
Date of Service: June 16, 2024
no SOB at rest however with exertion she reports significant SOB which takes her about 20 minutes to recover
Objective
Labs:
06/16/24 03:23
06/16/24 03:23
Labs
Hgb 9.5 g/dL (12.0-16.0) L D 06/16/24 03:23
Hct 28.0 % (37.0-47.0) L 06/16/24 03:23
Plt Count 209 10^3/uL (130-400) 06/16/24 03:23
Sodium 133 mmol/L (135-145) L 06/16/24 03:23
Potassium 4.6 mmol/L (3.5-5.1) 06/16/24 03:23
BUN 85 mg/dl (7-17) H 06/16/24 03:23
Creatinine 2.7 mg/dL (0.6-1.0) H 06/16/24 03:23
Glucose 211 mg/dl (70-99) H 06/16/24 03:23
Troponins
06/13/24 06/13/24 06/14/24
12:16 17:41 02:57
Troponin I 7.950 H* D 11.400 H* D 17.200 H*
06/14/24 06/15/24
09:06 03:52
Troponin I 17.900 H* 9.930 H*
Vital Signs and I&O:
Vital Signs
Temp Pulse Resp BP Pulse Ox
97.9 F 75 20 132/49 97
06/16/24 07:41 06/16/24 10:00 06/16/24 07:41 06/16/24 08:59 06/16/24 07:41
Vital Signs
Temp Pulse Resp BP Pulse Ox
97.9 F 75 20 132/49 97
06/16/24 07:41 06/16/24 10:00 06/16/24 07:41 06/16/24 08:59 06/16/24 07:41
Intake & Output
06/14/24 06/15/24 06/16/24 06/17/24
07:59 07:59 07:59 07:59
Intake Total 120 / 120 180 / 180 250 / 250
Output Total 2450 / 2450 350 / 350
Balance -2330 / -2330 -170 / -170 250 / 250
Physical Exam
Physical Exam
GEN: No distress, awake, alert, oriented x3
HEENT: supple, anicteric, mmm. L eye blindness
LUNGS: CTA B/L anterolaterally, no wheezes
CV: Reg, S1/S2, no murmur
ABD: soft, BS+, NT/ND
EXT: No cyanosis, clubbing. trace edema of B/L LE
NEURO: Gross non-focal
SKIN: Warm, pink, dry. No rash
--- NOTE | 2024-06-16 12:13 | W.PN.HOSP.TC ---
Today's Communication/Plan
-
Monitor vitals
See plan
PT is following and has seen the patient yesterday
Hold IV diuresis, monitor renal function
Increase Lantus and aspart
Improvement in hemoglobin however still short of breath which I think is likely secondary to recent NSTEMI with worsening EF
Hospice evaluation
Assessment / Plan
Assessment / Plan
General: Other (88y F in no acute distress.)
HEENT: Moist mucous membranes, PERRLA and Other (Neck supple.)
Respiratory: Other (+rales. No wheeze.)
Cardiac: S1/S2 and Regular Rhythm; No Murmur
GI: Soft, Non Tender, Non Distended and Normal Bowel Sounds
Musculoskeletal:No Edema
Neuro: AO x 3
NSTEMI
ASCVD
- Initial EKG with ST changes diffusely concerning for active ischemia.
No chest pain at any point. not an ideal cath candidate
- Continue beta-blockade, statin, etc.
- Follow for any new / worsening symptoms.
Cardiology following
- Will hold Eliquis for now
Consider hydralazine and nitrates if blood pressure tolerates
Cardiology discussed with patient and plan is to manage this conservatively with medications. Agree patient has significant deconditioning over time. Cardiology requested hospice evaluation.
Acute on Chronic CHF, now with reduced EF
Acute Hypoxemic Respiratory Failure secondary to the above
- Suspect HF exacerbation secondary to NSTEMI as noted above.
- Echo this admission with EF 40%
- Follow for continued clinical improvement.
- Cardiology evaluation as noted above
Hold IV Lasix given SIMI
Cardiology discussed with patient and plan is to manage this conservatively with medications. Agree patient has significant deconditioning over time. Cardiology requested hospice evaluation
Paroxysmal Atrial Fibrillation
- Currently in NSR / 1st degree AV block.
- Continue metoprolol, amio, etc as noted above.
Anticoagulation per cardiology
Acute on Chronic Normocytic Anemia
- Patient with Hgb = 7.5 06/15 compared to prior baseline of -. Transfuse 1 unit PRBC. Hemoglobin now 9.5. however not much change in her breathing. I believe her shortness of breath is likely secondary to recent NSTEMI with reduced EF.
- No noted blood loss. heme test stool
- Patient reports chronic anemia followed by Heme Dr Pablo
Discussed with Dr. Victoria from hematology, give 1 unit PRBC and monitor. Hematology following
- Receives Procrit +/- IV iron as needed. Last about one month ago.
off eliquis
ferritin high
- Consent on chart.
Hyponatremia
Monitor
SIMI on CKD IV
- Stable. Renal function at / near known baseline.
- Follow for changes with IV diuresis.
- Baseline appears to be around 2.2.; cr now 2.6
DM-II
- Stable. Increase Lantus, start mealtime insulin
- Follow glucose and cover with SSI as needed.
- A1C 7.7
Hypothyroidism
- Stable. Continue current T4 supplementation.
DVT Prophylaxis:SCD's
Code Status: DNR
Patient was admitted on 06/13/2024, PT evaluation was ordered 06/14/2024. Patient has been evaluated by PT on 06/15 and recommended home health. Patient is however short of breath with ambulation which I think is likely secondary to NSTEMI with
worsening EF
Hospice to meet tomorrow 06/17
I spent a total of 52 minutes with the patient or on the floor. More than 50% of this time involved counseling and coordination of care.
Anticipated Discharge: 24 - 48 hours
Subjective/Interval History
-
Date of Service: June 16, 2024
Still gets shortness of breath with ambulation
Objective Data
-
Labs:
Laboratory Results
06/16/24
03:23
WBC 9.4
Hgb 9.5 L D
Hct 28.0 L
Plt Count 209
Sodium 133 L
Potassium 4.6
Chloride 95 L
Carbon Dioxide 29
BUN 85 H
Creatinine 2.7 H
Glucose 211 H
Calcium 8.6
Total Bilirubin 0.8
AST 45 H
ALT 44 H
Alkaline Phosphatase 117
Vital Signs:
Vital Signs
Temp Pulse Resp BP Pulse Ox
97.7 F 75 18 132/49 98
06/16/24 11:18 06/16/24 10:00 06/16/24 11:18 06/16/24 08:59 06/16/24 11:18
I&O
06/15/24 06/16/24 06/17/24
06:59 06:59 06:59
Intake Total 180 / 180 250 / 250
Output Total 600 / 600
Balance -420 / -420 250 / 250
[2024-06-16 12:42] LABS: Glucose - Point of Care 299 mg/dl (70-99)
[2024-06-16] MEDS: NOVOLOG FLEXPEN-LOW RESISTANCE 3 UNITS SC (12:49)
[2024-06-16] MEDS: NOVOLOG FLEXPEN 7 UNITS SC ×2 (12:50→18:49)
[2024-06-16] MEDS: LANTUS 0.04 UNITS SC (14:39)
[2024-06-16 17:41] LABS: Glucose - Point of Care 117 mg/dl (70-99)
[2024-06-16] MEDS: NOVOLOG FLEXPEN-LOW RESISTANCE SC (18:49)
[2024-06-16 22:13] LABS: Glucose - Point of Care 139 mg/dl (70-99)
[2024-06-16] MEDS: DESYREL 12.5 MG PO (22:13)
[2024-06-16] MEDS: LIPITOR 80 MG PO (22:13)
[2024-06-17] VITALS (10 sets, daily range): BP systolic 103–124; BP diastolic 47–67; PULSE 70; O2SAT 98; BMI 31.7
--- NOTE | 2024-06-17 02:05 | PTCARENOTE ---
Assumed care of the pt @ 1900. Pt is AAOx3 denies pain SR on the monitor VSS. Call bejarano within reach.
[2024-06-17 04:57] LABS: % Basophils 0.7 % (0-2); % Eosinophils 4.4 % (0-6); % Immature Granulocytes 0.4 % (0-0.5); % Monocytes 12.6 % (1.7-9.3); % Neutrophils 59.9 % (42.2-75.2); Absolute Basophils 0.1 10^3/uL (0-0.2); Absolute Eosinophils 0.3 10^3/uL (0-0.7); Absolute Lymphocytes 1.5 10^3/uL (1.2-3.4); Absolute Monocytes 0.9 10^3/uL (0.1-0.6); Absolute Neutrophils 4.2 10^3/uL (1.4-6.5); Hematocrit 25.3 % (37.0-47.0); Hemoglobin 8.4 g/dL (12.0-16.0); Mean Corp Hgb Conc. 33.2 g/dL (33.0-37.0); Mean Corpuscular Hgb 29.9 pg (27.0-31.0); Mean Platelet Volume 10.8 fL (7.4-10.4); Nucleated Red Blood Cells % 0 %; Platelet Count 208 10^3/uL (130-400); Red Blood Cell Count 2.81 10^6/uL (4.20-5.40); Red Cell Dist. Width 14.5 % (11.5-14.5)
[2024-06-17 05:20] LABS: ALT (SGPT) 35 U/L (0-35); AST (SGOT) 35 U/L (14-36); Albumin 3.3 g/dl (3.5-5.0); Alkaline Phosphatase 84 U/L (38-126); Blood Urea Nitrogen 75 mg/dl (7-17); Calcium 8.4 mg/dl (8.4-10.2); Carbon Dioxide 27 mmol/L (22-30); Chloride 100 mmol/L (98-107); Estimated Creatinine Clearance 13 ml/min; Glucose 74 mg/dl (70-99); Potassium 4.3 mmol/L (3.5-5.1); Sodium 137 mmol/L (135-145); Total Bilirubin 1.1 mg/dl (0.2-1.3); Total Protein 5.6 g/dl (6.3-8.2); eGFR 17.43
[2024-06-17] MEDS: SYNTHROID 125 MCG PO (06:13)
[2024-06-17 06:56] LABS: Glucose - Point of Care 84 mg/dl (70-99)
[2024-06-17] MEDS: VENTOLIN NEBULES 2.5 MG INH (07:38)
--- NOTE | 2024-06-17 07:51 | W.PN.CARDCBS ---
Addendum entered and electronically signed by Shailesh Carrasco MD 06/17/24 08:52:
I saw and examined the patient.
The Digital Solution Architect's note was reviewed and I agree with the note.
Comment: Briefly, 88-year-old woman past medical history of multivessel CAD and ischemic cardiomyopathy presenting with worsening dyspnea on exertion and elevated troponin concerning for NSTEMI and acute decompensated heart failure
Patient received IV diuretics but with rising creatinine lasix was held, Cr slowly improving to 2.6, would hold on further diuresis for now
Echo here with decline in LVEF to 40%, previously normal at 55 to 60%
GDMT is limited due to renal insufficiency
Continue metoprolol
Ideally would add hydralazine for afterload reduction, but BP is marginal today
With rise and fall of troponin peaking around 18 the concern is that her dyspnea exertion may be an anginal equivalent
Continue beta-lay
Imdur added as additional antianginal and patient feels this may have provided some symptomatic improvement
Ongoing GOC discussions at this time. Discussed with primary supervisor shuttle preparation; if patient wants to continue aggressive medical care [facility] on Thursday is possibility.
Rest per Melody Monzon
Original Note:
Today's Communication / Plan
-
hospice eval today
PT
Impression / Plan
-
.
PCP: Dr. Cedeno
Building Supplies Salesperson Retail: Dr. Goyo Seymour ([facility])
Impression:
Presented 06/12/2024 with SOB
NSTEMI
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
Acute on chronic anemia
Elevated LFTs
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
CAD
s/p LAD & LCx BMS x2 in 2014
s/p distal LCx/OM VANGIE in 2021
s/p NSTEMI and 2.75 mm Ramon VANGIE to ostial/prox LAD 12/04/23
Paroxysmal Afib
Chronic Eliquis OAC
Chronic amiodarone therapy
CKD 4
Hyperlipidemia
DM 2
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
Echo 01/23/2022: EF 50 to 54%, moderate MR, mild MS with mean MV gradient 5 mmHg, mild to moderate TR with PAP 45 to 50 mmHg
Echo 12/04/2023: GVH study, EF 30%, LAD wall motion abnormality
Echo 12/09/2023: EF 50%, mild cLVH, mild mid to distal anteroseptal hypokinesis
Echo 04/04/2024: EF 55-60%, stage II diastolic dysfunction, moderate MR, mild TR with PAP 53 mmHg, no significant change compared to echo 12/2023
Cath 12/04/23: Successful PCI of the LAD with placement of a drug-eluting stent. Widely patent previously placed mid LAD stent and overlapping circumflex proper stents with known critical disease involving the jailed obtuse marginal branch and
chronically occluded distal left sided posterior descending artery.
Plan:
-patient presented with SOB with initial concern for acute CHF, however with diuresis Cr bumped to 2.7. SOB is patient's known anginal equivalent so symptoms felt most likely to be secondary to angina as trop bumped to 17.9 with drop in EF to 40%.
-At time of last admission earlier this year, case was reviewed with primary outpatient supervisor shuttle preparation and it was felt there would be little clinical benefit to invasive cath at that time given her anatomy and comorbidities including renal
insufficiency.
-She reports no shortness of breath at rest, however continues with shortness of breath with exertion, however felt to be multifactorial as also with known lung disease and anemia
-daughters coming in for hospice evaluation today. alternative is for high risk cath, and discussed risks of procedure including ATN with need for dialysis. we discussed that even if she would opt for cath, unclear that this would improve her SOB
significantly
-imdur was added this admission. continue BB. GDMT limited by CKD so no BILLY/ARB/ARNI/ALDACTONE. not presently a candidate for SGLT2 inhibitor with GFR<25.
-Cr 2.6. holding additional lasix at this time.
-Hemoglobin was as low as 7.5. Received 1 unit packed red blood cells this admission. Hemoglobin 8.4 today. Appreciate hematology input. Continue to transfuse as needed. She follows with Dr. Pablo as an outpatient and has received Procrit
injections in the past
-eliquis presently on hold while patient making her decision regarding treatment. continue asa
-PT eval as deconditioning also contributing
-LFTs normalized. follow on amio and lipitor
-in SR on review of tele overnight.
-LDL 58. Continue high-dose atorvastatin
-d/w primary supervisor shuttle preparation
HPI 06/13/2024:
Fide is an 88 year old female with PMH of chronic HFpEF, recovered cardiomyopathy, CAD w/ multivessel stenting, paroxysmal atrial fibrillation on chronic Eliquis and amiodarone, CKD 4, HLD, DM2, and L eye blindness. [facility] of breath for several days. Patient notes she developed shortness of breath with less and less activity and now unable to walk 5 to 10 feet without having to stop. She denied chest pain but denies she has never had chest pain with prior
stenting. EKG showed sinus rhythm with first-degree AV block and more pronounced ST-T wave abnormality in lateral leads. Initial troponin 1.69 however upward trending currently 3.05. proBNP 15,200. Patient was provided 324 mg of aspirin and 40
mg of IV Lasix in emergency department.
Patient reports she has chronic anemia and sees Dr. Pablo for which she gets Procrit injections. She reports she has not had an injection in several months as hemoglobin was above 10 at last outpatient evaluation
Progress Note - Building Supplies Salesperson Retail
Subjective
Date of Service: June 17, 2024
no CP. reports SOB with exertion
Objective
Labs:
06/17/24 04:14
06/17/24 04:14
Labs
Hgb 8.4 g/dL (12.0-16.0) L 06/17/24 04:14
Hct 25.3 % (37.0-47.0) L 06/17/24 04:14
Plt Count 208 10^3/uL (130-400) 06/17/24 04:14
Sodium 137 mmol/L (135-145) 06/17/24 04:14
Potassium 4.3 mmol/L (3.5-5.1) 06/17/24 04:14
BUN 75 mg/dl (7-17) H 06/17/24 04:14
Creatinine 2.6 mg/dL (0.6-1.0) H 06/17/24 04:14
Glucose 74 mg/dl (70-99) 06/17/24 04:14
Troponins
06/14/24 06/15/24
09:06 03:52
Troponin I 17.900 H* 9.930 H*
Vital Signs and I&O:
Vital Signs
Temp Pulse Resp BP Pulse Ox
97.5 F 65 18 116/51 97
06/17/24 07:25 06/17/24 07:43 06/17/24 07:43 06/17/24 04:09 06/17/24 07:43
Vital Signs
Temp Pulse Resp BP Pulse Ox
97.5 F 65 18 116/51 97
06/17/24 07:25 06/17/24 07:43 06/17/24 07:43 06/17/24 04:09 06/17/24 07:43
Intake & Output
06/14/24 06/15/24 06/16/24 06/17/24
07:59 07:59 07:59 07:59
Intake Total 120 / 120 180 / 180 250 / 250
Output Total 2450 / 2450 350 / 350
Balance -2330 / -2330 -170 / -170 250 / 250
Physical Exam
Physical Exam
GEN: No distress, awake, alert, oriented x3
HEENT: supple, anicteric, mmm. L eye blindness
LUNGS: CTA B/L anterolaterally, no wheezes
CV: Reg, S1/S2, no murmur
ABD: soft, BS+, NT/ND
EXT: No cyanosis, clubbing. trace edema of B/L LE
NEURO: Gross non-focal
SKIN: Warm, pink, dry. No rash
[2024-06-17] MEDS: VITAMIN B-12 1000 MCG PO (08:43)
[2024-06-17] MEDS: PACERONE 200 MG PO (08:43)
[2024-06-17] MEDS: IMDUR (EXTENDED RELEASE) 30 MG PO (08:43)
[2024-06-17] MEDS: TOPROL XL 25 MG PO ×2 (08:44→20:21)
[2024-06-17] MEDS: LOW STRENGTH ASPIRIN 81 MG PO (08:44)
[2024-06-17] MEDS: NOVOLOG FLEXPEN-LOW RESISTANCE SC (08:44)
[2024-06-17] MEDS: PROTONIX 40 MG PO (08:44)
[2024-06-17] MEDS: LANTUS 0.22 UNITS SC (08:45)
[2024-06-17] MEDS: NOVOLOG FLEXPEN 7 UNITS SC ×3 (08:51→18:10)
[2024-06-17 11:48] LABS: Glucose - Point of Care 231 mg/dl (70-99)
--- NOTE | 2024-06-17 12:00 | PTCARENOTE ---
Discussed all nursing measures. Discussed possible cardiac cath and plan of care. Pt to meet w/ hospice w/ pt's daughters. Will monitor.
--- NOTE | 2024-06-17 12:50 | HOSPNOTE ---
Met with patient and daughter explained hospice and the philosophy. The patient would like to go home with [facility] and Palliative and then transition to hospice when needed and wanted. Patient is very clear about her wishes and at this time would like
to go home with [facility] and the daughters will be staying with patient for several days. Patient knows to reach out to hospice at a later date when wanted and has my direct contact. CM updated with plan and will send referrals.
--- NOTE | 2024-06-17 13:12 | CM ---
CM following for DC planning needs.
Hospice meeting held today with patient and dtr. Jeanne.
I had met with patient and dtr. earlier this AM.
After much discussion, plan is to pursue aggressive treatment here, then return home w/ dtr. support and [facility] + Palliative Care.
I have updated RNs, Cardiology and Hospitalist on the above plan.
Referrals made to [facility], Palliative Care.
Plan is for home w/ [facility] + Palliative Care.
Will cont. to follow, provide emotional support to pt. and assist w/ DC planning as needed.
[2024-06-17] MEDS: NOVOLOG FLEXPEN-LOW RESISTANCE 2 UNITS SC (13:22)
--- NOTE | 2024-06-17 13:51 | W.PN.UPDATE ---
Update Note
Progress Note Update
Discussed with patient and 2 daughters present in room. They had meeting with palliative care/hospice. Patient has decided she is not yet ready for hospice, however also does not want invasive procedures and would like to pursue medical mgmt and
palliative care at this time. will stop IV heparin and resume eliquis. will resume po lasix in AM. will arrange OP cardiac follow up with ATC. for possible DC in AM. d/w nursing, CM, primary carpet installer.
--- NOTE | 2024-06-17 14:00 | W.PN.HOSP.TC ---
Today's Communication/Plan
-
Monitor vital signs
see plan
Monitor renal function
Monitor hemoglobin
Hospice evaluation
Discussed with daughter at bedside
Assessment / Plan
Assessment / Plan
General: Other (88y F in no acute distress.)
HEENT: Moist mucous membranes, PERRLA and Other (Neck supple.)
Respiratory: Other (+rales. No wheeze.)
Cardiac: S1/S2 and Regular Rhythm; No Murmur
GI: Soft, Non Tender, Non Distended and Normal Bowel Sounds
Musculoskeletal:No Edema
Neuro: AO x 3
NSTEMI
ASCVD
- Initial EKG with ST changes diffusely concerning for active ischemia.
No chest pain at any point. not an ideal cath candidate
- Continue beta-blockade, statin, etc.
- Follow for any new / worsening symptoms.
Cardiology following
- Will hold Eliquis for now
Consider hydralazine and nitrates if blood pressure tolerates
Cardiology discussed with patient and plan is to manage this conservatively with medications. Agree patient has significant deconditioning over time. Cardiology requested hospice evaluation. Hospice met with patient and family 06/17. Cardiology
also discussed with patient and plan now for conservative treatment for CAD. Will restart Lasix tomorrow and monitor.
Acute on Chronic CHF, now with reduced EF
Acute Hypoxemic Respiratory Failure secondary to the above
- Suspect HF exacerbation secondary to NSTEMI as noted above.
- Echo this admission with EF 40%
- Follow for continued clinical improvement.
- Cardiology evaluation as noted above
Hold IV Lasix given SIMI
Cardiology discussed with patient and plan is to manage this conservatively with medications. Agree patient has significant deconditioning over time. Cardiology requested hospice evaluation
Paroxysmal Atrial Fibrillation
- Currently in NSR / 1st degree AV block.
- Continue metoprolol, amio, etc as noted above.
Anticoagulation per cardiology
Acute on Chronic Normocytic Anemia
- Patient with Hgb = 7.5 06/15 compared to prior baseline of -. Transfuse 1 unit PRBC. Hemoglobin now 9.5. however not much change in her breathing. I believe her shortness of breath is likely secondary to recent NSTEMI with reduced EF.
- No noted blood loss. heme test stool
- Patient reports chronic anemia followed by Heme Dr Pablo
Discussed with Dr. Victoria from hematology, give 1 unit PRBC and monitor. Hematology following
- Receives Procrit +/- IV iron as needed. Last about one month ago.
off eliquis
ferritin high
- Consent on chart.
Hyponatremia
Monitor
SIMI on CKD IV
- Stable. Renal function at / near known baseline.
- Follow for changes with IV diuresis.
- Baseline appears to be around 2.2.; cr now 2.6
DM-II
- Stable. Increase Lantus, start mealtime insulin
- Follow glucose and cover with SSI as needed.
- A1C 7.7
Hypothyroidism
- Stable. Continue current T4 supplementation.
DVT Prophylaxis:SCD's
Code Status: DNR
Patient was admitted on 06/13/2024, PT evaluation was ordered 06/14/2024. Patient has been evaluated by PT on 06/15 and recommended home health. Patient is however short of breath with ambulation which I think is likely secondary to NSTEMI with
worsening EF
Hospice to meet tomorrow 06/17
I spent a total of 52 minutes with the patient or on the floor. More than 50% of this time involved counseling and coordination of care.
Anticipated Discharge: > 48 hours
Subjective/Interval History
-
Date of Service: June 17, 2024
denies pain
Objective Data
-
Labs:
Laboratory Results
06/17/24
04:14
WBC 7.0
Hgb 8.4 L
Hct 25.3 L
Plt Count 208
Sodium 137
Potassium 4.3
Chloride 100
Carbon Dioxide 27
BUN 75 H
Creatinine 2.6 H
Glucose 74
Calcium 8.4
Total Bilirubin 1.1
AST 35
ALT 35
Alkaline Phosphatase 84
Vital Signs:
Vital Signs
Temp Pulse Resp BP Pulse Ox
98.1 F 72 18 120/67 98
06/17/24 10:55 06/17/24 08:00 06/17/24 10:55 06/17/24 07:25 06/17/24 10:55
I&O
06/16/24 06/17/24 06/18/24
06:59 06:59 06:59
Intake Total 250 / 250
Balance 250 / 250
--- NOTE | 2024-06-17 15:33 | PTCARENOTE ---
I have precepted NHUNG Falcon since 0700. I agree w/ the nursing assessment as documented. I will continue all nursing care.
[2024-06-17 17:46] LABS: Glucose - Point of Care 198 mg/dl (70-99)
[2024-06-17] MEDS: NOVOLOG FLEXPEN-LOW RESISTANCE 1 UNITS SC (18:10)
--- NOTE | 2024-06-17 20:19 | PTCARENOTE ---
Assumed care of the pt @ 1900. Pt is sitting up in chair AAOx3. SR on the monitor VSS. denies pain. Call bejarano within reach.
[2024-06-17] MEDS: ELIQUIS 2.5 MG PO (20:21)
[2024-06-17 22:17] LABS: Glucose - Point of Care 184 mg/dl (70-99)
[2024-06-17] MEDS: DESYREL 12.5 MG PO (22:17)
[2024-06-17] MEDS: LIPITOR 80 MG PO (22:18)
[2024-06-18 04:39] VITALS: BP 125/74
[2024-06-18] MEDS: SYNTHROID 125 MCG PO (04:50)
[2024-06-18] MEDS: XANAX 0.25 MG PO (04:50)
[2024-06-18 04:52] VITALS: BMI 32.0
[2024-06-18 05:27] LABS: % Basophils 0.9 % (0-2); % Eosinophils 4.2 % (0-6); % Immature Granulocytes 0.3 % (0-0.5); % Lymphocytes 22.4 % (20.5-51.1); % Monocytes 10.3 % (1.7-9.3); % Neutrophils 61.9 % (42.2-75.2); Absolute Basophils 0.1 10^3/uL (0-0.2); Absolute Eosinophils 0.3 10^3/uL (0-0.7); Absolute Lymphocytes 1.5 10^3/uL (1.2-3.4); Absolute Monocytes 0.7 10^3/uL (0.1-0.6); Absolute Neutrophils 4.2 10^3/uL (1.4-6.5); Hematocrit 28.2 % (37.0-47.0); Hemoglobin 9.4 g/dL (12.0-16.0); Mean Corp Hgb Conc. 33.3 g/dL (33.0-37.0); Mean Corpuscular Hgb 30.6 pg (27.0-31.0); Mean Corpuscular Volume 91.9 fL (81.0-99.0); Mean Platelet Volume 10.9 fL (7.4-10.4); Nucleated Red Blood Cells % 0 %; Platelet Count 240 10^3/uL (130-400); Red Blood Cell Count 3.07 10^6/uL (4.20-5.40); Red Cell Dist. Width 14.6 % (11.5-14.5); White Blood Cell Count 6.9 10^3/uL (4.8-10.8)
[2024-06-18 05:50] LABS: ALT (SGPT) 37 U/L (0-35); AST (SGOT) 38 U/L (14-36); Albumin 3.5 g/dl (3.5-5.0); Alkaline Phosphatase 98 U/L (38-126); Blood Urea Nitrogen 68 mg/dl (7-17); Calcium 8.6 mg/dl (8.4-10.2); Carbon Dioxide 28 mmol/L (22-30); Chloride 102 mmol/L (98-107); Estimated Creatinine Clearance 15 ml/min; Glucose 86 mg/dl (70-99); Potassium 4.2 mmol/L (3.5-5.1); Sodium 137 mmol/L (135-145); Total Bilirubin 0.7 mg/dl (0.2-1.3); Total Protein 6.1 g/dl (6.3-8.2); eGFR 19.19
--- NOTE | 2024-06-18 05:59 | PTCARENOTE ---
Called into the room @ 2920 Pt requesting something to help her sleep stating feeling anxious. [employer] notified and ordered 0.25 mg Xanax PO. Pt able to fall asleep.
[2024-06-18 07:09] VITALS: BP 90/33
--- NOTE | 2024-06-18 08:21 | PTCARENOTE ---
Pt tired this morning, 'I didn't sleep at all last night'. She took a nap after breakfast. Denies pain, looking forward to being discharged today.
[2024-06-18 09:52] LABS: Glucose - Point of Care 129 mg/dl (70-99)
[2024-06-18] MEDS: ELIQUIS 2.5 MG PO (09:52)
[2024-06-18] MEDS: PROTONIX 40 MG PO (09:53)
[2024-06-18] MEDS: LOW STRENGTH ASPIRIN 81 MG PO (09:53)
[2024-06-18] MEDS: VITAMIN B-12 1000 MCG PO (09:53)
[2024-06-18] MEDS: PACERONE 200 MG PO (09:53)
[2024-06-18] MEDS: NOVOLOG FLEXPEN-LOW RESISTANCE SC (09:54)
[2024-06-18 09:55] VITALS: BP 131/62
[2024-06-18] MEDS: LASIX 40 MG PO (09:55)
[2024-06-18] MEDS: TOPROL XL 25 MG PO (09:56)
[2024-06-18] MEDS: IMDUR (EXTENDED RELEASE) 30 MG PO (09:56)
[2024-06-18] MEDS: NOVOLOG FLEXPEN 7 UNITS SC ×2 (09:57→13:21)
[2024-06-18] MEDS: LANTUS 0.22 UNITS SC (10:00)
--- NOTE | 2024-06-18 10:27 | W.PN.CARDCBS ---
Addendum entered and electronically signed by Nat Waters MD 06/18/24 11:17:
I saw and examined the patient.
The Cath Lab's note was reviewed and I agree with the note.
Comment: Spoke at length with the patient today. She feels her shortness of breath has improved somewhat. Shortness of breath is multifactorial as we have discussed previously related to Coronary artery disease which is being medically managed,
underlying lung related issues, anemia and severe deconditioning. Continue current antianginal medications. Continue guideline directed medical treatment.She has significant renal insufficiency which worsened during hospital stay with peak
creatinine 2.8 now down trended to 2.4 (baseline 2?). Should be followed as an outpatient. She will be going home with visiting nurses and physical therapy with consideration for palliative care which may be helpful for day-to-day activities and
improving function. Medication adjustments noted. Will follow-up with her usual organic chemistry professor Dr. Seymour.
Stable for discharge.
Original Note:
Today's Communication / Plan
-
Stable for d/c from cardiac standpoint
Cardiology f/u arranged
E-scribed cardiac med changes
52 min face to face and coordination of care
Impression / Plan
-
.
PCP: Dr. Cedeno
[employer] Field Supervisor: Dr. Goyo Seymour ([facility])
Impression:
Presented 06/12/2024 with SOB
NSTEMI
Acute on chronic HFprEF, 81277
Acute on chronic anemia
Elevated LFTs
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
CAD
s/p LAD & LCx BMS x2 in 2014
s/p distal LCx/OM VANGIE in 2021
s/p NSTEMI and 2.75 mm Ramon VANGIE to ostial/prox LAD 12/04/23
Paroxysmal Afib
Chronic Eliquis OAC
Chronic amiodarone therapy
CKD 4
Hyperlipidemia
DM 2
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
Echo 01/23/2022: EF 50 to 54%, moderate MR, mild MS with mean MV gradient 5 mmHg, mild to moderate TR with PAP 45 to 50 mmHg
Echo 12/04/2023: [facility] study, EF 30%, LAD wall motion abnormality
Echo 12/09/2023: EF 50%, mild cLVH, mild mid to distal anteroseptal hypokinesis
Echo 04/04/2024: EF 55-60%, stage II diastolic dysfunction, moderate MR, mild TR with PAP 53 mmHg, no significant change compared to echo 12/2023
Echo 06/13/2024: EF 40%, global hypokinesis, mild concentric LVH, moderate MR, mild TR with PAP 50 to 55 mmHg
Cath 12/04/23: Successful PCI of the LAD with placement of a drug-eluting stent. Widely patent previously placed mid LAD stent and overlapping circumflex proper stents with known critical disease involving the jailed obtuse marginal branch and
chronically occluded distal left sided posterior descending artery.
Plan:
-Cre peaked at 2.8 on 06/15/2024 and is improved to 2.4 on 06/18/2024. Patient was diuresed with Lasix 40 mg IV BID earlier this admission and diuresed perhaps as much as 5 lbs. Outpatient dose of Lasix 40 mg daily ordered for 06/18/2024.
-EF was 55 to 60% by echo 04/04/2024, the EF was down to 40% by echo 06/13/2024. This is presumably ischemic.
-Most recent cardiac cath was 12/04/2023 as noted above. Patient follows with cardiology at [facility] and they were able to talk with patient and her daughters during this admission and reviewed the case at present. Patient feels she is not ready for
hospice, but also does not want to pursue cardiac cath so at this time the plan will be for medical management. Patient is scheduled to see her organic chemistry professor at [facility] this coming Thursday.
-Outpatient dose of Toprol XL 25 mg BID has been continued
-Patient is not chronically on BILLY/ARB/ARNI/aldosterone antagonist due to CKD 4
-Patient is not chronically on SGLT2 inhibitor due to GFR less than 25
-New to Imdur ER 30 mg daily this admission and tolerating all doses thus far
-LDL 58 and outpatient dose of atorvastatin 80 mg daily has been continued
-It is also possible that the patient's symptoms of SOB could be related to anemia or her chronic lung disease
-Patient received 1 unit PRBCs on 06/15/2024. Hgb as low as 7.5 on 06/15/2024 and was improved and stable at 9.4 on 06/18/2024. She follows with Dr. Pablo as an outpatient and has received Procrit injections in the past
-Patient with known history of paroxysmal A-fib and Eliquis 2.5 mg BID (age 88, Cre 2.4) was on hold while awaiting decision regarding cath, but was resumed on 06/17/2024 PM
-Elevated LFTs seen on admission have been trending down and outpatient dose of amiodarone 200 mg daily has been continued
-PT/OT notes reviewed and the patient was recommended home health
-Patient is stable for D/C from a cardiac standpoint 06/18/2024 and outpatient cardiology follow-up has been arranged
HPI 06/13/2024:
Fide is an 88 year old female with PMH of chronic HFpEF, recovered cardiomyopathy, CAD w/ multivessel stenting, paroxysmal atrial fibrillation on chronic Eliquis and amiodarone, CKD 4, HLD, DM2, and L eye blindness. She presented to [facility] with
shortness of breath for several days. Patient notes she developed shortness of breath with less and less activity and now unable to walk 5 to 10 feet without having to stop. She denied chest pain but denies she has never had chest pain with prior
stenting. EKG showed sinus rhythm with first-degree AV block and more pronounced ST-T wave abnormality in lateral leads. Initial troponin 1.69 however upward trending currently 3.05. proBNP 15,200. Patient was provided 324 mg of aspirin and 40
mg of IV Lasix in emergency department. Patient reports she has chronic anemia and sees Dr. Pablo for which she gets Procrit injections. She reports she has not had an injection in several months as hemoglobin was above 10 at last outpatient
evaluation
Progress Note - [employer] Field Supervisor
Subjective
Date of Service: June 18, 2024
She has intermittent SOB, but no CP
Objective
Labs:
06/18/24 04:44
06/18/24 04:44
Labs
Hgb 9.4 g/dL (12.0-16.0) L 06/18/24 04:44
Hct 28.2 % (37.0-47.0) L 06/18/24 04:44
Plt Count 240 10^3/uL (130-400) 06/18/24 04:44
Sodium 137 mmol/L (135-145) 06/18/24 04:44
Potassium 4.2 mmol/L (3.5-5.1) 06/18/24 04:44
BUN 68 mg/dl (7-17) H 06/18/24 04:44
Creatinine 2.4 mg/dL (0.6-1.0) H 06/18/24 04:44
Glucose 86 mg/dl (70-99) 06/18/24 04:44
Vital Signs and I&O:
Vital Signs
Temp Pulse Resp BP Pulse Ox
97.3 F 58 16 90/33 100
06/18/24 07:08 06/18/24 08:00 06/18/24 07:08 06/18/24 07:09 06/18/24 07:08
Vital Signs
Temp Pulse Resp BP Pulse Ox
97.3 F 58 16 90/33 100
06/18/24 07:08 06/18/24 08:00 06/18/24 07:08 06/18/24 07:09 06/18/24 07:08
Intake & Output
06/16/24 06/17/24 06/18/24 06/19/24
06:59 06:59 06:59 06:59
Intake Total 250 / 250
Balance 250 / 250
Physical Exam
Physical Exam
GEN: NAD. AAOx3
HEENT: mmm
LUNGS: No audible wheeze
CV: SR on tele.
ABD: ND
EXT: Trace B/L LE edema
NEURO: Gross non-focal
SKIN: No rash
[2024-06-18 11:08] VITALS: BP 64/25
[2024-06-18 11:09] VITALS: BP 100/42
--- NOTE | 2024-06-18 11:59 | W.PN.HOSP.TC ---
Today's Communication/Plan
-
Monitor vital signs see plan
Patient will follow-up with cardiology outpatient, p.o. Lasix started
Continue Eliquis
Monitor renal function
Not hypoxic with ambulation, does not need home O2
Discharge today
Time of discharge 38 minutes
Assessment / Plan
Assessment / Plan
General: Other (88y F in no acute distress.)
HEENT: Moist mucous membranes, PERRLA and Other (Neck supple.)
Respiratory: Other (+rales. No wheeze.)
Cardiac: S1/S2 and Regular Rhythm; No Murmur
GI: Soft, Non Tender, Non Distended and Normal Bowel Sounds
Musculoskeletal:No Edema
Neuro: AO x 3
NSTEMI
ASCVD
- Initial EKG with ST changes diffusely concerning for active ischemia.
No chest pain at any point. not an ideal cath candidate
- Continue beta-blockade, statin, etc.
- Follow for any new / worsening symptoms.
Cardiology following
- Will hold Eliquis for now
Consider hydralazine and nitrates if blood pressure tolerates
Cardiology discussed with patient and plan is to manage this conservatively with medications. Agree patient has significant deconditioning over time. Cardiology requested hospice evaluation. Hospice met with patient and family 06/17. Cardiology
also discussed with patient and plan now for conservative treatment for CAD. Lasix p.o. restarted
Acute on Chronic CHF, now with reduced EF
Acute Hypoxemic Respiratory Failure secondary to the above
- Suspect HF exacerbation secondary to NSTEMI as noted above.
- Echo this admission with EF 40%
- Follow for continued clinical improvement.
- Cardiology evaluation as noted above
Started p.o. Lasix
Cardiology discussed with patient and plan is to manage this conservatively with medications. Agree patient has significant deconditioning over time. Patient and family met with hospice, patient at this time does not want any invasive procedures
and would like to follow-up with palliative care. Patient will follow-up with her outpatient cardiology. Not hypoxic on ambulation. Discharge today
Paroxysmal Atrial Fibrillation
- Currently in NSR / 1st degree AV block.
- Continue metoprolol, amio, etc as noted above.
Anticoagulation per cardiology; eliquis restarted
Acute on Chronic Normocytic Anemia
- Patient with Hgb = 7.5 06/15 compared to prior baseline of -. Transfuse 1 unit PRBC. Hemoglobin now 9.4. however not much change in her breathing. I believe her shortness of breath is likely secondary to recent NSTEMI with reduced EF.
- No noted blood loss. heme test stool
- Patient reports chronic anemia followed by Heme Dr Pablo
Discussed with Dr. Victoria from hematology, give 1 unit PRBC and monitor. Hematology following
- Receives Procrit +/- IV iron as needed. Last about one month ago.
off eliquis
ferritin high
- Consent on chart.
Hyponatremia
Monitor
SIMI on CKD IV
- Stable. Renal function at / near known baseline.
- Follow for changes with IV diuresis.
- Baseline appears to be around 2.2.; cr now 2.4
DM-II
- Stable. Increase Lantus, start mealtime insulin
- Follow glucose and cover with SSI as needed.
- A1C 7.7
Mildly elevated LFTs
Monitor
Hypothyroidism
- Stable. Continue current T4 supplementation.
anxiety
xanax
DVT Prophylaxis:SCD's
Code Status: DNR
Patient was admitted on 06/13/2024, PT evaluation was ordered 06/14/2024. Patient has been evaluated by PT on 06/15 and recommended home health. Patient is however short of breath with ambulation which I think is likely secondary to NSTEMI with
worsening EF
Hospice met with patient and family 06/17. Cardiology also discussed with patient and plan now for conservative treatment for CAD. Lasix p.o. restarted
Anticipated Discharge: Today
Subjective/Interval History
-
Date of Service: June 18, 2024
Denies pain
Objective Data
-
Labs:
Laboratory Results
06/18/24
04:44
WBC 6.9
Hgb 9.4 L
Hct 28.2 L
Plt Count 240
Sodium 137
Potassium 4.2
Chloride 102
Carbon Dioxide 28
BUN 68 H
Creatinine 2.4 H
Glucose 86
Calcium 8.6
Total Bilirubin 0.7
AST 38 H
ALT 37 H
Alkaline Phosphatase 98
Vital Signs:
Vital Signs
Temp Pulse Resp BP Pulse Ox
97.5 F 58 16 90/33 95
06/18/24 11:05 06/18/24 08:00 06/18/24 11:05 06/18/24 07:09 06/18/24 11:05
--- NOTE | 2024-06-18 12:27 | W.DCSUMMARY ---
Discharge Summary
Discharge Data
Date of Admission: 06/13/24
Date of Discharge: 06/18/24
-
Pending Results: No
Hospital Course
88-year-old female with past medical history of paroxysmal atrial fibrillation, acute on chronic normocytic anemia, SIMI on CKD, diabetes mellitus type 2, hypothyroidism, anxiety, CAD came to the hospital with NSTEMI and acute on chronic congestive
heart failure exacerbation. Patient was initially started on IV Lasix however later her creatinine continued to get worse. However over time later her creatinine started to improve and she was started on p.o. Lasix prior to discharge. For her
NSTEMI initially she was started on IV heparin however her hemoglobin started to drift down so hematology was consulted. Patient was given blood on this hospitalization which improved her hemoglobin. Extensive discussion was done with cardiology
and patient and they decided to not pursue invasive intervention and to go with medical management for her NSTEMI. Patient also met with hospice however decided to follow-up with palliative care outpatient and to continue full medical treatment for
her CAD. Echocardiogram was done which showed reduced EF of 40%. Once patient symptoms continue to improve and it was determined that she did not wanted any invasive intervention, she was then discharged home with instructions to follow-up with
all her physicians outpatient.
Discharge Plan
-
Patient Disposition: Home with Home Care
Discharge Diagnosis/Procedures: NSTEMI
Acute on chronic congestive heart failure now with reduced ejection fraction
paroxysmal atrial fibrillation
SIMI on CKD
Acute on chronic normocytic anemia
Hyponatremia
Diet: Low Fat, 2 Gram Sodium, Diabetic, Carb Controlled and Restrict fluids to 64 oz
Activity: No strenuous activity
Driving Restrictions: As prior to admission
Bathing Restrictions: OK to Shower
Other Services: VN
Specialty Instructions: Weigh Daily- Call MD for wt gain/loss 3 lbs overnight/5 lbs in 1 week
Activity Restrictions/Additional Instructions:
Note to [facility] (if receiving home care through [facility]):
Initiate the [facility] Diuretic Protocol
Instructions: *PCP/Other [facility] Sander Heart Failure Instructions
Referrals:
[facility], Palliative Care [Other]
[facility] [Outside]
Primitivo Cedeno MD [Family Provider] - in less than 1 week
Ryder Seymour MD [Active] - 06/24/24 10:15 am (You have a cardiology follow up appointment. Please call with questions. )
Additional Discharge Medication Instructions: -Start taking Imdur ER (isosorbide mononitrate) 30 mg once a day
Prescriptions:
New
isosorbide mononitrate 30 mg Tablet Extended Release 24 Hr
30 mg PO DAILY Qty: 30 11RF
aspirin 81 mg Tablet,Chewable
81 mg PO DAILY Qty: 30 0RF
cyanocobalamin (vitamin B-12) [Vitamin B-12] 1,000 mcg Tablet
1,000 mcg PO DAILY Qty: 30 0RF
Continued
atorvastatin 80 MG tablet
80 mg PO HS
levothyroxine 125 MCG tablet
125 mcg PO DAILY
albuterol sulfate 1 PUFF HFA aerosol inhaler
2 puff inhalation R Q4HPRN PRN (Reason: sob)
melatonin 1 MG tablet
5 mg PO HSPRN PRN (Reason: insomnia)
pantoprazole [Protonix] 40 mg tablet,delayed release (DR/EC)
40 mg PO DAILY Qty: 90 5RF
Eliquis 2.5 mg tablet
2.5 mg PO BID
amiodarone 200 mg tablet
200 mg PO DAILY
metoprolol succinate 25 mg tablet extended release 24 hr
25 mg PO BID
calcitriol 0.25 mcg Capsule
0.25 mcg PO MUST ENTER TIMES
Rx Instructions:
Take every Thursday and
furosemide 20 mg tablet
40 mg PO DAILY
Procrit 40,000 unit/mL Solution
40,000 unit SC Q1-2M PRN (Reason: hemoglobin level)
Changed
insulin aspart U-100 [Novolog FlexPen U-100 Insulin] 100 unit/mL (3 mL) Insulin Pen
7 unit SC AC Qty: 5 0RF
Rx Instructions:
Up to 60 units daily
insulin glargine [Lantus Solostar U-100 Insulin] 300 UNITS/3 ML insulin pen
22 unit SC DAILY Qty: 0 0RF
Discharge Orders:
Discharge Patient (As Directed); Ordered 06/18/24
Ordered By: Ran Vivar
Care Plan Goals
Care Plan Goals:
Problem: Readiness for enhanced knowledge related to diagnosis and treatment plan
Goal: Understand your diagnosis and treatment plan needs, including medications if applicable.
Instructions: Know your diagnosis, underlying causes and treatment plan options, including medications if applicable. Consult with your health care team to learn about your diagnosis and treatment plan, including medications if applicable.
Discharge Date and Time
Print Language: KOREAN
[2024-06-18 13:20] LABS: Glucose - Point of Care 183 mg/dl (70-99)
[2024-06-18] MEDS: NOVOLOG FLEXPEN-LOW RESISTANCE 1 UNITS SC (13:21)
--- NOTE | 2024-06-18 14:57 | PTCARENOTE ---
D/c instructions reviewed with Pt and her daughter. Pt expressed understanding.
[2024-06-18 15:08] VITALS: BP 131/53
--- NOTE | 2024-06-20 11:17 | W.HF.CON ---
Heart Failure
- LV Function
Left ventricular function study result: LV Ejection fraction 36-40%
Ejection Fraction Percentage: 40
- ARNI
Patient already on ARNI: No
Heart Failure ARNI Contraindication: Acute Renal Failure
- ACEI/ARB
Patient already on ACEI/ARB: No
Heart Failure ACEI/ARB Contraindication: Acute Renal Failure
- Beta Dolores
Patient already on Evidence Based Beta Dolores: Yes
- Mineralocorticord Receptor Antagonist
Patient already on MRA: No
Heart Failure MRA Contraindication: Acute Renal Insufficiency
- SGLT-2 Inhibitor
Patient already on SGLT-2 Inhibitor: No
Heart Failure SGLT-2 Inhibitor Contraindication: eGFR < 25
- Afib Anticoagulation
Patient already on Anticoagulation for Afib: Yes
- NYHA CHF Classification
NYHA CHF Classification Level: Class III - Symptoms w/ min exertion, interferes w/ nml daily activity
- ACC/AHA Stage
ACC/AHA Stage: Stage C: Symptomatic Heart Failure
== END 2024-06-18 15:37 | disposition home health service (06) | DRG 280 ==
LOC: IVU 04:08
PROVIDERS: Internal Medicine Cardiovascular Disease; Physician Assistant; Physician Assistant Medical; ADMITTING PHYSICIAN Hospitalist; ATTENDING PHYSICIAN Internal Medicine; CONSULT PHYSICIAN Internal Medicine Hematology & Oncology; EMERGENCY PHYSICIAN Emergency Medicine; FAMILY PHYSICIAN Family Medicine; OTHER PHYSICIAN Internal Medicine Cardiovascular Disease
PROC: 30233N1 Transfusion of Nonautologous Red Blood Cells into Peripheral Vein, Percutaneous Approach (ICD-10-PCS; 2024-06-15)
DX: I21.4 Non-ST elevation (NSTEMI) myocardial infarction (principal); I50.23 Acute on chronic systolic (congestive) heart failure; J96.01 Acute respiratory failure with hypoxia; I13.0 Hypertensive heart and chronic kidney disease with heart failure and stage 1 through stage 4 chronic kidney disease, or unspecified chronic kidney disease; N18.4 Chronic kidney disease, stage 4 (severe); E87.1 Hypo-osmolality and hyponatremia; N17.9 Acute kidney failure, unspecified; I25.10 Atherosclerotic heart disease of native coronary artery without angina pectoris; E03.9 Hypothyroidism, unspecified; E11.22 Type 2 diabetes mellitus with diabetic chronic kidney disease; I44.0 Atrioventricular block, first degree; D63.1 Anemia in chronic kidney disease; E78.00 Pure hypercholesterolemia, unspecified; I25.5 Ischemic cardiomyopathy; I34.0 Nonrheumatic mitral (valve) insufficiency; I27.20 Pulmonary hypertension, unspecified; J45.909 Unspecified asthma, uncomplicated; F41.9 Anxiety disorder, unspecified; I48.0 Paroxysmal atrial fibrillation; H54.62 Unqualified visual loss, left eye, normal vision right eye; Z66 Do not resuscitate; Z60.2 Problems related to living alone; Z95.5 Presence of coronary angioplasty implant and graft; Z79.82 Long term (current) use of aspirin; Z87.891 Personal history of nicotine dependence; Z88.8 Allergy status to other drugs, medicaments and biological substances; Z79.4 Long term (current) use of insulin; Z79.01 Long term (current) use of anticoagulants
CPT/HCPCS: 93308; 71046; 80048; 80053; 80061; 82607; 82728; 82746; 82947; 82962; 83036; 83540; 83550; 83880; 84466; 84484; 85018; 85025; 85027; 86850; 86900; 86901; 86920; 93005; 93321; 93325; 94640; 96374; 97116; 97163; 97167; 97530; 99291; P9016